=== PATIENT | female | born 1975 | race Caucasian/White ===

== ENCOUNTER → 2018-10-12 | Outpatient (REF) | payer BC ==
[2018-10-13 12:53] LABS: BASO # 0.1 10^3/uL (0.0-0.2); BASO % 1.1 % (0.0-1.0); EOS # 0.2 10^3/uL (0.0-0.50); EOS % 2.6 % (0.0-3.0); HEMATOCRIT 40.3 % (36.0-47.0); HEMOGLOBIN 12.6 g/dl (12.0-15.5); LYMPH # 2.4 10^3/uL (1.5-4.5); LYMPH % 33.2 % (24.0-44.0); MEAN CORPUSCULAR HEMOGLOBIN 27.6 pg (27.0-33.0); MEAN CORPUSCULAR HGB CONC 31.3 g/dl (32.0-36.5); MEAN CORPUSCULAR VOLUME 88.4 fl (80.0-96.0); MONO # 0.7 10^3/uL (0.0-0.8); MONO % 10.1 % (0.0-5.0); NEUTROPHILS # 3.8 10^3/uL (1.8-7.7); NEUTROPHILS % 52.9 % (36.0-66.0); PLATELET COUNT, AUTOMATED 236 10^3/uL (150-450); RED BLOOD COUNT 4.56 10^6/uL (4.00-5.40); WHITE BLOOD COUNT 7.3 10^3/uL (4.0-10.0)
[2018-10-13 13:09] LABS: ALBUMIN 3.8 GM/DL (3.2-5.2); ALT/SGPT 26 U/L (12-78); BILIRUBIN,TOTAL 0.2 MG/DL (0.2-1.0); BLOOD UREA NITROGEN 15 MG/DL (7-18); CALCIUM LEVEL 8.6 MG/DL (8.5-10.1); CARBON DIOXIDE LEVEL 28 MEQ/L (21-32); CHLORIDE LEVEL 104 MEQ/L (98-107); CHOLESTEROL LEVEL 224 MG/DL (<200); CHOLESTEROL RISK RATIO 3.154 (<5); CREATININE FOR GFR 0.74 MG/DL (0.55-1.30); GLOMERULAR FILTRATION RATE > 60.0 (>58); GLUCOSE, FASTING 86 MG/DL (70-100); HDL CHOLESTEROL 71 MG/DL (>40); IRON (FE) 26 UG/DL (50-170); LDL CHOLESTEROL 115 MG/DL (<100); NON-HDL-C 153 MG/DL; POTASSIUM SERUM 3.9 MEQ/L (3.5-5.1); RHEUMATOID FACTOR QUANT < 10.0 IU/ML (<15.0); SODIUM LEVEL 139 MEQ/L (136-145); THYROID STIMULATING HORMONE 0.752 uIU/ML (0.358-3.740); TOTAL PROTEIN 7.2 GM/DL (6.4-8.2); TRIGLYCERIDES LEVEL 190 MG/DL (<150)
[2018-10-13 13:12] LABS: VITAMIN B12 LEVEL 404 PG/ML (247-911)
[2018-10-13 13:26] LABS: ERYTHROCYTE SEDIMENTATION RATE 12 mm/hr (0-20)
[2018-10-16 14:43] LABS: ANA (HEP2) Negative (.); VITAMIN D 1,25 DIHYDROXY 47.4 pg/mL (19.9-79.3)
== END ==
LOC: M SFHCCLAY 15:43
PROVIDERS: ATTEND Nurse Practitioner Family
DX: Z00.00 Encounter for general adult medical examination without abnormal findings (principal); F41.9 Anxiety disorder, unspecified; K21.9 Gastro-esophageal reflux disease without esophagitis; Z98.84 Bariatric surgery status; K91.2 Postsurgical malabsorption, not elsewhere classified; Z13.220 Encounter for screening for lipoid disorders; M25.50 Pain in unspecified joint

== ENCOUNTER → 2020-01-08 | Outpatient (CLI) | payer BC ==
--- NOTE | 2020-01-08 14:11 | REPMRS ---
Patient History The patient states she had a clinical breast exam in 01/2020. No known family history of cancer. No Hormone Replacement Therapy 3D TOMOSYNTHESIS WAS PERFORMED. [facility] lifetime risk for breast cancer is 9.5%. Geri arriola Digital Woman Screen Mammo: January 08, 2020 - Exam #: [id number] Bilateral CC and MLO view(s) were taken. Technologist: Kassandra Rivero, Technologist Prior study comparison: 2018, bilateral digital mammo screening bilat, performed at [facility]. FINDINGS: The breast tissue is extremely dense which could obscure a lesion on mammography. There has been no change in the appearance of the mammogram from the prior studies. There is a moderate amount of residual fibroglandular tissue which is fairly symmetric. There is no interval development of dominant mass, areas of architectural distortion, or clustered microcalcification typical of malignancy. No significant changes when compared with prior studies. Assessment: BI-RADS/ACR category 1 mammogram. Negative Mammogram. Recommendation Routine screening mammogram in 1 year (for women over age 40). This mammogram was interpreted with the aid of an FDA-approved computer-aided dectection system. Electronically Signed By: Dheeraj Gomez MD 01/08/20 [id number]
== END ==
LOC: M WHC 13:02
PROVIDERS: ATTEND Nurse Practitioner Women's Health
DX: Z12.31 Encounter for screening mammogram for malignant neoplasm of breast (principal)

== ENCOUNTER → 2020-01-08 | Outpatient (REF) | payer BC | LOC: M SFHCWAGY 13:30 | PROVIDERS: ATTEND Nurse Practitioner Women's Health | DX: Z12.4 Encounter for screening for malignant neoplasm of cervix (principal) | CPT/HCPCS: 87624; G0123 ==

== ENCOUNTER 2020-05-15 14:08 | Inpatient (IN) | payer BC ==
[~2020-05-15] VITALS: Ht 167.6 cm; Wt 102.7 kg
--- OUTSIDE RECORDS SUMMARY | 2020-05-15 14:17 | CCD ---
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 ALLERGIES Allergen (clinical drug ingredient) Drug/Non Drug Allergy do cumented on EMR Reaction Allergy Type Onset Date Status IV Reglan SOB, Tachy Non Drug Allergy Active ENCOUNTERS from 1975 to 2020-04-23 Encounter Location Date Provider Diagnosis [facility] [address] [place] [id number] Apr Rose Baron IMMUNIZATIONS Vaccine Route Administration Date Status TDAP 0.5mL (Boostrix) IM Intramuscular Mar 15, 2017 Administe red Influenza (6mo & up) Fluzone Unknown Feb 07, 2017 Adm inistered Influenza (6mo & up) Fluzone Unknown Mar 01, 2016 Adm inistered SOCIAL HISTORY Tobacco Use: Social History Observation Description Date Details (start date - stop date) Never Smoker Sex Assigned At : Social History Observation Description Sex Assigned At Unknown Language: Question Answer Notes Languages spoken: Latvian Pentecostalism: Question Answer Notes Pentecostalism No uatsdin beliefs that would impact health care. Sexual Hx: Question Answer Notes Had sex in the last 12 months (vaginal, oral, or anal)? Yes Have you ever had an STD? No Alcohol Screening: Question Answer Notes Did you have a drink containing alcohol in the past year? Ye s Points 5 Interpretation Positive How often did you have six or more drinks on one occas ion in the past year? Monthly (2 points) How many drinks did you have on a typica l day when you were drinking in the past year? 5 or 6 (2 points) How often did you have a drink containing alcohol in t he past year? Monthly or less (1 point) BMI Care Goal Follow-Up Question Answer Notes Above Normal BMI Follow-Up Lifestyle education regarding t Tobacco Use: Question Answer Notes Are you a: never smoker REASON FOR REFERRAL No Information VITAL SIGNS No information MEDICATIONS Medication SIG (Take, Route, Frequency, Duration) Notes Start Da te End Date Status Flintstones Plus Iron 2 tabs Orally Once a day Not-Taking Clonazepam 0.5 MG 1 tablet as needed Orally bid for 5 day(s) Apr, Active Celexa 10 MG 1 tab Orally Once a day for 90 days Active Flonase Allergy Relief 50 MCG/ACT 1 spray in each nost ril Nasally Once a day as needed Not-Taking Metoprolol Tartrate 25 MG 1 tablet with food Orally Twice a day for 30 day(s) Active PROCEDURES No Information RESULTS No Results REASON FOR VISIT No Information MEDICAL (GENERAL) HISTORY Type Description Date Medical History Hypoglycemia Medical History Seizure related to hypoglycemia Medical History Obesity Medical History Nasal fracture /right orbital fracture a fter seizure Medical History Anxiety Medical History Lyme Disease- tx with Doxycycline x 2 we eks Surgical History Left hip pinning Slipped epi physis- pin removed 2 years later 1988 Surgical History D & C - non-viable fetus Surgical History gastric bypass 2009 Surgical History Hysteroscopy 09/2016 Hospitalization History after seizure/nasal fracture 2010 Hospitalization History childbirth Hospitalization History hip pinning Goals Section No Information Health Concerns No Information MEDICAL EQUIPMENT No Information MENTAL STATUS No Information FUNCTIONAL STATUS No Information ASSESSMENTS No Information PLAN OF TREATMENT Medication Medication Name Sig Start Date Stop Date Clonazepam 0.5 MG 1 tablet as needed Orally bid for 5 day(s) Apr, Next Appt Details Provider Name:Rose Baron, 05-13 03:30:00 PM, [address] [place], [address], Insurance Providers Payer Name Payer Address Payer Phone Insured Name Patient Relati onship to Insured Coverage Start Date Coverage End Date [facility] [place] [address] [address] [place] [address] SUSAN RENDON [id number]
--- OUTSIDE RECORDS SUMMARY | 2020-05-15 14:17 | CCD ---
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 ALLERGIES Allergen (clinical drug ingredient) Drug/Non Drug Allergy do cumented on EMR Reaction Allergy Type Onset Date Status IV Reglan SOB, Tachy Non Drug Allergy Active ENCOUNTERS from 1975 to 2020-04-28 Encounter Location Date Provider Diagnosis [facility] [address] [place] [id number] Apr Rose Baron Tachycardia R00.0 and HTN (hypertension) , benign I10 IMMUNIZATIONS Vaccine Route Administration Date Status TDAP [...] Unknown Language: Question Answer Notes Languages spoken: Kazakh Faith: Question Answer Notes Faith No mandaen beliefs that would impact health care. Sexual [...] REASON FOR REFERRAL No Information VITAL SIGNS Weight 231 lbs Apr, Height 65.5 in Apr, BMI 37.85 kg/m2 Apr, Heart Rate 66 /min Apr, Respiratory Rate 16 /min Apr, Temperature 98.2 degrees Fahrenheit Apr, Oximetry 99 Apr, Blood pressure systolic 129 mm Hg Apr, Blood pressure diastolic 83 mm Hg Apr, MEDICATIONS Medication SIG (Take, Route, Frequency, Duration) [...] 30 day(s) Active PROCEDURES No Information RESULTS Component Value Reference Range Carotid Ultrasound Reviewed date:04/24/2020 10:41:48 Interpretation: Performing Lab:[facility], [place] [address] REASON FOR VISIT rh obs f/u MEDICAL (GENERAL) HISTORY Type Description Date Medical [...] Hysteroscopy 09/2016 Hospitalization History after seizure/nasal fracture 2009 Hospitalization History childbirth Hospitalization History hip pinning Goals Section No Information Health Concerns No Information MEDICAL EQUIPMENT No Information MENTAL STATUS No Information FUNCTIONAL STATUS No Information ASSESSMENTS Encounter Date Diagnosis Assessment Notes Treatment Notes Treatm ent Clinical Notes Apr, Tachycardia (ICD-10 - R00.0) Reviewed limiting caffeine, salt, sugars in diet. Will eval holter monitor, carotid US. Apr, HTN (hypertension), benign (ICD-10 - I10) stable BP. Continue with Metoprolol 12.5 mg po bid. PLAN OF TREATMENT Medication Medication Name Sig Start Date Stop Date Clonazepam 0.5 MG 1 tablet as needed Orally bid for 5 day(s) Apr, Treatment Notes Assessment Notes Clinical Notes Tachycardia Reviewed limiting ca ffeine, salt, sugars in diet. Will eval holter monitor, carotid US. HTN (hypertension), benign stable BP. Co ntinue with Metoprolol 12.5 mg po bid. Treatment Notes Test Name Order Date holter monitor 2020-04-28 Next Appt Details 2-4 weeks Reason: Provider Name:Rose Baron, 05-13 03:30:00 PM, [address] [place], [phone], Insurance Providers Payer Name Payer Address Payer Phone Insured Name Patient Relati onship to Insured Coverage Start Date Coverage End Date [facility] [address] [facility] [id number] SUSAN RENDON [id number]
--- OUTSIDE RECORDS SUMMARY | 2020-05-15 14:17 | CCD | Continuity of Care Document ---
Author Author [facility] Address [address] [place] [address] Phone Care Team Providers Care Spectroscopist Name Role Phone SOUMYA ACOSTA PCP Allergies, Adverse Reactions, Alerts No allergy information available. Medications No medication information available. Problems No problem information available. Procedures Procedure Date Performed Status CHEST 1 VIEW April 19, 2020 completed CAROTID DOPPLER BILATERAL April 24, 2020 completed ABD/PEL WITH ORAL AND IV May 08, 2020 completed Relevant Diagnostic Tests and/or Laboratory Data Laboratory Results Test Date/Time Result Interpretation Reference Range Result Co mment Performing Site White Blood Count May 08, 2020 11:50am 11.7 4.0-10 .0 [facility] Main Lab, [address] [place] [address] Red Blood Count May 08, 2020 11:50am 4.08 4.00-5.5 0 [facility] Main Lab, 4 [facility] [address] Hemoglobin May 08, 2020 11:50am 11.8 12.0-16.0 [facility] Main Lab, 4 [facility] [address] Hematocrit May 08, 2020 11:50am 35.7 36.0-48.8 [facility], [address] [place] [address] Mean Corpuscular Volume May 08, 2020 11:50am 87.5 80-96 [facility] Main Lab, 4 [facility] [address] Mean Corpuscular Hemoglobin May 08, 2020 11:50am 28.9 27.0-31.0 [facility] Main Lab, 4 [facility] [address] Mean Corpuscular Hgb Concent Diff May 08, 2020 11:50am 33.1 32.0-36.0 [facility] Main Lab, 4 [facility] [address] Red Cell Distribution Width May 08, 2020 11:50am 11.6 10.0-14.5 [facility] Main Lab, [address] [place] [address] Platelet Count May 08, 2020 11:50am 276 172-450 [facility] Main Lab, 4 [facility] [address] Mean Platelet Volume May 08, 2020 11:50am 9.7 9.0 -13.0 [facility] Main Lab, 4 [facility] [address] Granulocytes % (Auto) May 08, 2020 11:50am 79.6 50 -80.0 [facility] Main Lab, [address] [place] [address] Immature Granulocytes % May 08, 2020 11:50am 0.5 0.0-0.2 [facility] Main Lab, 4 [facility] [address] Lymphocytes % May 08, 2020 11:50am 12.4 25.0-50.0 [facility] Main Lab, 4 [facility] [address] Monocytes % May 08, 2020 11:50am 6.9 2.0-10.0 [facility] Main Lab, 4 [facility] [address] Eosinophils % May 08, 2020 11:50am 0.4 0-5.0 [facility] Main Lab, 4 [facility] [address] Basophils % May 08, 2020 11:50am 0.2 0.0-2.0 [facility] Main Lab, 4 [facility] [address] Granulocytes # May 08, 2020 11:50am 9.3 2.0-8.00 [facility] Main Lab, 4 [facility] [address] Immature Granulocytes # May 08, 2020 11:50am 0.1 0.0-0.2 [facility] Main Lab, 4 [facility] [address] Lymphocytes # May 08, 2020 11:50am 1.5 1.0-5.0 [facility] Main Lab, 4 [facility] [address] Monocytes # May 08, 2020 11:50am 0.8 0.10-1.20 [facility] Main [facility], 4 [facility] [address] Eosinophils # May 08, 2020 11:50am 0.1 0.0-0.5 [facility] Main Lab, 4 [facility] [address] Basophils # May 08, 2020 11:50am 0.0 0.0-0.2 [facility] Main [facility], 4 [facility] [address] D-Dimer April 19, 2020 4:26pm < 0.19 0.19-0.60 [facility] Main Lab, 4 [facility] [address] Urine Color May 08, 2020 12:48pm [facility] Main Lab, 4 [facility] [address] Urine Appearance May 08, 2020 12:48pm CLEAR [facility] Main Lab, 4 [facility] [address] Urine Glucose May 08, 2020 12:48pm NEGATIVE NEGATIVE [facility] Main Lab, 4 [facility] [address] Urine Bilirubin May 08, 2020 12:48pm NEGATIVE NEGATIVE [facility] Main Lab, 4 [facility] [address] Urine Ketones May 08, 2020 12:48pm NEGATIVE NEGATIVE [facility] Main Lab, 4 [facility] [address] Specific [place] May 08, 2020 12:48pm 1.015 1.001-1 .035 [facility] Main Lab, 4 [facility] [address] Urine Blood May 08, 2020 12:48pm NEGATIVE NEGATIVE [facility] Main Lab, 4 [facility] [address] Urine pH May 08, 2020 12:48pm 7.0 5.0-9.0 [facility] Main Lab, 4 [facility] [address] Urine Protein May 08, 2020 12:48pm NEGATIVE NEGATIVE [facility] Main Lab, 4 [facility] [address] Urine Urobilinogen May 08, 2020 12:48pm NORMAL(0.2-1) 0 -1 [facility] Main Lab, 4 [facility] [address] Urine Nitrite May 08, 2020 12:48pm NEGATIVE NEGATIVE [facility] Main Lab, 4 [facility] [address] Urine Leukocyte Esterase May 08, 2020 12:48pm NEGATIVE NEGATIVE [facility] Main Lab, 4 [facility] [address]132 Glucose Level May 08, 2020 11:50am 92 74-106 [facility] Main Lab, 4 [facility] [address]245 Lactic Acid Level May 08, 2020 11:50am 1.0 0.4-2. 0 [facility] Main Lab, 4 [facility] [address] Blood Urea Nitrogen May 08, 2020 11:50am 7 7-18 [facility] Main Lab, 4 [facility] [address] Creatinine May 08, 2020 11:50am 0.82 0.6-1.0 [facility] Main Lab, 4 [facility] [address] Sodium Level May 08, 2020 11:50am 138 136-145 [facility] Main Lab, 4 [facility] [address] Potassium Level May 08, 2020 11:50am 3.6 3.5-5.1 [facility] Main Lab, 4 [facility] [address] Chloride Level May 08, 2020 11:50am 98 98-107 [facility] Main Lab, 4 [facility] [address] Carbon Dioxide Level May 08, 2020 11:50am 30 21- 32 [facility] Main Lab, 4 [facility] [address] Calcium Level May 08, 2020 11:50am 9.0 8.5-10.1 [facility], [address] [place] [address] Anion Gap May 08, 2020 11:50am 10.0 5-12 [facility] Main Lab, 4 [facility] [address] Estimated GFR (MDRD) May 08, 2020 11:50am 75 GFR IS CALCULATED IN mL/min/1.73m2 NORMAL FUNCTION: >90MILDLY DECREASED: 60-89MILDY TO MODERATELY DECREASED: 45-59 MODERATELY TO SEVERELY DECREASED: 30-44SEVERELY DECREASED: 15-29RENAL FAILURE: <15 [facility] Main Lab, 4 [facility] [address] Aspartate Amino Transf (AST/SGOT) May 08, 2020 11:50am 17 15-37 [facility] Main Lab, 4 [facility] [address] Alanine Aminotransferase (ALT/SGPT) May 08, 2020 11:50am 24 12-78 [facility] Lab, 4 [facility] [address] Alkaline Phosphatase May 08, 2020 11:50am 67 46- 116 [facility] Main Lab, 4 [facility] [address]187 Total Bilirubin May 08, 2020 11:50am 0.4 0.2-1.0 [facility] Main Lab, 4 [facility] [address] Total Protein May 08, 2020 11:50am 7.4 6.4-8.2 [facility] Main Lab, 4 [facility] 62786 Albumin May 08, 2020 11:50am 2.8 3.4-5.0 [facility] Main Lab, 4 [facility] 68388 Lipase May 08, 2020 11:50am 78 73-393 [facility] Main Lab, 4 [facility] [address]171 Troponin I April 20, 2020 6:45am < 0.017 0.0-0.056 [facility] Main Lab, 4 [facility] [address] Thyroid Stimulating Hormone (TSH) April 19, 2020 4:26pm 2.236 0.36-3.74 [facility] Main Lab, 4 [facility] [address] Magnesium Level April 19, 2020 4:26pm 1.9 1.8-2.4 [facility] Main Lab, 4 [facility] [address] Coronavirus (COVID-19)(PCR) April 19, 2020 4:40pm NEGATIVE NEGATIVE Negative results should be treated as presumptive and, ifinconsistent with clinical signs and symptoms or necessaryfor patient management, should be tested with differentauthorized or cleared molecular tests.Negative results do not preclude SARS-CoV-2 infection andshould not be used as the sole basis for patient managementdecisions.This is a rapid molecular in vitro diagnostic test utilizingan isothermal nucleic acid amplification technology intendedfor the qualitative detection of nucleic acid from the SARS-CoV-2 viral RNA in direct nasal, nasopharyngeal orthroat swabs from individuals who are suspected of COVID-19.Results are for the indentification of SARS-CoV-2 RNA. [id number] RNA is generally detectable in respiratorysamples during the actue phase of infection. [facility], [address] [facility] [address] Urine HCG, Qualitative May 08, 2020 12:48pm NEGATIVE N EGATIVE [facility] Main [facility], [address] [facility] [address]874 Stool Campylobacter PCR March 03, 2020 6:11am Not Detected Not [facility] Lab, [address] [place] [address] Clostridium difficile (PCR)(LAB) March 03, 2020 6:11am Not Detect ed Not Due to the high asymptomatic carriage rates, especiallyin young children, the clinical relevance of the detectionof toxigenic C. difficile from stool should be consideredin the context of other clinical findings, patient age, andrisk factores which include hospitalization and antibioticexposure. [facility], [address] [facility] [address] Stool Plesiomonas shigelloides PCR March 03, 2020 6:11am DETECTED Not [facility], [address] [place] [address] Salmonella (PCR) March 03, 2020 6:11am Not Detected Not [facility], 4 [facility] [address] Stool Vibrio (PCR) March 03, 2020 6:11am Not Detected No t [facility], 4 [facility] [address] Stool Vibrio cholera (PCR) March 03, 2020 6:11am Not Detected Not [facility], [address] [address] Stool Yersinia enterocolitica (PCR) March 03, 2020 6:11am Not D etected Not [facility] Lab, [address] [place] [address] Stool Enteroaggregative E coli PCR March 03, 2020 6:11am Not Dete cted Not [facility], 4 [facility] [address] Stool Enteropathogenic E. coli (PCR March 03, 2020 6:11am Not D etected Not [facility] Lab, [address] [place] [address] Stool Enterotoxigenic Ecoli PCR March 03, 2020 6:11am Not Detected Not [facility] Lab, [address] [facility] [address] Stool Shiga-like Toxin 1 (PCR) March 03, 2020 6:11am Not Detected Not [facility] Lab, [address] [place] [address] Stool E coli O157 PCR March 03, 2020 6:11am Not Detected Not [facility] Lab, [address] [place] [address] Stool Shigella/EIEC (PCR) March 03, 2020 6:11am Not Detected Not [facility], [address] [place] [address] Stool Cryptosporidium PCR March 03, 2020 6:11am Not Detected Not [facility] Lab, [address] [place] [address] Stool Cyclospora cayetanensis (PCR) March 03, 2020 6:11am Not D etected Not [facility] Main Lab, 4 [facility] [address] Stool Entamoeba histolytica (PCR) March 03, 2020 6:11am Not Detec perla Not [facility] Main Lab, [address] [place] [address] Stool Giardia Lamblia PCR March 03, 2020 6:11am Not Detected Not [facility] Lab, [address] [place] [address] Stool Adenovirus F 40/41 (PCR) March 03, 2020 6:11am Not Detected Not [facility] Lab, [address] [place] [address] Stool Astrovirus (PCR) March 03, 2020 6:11am Not Detected Not [facility] Lab, [address] [place] [address] Stool Norovirus GI/GII PCR March 03, 2020 6:11am Not Detected Not [facility] Lab, [address] [place] [address] Stool Rotavirus A PCR March 03, 2020 6:11am Not Detected Not [facility] Lab, [address] [place] [address] Staphylococcus saprophyticus (PCR) March 03, 2020 6:11am Not Dete cted Not The Above results have been determined by using the [employer] system.FilmArray is an automated in vitro diagnostic system thatutilizes nested multiplex Polymerase Chain Reaction (PCR)and high-resolution melting analysis to detect and identifymultiple nucleic acid targets from clinical specimens. [facility] Lab, [address] [place] [address] Adenovirus (PCR) May 08, 2020 1:37pm Not Detected Not [facility], [address] [place] [address] Coronavirus Type 229E (PCR) May 08, 2020 1:37pm Not Detected Not [facility] Main Lab, 4 [facility] [address] Coronavirus Type HKU1 (PCR) May 08, 2020 1:37pm Not Detected Not [facility] Main Lab, [address] [facility] [address] Coronavirus Type NL63 (PCR) May 08, 2020 1:37pm Not Detected Not [facility] Main Lab, 4 [facility] [address] Coronavirus Type OC43 (PCR) May 08, 2020 1:37pm Not Detected Not [facility] Lab, [address] [facility] [address] Coronavirus (COVID-19)(PCR) May 08, 2020 1:37pm Not Detected Not [facility] Main Lab, [address] [facility] [address] Human Metapneumovirus (PCR) May 08, 2020 1:37pm Not Detected Not [facility] Main Lab, 4 [facility] [address] Rhinovirus (PCR) May 08, 2020 1:37pm Not Detected Not [facility] Lab, 4 [facility] [address] Influenza Type A (RT-PCR) May 08, 2020 1:37pm Not Detected Not [facility] Lab, 4 [facility] [address] Influenza Type B (RT-PCR) May 08, 2020 1:37pm Not Detected Not [facility] Lab, [address] [facility] [address] Parainfluenza Type 1 (PCR) May 08, 2020 1:37pm Not Detected Not [facility] Lab, 4 [facility] [address] Parainfluenza Type 2 (PCR) May 08, 2020 1:37pm Not Detected Not [facility] Lab, 4 [facility] [address] Parainfluenza Type 3 (PCR) May 08, 2020 1:37pm Not Detected Not [facility] Lab, 4 [facility] [address] Parainfluenza Type 4 (PCR) May 08, 2020 1:37pm Not Detected Not [facility] Main Lab, 4 [facility] [address] Respiratory Syncytial Virus (PCR) May 08, 2020 1:37pm Not Detecte d Not [facility] Lab, [address] [facility] [address] Bordetella parapertussis DNA (PCR) May 08, 2020 1:37pm Not Detec perla Not [facility], [address] [place] [address] Bordetella pertussis DNA (PCR) May 08, 2020 1:37pm Not Detected Not [facility], [address] [place] [address] Chlamydia pneumoniae May 08, 2020 1:37pm Not Detected N ot [facility], [address] [place] [address] Mycoplasma pneumoniae May 08, 2020 1:37pm Not Detected Not The Above results have been determined by using the [employer] FilmArray system.FilmArray is an automated in vitro diagnostic system thatutilizes nested multiplex Polymerase Chain Reaction (PCR)and high-resolution melting analysis to detect and identifymultiple nucleic acid targets from clinical specimens. [facility], [address] [place] [address] Blood Culture (LAB) May 08, 2020 12:03pm SENT TO [facility], [address] [place] [address] Diagnostic Imaging Reports Report Dictated Date/Time Dictated By Status PS360 TEMPLATE April 19, 2020 5:36pm CORTEZ MCCULLOUGH eted Patient Name: SUSAN RENDON Unit#: [id number] Rad#: [id number] : 75 Status: PRE ER Ordering MD: PRO ROMERO Room/Bed Sex: F Sinter Machine Operator: César Mtz Date: 04/19/20 Report #: [id number] Signed - CHEST 1 VIEW ORIGINAL REPORT DATE OF EXAMINATION: 04/19/2020 21:44 EST CHEST 1 VIEW HISTORY: Chest pain and tachycardia TECHNIQUE: Single frontal radiograph of chest COMPARISON: None. FINDINGS: No evidence of focal consolidation, pneumothorax or large pleural effusion. Lungs are clear. Mediastinal structures are unremarkable. No aggressive osseous lesions. IMPRESSION: No focal consolidation. Electronically signed in PS360 by: Cortez Mccullough M.D. 04/19/2020 22:36 EST PS360 TEMPLATE April 24, 2020 4:20am ALDAIR NELSON Patient Name: SUSAN RENDON Unit#: [id number] Rad#: [id number] : 75 Status: NIKIA Soto MD: SOUMYA ACOSTA Room/Bed Sex: Everett MonteroSinter Machine Operator: Alvin Atwood Date: 04/24/20 Report #: [id number] Signed - CAROTID DOPPLER BILATERAL ORIGINAL REPORT DATE OF EXAMINATION: 04/24/2020 8:03 EST CAROTID DOPPLER BILATERAL HISTORY: Hypertension. Carotid stenosis. Duplex scan was performed using B-mode/ferrara scale imaging and Doppler spectral analysis and color flow. There is no significant plaque formation involving either carotid system. The vertebral arteries reveal normal flow. There is no stenosis or occlusion. IMPRESSION: Normal It should be emphasized that calcified plaque reduces the diagnostic accuracy of this study. Electronically signed in PS360 by: Aldair Nelson M.D. 04/24/2020 9:21 EST Health Concerns No known health concerns documented Chief Complaint and Reason for Visit Reason for Visit ABDOMINAL PAIN Encounters Encounter Location(s) Arrival/Admit Date Discharge/Depart Date Provider(s) Departed Emergency [facility] May 08, 2020 11:28am May 08, 2020 4:57pm SHERRELL DENSON Registered [facility] April 24, 2020 3:19am SOUMYA ACOSTA Discharged Inpatient [facility] April 19, 2020 4:1 5pm April 20, 2020 9:50am PRO ROMERO Registered Clinical [facility] March 03, 2020 6:28am KELLY COLORADO Registered Physician/Provider Office Visit [facility] March 03, 2020 5:30am KELLY ORNELAS Assessments No Assessments Information Available Functional Status No Functional Status information available Goals No Goals Information Available Immunizations No Immunization Information Available Mental Status No Mental Status Information Available Medical Equipment No Medical Equipment Information available Insurance Providers Guarantor SUSAN RENDON Address [address] [address] Contact Info. Home Phone: Payer Policy Id Coverage Id Subscriber's Name Subscriber Id Effect laurie Date Expiration Date BC[facility] OF [facility] [id number] GEORGE RENDON [facility] 2009 Social History Assigned Sex Female Vital Signs No vital signs result information available.
--- OUTSIDE RECORDS SUMMARY | 2020-05-15 14:17 | CCD | Continuity of Care Document ---
Author Author [facility] Address [address] [place] [address] Phone Care Team Providers Care Activity Therapy Teacher Name Role Phone SOUMYA ACOSTA PCP Allergies, Adverse Reactions, Alerts No allergy information available. Medications No medication information available. Problems No problem information available. Procedures Procedure Date Performed Status CHEST 1 VIEW April 19, 2020 completed Relevant Diagnostic Tests and/or Laboratory Data Laboratory Results Test Date/Time Result Interpretation Reference Range Result Co mment Performing Site White Blood Count April 20, 2020 12:30am 6.1 4.0- 10.0 [facility], [address] [place] [address] Red Blood Count April 20, 2020 12:30am 4.35 4.00-[address] [facility], [facility] [address] Hemoglobin April 20, 2020 12:30am 12.8 12.0-16.0 [facility], [facility] [address] Hematocrit April 20, 2020 12:30am 38.2 36.0-48.8 [facility], [facility] [address] Mean Corpuscular Volume April 20, 2020 12:30am 87.8 80-96 [facility], [facility] [address]367 Mean Corpuscular Hemoglobin April 20, 2020 12:30am 29.4 27.0-31.0 [facility], [facility] [address] Mean Corpuscular Hgb Concent Diff April 20, 2020 12:30am 33.5 32.0-36.0 [facility], [facility] [address]353 Red Cell Distribution Width April 20, 2020 12:30am 11.7 10.0-14.5 [facility], [facility] [address]26 Platelet Count April 20, 2020 12:30am 215 172-450 [facility], [facility] [address]94[address] Mean Platelet Volume April 20, 2020 12:30am 10.5 9 .0-13.0 [facility], [facility] [address] Granulocytes % (Auto) April 20, 2020 12:30am 57.6 50-80.0 [facility], [facility] [address]83 Immature Granulocytes % April 20, 2020 12:30am 0.2 0.0-0.2 [facility], [facility] 65015 Lymphocytes % April 20, 2020 12:30am 30.1 25.0-50. 0 [facility], [facility] [address]98 Monocytes % April 20, 2020 12:30am 10.7 2.0-10.0 [facility], [facility] [address] Eosinophils % April 20, 2020 12:30am 1.1 0-5.0 [facility], [facility] 26488 Basophils % April 20, 2020 12:30am 0.3 0.0-2.0 [facility], 4 [facility] [address]387 Granulocytes # April 20, 2020 12:30am 3.5 2.0-8.[address] [facility], [facility] [address] Immature Granulocytes # April 20, 2020 12:30am 0.0 0.0-0.2 [facility], 4 [facility] [address] Lymphocytes # April 20, 2020 12:30am 1.9 1.0-5.0 [facility], [facility] [address] Monocytes # April 20, 2020 12:30am 0.7 0.10-1.20 [facility], [facility] [address]196 Eosinophils # April 20, 2020 12:30am 0.1 0.0-0.5 [facility], [facility] [address]108 Basophils # April 20, 2020 12:30am 0.0 0.0-0.2 [facility], [facility] [address] D-Dimer April 19, 2020 4:26pm < 0.19 0.19-0.60 [facility], [facility] [address]403 Urine Color April 19, 2020 4:40pm YELLOW [facility], [facility] 34163 Urine Appearance April 19, 2020 4:40pm CLEAR [facility], [facility] [address] Urine Glucose April 19, 2020 4:40pm NEGATIVE NEGATIVE [facility], [facility] [address]1973 Urine Bilirubin April 19, 2020 4:40pm NEGATIVE NEGATIV E [facility], [facility] 98602 Urine Ketones April 19, 2020 4:40pm NEGATIVE NEGATIVE [facility], [facility] [address]100 Specific [place] April 19, 2020 4:40pm 1.015 1.001- 1.035 [facility], [facility] [address]23[address] Urine Blood April 19, 2020 4:40pm NEGATIVE NEGATIVE [facility], [facility] 47352 Urine pH April 19, 2020 4:40pm 7.0 5.0-9.0 [facility], [facility] [address]12[address] Urine Protein April 19, 2020 4:40pm NEGATIVE NEGATIVE [facility], [facility] [address]40 Urine Urobilinogen April 19, 2020 4:40pm 0.2 0-1 [facility], [facility] 58797 Urine Nitrite April 19, 2020 4:40pm NEGATIVE NEGATIVE [facility], [facility] 28442 Urine Leukocyte Esterase April 19, 2020 4:40pm NEGATIVE NEGATIVE [facility], [facility] [address]7588 Glucose Level April 20, 2020 12:30am 105 74-106 [facility], [facility] [address]379 Blood Urea Nitrogen April 20, 2020 12:30am 10 7- 18 [facility], [facility] [address] Creatinine April 20, 2020 12:30am 0.64 0.6-1.0 [facility], [facility] [address] Sodium Level April 20, 2020 12:30am 143 136-145 [facility], [facility] [address] Potassium Level April 20, 2020 12:30am 4.1 3.5-5. 1 [facility], [facility] [address] Chloride Level April 20, 2020 12:30am 105 98-107 [facility], [facility] [address]12 Carbon Dioxide Level April 20, 2020 12:30am 28 2 1-32 [facility], [facility] 86787 Calcium Level April 20, 2020 12:30am 9.0 8.5-10.1 [facility], [facility] 15648 Anion Gap April 20, 2020 12:30am 10.0 5-12 [facility], [facility] [address] Estimated GFR (MDRD) April 20, 2020 12:30am >90 GFR IS CALCULATED IN mL/min/1.73m2 NORMAL FUNCTION: >90MILDLY DECREASED: 60-89MILDY TO MODERATELY DECREASED: 45-59 MODERATELY TO SEVERELY DECREASED: 30-44SEVERELY DECREASED: 15-29RENAL FAILURE: <15 [facility], [facility] [address] Aspartate Amino Transf (AST/SGOT) April 19, 2020 4:26pm 24 15-37 [facility], [facility] [address]05 Alanine Aminotransferase (ALT/SGPT) April 19, 2020 4:26pm 27 12-78 [facility], [facility] [address] Alkaline Phosphatase April 19, 2020 4:26pm 79 46 -116 [facility], [facility] 631[address] Total Bilirubin April 19, 2020 4:26pm 0.2 0.2-1.0 [facility], [facility] [address]45[address] Total Protein April 19, 2020 4:26pm 7.5 6.4-8.2 [facility], [facility] [address] Albumin April 19, 2020 4:26pm 4.0 3.4-5.0 [facility], [facility] [address]64 Troponin I April 20, 2020 6:45am < 0.017 0.0-0.056 [facility], [facility] [address]018 Thyroid Stimulating Hormone (TSH) April 19, 2020 4:26pm 2.236 0.36-3.74 [facility], [facility] [address] Magnesium Level April 19, 2020 4:26pm 1.9 1.8-2.4 [facility], [facility] [address] Coronavirus (COVID-19)(PCR) April 19, 2020 4:40pm NEGATIVE [...] are for the indentification of SARS-CoV-2 RNA. NrvSXJL-CbP-4 RNA is generally detectable in respiratorysamples during the actue phase of infection. [facility], [facility] [address] Stool Campylobacter PCR March 03, 2020 6:11am Not Detected Not [facility], [facility] [address] Clostridium difficile (PCR)(LAB) March 03, 2020 6:11am Not Detect ed Not Due to the high asymptomatic carriage rates, especiallyin young children, the clinical relevance of the detectionof toxigenic C. difficile from stool should be consideredin the context of other clinical findings, patient age, andrisk factores which include hospitalization and antibioticexposure. [facility], [facility] [address] Stool Plesiomonas shigelloides PCR March 03, 2020 6:11am DETECTED Not [facility], [address] [place] [address] Salmonella (PCR) March 03, 2020 6:11am Not Detected Not [facility], [address] [place] [address] Stool Vibrio (PCR) March 03, 2020 6:11am Not Detected No t [facility], [address] [place] [address] Stool Vibrio cholera (PCR) March 03, 2020 6:11am Not Detected Not [facility], [address] [place] [address] Stool Yersinia enterocolitica (PCR) March 03, 2020 6:11am Not D etected Not [facility], [address] [place] [address] Stool Enteroaggregative E coli PCR March 03, 2020 6:11am Not Dete cted Not [facility], [facility] [address] Stool Enteropathogenic E. coli (PCR March 03, 2020 6:11am Not D etected Not [facility], [address] [place] [address] Stool Enterotoxigenic Ecoli PCR March 03, 2020 6:11am Not Detected Not [facility], [address] [place] [address] Stool Shiga-like Toxin 1 (PCR) March 03, 2020 6:11am Not Detected Not [facility], [address] [place] [address] Stool E coli O157 PCR March 03, 2020 6:11am Not Detected Not [facility], [address] [place] [address] Stool Shigella/EIEC (PCR) March 03, 2020 6:11am Not Detected Not [facility], [address] [place] [address] Stool Cryptosporidium PCR March 03, 2020 6:11am Not Detected Not [facility], [facility] [address] Stool Cyclospora cayetanensis (PCR) March 03, 2020 6:11am Not D etected Not [facility], [address] [place] [address] Stool Entamoeba histolytica (PCR) March 03, 2020 6:11am Not Detec perla Not [facility], [address] [place] [address] Stool Giardia Lamblia PCR March 03, 2020 6:11am Not Detected Not [facility], [address] [place] [address] Stool Adenovirus F 40/41 (PCR) March 03, 2020 6:11am Not Detected Not [facility], [address] [place] [address] Stool Astrovirus (PCR) March 03, 2020 6:11am Not Detected Not [facility], [address] [place] [address] Stool Norovirus GI/GII PCR March 03, 2020 6:11am Not Detected Not [facility], [address] [place] [address] Stool Rotavirus A PCR March 03, 2020 6:11am Not Detected Not [facility], [address] [place] [address] Staphylococcus saprophyticus (PCR) March 03, 2020 6:11am Not Dete cted Not The Above results have been determined by using the [employer] system.[employer] is an automated in vitro diagnostic system thatutilizes nested multiplex Polymerase Chain Reaction (PCR)and high-resolution melting analysis to detect and identifymultiple nucleic acid targets from clinical specimens. [facility], [address] [place] [address] Health Concerns No known health concerns documented Chief Complaint and Reason for Visit Reason for Visit PALPITATIONS,HTN,SINUS TACH, HYPOKALEMIA,EKG CHANGE Encounters Encounter Location(s) Arrival/Admit Date Discharge/Depart Date Provider(s) Discharged Inpatient [facility] April 19, 2020 4:1 5pm April 20, 2020 9:50am PRO ROMERO Registered Referral [facility] March 03, 2020 6:39am KELLY COLORADO Registered Clinical [facility] March 03, 2020 6:28am KELLY [place]ORADO Registered Physician/Provider Office Visit [facility] March 03, 2020 5:30am KELLY ORNELAS Assessments No Assessments Information Available Functional Status No Functional Status information available Goals No Goals Information Available Immunizations No Immunization Information Available Mental Status No Mental Status Information Available Medical Equipment No Medical Equipment Information available Insurance Providers Guarantor SUSAN RENDON Address [address] [place] [address] Contact Info. Home Phone: Payer Policy Id Coverage Id Subscriber's Name Subscriber Id Effect laurie Date Expiration Date [employer] [place] [id number] GEORGE RENDON [facility] 2009 Social History Assigned Sex Female Vital Signs No vital signs result information available.
--- OUTSIDE RECORDS SUMMARY | 2020-05-15 14:17 | CCD ---
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 [address] [place] [id number] May Rose Baron IMMUNIZATIONS Vaccine Route Administration Date [...] Unknown Language: Question Answer Notes Languages spoken: Slovenian Sabianism: Question Answer Notes Sabianism No yarsanism beliefs that would impact health care. Sexual [...] Baron, 05-13 03:30:00 PM, [address] [place], [address], Insurance Providers Payer Name Payer Address Payer Phone Insured Name Patient Relati onship to Insured Coverage Start Date Coverage End Date NORBERT [place]ART[place] [address] [address] [place] [address] SUSAN RENDON [id number]
--- OUTSIDE RECORDS SUMMARY | 2020-05-15 14:18 | CCD ---
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 Problem Encounter for administrative examinations Z02.9 Active 208685720 Problem GERD (gastroesophageal reflux disease) K21.9 A ctive 547826052 Problem Anxiety F41.9 Active 60459683 ALLERGIES Allergen (clinical drug ingredient) Drug/Non Drug Allergy do cumented on EMR Reaction Allergy Type Onset Date Status IV RegJose Paz Non Drug Allergy Active ENCOUNTERS from 1975 to 2020-04-09 Encounter Location Date Provider Diagnosis [address] [address] Apr Juan Kizzy Anxiety F41.9 IMMUNIZATIONS Vaccine Route Administration Date Status TDAP [...] Unknown Language: Question Answer Notes Languages spoken: Azeri Mu-Ism: Question Answer Notes Mu-Ism No taoist beliefs that would impact health care. Sexual [...] Notes Start Da te End Date Status Flonase Allergy Relief 50 MCG/ACT 1 spray in each nost ril Nasally Once a day as needed Active Celexa 10 MG 1 tab Orally Once a day for 90 days Active Flintstones Plus Iron 2 tabs Orally Once a day Active PROCEDURES No Information RESULTS No Results REASON FOR VISIT renewal MEDICAL (GENERAL) HISTORY Type Description Date Medical [...] Treatment Notes Treatm ent Clinical Notes Apr, Anxiety (ICD-10 - F41.9) PLAN OF TREATMENT Medication Medication Name Sig Start Date Stop Date Celexa 10 MG 1 tab Orally Once a day for 90 days Insurance Providers Payer Name Payer Address Payer Phone Insured Name Patient Relati onship to Insured Coverage Start Date Coverage End Date BS [place] [employer] [address] [place] [address] SUSAN RENDON [id number]
--- OUTSIDE RECORDS SUMMARY | 2020-05-15 14:19 | CCD ---
Author Author [facility] Organization [facility] Address Unknown Phone Unavailable Care Team Providers Care Sales Office Assistant Name Role Phone Darren CHEUNG MD Unavailable Unavailable Darren CHEUNG MD Unavailable Unavailable Darren CHEUNG MD Unavailable Unavailable Darren CHEUNG MD Unavailable Unavailable Darren CHEUNG MD Unavailable Unavailable Darren CHEUNG MD Unavailable Unavailable Darren CHEUNG MD Unavailable Unavailable Darren CHEUNG MD Unavailable Unavailable Darren CHEUNG MD Unavailable Unavailable Darren CHEUNG MD Unavailable Unavailable Darren CHEUNG MD Unavailable Unavailable Darren CHEUNG MD Unavailable Unavailable Darren CHEUNG MD Unavailable Unavailable Darren CHEUNG MD Unavailable Unavailable Darren CHEUNG MD Unavailable Unavailable Darren CHEUNG MD Unavailable Unavailable Darren CHEUNG MD Unavailable Unavailable Darren CHEUNG MD Unavailable Unavailable Darren CHEUNG MD Unavailable Unavailable HUIZENGA, Gold WYNNE DO Unavailable Unavailable HUIZENGA, Gold WYNNE DO Unavailable Unavailable HUIZENGA, Gold WYNNE DO Unavailable Unavailable HUIZENGA, Gold WYNNE DO Unavailable Unavailable HUIZENGA, Gold WYNNE DO Unavailable Unavailable HUIZENGA, Gold WYNNE DO Unavailable Unavailable HUIZENGA, Gold WYNNE DO Unavailable Unavailable HUIZENGA, Gold WYNNE DO Unavailable Unavailable HUIZENGA, Gold WYNEN DO Unavailable Unavailable HUIZENGA, Gold WYNNE DO Unavailable Unavailable HUIZENGA, Gold WYNNE DO Unavailable Unavailable HUIZENGA, Gold WYNNE DO Unavailable Unavailable HUIZENGA, Gold WYNNE DO Unavailable Unavailable HUIZENGA, Gold WYNNE DO Unavailable Unavailable HUIZENGA, Gold WYNNE DO Unavailable Unavailable HUIZENGA, Gold WYNNE DO Unavailable Unavailable HUIZENGA, Gold WYNNE DO Unavailable Unavailable HUIZENGA, Gold WYNNE DO Unavailable Unavailable HUIZENGA, Gold WYNNE DO Unavailable Unavailable HUIZENGA, Gold WYNNE DO Unavailable Unavailable HUIZENGA, Gold WYNNE DO Unavailable Unavailable HUIZENGA, Gold WYNNE DO Unavailable Unavailable HUIZENGA, Gold WYNNE DO Unavailable Unavailable HUIZENGA, Gold WYNNE DO Unavailable Unavailable HUIZENGA, Gold WYNNE DO Unavailable Unavailable HUIZENGA, Gold WYNNE DO Unavailable Unavailable HUIZENGA, Gold WYNNE DO Unavailable Unavailable HUIZENGA, Gold WYNNE DO Unavailable Unavailable HUIZENGA, Gold WYNNE DO Unavailable Unavailable HUIZENGA, Gold WYNNE DO Unavailable Unavailable HUIZENGA, Gold WYNNE DO Unavailable Unavailable HUIZENGA, Gold WYNNE DO Unavailable Unavailable HUIZENGA, Gold WYNNE DO Unavailable Unavailable HUIZENGA, Gold WYNNE DO Unavailable Unavailable HUIZENGA, Gold WYNNE DO Unavailable Unavailable HUIZENGA, Gold WYNNE DO Unavailable Unavailable HUIZENGA, Gold WYNNE DO Unavailable Unavailable HUIZENGA, Gold WYNNE DO Unavailable Unavailable HUIZENGA, Gold WYNNE DO Unavailable Unavailable HUIZENGA, Gold WYNNE DO Unavailable Unavailable HUIZENGA, Gold WYNNE DO Unavailable Unavailable HUIZENGA, Gold WYNNE DO Unavailable Unavailable HUIZENGA, Gold WYNNE DO Unavailable Unavailable HUIZENGA, Gold WYNNE DO Unavailable Unavailable HUIZENGA, Gold WYNNE DO Unavailable Unavailable HUIZENGA, Gold WYNNE DO Unavailable Unavailable HUIZENGA, Gold WYNNE DO Unavailable Unavailable HUIZENGA, Gold WYNNE DO Unavailable Unavailable HUIZENGA, Gold WYNNE DO Unavailable Unavailable HUIZENGA, Gold WYNNE DO Unavailable Unavailable HUIZENGA, Gold WYNNE DO Unavailable Unavailable HUIZENGA, Gold WYNNE DO Unavailable Unavailable HUIZENGA, Gold WYNNE DO Unavailable Unavailable HUIZENGA, Gold WYNNE DO Unavailable Unavailable HUIZENGA, oGld WYNNE DO Unavailable Unavailable HUIZENGA, Gold WYNNE DO Unavailable Unavailable HUIZENGA, Gold WYNNE DO Unavailable Unavailable HUIZENGA, Gold WYNNE DO Unavailable Unavailable HUIZENGA, Gold WYNNE DO Unavailable Unavailable HUIZENGA, Gold WYNNE DO Unavailable Unavailable HUIZENGA, Gold WYNNE DO Unavailable Unavailable HUIZENGA, Gold WYNNE DO Unavailable Unavailable HUIZENGA, Gold WYNNE DO Unavailable Unavailable HUIZENGA, Godl WYNNE DO Unavailable Unavailable HUIZENGA, Gold WYNNE DO Unavailable Unavailable HUIZENGA, Gold WYNNE DO Unavailable Unavailable HUIZENGA, Gold WYNNE DO Unavailable Unavailable HUIZENGA, Gold WYNNE DO Unavailable Unavailable HUIZENGA, Glod WYNNE DO Unavailable Unavailable HUIZENGA, Gold WYNNE DO Unavailable Unavailable HUIZENGA, Gold WYNNE DO Unavailable Unavailable HUIZENGA, Gold WYNNE DO Unavailable Unavailable Amanda, [phone] L Mary Ellen DOMINGUEZ Unavailable [phone] Amanda, [phone] L Mary Ellen MD Unavailable [phone] Amanda, [phone] L Mary Ellen MD Unavailable [phone] Amanda, [phone] L Mary Ellen MD Unavailable [phone] Amanda, [phone] L Mary Ellen MD Unavailable [phone] Amanda, [phone] L Mary Ellen MD Unavailable [phone] Amanda, [phone] L Mary Ellen MD Unavailable [phone] Amanda, [phone] L Mary Ellen MD Unavailable [phone] Amanda, [phone] L Mary Ellen MD Unavailable [phone] Amanda, [phone] L Mary Ellen MD Unavailable [phone] Amanda, [phone] Norma Hyed MD Unavailable [phone] Amanda, [phone] Norma Hyde MD Unavailable [phone] Amanda, [phone] Norma Hyde MD Unavailable [phone] Alberry, D Rose FISHERIES SPECIALIST Unavailable Unavailable Alberry, D Rose FISHERIES SPECIALIST Unavailable Unavailable Alberry, D Rose FISHERIES SPECIALIST Unavailable Unavailable Alberry, D Rose FISHERIES SPECIALIST Unavailable Unavailable Alberry, D Rose FISHERIES SPECIALIST Unavailable Unavailable Alberry, D Rose FISHERIES SPECIALIST Unavailable Unavailable Alberry, D Rose FISHERIES SPECIALIST Unavailable Unavailable Alberry, D Rose FISHERIES SPECIALIST Unavailable Unavailable Alberry, D Rose FISHERIES SPECIALIST Unavailable Unavailable Alberry, D Rose FISHERIES SPECIALIST Unavailable Unavailable Alberry, D Rose FISHERIES SPECIALIST Unavailable Unavailable Alberry, D Rose FISHERIES SPECIALIST Unavailable Unavailable Alberry, D Rose FISHERIES SPECIALIST Unavailable Unavailable Alberry, D Rose FISHERIES SPECIALIST Unavailable Unavailable Alberry, D Rose FISHERIES SPECIALIST Unavailable Unavailable Alberry, D Rose FISHERIES SPECIALIST Unavailable Unavailable Alberry, D Rose FISHERIES SPECIALIST Unavailable Unavailable Alberry, D Rose FISHERIES SPECIALIST Unavailable Unavailable Alberry, D Rose FISHERIES SPECIALIST Unavailable Unavailable Alberry, D Rose FISHERIES SPECIALIST Unavailable Unavailable Alberry, D Rose FISHERIES SPECIALIST Unavailable Unavailable Alberry, D Rose FISHERIES SPECIALIST Unavailable Unavailable Alberry, D Rose FISHERIES SPECIALIST Unavailable Unavailable Alberry, D Rose FISHERIES SPECIALIST Unavailable Unavailable Alberry, D Rose FISHERIES SPECIALIST Unavailable Unavailable Alberry, D Rose FISHERIES SPECIALIST Unavailable Unavailable Alberry, D Rose FISHERIES SPECIALIST Unavailable Unavailable Alberry, D Rose FISHERIES SPECIALIST Unavailable Unavailable Alberry, D Rose FISHERIES SPECIALIST Unavailable Unavailable Alberry, D Rose FISHERIES SPECIALIST Unavailable Unavailable Alberry, D Rose FISHERIES SPECIALIST Unavailable Unavailable Alberry, D Rose FISHERIES SPECIALIST Unavailable Unavailable Alberry, D Rose FISHERIES SPECIALIST Unavailable Unavailable Alberry, D Rose FISHERIES SPECIALIST Unavailable Unavailable Alberry, D Roes FISHERIES SPECIALIST Unavailable Unavailable Alberry, D Rose FISHERIES SPECIALIST Unavailable Unavailable Alberry, D Rose FISHERIES SPECIALIST Unavailable Unavailable Alberry, D Rose FISHERIES SPECIALIST Unavailable Unavailable Alberry, D Rose FISHERIES SPECIALIST Unavailable Unavailable Alberry, D Rose FISHERIES SPECIALIST Unavailable Unavailable Alberry, D Rose FISHERIES SPECIALIST Unavailable Unavailable Alberry, D Rose FISHERIES SPECIALIST Unavailable Unavailable Alberry, D Rose FISHERIES SPECIALIST Unavailable Unavailable Alberry, D Rose FISHERIES SPECIALIST Unavailable Unavailable Alberry, D Rose FISHERIES SPECIALIST Unavailable Unavailable Alberry, D Rose FISHERIES SPECIALIST Unavailable Unavailable Alberry, D Rose FISHERIES SPECIALIST Unavailable Unavailable MARLIN FLORES DO Unavailable Unavailable Gerardo, Neha Longe FISHERIES SPECIALIST-C Unavailable Unavailabl e Gerardo, Neha W Marianne FISHERIES SPECIALIST-C Unavailable Unavailabl e Gerardo, Neha W Marianne FISHERIES SPECIALIST-C Unavailable Unavailabl e Gerardo, Neha W Marianne FISHERIES SPECIALIST-C Unavailable Unavailabl e Gerardo, Neha W Marianne FISHERIES SPECIALIST-C Unavailable Unavailabl e Gerardo, Neha W Marianne FISHERIES SPECIALIST-C Unavailable Unavailabl e Gerardo, Neha W Marianne FISHERIES SPECIALIST-C Unavailable Unavailabl e Gerardo, Neha W Marianne FISHERIES SPECIALIST-C Unavailable Unavailabl e Gerardo, Neha W Marianne FISHERIES SPECIALIST-C Unavailable Unavailabl e Gerardo, Neha W Marianne FISHERIES SPECIALIST-C Unavailable Unavailabl e Gerardo, Neha W Marianne FISHERIES SPECIALIST-C Unavailable Unavailabl e Gerardo, Neha W Marianne FISHERIES SPECIALIST-C Unavailable Unavailabl e Gerardo, Clara W Marianne FISHERIES SPECIALIST-C Unavailable Unavailabl e Gerardo, Clara W Marianne FISHERIES SPECIALIST-C Unavailable Unavailabl e Gerardo, Neha W Marianne FISHERIES SPECIALIST-C Unavailable Unavailabl e Gerardo, Neha W Marianne FISHERIES SPECIALIST-C Unavailable Unavailabl e Gerardo, Clara W Marianne FISHERIES SPECIALIST-C Unavailable Unavailabl e Gerardo, Neha W Marianne FISHERIES SPECIALIST-C Unavailable Unavailabl e Gerardo, Clara W Marianne FISHERIES SPECIALIST-C Unavailable Unavailabl e Gerardo, Regnesha W Marianne FISHERIES SPECIALIST-C Unavailable Unavailabl e Gerardo, Regnesha W Marianne FISHERIES SPECIALIST-C Unavailable Unavailabl e Gerardo, Regzohra W Marianne FISHERIES SPECIALIST-C Unavailable Unavailabl e Gerardo, Regnesha W Marianne FISHERIES SPECIALIST-C Unavailable Unavailabl e Gerardo, Reginah W Marianne FISHERIES SPECIALIST-C Unavailable Unavailabl e Gerardo, Reginah W Marianne FISHERIES SPECIALIST-C Unavailable Unavailabl e Gerardo, Reginah W Marianne FISHERIES SPECIALIST-C Unavailable Unavailabl e Gerardo, Reginah W Marianne FISHERIES SPECIALIST-C Unavailable Unavailabl e Gerardo, Reginah W Marianne FISHERIES SPECIALIST-C Unavailable Unavailabl e Gerardo, Reginah W Marianne FISHERIES SPECIALIST-C Unavailable Unavailabl e Gerardo, Reginah W Marianne FISHERIES SPECIALIST-C Unavailable Unavailabl e Gerardo, Reginah W Marianne FISHERIES SPECIALIST-C Unavailable Unavailabl e Gerardo, Reginah W Marianne FISHERIES SPECIALIST-C Unavailable Unavailabl e ZALLEN, B JEAN DOMINGUEZ Unavailable Unavailable ZUKER, B JEAN DOMINGUEZ Unavailable Unavailable ZUKER, B JEAN DOMINGUEZ Unavailable Unavailable ZUKER, B JEAN DOMINGUEZ Unavailable Unavailable ZUKER, B JEAN DOMINGUEZ Unavailable Unavailable ZUKER, B JEAN DOMINGUEZ Unavailable Unavailable ZUKER, B JEAN DOMINGUEZ Unavailable Unavailable ZUKER, B JEAN DOMINGUEZ Unavailable Unavailable ZUKER, B JEAN DOMINGUEZ Unavailable Unavailable ZUKER, B JEAN DOMINGUEZ Unavailable Unavailable ZUKER, B JEAN MD Unavailable Unavailable ZUKER, B JEAN MD Unavailable Unavailable ZUKER, B JEAN DOMINGUEZ Unavailable Unavailable ZUKER, B JEAN MD Unavailable Unavailable ZUKER, B JEAN MD Unavailable Unavailable [place], Betsy RPA-C Unavailable Unavailable [place], Betsy RPA-C Unavailable Unavailable [place], Betsy RPA-C Unavailable Unavailable [place], Betsy RPA-C Unavailable Unavailable [place], Betsy RPA-C Unavailable Unavailable [place], Betsy RPA-C Unavailable Unavailable [place], Betsy RPA-C Unavailable Unavailable [place], Betsy RPA-C Unavailable Unavailable [place], Betsy RPA-C Unavailable Unavailable [place], Betsy RPA-C Unavailable Unavailable [place], Betsy RPA-C Unavailable Unavailable [place], Betsy RPA-C Unavailable Unavailable [place], Betsy RPA-C Unavailable Unavailable [place], Betsy RPA-C Unavailable Unavailable [place], Betsy RPA-C Unavailable Unavailable Rakan RIOS MD Unavailable Unavailable Rakan RIOS MD Unavailable Unavailable Rakan RIOS MD Unavailable Unavailable Rakan RIOS MD Unavailable Unavailable Rakan RIOS MD Unavailable Unavailable Rakan RIOS MD Unavailable Unavailable Rakan RIOS MD Unavailable Unavailable MIKE MORENO Unavailable Unavailable SUNG, ISAAC DO Unavailable [phone] SUNG, ISAAC DO Unavailable [phone] SUNG, ISAAC DO Unavailable +[phone] SUNG, ISAAC DO Unavailable +[phone] SUNG, ISAAC DO Unavailable +[phone] SUNG, ISAAC DO Unavailable +[phone] SUNG, ISAAC DO Unavailable +[phone] SUNG, ISAAC DO Unavailable +[phone] SUNG, ISAAC DO Unavailable +[phone] SUNG, ISAAC DO Unavailable +[phone] SUNG, ISAAC DO Unavailable +[phone] SUNG, ISAAC DO Unavailable +011 SUNG, ISAAC DO Unavailable [phone] MIKE RIOS Unavailable Unavailable Nicolas MORENO Unavailable Unavailable KB, GEETA MD Unavailable Unavailable KB, GEETA MD Unavailable Unavailable KB, GEETA MD Unavailable Unavailable KB, GEETA MD Unavailable Unavailable KB, GEETA MD Unavailable Unavailable KB, GEETA MD Unavailable Unavailable KB, GEETA MD Unavailable Unavailable KB, GEETA MD Unavailable Unavailable KB, GEETA MD Unavailable Unavailable KB, GEETA MD Unavailable Unavailable KB, GEETA MD Unavailable Unavailable KB, GEETA MD Unavailable Unavailable KB, GEETA MD Unavailable Unavailable KB, GEETA MD Unavailable Unavailable KB, GEETA MD Unavailable Unavailable KB, GEETA MD Unavailable Unavailable KB, GEETA MD Unavailable Unavailable KB, GEETA MD Unavailable Unavailable KB, GEETA MD Unavailable Unavailable KB, GEETA MD Unavailable Unavailable KB, GEETA MD Unavailable Unavailable KB, GEETA MD Unavailable Unavailable KB, GEETA MD Unavailable Unavailable KB, GEETA MD Unavailable Unavailable ADRIANE LEVY MD Unavailable Unavailable ADRIANE LEVY MD Unavailable [facility] Unavailable Unavailable DiVencenzo, Audie DO Unavailable Unavailable DiVencenzo, Audie DO Unavailable Unavailable DiVencenzo, Audie DO Unavailable Unavailable DiVencenzo, Audie DO Unavailable Unavailable DiVencenzo, Audie DO Unavailable Unavailable Moreno, B Juan DO Unavailable Unavailable Moreno, B Juan DO Unavailable Unavailable Moreno, Harman Juan DO Unavailable Unavailable Moreno, B Juan DO Unavailable Unavailable Moreno, B Juan DO Unavailable Unavailable Josh B Juan DO Unavailable Unavailable Harman Moreno Juan DO Unavailable Unavailable Harman Moreno Juan DO Unavailable Unavailable Josh B Juan DO Unavailable Unavailable Josh B Juan DO Unavailable Unavailable Harman Moreno Juan DO Unavailable Unavailable Harman Moreno Juan DO Unavailable Unavailable Josh, Harman Juan DO Unavailable Unavailable Harman Moreno Juan DO Unavailable Unavailable MorenoHarman Juan DO Unavailable Unavailable Rydberg, Radha PA Unavailable Unavailable Rydberg, Radha PA Unavailable Unavailable Rydberg, Radha PA Unavailable Unavailable Rydberg, Radha PA Unavailable Unavailable Rydberg, Radha PA Unavailable Unavailable Rydberg, Radha PA Unavailable Unavailable Rydberg, Radha PA Unavailable Unavailable Rydberg, Radha PA Unavailable Unavailable Rydberg, Radha PA Unavailable Unavailable Rydberg, Radha PA Unavailable Unavailable Rydberg, Radha PA Unavailable Unavailable Rydberg, Radha PA Unavailable Unavailable Rydberg, Radha PA Unavailable Unavailable Rydberg, Radha PA Unavailable Unavailable Rydberg, Radha PA Unavailable Unavailable Rydberg, Radha PA Unavailable Unavailable Rydberg, Radha PA Unavailable Unavailable Rydberg, Radha PA Unavailable Unavailable Rydberg, Radha PA Unavailable Unavailable Rydberg, Radha PA Unavailable Unavailable Rydberg, Radha PA Unavailable Unavailable Rydberg, Radha PA Unavailable Unavailable Leon Kemp MD Unavailable Unavailable Leon Kemp MD Unavailable Unavailable Leon Kemp MD Unavailable Unavailable Leon Kemp MD Unavailable Unavailable Leon Kemp MD Unavailable Unavailable Leon Kemp MD Unavailable Unavailable Leon Kemp MD Unavailable Unavailable Leon Kemp MD Unavailable Unavailable Leon Kemp MD Unavailable Unavailable Re-disclosure Warning The records that you are about to access may contain information from federally-assisted alcohol or drug abuse programs. If such information is present, then the following federally mandated warning applies: This information has been disclosed to you from records protected by federal confidentiality rules (42 CFR part 2). The federal rules prohibit you from making any further disclosure of this information unless further disclosure is expressly permitted by the written consent of the person to whom it pertains or as otherwise permitted by 42 CFR part 2. A general authorization for the release of medical or other information is NOT sufficient for this purpose. The Federal rules restrict any use of the information to criminally investigate or prosecute any alcohol or drug abuse patient.The records that you are about to access may contain highly sensitive health information, the redisclosure of which is protected by Article 27-F of the [facility] Public Health law. If you continue you may have access to information: Regarding HIV / AIDS; Provided by facilities licensed or operated by the [facility] Office of Mental Health; or Provided by the [facility] Office for People With Developmental Disabilities. If such information is present, then the following [facility] mandated warning applies: This information has been disclosed to you from confidential records which are protected by state law. State law prohibits you from making any further disclosure of this information without the specific written consent of the person to whom it pertains, or as otherwise permitted by law. Any unauthorized further disclosure in violation of state law may result in a fine or intermediate sentence or both. A general authorization for the release of medical or other information is NOT sufficient authorization for further disc losure. Allergies and Adverse Reactions Type Description Substance Reaction Status Data Source(s ) Drug allergy No Known Drug Allergies No Known Drug Allergies [facility] Drug allergy metoclopramide metoclopramide [facility] Encounters Encounter Providers Location Date Indications Data Source(s ) Outpatient Attender: Marianne SALTER-CReferrer: Miguel Angel SALTER EMERGENCY ROOM-LAB REF 05/12/2020 02:21:00 PM EST - 05/12/2020 02:21:00 PM [facility] Inpatient Attender: JEAN Mcneil marisela: SACHIN CHEUNG MDAdmitter: SACHIN CHEUNG MD ER-2EAST 05/08/2020 10:07:00 PM EST - 05/11/2020 01:55:00 PM [facility] Patient discharged. Outpatient Attender: Juan FRAIRE ttender: JUAN MORENOConsultant: [facility] [id number] 05/08/2020 06:26:[address] [facility] Emergency Attender: JUAN MORENOReferrer: David SALTER EMERGENCY ROOM-ER 05/08/2020 04:58:00 PM EST - 05/08/2020 09:57:00 PM [facility] Patient discharged. [place] [address] [facility] [address] 05/08/2020 12:00:00 AM EST eCW1 ([facility]) Inpatient Attender: JEAN COLLIER MDAtten marisela: MARLIN FLORES DOAttender: MARLIN FLORES DOAttender: ADRIANE LEVY MDAdmitter: MARLIN FLORES DO ER-2WEST 06/2020 01:04:00 PM EST - 05/06/2020 12:11:00 PM [facility] Patient discharged. Outpatient Attender: JEAN COLLIER MDAttender: Leon Reza in [place] ER-ASUR 04/28/2020 05:52:00 AM EST - 04/28/2020 05:52:00 AM [facility] Outpatient Attender: Rose WILEYPReferrer: Rose SALTER 04/24/2020 08:19:00 AM EST - 04/24/2020 08:19:00 AM [facility] [place] [address] [facility] [address] 04/23/2020 12:00:00 AM EST eCW1 ([facility]) Outpatient [address] [facility] [address] 04/22/2020 12:00:00 AM EST eCW1 ([facility]) Inpatient Attender: JYOTHI RIOS MDAt tender: JYOTHI RIOSAdmitter: Audie LOZOYAeferrer: Rose SALTER EMERGENCY ROOM-2N 04/19/2020 11:10:00 PM EST - 04/20/2020 02:50:00 PM EST [facility] pital Patient discharged. [place] [address] [facility] [address] 04/08/2020 12:00:00 AM EST eCW1 ([facility]) Preadmit Attender: Betsy BEDOLLA 03/03/2020 11:39: 00 AM [facility] Admission cancelled. Disregard status an d admitted date. Outpatient Attender: Betsy MICHELLECReferrer: Rakan SALTER EMERGENCY ROOM-LAB 03/03/2020 11:28:00 AM EST - 03/03/2020 11:28:00 AM [facility] Outpatient Attender: Betsy MICHELLEC 03/03/2020 10:30: 00 AM [facility] Outpatient Attender: Rose WILEYPReferrer: Rose SALTER EMERGENCY ROOM-LABOTHPROV 01/08/2020 07:36:00 AM EDT - 01/08/2020 07:36:00 AM [facility] [address] [facility] [address] 11/21/2019 12:00:00 AM EDT eCW1 ([facility]) [facility] [address] [place] [address], [place] [address] 10/18/2019 12:00:00 AM EDT eCW1 ([facility]) Outpatient Attender: Rose SALTER 1 05/16/2017 07:30:00 AM [facility] - 03/16/2018 07:30:00 AM [facility] Outpatient Attender: [id number] Mary Ellen Patel MD EMERGENCY R OOM-MAMMO 08/12/2016 10:21:00 AM EDT - 08/12/2016 10:21:00 AM [facility] Outpatient Attender: Radha ROGERSeferrer: JUAN BARRAZA DO 05/19/2016 06:58:00 AM [facility] Outpatient Attender: Radha ROGERSeferrer: JUAN BARRAZA DO 12/29/2015 08:58:00 AM [facility] Outpatient Attender: GEETA BUENOeferrer: JUAN STERLING DO 06/23/2015 10:35:00 AM [facility] Outpatient Attender: Radha ROGERSeferrer: JUAN BARRAZA DO 08/30/2014 02:51:00 PM [facility] Outpatient Attender: Radha SULLIVAN 02/07/2013 09:33:00 AM [facility] Medications Medication Brand Name Start Date Product Form Dose Route Admi nistrative Instructions Pharmacy Instructions Status Indications Reaction Description Data Source(s) Metronidazole 500 MG Oral Tablet METRONIDAZOLE 05/13/2020 12:0 0:00 AM EST tablet 30 TAKE ONE TABLET BY MOUTH THREE T IMES A DAY TAKE ONE TABLET BY MOUTH THREE TIMES A DAY SOLD: 05/13/2020 [facility] 750 mg 05/13/2020 12:00:00 AM EST tablet 10 TAKE ONE TABLET BY MOUTH EVERY DAY TAKE ONE TABLET BY MOUTH EVERY DAY SOLD: 05/13/2020 [facility] 1,000-62.5 mg 05/06/2020 12:00:00 AM EST tablet extended rel ease 12 hr 20 TAKE ONE TABLET BY MOUTH TWICE A DAY FOR ANTIBIOTIC TAKE ONE TABLET BY MOUTH TWICE A DAY FOR ANTIBIOTIC SOLD: 05/06/2020 [facility] Clonazepam 0.5 MG Oral Tablet Clonazepam 0.5 MG 04/23/2020 12:00:00 AM EST 1.0 {tablet_as_needed} active Clonazepam 0. 5 MG eCW1 ([facility]) Clonazepam 0.5 MG Oral Tablet Clonazepam 0.5 MG 04/23/2020 12:00:00 AM EST 1.0 {tablet_as_needed} active Clonazepam 0. 5 MG eCW1 ([facility]) Clonazepam 0.5 MG Oral Tablet Clonazepam 0.5 MG 04/23/2020 12:00:00 AM EST 1.0 {tablet_as_needed} active Clonazepam 0. 5 MG eCW1 ([facility]) 0.5 mg 04/23/2020 12:00:00 AM EST tablet 10 TAKE ONE TABLET BY MOUTH TWICE A DAY NEEDED MAXIMUM DAILY DOSE = 2 TAKE ONE TABLET BY MOUTH TWICE A DAY NEEDED MAXIMUM DAILY DOSE = 2 SOLD: 04/23/2020 [facility] 25 mg 04/20/2020 12:00:00 AM EST tablet 60 TAKE 1 TABLET BY MOUTH 2 TIMES A DAY TAKE 1 TABLET BY MOUTH 2 TIMES A DAY SOLD: 04/20/2020 [facility] 500 mg 03/03/2020 12:00:00 AM EST tablet 6 TAKE ONE TABLET BY MOUTH EVERY 12 HOURS TAKE ONE TABLET BY MOUTH EVERY 12 HOURS SOLD: 03/03/2020 [facility] Insurance Providers Payer name Policy type / Coverage type Policy ID Covered alliance party ID Covered alliance party's relationship to tavares Policy [place] Plan Information [employer] [id number] HUS [id number] [employer] [place] [id number] [place] [id number] [employer] [place] [id number] SPO [id number] [employer] [place] [id number] SPO [id number] [employer] [place] [id number] [place] [id number] [employer] [place] [id number] [id number] [place] [id number] P [id number] [employer] [id number] [id number] [employer] [place] P[place] 302/[id number] SP [id number] ANSI-Commercial [id number] ANSI-Commercial [id number] ANSI-Commercial [id number] ANSI-Commercial [id number] [facility] [id number] S [id number] [employer] [id number] S [id number] 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 HEALTH OT [id number] S [id number] Problems, Conditions, and Diagnoses Code Display Name Description Problem Type Effective Dates Data Source(s) I10 [id number] HTN (hypertension), benign Problem 0 12:00:00 AM EST eCW1 ([facility], [facility]) Z20.828 Contact with and (suspected) exposure to other viral communicable diseases CONTACT W AND EXPOSURE TO OTH VIRAL COMMUNICABLE DISEASES Di agnosis 05/12/2020 02:21:00 PM [facility] Z98.84 Bariatric surgery status BARIATRIC SURGERY STATUS Diag nosis 05/08/2020 10:07:00 PM [facility] F41.9 Anxiety disorder, unspecified ANXIETY DISORDER, UNSPEC IFIED Diagnosis 05/08/2020 10:07:00 PM [facility] I10 Essential (primary) hypertension ESSENTIAL (PRIMARY) H YPERTENSION Diagnosis 05/08/2020 10:07:00 PM [facility] Y92.[address] or not applicable UNSPECIFIED PLACE OR NOT APPLICABLE Diagnosis 05/08/2020 10:07:00 PM [facility] Y83.6 Removal of other organ (part ial) (total) as the cause of abnormal reaction of the patient, or of later complication, without mention of misadventure at the time of the procedure REMOV ORG (TOTAL) CAUSE ABN REACT/COMPL, W/O MISAD Diagnosis 05/08/2020 10:07:00 PM [facility] K65.1 Peritoneal abscess PERITONEAL ABSCESS Diagnosis 10/2020 10:07:00 PM [facility] T81.43XA INFCT FOL A PROCEDURE, ORGAN AND SPACE S URGICAL SITE, INIT INFCT FOL A PROCEDURE, ORGAN AND SPACE SURGICAL SITE, INIT Diagnosis 021 10:07:00 PM [facility] Z79.899 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 (current) drug therapy O THER FDC (CURRENT) DRUG THERAPY Diagnosis 05/08/2020 04:58:00 PM [facility] Z79.2 snf (current) use of antibiotics L PATI TERM (CURRENT) USE OF ANTIBIOTICS Diagnosis 05/08/2020 04:58:00 PM [facility] l Z98.84 Bariatric surgery status BARIATRIC SURGERY STATUS Diag nosis 05/08/2020 04:58:00 PM [facility] I10 Essential (primary) hypertension ESSENTIAL (PRIMARY) H YPERTENSION Diagnosis 05/08/2020 04:58:00 PM [facility] R10.31 Right lower quadrant pain RIGHT LOWER QUADRANT PAIN Di agnosis 05/08/2020 04:58:00 PM [facility] T81.40XA INFECTION FOLLOWING A PROCEDURE, UNSPECI FIED, INIT INFECTION FOLLOWING A PROCEDURE, UNSPECIFIED, INIT Diagnosis 05/04/2020 01:04:00 PM [facility] Z20.828 Contact with and (suspected) exposure to other viral communicable diseases CONTACT W AND EXPOSURE TO OTH VIRAL COMMUNICABLE D Diagnosis 04/28/2020 05:52:00 AM [facility] K35.80 Unspecified acute appendicitis UNSPECIFIED ACUTE APPEN DICITIS Diagnosis 04/28/2020 05:52:00 AM [facility] R00.0 Tachycardia, unspecified TACHYCARDIA, UNSPECIFIED Diag nosis 04/24/2020 08:19:00 AM [facility] Z68.37 Body mass index (BMI) 37.0-37.9, adult B [place] INDEX [BMI] 37.0-37.9, ADULT Diagnosis 04/19/2020 11:10:00 PM [facility] N95.9 Unspecified menopausal and perimenopausa l disorder UNSPECIFIED MENOPAUSAL AND PERIMENOPAUSAL DISORDER Diagnosis 04/19/2020 11:10:00 PM [facility] R73.9 Hyperglycemia, unspecified HYPERGLYCEMIA, UNSPECIFIED Diagnosis 04/19/2020 11:10:00 PM [facility] N18.9 Chronic kidney disease, unspecified CHRONIC KIDN EY DISEASE, UNSPECIFIED Diagnosis 04/19/2020 11:10:00 PM [facility] E87.6 Hypokalemia HYPOKALEMIA Diagnosis 04/19/2020 11:10:00 PM [facility] G47.00 Insomnia, unspecified INSOMNIA, UNSPECIFIED Diagnosis 04/19/2020 11:10:00 PM [facility] R94.31 Abnormal electrocardiogram [ECG] [EKG] A BNORMAL ELECTROCARDIOGRAM [ECG] [EKG] Diagnosis 04/19/2020 11:10:00 PM [facility] l E66.9 Obesity, unspecified OBESITY, UNSPECIFIED Diagnosis 04/19/2020 11:10:00 PM [facility] I12.9 Hypertensive chronic kidney disease with stage 1 through stage 4 chronic kidney disease, or unspecified chronic kidney disease HYPERTENSIVE CHRONIC KIDNEY DISEASE W STG 1-4/UNSP Diagnosis 04/19/2020 11:10:00 PM EST [facility] R00.2 Palpitations PALPITATIONS Diagnosis 04/19/2020 11:10:00 P M [facility] A08.8 Other specified intestinal infections OT HER SPECIFIED INTESTINAL INFECTIONS Diagnosis 03/03/2020 10:30:00 AM [facility] l 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 Diagnosis 03/03/2020 10:30:00 AM [facility] R19.7 Diarrhea, unspecified DIARRHEA, UNSPECIFIED Diagnosis 03/03/2020 10:30:00 AM [facility] F41.9 Anxiety disorder, unspecified ANXIETY DISORDER, UNSPEC IFIED Diagnosis 01/08/2020 07:36:00 AM [facility] K21.9 Gastro-esophageal reflux disease without esophagitis GASTRO-ESOPHAGEAL REFLUX DISEASE WITHOUT Diagnosis 01/08/2020 07:36:00 AM [facility] Surgeries/Procedures Procedure Description Date Indications Data Source(s) Drainage of Peritoneal Cavity with Drain age Device, Percutaneous Endoscopic Approach 05/09/2020 12:00:00 AM [facility] Drainage of Peritoneal Cavity, Percutaneous Approach 05/05/2020 12:00:00 AM [facility] Results ID Date Data Source [id number] 05/12/2020 05:14:00 PM [facility] Patient: SUSAN RENDON Eugenio Banks eport - [facility].VisitID: [id number] [place] [address] [phone], FRegistration Date/Time: 05/08/2020 16:28 Weight:102.9 kg (S). Height/Length:66 inches (S). BMI:36.6 PAST HISTORYMedications:clonazePAM Oral (Tablet 0.5 mg) 1/2 tablet, as needed, last dose few days ago.CeleXA Oral (Tablet 20 mg) 1 tablet, daily.Augmentin XR, 2x a day, last dose 0630 this am. Allergies:Reglan.(hives). FAMILY HISTORYNegative - denies family medical history. (Electronically signed by Juan Moreno MD 05/12/2020 17:12) Weight:102.9 kg (S). Height/Length:66 inches (S). BMI:36.6 (Electronically signed by Kevin Rodriguez PA-C 05/08/2020 20:52) Name Value Range Interpretation Code Description Data Mahi rce(s) Supporting Document(s) ID Date Data Source [id number] 05/13/2020 02:09:00 PM EST [facility] Name Value Range Interpretation Code Description Data Mahi rce(s) Supporting Document(s) SARS COV2 [facility] Not Detected Not Detected [facility] This nucleic acid amplification test was developed and itsperformance characteristics determined by [facility]. Nucleic acid amplification tests include PCRand TMA. This test has not been FDA cleared or approved.This test has been authorized by FDA under an Emergency UseAuthorization (EUA). This test is only authorized forthe duration of time the declaration that circumstancesexist justifying the authorization of the emergency use ofin vitro diagnostic tests for detection of SARS-CoV-2 virusand/or diagnosis of COVID-19 infection under zesetnr390(b)(1) of the Act, 21 U.S.C. 360bbb-3(b) (1), unless theauthorization is terminated or revoked sooner.When diagnostic testing is negative, the possibility of afalse negative result should be considered in the contextof a patient's recent exposures and the presence ofclinical signs and symptoms consistent with COVID-19. Anindividual without symptoms of COVID-19 and who is notshedding SARS-CoV-2 virus would expect to have a negative(not detected) result in this assay.Performed at: [id number] [employer] [facility], [place], [place] [id number] Director: Yaa Richter PhD, Phone: [phone] ID Date Data Source [id number] 05/13/2020 02:05:00 PM EST [facility] Name Value Range Interpretation Code Description Data Mahi rce(s) Supporting Document(s) SARS-CoV-2, JULIANNA Not Detected Not Detected [facility] This nucleic acid amplification test was developed and its performancecharacteristics determined by [employer]. Nucleic acidamplification tests include PCR and TMA. This test has not been FDAcleared or approved. This test has been authorized by FDA under anEmergency Use Authorization (EUA). This test is only authorized forthe duration of time the declaration that circumstances existjustifying the authorization of the emergency use of in vitrodiagnostic tests for detection of SARS-CoV-2 virus and/or diagnosisof COVID-19 infection under section 564(b)(1) of the Act, 21 U.S.C.360bbb-3(b) (1), unless the authorization is terminated or revokedsooner.When diagnostic testing is negative, the possibility of a falsenegative result should be considered in the context of a patient'srecent exposures and the presence of clinical signs and symptomsconsistent with COVID- 19. An individual without symptoms of COVID-19and who is not shedding SARS-CoV-2 virus would expect to have anegative (not detected) result in this assay. ID Date Data Source [id number] 05/11/2020 12:52:[address] [id number] DISCHARGE SUMMARYPATIENT NAME: SUSAN RENDON MR#: [id number] PHYSICIAN: SACHIN CHEUNG MDAUTHOR: Jean Collier MD DATE: 05/08/20 #: 2EASTDISCHARGE DATE: PATIENT : 75Summary of HospitalizationReason for AdmissionRecurrent intraperitoneal abscessHospital Rgzwqs80-xddt-dpz female readmitted after abscess aspiration in IR and antibiotics.For details of admission please see the history. IR was consulted and and wasunable to place a drainage catheter. The patient was offered laparoscopicdrainage of intraperitoneal abscess with drain placement which was subsequentlyaccomplished. For details of the operative report please refer to thatdictation. The patient was transferred to the floor and maintained on IVantibiotics. She continued to have fevers that night and was subsequently ableto tolerate a diet the following day. She experienced defervescence. The JPdrain continued to put out seropurulent material. White blood cell countnormalized and she continued to have normal bowel function with diet tolerance.She was able to be discharged subsequently on postoperative day 2 with follow-up in the office.Procedures & Relevant StudiesSurgeriesSurgery Date and Time: 05/09/2020 1615Primary Procedure: INCISION AND DRAINAGEDiagnoses (Current Visit)Problem List1. Intra-abdominal abscessDiagnoses (Other)Past Pertinent History1. Intra-abdominal abscess2. Acute appendicitis3. HISTORY OF LAPAROSCOPIC LUIS FELIPE EN Y GASTRIC BYPASS4. Morbid obesity5. HTN (hypertension)6. AnxietyPatient's Discharge ConditionVital SignsVital Signs-LastResult Date TimePulse Ox 95 05/11 0525B/P 114/79 05/11 0525Temp 98.5 05/11 05Pulse 63 05/11 0525Resp 16 05/11 0525Patient's Discharge ConditionDischarge Date 05/11/20Discharge Conditon stableDischarge DispositionHomePhysical ExaminationGeneral Appearance no acute distress, afebrileHead atraumatic, normocephalicEye AssessementAssessment: PERRLA, EOMINeck no JVD, no lymphadenopathyCardiovascular normal caillary refillRespiratory no distress, aerating wellAbdomen soft, mildly tender (aT INCISIONS), MERYL seropurulent 15 cc outputovernightExtremities no clubbing, no cyanosis, no edemaMuscoskeletal normal inspectionNeurological alert, oriented x 3Skin AssessmentSkin dry, intactPatient/Family InstructionsPrescriptionsContinue taking these medications:CITALOPRAM HYDROBROMIDE* (Celexa*) 20 MG [id number] MILLIGRAM Orally DAILYAmoxicillin/Potassium Clav (Augmentin XR 1,000-62.5 Tab) 1 EACH TAB.ER.12H1 TABLET Orally TWICE DAILYQty = 20Discharge Activity: As toleratedDischarge diet: RegularFollow-upFollow up with Dr. Collier on Tuesday.DATE SIGNED: 05/11/20 Electronically SignedTIME SIGNED: 1256 JEAN COLLIER MD Name Value Range Interpretation Code Description Data Mahi rce(s) Supporting Document(s) ID Date Data Source [id number] 05/11/2020 12:50:00 PM [place], [place] [address]PATIENT NAME: SUSAN RENDON#: [id number] PHYSICIAN: DOTTY LOPEZOUNT #: [id number] ADM. DATE: 05/08/20PATIENT : 75 DISCH. DATE: [50}DISCHARGE SUMMARYSurgical/Ortho discharge planNicotine Replacement TherapyPrescribed at discharge Rx not offered at DCReason not offered N/APersonal Care InstructionsDischarge Activity: As toleratedDischarge diet: RegularWound care: Change dressing as neededProblem ListMedical ProblemsAcute appendicitisAnxietyAppendiceal abscessHISTORY OF LAPAROSCOPIC LUIS FELIPE EN Y GASTRIC BYPASSHTN (hypertension)Intra-abdominal abscessMorbid obesityFollow Up CareFollow Up:Follow up with Dr. Collier on Tuesday.Priority ItemsUrgent/Important items that need to be addressed at primary care follow- upappointmentEND ENDDICT: 05/11/20 1250 Electronically SignedTRANS:05/11/20 1250 JEAN COLLIER MDTRANS BY:DATE SIGNED:05/11/20TIME SIGNED: 1251REPORT COPY TO: Name Value Range Interpretation Code Description Data Mahi rce(s) Supporting Document(s) ID Date Data Source [id number] 05/11/2020 12:07:00 PM EST [facility] Name Value Range Interpretation Code Description Data Mahi rce(s) Supporting Document(s) FGLU 123 mg/dL 70-110 H [facility] ID Date Data Source [id number] 05/11/2020 08:51:00 AM EST [facility] [address] [id number] PROGRESS NOTEPATIENT NAME: SUSAN RENDON PHYSICIAN: SACHIN CHEUNG MDAUTHOR: Nando DOMINGUEZ,JeanADM. DATE: 05/08/20 MR#: [id number] NOTE DATE: 05/11/20 RM#: [id number] TIME: 0856 : 75SubjectiveCC/Hx Present Vbbeomr01-eecz-vaw female POD #2 status post laparoscopic drainage of intraperitonealabscessObjectiveVital SignsVital Signs- LastResult Date TimePulse Ox 95 05/11 524B/P 114/79 05/11 052 5Temp 98.5 05/11 524Pulse 63 05/11 0525Resp 16 05/11 0525Intake/OutputIntake/Output Summary 24 hours05/10 1900 05/11 0700Intake Total 1800 2550Output Total 2115 2100Balance -315 450Intake, IV 1000 950Intake, Oral 800 1600Output, Blood 15LossOutput, Urine 2100 2100Current MedicationsCitalopram Hydrobromide (Celexa) 20 MG DAILY PODextrose/Sodium Chloride/Electrolyt (D5% NSS 0.45% 20KCL 1000ML) 1,000 ML.V68N51S IVSodium Chloride (Saline Flush Syr(5ML)) 5 ML Q12H IVPiperacillin Sod/Tazobactam Sod (Zosyn) 3.375 GM Q6H IVFentanyl (Sublimaze) 25 MCG Q2HPRN PRN IVIbuprofen (Motrin) 800 MG Q8HPRN PRN POOndansetron HCl (Zofran) 4 MG Q6HPRN PRN IVOxycodone HCl (Oxyir) 5 MG Q4HPRN PRN POProchlorperazine (Compazine) 10 MG Q6HPRN PRN IVSodium Chloride (Saline Flush Syr(5ML)) 5 ML QIDPRN PRN IVFamotidine (Pepcid) 2 0 MG BID PRN POAcetaminophen (Tylenol) 975 MG Q6HPRN PRN POResultsLaboratory DataRecent Labs-24 [id number] (136 - 147 mmol/L) 144Potassium (3.5 - 5.1 mmol/L) 4.1Chloride (99 - 110 mmol/L) 105Serum Bicarbonate (20 - 33 mmol/L) 30Anion Gap (10.0 - 20.0) 13.1BUN (7 - 23 mg/dL) 5 LCreatinine (0.500 - 1.300 mg/dL) 0.526Estimated GFR/1.73 m2 (mL/min) > 60Glucose (70 - 110 mg/dL) 80Calcium (8.3 - 10.7 mg/dL) 8.1 LPhosphorus (2.5 - 4.5 mg/dL) 3.6Magnesium (1.6 - 2.6 mg/dL) 2.3HematologyWBC (4.0 - 10.5 x10E3/uL) 5.12RBC (4.20 - 5.40 x10E6/uL) 3.39 LHgb (12.0 - 16.0 g/dL) 9.9 LHct (37.0 - 47.0 %) 30.4 LMCV (81.0 - 99.0 fL) 89.7MCH (27.0 - 31.0 pg) 29.2MCHC (32.7 - 35.6 g/dL) 32.6 LRDW (11.5 - 14.0 %) 11.9Plt Count (150 - 450 x10E3/uL) 279MPV (6.9 - 9.5 fl) 10.2 HImmature Gran % (Auto) (0.1 - 2.0 %) 1.2Neut % (Auto) (34 - 64 %) 42.6Lymph % (Auto) (25 - 45 %) 41.2Mono % (Auto) (1.7 - 10.6 %) 11.1 HEos % (Auto) (0.4 - 7.0 %) 3.5Baso % (Auto) (0.1 - 2.0 %) 0.4Abs Immat Gran (auto) (0.0 - 0.1 x10E3/uL) 0.06Absolute Neuts (auto) (1.2 - 7.6 x10E3/uL) 2.18Absolute Lymphs (auto) (1.0 - 3.5 x10E3/uL) 2.11Absolute Monos (auto) (0.1 - 1.0 x10E3/uL) 0.57Absolute Eos (auto) (0.1 - 0.7 x10E3/uL) 0.18Absolute Basos (auto) (0.0 - 0.1 x10E3/uL) 0.02Nucleated RBC % (auto) (0 %) 0Assessment/PlanProblem List1. Intra-abdominal abscessA&Pswitch to oral antibiotics. OOB amb. oral diet. d/c planning. drain care.office f/uDATE SIGNED: 05/11/20 Electronically SignedTIME SIGNED: 1248 JEAN COLLIER MD Name Value Range Interpretation Code Description Data Mahi rce(s) Supporting Document(s) ID Date Data Source [id number] 05/11/2020 07:11:00 AM EST [facility] Name Value Range Interpretation Code Description Data Mahi rce(s) Supporting Document(s) MAGNESIUM 2.3 mg/dL 1.6-2.6 [facility] ID Date Data Source [id number] 05/11/2020 07:11:00 AM EST [facility] Name Value Range Interpretation Code Description Data Mahi rce(s) Supporting Document(s) DEQUAN 3.6 mg/dL 2.5-4.5 [facility] ID Date Data Source [id number] 05/11/2020 07:11:00 AM EST [facility] Name Value Range Interpretation Code Description Data Mahi rce(s) Supporting Document(s) GLU 80 mg/dL 70-110 [facility] Patients taking Sulfasalazine may have f alsely depressedGlucose levels. Patients taking Sulfapyridine may havefalsely elevated Glucose levels. Patients should be drawnfor Glucose before the initial administration of eitherdrug. BUN 5 mg/dL 7-23 [facility] CRE 0.526 mg/dL 0.500-1.300 [facility] GFR > 60 mL/min [facility] CHLORIDE 105 mmol/L 99-110 [facility] NA 144 mmol/L 136-147 [facility] POTASSIUM 4.1 mmol/L 3.5-5.1 [facility] TCO2 30 mmol/L 20-33 [facility] ANION GAP 13.1 10.0-20.0 [facility] CA 8.1 mg/dL 8.3-10.7 [facility] ID Date Data Source [id number] 05/11/2020 06:24:00 AM EST [facility] Name Value Range Interpretation Code Description Data Mahi rce(s) Supporting Document(s) WBC 5.12 x10E3/uL 4.0-10.5 N [facility] RBC 3.39 x10E6/uL 4.20-5.40 L [facility] Hemoglobin 9.9 g/dL 12.0-16.0 L [facility] Hematocrit 30.4 % 37.0-47.0 L [facility] MCV 89.7 fL 81.0-99.0 N [facility] MCH 29.2 pg 27.0-31.0 N [facility] MCHC 32.6 g/dL 32.7-35.6 L [facility] RDW 11.9 % 11.5-14.0 [facility] Platelet count 279 x10E3/uL 150-450 N [facility] MPV 10.2 fl 6.9-9.5 H [facility] Neutrophils 42.6 % 34-64 [facility] Lymphocytes 41.2 % 25-45 N [facility] Monocytes 11.1 % 1.7-10.6 [facility] Eosinophils 3.5 % 0.4-7.0 [facility] Basophils 0.4 % 0.1-2.0 N [facility] Imm. Gran. 1.2 % 0.1-2.0 N [facility] Abs. Neutro. 2.18 x10E3/uL 1.2-7.6 [facility] Abs. Lymph. 2.11 x10E3/uL 1.0-3.5 [facility] Abs. [place]. 0.57 x10E3/uL 0.1-1.0 [facility] Abs. Eosin. 0.18 x10E3/uL 0.1-0.7 [facility] Abs. Baso. 0.02 x10E3/uL 0.0-0.1 [facility] Abs. Imm. Gran. 0.06 x10E3/uL 0.0-0.1 [facility] ANRBC% 0 % 0 [facility] ID Date Data Source [id number] 05/10/2020 10:47:00 AM EST [facility] [address] [id number] PROGRESS NOTEPATIENT NAME: SUSAN RENDON PHYSICIAN: SACHIN CHEUNG, MDAUTHOR: Nando DOMINGUEZ,NoADM. DATE: 05/08/20 MR#: [id number] NOTE DATE: 05/10/20 RM#: [id number] TIME: 1050 : 75SubjectiveCC/Hx Present Sayeeku83-etcr-otn female POD #1 status post laparoscopic drainage of intraperitonealabscessEvents Since Last EntryFebrile 202 last night. Still feels very tired and sick. She tolerated somesolid food with no nausea.ObjectiveVital SignsVital Signs-LastResult Date TimePulse Ox 97 05/10 0536B/P 105/70 05/10 0536Temp 97.9 05/10 0536Pulse 71 05/10 0536Resp 16 05/10 0536Intake/OutputIntake/Output Summary 24 hours01/08 1900 05/10 0700Intake Total 1200 2250Output Total 2175Balance 1200 75Intake, IV 1200 1450Intake, Oral 800Number 3UnmeasuredVoidsOutput, Blood 75LossOutput, Urine 2100Current MedicationsCitalopram Hydrobromide (Celexa) 20 MG DAILY PODextrose/Sodium Chloride/Electrolyt (D5% NSS 0.45% 20KCL 1000ML) 1,000 ML.T51E48X IVSodium Chloride (Saline Flush Syr(5ML)) 5 ML Q12H IVPiperacillin Sod/Tazobactam Sod (Zosyn) 3.375 GM Q6H IVFentanyl (Sublimaze) 25 MCG Q2HPRN PRN IVIbuprofen (Motrin) 800 MG Q8HPRN PRN POOndansetron HCl (Zofran) 4 MG Q6HPRN PRN IVOxycodone HCl (Oxyir) 5 MG Q4HPRN PRN POProchlorperazine (Compazine) 10 MG Q6HPRN PRN IVSodium Chloride (Saline Flush Syr(5ML)) 5 ML QIDPRN PRN IVFamotidine (Pepcid) 20 MG BID PRN POAcetaminophen (Tylenol) 975 MG Q6HPRN PRN POExamGeneral Appearance no acute distress, afebrile, awake, conversantNeck no bruit, no JVDCardiovascular regular rateRespiratory no distress, aerating wellAbdomen softly distended, mildly tender, Incisions CDI. MERYL drain cloudy andserosanguineous 75 cc output.Neurological alert, oriented x 3Assessment/PlanProblem List1. Intra-abdominal abscessA&PShe is experiencing slow recovery. Continue IV fluids and decrease rate.Continue IV antibiotics and observation. Continue MERYL drain. DVT GIprophylaxis. Resume normal medications. Labs in a.m.DATE SIGNED: 05/10/20 Electronically SignedTIME SIGNED: 1050 JEAN COLLIER MD Name Value Range Interpretation Code Description Data Mahi rce(s) Supporting Document(s) ID Date Data Source [id number] 05/09/2020 06:01:[address] [id number] REPORTPATIENT NAME: SUSAN RENDON NAYLA#: [id number]: JEAN COLLIER MDADM. DATE: 05/08/20PATIENT : 75LOCATION: 2EASTACCOUNT #: [id number] ReportOperative ReportDATE OF PROCEDURE: 1PROCEDURE PERFORMED: Laparoscopic drainage of intraperitoneal abscessPREOPERATIVE DIAGNOSIS: Intraperitoneal abscess after appendectomyPOSTOPERATIVE DIAGNOSIS: SameATTENDING SURGEON: Dr. Jean Collier.ANESTHESIA: General.SPECIMENS: NoneDrain: #10 MERYL drain to the right lower quadrant abscess cavityCOMPLICATIONS: None evidentDISP OSITION: Tolerated wellINDICATION FOR THE PROCEDURE: 45-year-old female status post laparoscopicabdomen appendectomy for acute suppurative appendicitis who presented 1 weekpostoperatively with a right lower quadrant abscess. This was aspirated ininterventional radiology and she was subsequently discharged home. Sheexperienced recurrence of fevers and abdominal pain with nausea type symptomsand presented to the ER at [facility]. A repeat CT demonstrated recurrenceof a 4 cm abscess of the right lower quadrant. She was admitted for IVhydration and antibiotics. IR was unable to drain the abscess in place acatheter thus the patient was offered laparoscopic abscess drainage with drainplacement for definitive management.DESCRIPTION OF THE PROCEDURE: The patient was counseled preoperatively, signedinformed consent and desired to proceed. The patient was brought to theoperating suite, placed supine and correctly identified. The patientparticipated in a timeout procedure and was anesthetized and intubated. A WHOtimeout procedure was performed and the abdomen was prepped and draped in astandard sterile surgical fashion with ChloraPrep. SCDs were in place.Preoperative antibiotics were administered. A periumbilical site was selectedat the previous incision site. The subcutaneous tissues were infiltrated with0.25% Marcaine with 1% lidocaine with epinephrine. Skin incision was made and a5 mm trocar was placed under direct vision using a Visiport technique into theperitoneal cavity. The abdomen was insufflated with 15 mmHg pneumoperironeumand surveyed. No evidence of injury during trocar placement was noted. Two 5 mmtrocars were then placed under direct vision in the suprapubic region and theleft lateral aspect of the abdomen at the prior incision sites. The locationof the abscess was identified with inflammation. Careful dissection bluntlywas employed in order to access the abscess cavity which was identified by arush of foul-smelling pus. The abscess cavity was irrigated out with copio usamounts of saline until clear. The right lower quadrant was irrigated outuntil clear and the fluid was suctioned out as well as any fluid in the pelvis.A #10 MERYL drain was manipulated into the abscess cavity and brought out throughthe suprapubic port. The ports were removed under direct vision. The abdomenwas exsufflated of gas. The drain was sutured in place to the skin with a 3-0Prolene suture. Skin incisions were closed with 4-0 Monocryl. Dry steriledressings were applied. The patient was awakened, extubated and transferred tothe recovery room in fair condition.Copies to Family Provider: ROSE BALBUENA FNP-JHONATHAN SIGNED: 05/09/20 Electronically SignedTIME SIGNED: 9140 JEAN COLLIER MD Name Value Range Interpretation Code Description Data Mahi rce(s) Supporting Document(s) ID Date Data Source [id number] 05/09/2020 08:04:00 AM EST [facility] [id number] [place], [place] [id number] HISTORY AND PHYSICALPATIENT NAME: SUSAN RENDON MR#: [id number] PHYSICIAN: SACHIN CHEUNG MDAUTHOR: Sachin Cheung MD DATE: 05/08/20 RM#: [id number] & PHYSICAL DATE: 05/09/20 PATIENT : 75EVALUATION TIME: 0816HistoryHistory of Presenting Bpqnsfi66 yo female who underwent lap appendectomy with Dr. Collier on April 28, 2020for acute suppurative appendicitis. She did well initially but was readmittedwith a right lower quadrant abscess. After IV fluids and antibiotics were inplace she was sent to interventional radiology. During that procedure sheunderwent an IR aspiration of pus without drain placement. She did well postprocedure and was discharged home on oral antibiotic therapy on May 06.Over the last 3 days she has developed recurrent fevers greater than 102 athome. Recurrent abdominal pain as well. No upper respiratory symptoms. Shepresented last night back to [place] [facility] department where she was found tohave fever, abdominal pain. CT scan confirmed a large recurrent abscess in theright lower quadrant in the same location. She was given IV Zosyn per priorculture sensitivities [facility] she has been stable. Mild to moderate abdominal pain of recurrentnature. Ongoing fevers here. IV Zosyn therapy in place.Discharged on May 06.Past Medical/Surgical HistoryPast Medical/Surgical HistoryMedical ProblemsAcute appendicitisAnxietyAppendiceal abscessHISTORY OF LAPAROSCOPIC LUIS FELIPE EN Y GASTRIC BYPASSHTN (hypertension)Intra-abdominal abscessMorbid obesityAllergiesCoded Allergies:metoclopramide (From REGLAN) (Intermediate, 05/04/20)Social History no tobacco use, no recreational drug use, employedReview of SystemsConstitutionalReports: Pain, Fever. Denies: Generalized weakness.RespiratoryDenies: dyspnea, non-productive cough, shortness of breath.CardiovascularDenies: chest pain, dyspnea on exertion.GastrointestinalReports: nausea, abdominal pain. Denies: vomiting, diarrhea, constipation.GenitorurinaryDenies: dysuria.NeurologicalDenies: bladder dysfunction, bowel dysfunction.ExamVital SignsVital Signs-24 HRS05/0854 0038 0217 0607Temp 102.0 102.3 99.2 97.8Pulse 107 71 70Resp 18 16 16B/P 132/95 109/62 102/58B/P MeanPulse Ox 97 97 95O2 DeliveryO2 Flow YqirJhK3Yhajfbxm ExaminationGeneral Appearance no acute distress, alert, awakeNeck suppleRespiratory no distress, aerating wellAbdomen mildly tenderExtremities no clubbing, no cyanosis, no edemaNeurological alert, oriented x 3Data ReviewLaboratory DataRecent Labs-48 hours370216BskwvsnrsHnjpbx (136 - 147 mmol/L) 143Potassium (3.5 - 5.1 mmol/L) 3.5Chloride (99 - 110 mmol/L) 107Serum Bicarbonate (20 - 33 mmol/L) 26Anion Gap (10.0 - 20.0) 13.5BUN (7 - 23 mg/dL) 3 LCreatinine (0.500 - 1.300 mg/dL) 0.564Estimated GFR/1.73 m2 (mL/min) > 60Glucose (70 - 110 mg/dL) 96Calcium (8.3 - 10.7 mg/dL) 8.0 LHematologyWBC (4.0 - 10.5 x10E3/uL) 9.79RBC (4.20 - 5.40 x10E6/uL) 3.73 LHgb (12.0 - 16.0 g/dL) 10.8 LHct (37.0 - 47.0 %) 32.8 LMCV (81.0 - 99.0 fL) 87.9MCH (27.0 - 31.0 pg) 29.0MCHC (32.7 - 35.6 g/dL) 32.9RDW (11.5 - 14.0 %) 11.9Plt Count (150 - 450 x10E3/uL) 261MPV (6.9 - 9.5 fl) 9.7 HImmature Gran % (Auto) (0.1 - 2.0 %) 0.7Neut % (Auto) (34 - 64 %) 76.4 HLymph % (Auto) (25 - 45 %) 14.3 LMono % (Auto) (1.7 - 10.6 %) 8.3Eos % (Auto) (0.4 - 7.0 %) 0.2 LBaso % (Auto) (0.1 - 2.0 %) 0.1Abs Immat Gran (auto) (0.0 - 0.1 x10E3/uL) 0.07Absolute Neuts (auto) (1.2 - 7.6 x10E3/uL) 7.48Absolute Lymphs (auto) (1.0 - 3.5 x10E3/uL) 1.40Absolute Monos (auto) (0.1 - 1.0 x10E3/uL) 0.81Absolute Eos (auto) (0.1 - 0.7 x10E3/uL) 0.02 LAbsolute Basos (auto) (0.0 - 0.1 x10E3/uL) 0.01Nucleated RBC % (auto) (0 %) 0ImagingImaging from [place] ED overnight c/w recurrent appendiceal abscess.Assessment/PlanDiagnosis/Problem1. HISTORY OF LAPAROSCOPIC LUIS FELIPE EN Y GASTRIC BYPASS2. HTN (hypertension)3. Anxiety4. Appendiceal abscessA&PVery pleasant 45-year-old female now about 10 days postop laparoscopicappendectomy with right lower quadrant abscess. IR aspiration a few days agoresulted in clinical improvement but now back with recurrent abscess. She isin need of a drain placement. Hopefully this will be amenable by any IRintervention as there was a window for aspiration a few days ago.With a drain in place and antibiotic therapy this should improve.Fever control, pain control, n.p.o. past midnight. IV Zosyn and MIVF.IR drain today was requested.She has negative Covid testing from this facility on May 04 which is withinthe 5-day window needed for surgical intervention. [place] ED repeated this lastnight which was also negative.DATE SIGNED: 05/09/20 Electronically SignedTIME SIGNED: 815 SACHIN CHEUNG MD Name Value Range Interpretation Code Description Data Mahi rce(s) Supporting Document(s) ID Date Data Source [id number] 05/09/2020 06:18:00 AM EST [facility] Name Value Range Interpretation Code Description Data Mahi rce(s) Supporting Document(s) GLU 96 mg/dL 70-110 [facility] Patients taking Sulfasalazine may have f alsely depressedGlucose levels. Patients taking Sulfapyridine may havefalsely elevated Glucose levels. Patients should be drawnfor Glucose before the initial administration of eitherdrug. BUN 3 mg/dL 7-23 [facility] CRE 0.564 mg/dL 0.500-1.300 [facility] GFR > 60 mL/min [facility] CHLORIDE 107 mmol/L 99-110 [facility] NA 143 mmol/L 136-147 [facility] POTASSIUM 3.5 mmol/L 3.5-5.1 [facility] TCO2 26 mmol/L 20-33 [facility] ANION GAP 13.5 10.0-20.0 [facility] CA 8.0 mg/dL 8.3-10.7 [facility] ID Date Data Source [id number] 05/09/2020 05:40:00 AM EST [facility] Name Value Range Interpretation Code Description Data Mahi rce(s) Supporting Document(s) WBC 9.79 x10E3/uL 4.0-10.5 [facility] RBC 3.73 x10E6/uL 4.20-5.40 [facility] Hemoglobin 10.8 g/dL 12.0-16.0 [facility] Hematocrit 32.8 % 37.0-47.0 [facility] MCV 87.9 fL 81.0-99.0 [facility] MCH 29.0 pg 27.0-31.0 [facility] MCHC 32.9 g/dL 32.7-35.6 [facility] RDW 11.9 % 11.5-14.0 [facility] Platelet count 261 x10E3/uL 150-450 [facility] ital MPV 9.7 fl 6.9-9.5 [facility] Neutrophils 76.4 % 34-64 H [facility] Lymphocytes 14.3 % 25-45 [facility] Monocytes 8.3 % 1.7-10.6 [facility] Eosinophils 0.2 % 0.4-7.0 L [facility] Basophils 0.1 % 0.1-2.0 N [facility] Imm. Gran. 0.7 % 0.1-2.0 N [facility] Abs. Neutro. 7.48 x10E3/uL 1.2-7.6 N [facility] Abs. Lymph. 1.40 x10E3/uL 1.0-3.5 [facility] Abs. [place]. 0.81 x10E3/uL 0.1-1.0 N [facility] l Abs. Eosin. 0.02 x10E3/uL 0.1-0.7 L [facility] Abs. Baso. 0.01 x10E3/uL 0.0-0.1 N [facility] l Abs. Imm. Gran. 0.07 x10E3/uL 0.0-0.1 [facility] ANRBC% 0 % 0 [facility] ID Date Data Source [id number] 05/08/2020 08:11:00 PM EST [facility] SCAN OF THE ABDOMEN AND PELVIS WITH C ONTRAST DATE OF EXAMINATION: 05/08/2020 16:39 EST ABD/PEL WITH ORAL AND IV INDICATION: Post appendectomy with subsequent abscess formation. COMPARISON: CT scan 05/05/2019 CONTRAST: 75 cc Omnipaque 3 TECHNIQUE: The patient received oral contrast. Axial images were obtainedthrough the abdomen and pelvis from the lung bases through the rectum followingthe intravenous injection of contrast. One or more of the following dose reduction techniques were utilized ineffectively lowering the radiation dose for this examination: Automated ExposureControl, Adjustment of the mA and/or kV according to patient size, or Iterativereconstruction. ABDOMEN FINDINGS: The lung bases appear unremarkable. Liver, spleen, pancreas,adrenal glands, and kidneys appear normal. Abdominal aorta is unremarkable.No adenopathy, ascites, or abnormal intra-abdominal masses are identified.Visualized stomach, small bowel, and colon are unremarkable. PELVIC FINDINGS: Again noted is a collection in the right lower quadrant withfluid and air measuring approximately 4.9 x 4.1 cm. There is surroundinginflammation with soft tissue stranding. Bladder is unremarkable. Uterus isunremarkable. IMPRESSION: Pericecal collection with surrounding stranding and inflammation. Electronically signed in PS360 by: Ivan Arriaga M.D. 05/08/2020 20:05 EST Name Value Range Interpretation Code Description Data Mahi rce(s) Supporting Document(s) ID Date Data Source [id number] 05/08/2020 06:37:00 PM EST [facility] Name Value Range Interpretation Code Description Data Mahi rce(s) Supporting Document(s) SARS COV2 TRP Not Detected [facility] This lab was ordered by [facility] and reported by [facility]. ID Date Data Source [id number] 05/08/2020 07:28:00 PM EST [facility] [id number] Name Value Range Interpretation Code Description Data Mahi rce(s) Supporting Document(s) Adenovirus Not Detected Detected Not [facility] ospital Coronavirus 229E Not Detected Detected Not [facility] Coronavirus HKU1 Not Detected Detected Not [facility] Coronavirus NL63 Not Detected Detected Not [facility] Coronavirus OC43 Not Detected Detected Not [facility] Sars Cov 2 Not Detected Detected Not [facility] Metapneumovirus Not Detected Detected Not [facility] Human Rhinovirus Not Detected Detected Not [facility] Influenza A Not Detected Detected Not [facility] Influenza B Not Detected Detected Not [facility] Parainfluenza Virus 1 Not Detected Detected Not [facility] Parainfluenza Virus 2 Not Detected Detected Not [facility] Parainfluenza Virus 3 Not Detected Detected Not [facility] Parainfluenza Virus 4 Not Detected Detected Not [facility] Respiratory Syncytial Virus Not Detected Detected Not [facility] Bordetella parapertus (UP0334) Not Detected Detected Not [facility] Bordetella pertussis (ptxP) Not Detected Detected Not [facility] Chlamydia pneumoniae Not Detected Detected Not [facility] Mycoplasma pneumoniae Not Detected Detected Not [facility] The Above results have been determined b y using the [employer] system.FilmArray is an automated in vitro diagnostic system thatutilizes nested multiplex Polymerase Chain Reaction (PCR)and high-resolution melting analysis to detect and identifymultiple nucleic acid targets from clinical specimens. ID Date Data Source [id number] 05/08/2020 05:48:00 PM EST [facility] [id number] Name Value Range Interpretation Code Description Data Mahi rce(s) Supporting Document(s) HCG URINE NEGATIVE NEGATIVE [facility] ID Date Data Source [id number] 05/08/2020 05:55:00 PM EST [facility] TSYSORDER [id number] Name Value Range Interpretation Code Description Data Mahi rce(s) Supporting Document(s) URINE COLOR. [facility] URINE APPEARANCE CLEAR [facility] URINE GLUCOSE (UA) NEGATIVE mg/dL NEGATIVE [facility] URINE BILIRUBIN NEGATIVE NEGATIVE [facility] URINE KETONE NEGATIVE mg/dL [facility],URINE 1.015 1.001-1.035 [facility] URINE BLOOD NEGATIVE NEGATIVE [facility] PH,URINE 7.0 5.0-9.0 [facility] URINE PROTEIN NEGATIVE mg/dL NEGATIVE [facility] UR[facility] UROBILINOGEN NORMAL(0.2-1) mg/dL 0-1 [facility] URINE NITRATE NEGATIVE NEGATIVE [facility] URINE LEUKOCYTE ESTERASE NEGATIVE NEGATIVE [facility] ID Date Data Source [id number] 05/15/2020 09:13:00 AM EST [facility] Name Value Range Interpretation Code Description Data Mahi rce(s) Supporting Document(s) [facility] ID Date Data Source [id number] 05/15/2020 09:12:00 AM EST [facility] Name Value Range Interpretation Code Description Data Mahi rce(s) Supporting Document(s) [facility] ID Date Data Source [id number] 05/08/2020 05:31:00 PM EST [facility] TSYS[facility] [id number] Name Value Range Interpretation Code Description Data Mahi rce(s) Supporting Document(s) GLUCOSE 92 mg/dL 74-106 [facility] BLOOD UREA NITROGEN 7 mg/dL 7-18 [facility] ital CREATININE 0.82 mg/dL 0.6-1.0 [facility] SODIUM 138 mmol/L 136-145 [facility] POTASSIUM 3.6 mmol/L 3.5-5.1 [facility] CHLORIDE 98 mmol/L 98-107 [facility] CO2 30 mmol/L 21-32 [facility] CALCIUM 9.0 mg/dL 8.5-10.1 [facility] ANION GAP 10.0 mmol/L 5-12 [facility] GLOMERULAR FILTRATION RATE 75 mL/min [facility] GFR IS CALCULATED IN mL/min/1.73m2 KULWANT L FUNCTION: >90MILDLY DECREASED: 60-89MILDY TO MODERATELY DECREASED: 45-59 MODERATELY TO SEVERELY DECREASED: 30-44SEVERELY DECREASED: 15-29RENAL FAILURE: <15 AST 17 U/L 15-37 [facility] ALT 24 U/L 12-78 [facility] ALKALINE PHOSPHATASE 67 U/L 46-116 [facility] TOTAL BILIRUBIN 0.4 mg/dL 0.2-1.0 [facility] TOTAL PROTEIN 7.4 g/dl 6.4-8.2 [facility] ALBUMIN 2.8 gm/dL 3.4-5.0 L [facility] ID Date Data Source [id number] 05/08/2020 05:31:00 PM [facility] l TSYSORDER [id number] Name Value Range Interpretation Code Description Data Mahi rce(s) Supporting Document(s) LIPASE 78 U/L 73-393 [facility] ID Date Data Source [id number] 05/08/2020 05:42:00 PM [facility] l TSYSORDER [id number] Name Value Range Interpretation Code Description Data Mahi rce(s) Supporting Document(s) LACTIC ACID 1.0 mmol/L 0.4-2.0 [facility] ID Date Data Source [id number] 05/08/2020 05:19:00 PM [facility] l TSYSORDER [id number] Name Value Range Interpretation Code Description Data Mahi rce(s) Supporting Document(s) WHITE BLOOD COUNT 11.7 K/mm3 4.0-10.0 [facility] RED BLOOD COUNT 4.08 M/mm3 4.00-5.50 [facility] HEMOGLOBIN 11.8 gm/dL 12.0-16.0 L [facility] HEMATOCRIT 35.7 % 36.0-48.8 [facility] MEAN CELL VOLUME 87.5 fl 80-96 [facility] MEAN CORPUSCULAR HEMOGLOBIN 28.9 pg 27.0-31.0 [facility] MEAN CORPUSCULAR HGB CONC 33.1 g/dl 32.0-36.0 [facility] RED CELL DISTRIBUTION WIDTH 11.6 % 10.0-14.5 [facility] PLATELET COUNT 276 K/mm3 172-450 [facility] MEAN PLATELET VOLUME 9.7 fl 9.0-13.0 [facility] pital GRAN % 79.6 % 50-80.0 [facility] IG% 0.5 % 0.0-0.2 H [facility] LYMPH % 12.4 % 25.0-50.0 L [facility] MONO % 6.9 % 2.0-10.0 [facility] EOS % 0.4 % 0-5.0 [facility] BASO % 0.2 % 0.0-2.0 [facility] GRAN # 9.3 K/mm3 2.0-8.00 H [facility] IG# 0.1 K/mm3 0.0-0.2 [facility] LYMPH # 1.5 K/mm3 1.0-5.0 [facility] MONO # 0.8 K/mm3 0.10-1.20 [facility] EOS # 0.1 K/mm3 0.0-0.5 [facility] BASO # 0.0 K/mm3 0.0-0.2 [facility] ID Date Data Source [id number] 05/06/2020 04:33:00 PM EST [facility] Exam Number: [id number] Reporte d By: - LISA KNOTT MD Signed By: LISA KNOTT MD Name Value Range Interpretation Code Description Data Mahi rce(s) Supporting Document(s) ID Date Data Source [id number] 05/06/2020 11:45:00 AM EST [facility] [address] [id number] DISCHARGE SUMMARYPATIENT NAME: SUSAN RENDON MR#: [id number] PHYSICIAN: MARLIN FLORES DOAUTHOR: Nando DOMINGUEZ,[facility] HospitalT#: [id number] DATE: 05/04/20 #: 2WESTDISCHARGE DATE: 05/06/20 PATIENT : 75Summary of HospitalizationReason for AdmissionPostop appendiceal abscessHospital [id number]-vaaf-hyj female admitted a week postop after laparoscopic appendectomy forsuppurative appendicitis. She was admitted by medicine and treated with IVantibiotics. CT scan demonstrated a small intra- abdominal abscess. She wasgiven oral contrast and interventional radiographic guidance was used forabscess aspiration. Her white blood cell count normalized and feversdissipated. She was able to tolerate a diet and had normal GI function. Shewas discharged home with oral antibiotics and follow-up in 2 weeks time.Diagnoses (Current Visit)Problem List1. Intra-abdominal abscessDiagnoses (Other)Past Pertinent History1. HISTORY OF LAPAROSCOPIC LUIS FELIPE EN Y GASTRIC BYPASS2. Morbid obesity3. HTN (hypertension)4. Anxiety5. Acute appendicitisPa tient's Discharge ConditionVital SignsVital Signs-LastResult Date TimeTemp 98.0 05/06 0608B/P 110/67 05/06 0551Pulse 79 05/06 0551Pulse Ox 97 05/05 2000Resp 18 05/05 1999Patient's Discharge ConditionDischarge Date 05/06/20Discharge Conditon stableDischarge DispositionHomePhysical ExaminationGeneral Appearance no acute distress, afebrile, alertNeck no masses, no swellingCardiovascular regular rateRespiratory no distressAbdomen soft, non-tender, Incisions CDI with bruisingExtremities no clubbing, no cyanosis, no edemaMuscoskeletal normal inspectionPatient/Family InstructionsPrescriptionsContinue taking these medications:CITALOPRAM HYDROBROMIDE* (Celexa*) 20 MG [id number] MILLIGRAM Orally DAILYCLONAZEPAM (KLONOPIN) 0.5 MG TABLET0.5 MILLIGRAM Orally TWICE DAILY NEEDED as needed for ANXIETYInstructions:Max daily dose= 2 TABSMETOPROLOL* (Lopressor*) 25 MG UYYLVH18.5 MILLIGRAM Orally TWICE DAILYInstructions:CURRENTLY BEING HELD DUE TO LOW HEART RATEStart taking the following new medications:Amoxicillin/Potassium Clav (Augmentin XR 1,000-62.5 Tab) 1 EACH TAB.ER.12H1 TABLET Orally TWICE DAILYQty = 20No RefillsDischarge Activity: Resume normal activity, As toleratedDischarge diet: RegularFollow-upFollow up with Dr. Collier in 2 weeks.Take Tylenol and/or Motrin for pain.DATE SIGNED: 05/06/20 Electronically SignedTIME SIGNED: 1537 JEAN COLLIER MD Name Value Range Interpretation Code Description Data Mahi rce(s) Supporting Document(s) ID Date Data Source [id number] 05/06/2020 11:40:00 AM [address], [place] [address]FUYRZID NAME: SUSAN RENDON Cyril Ferguson#: [id number] PHYSICIAN: MARLIN FLORES DOACCOUNT #: [id number] ADM. DATE: 05/04/20PATIENT : 75 DISCH. DATE: [50}DISCHARGE SUMMARYSurgical/Ortho discharge planNicotine Replacement TherapyPrescribed at discharge Rx not offered at DCReason not offered n/aPersonal Care InstructionsDischarge Activity: Resume normal activity, As toleratedDischarge diet: RegularWound care: Change dressing as neededProblem ListMedical Proble msAcute appendicitisAnxietyAppendiceal abscessHISTORY OF LAPAROSCOPIC LUIS FELIPE EN Y GASTRIC BYPASSHTN (hypertension)Intra-abdominal abscessMorbid obesityFollow Up CareFollow Up:Follow up with Dr. Collier in 2 weeks.Take Tylenol and/or Motrin for pain.END ENDDICT: 05/06/20 1140 Electronically SignedTRANS:05/06/20 1140 JEAN COLLIER MDTRANS BY:DATE SIGNED:05/06/20TIME SIGNED: 1144REPORT COPY TO: Name Value Range Interpretation Code Description Data Mahi rce(s) Supporting Document(s) ID Date Data Source [id number] 05/06/2020 10:32:00 AM EST [facility] Exam Number: [id number] OF EXAMINATIO N: 05/05/2020 14:54 ESTCT PELVIS W/ NO IV OR ORALHISTORY: Pelvic abscessThis CT exam was performed using the following dose reductiontechniques: automated exposure control, adjustment of mA and/or kVaccording to the patient's size, and use of iterative reconstructiontechnique.Standard contiguous axial spiral imaging was obtained without contrastadministration and with coronal reformatting.Findings:Previous noted right lower quadrant abscess is once again identified.We therefore proceeded with the procedure.IMPRESSION:Right lower quadrant abscessElectronically signed in PS360 by: Aldair Bautista M.D. 110:20 EST Reported By: Jo BAUTISTA M.D. Signed By: Shavon BAUTISTA M.D. Name Value Range Interpretation Code Description Data Mahi rce(s) Supporting Document(s) ID Date Data Source [id number] 05/06/2020 10:00:00 AM EST [facility] Exam Number: [id number] OF EXAMINATIO N: 05/05/2020 7:00 ESTCT GUIDANCE FOR PERC DRAINAGEHISTORY: Status post abscess drainageThis CT exam was performed using the following dose reductiontechniques: automated exposure control, adjustment of mA and/or kVaccording to the patient's size, and use of iterative reconstructiontechnique.Under local anesthesia a septic technique and CT guidance right lowerquadrant abscess was drained. Approximately 50 cc of purulent materialand 20 cc of gas was drained and sent for Gram stain culture andsensitivity. Patient tolerated procedure well and no complicationsdevelo ped.IMPRESSION:Successful pelvic abscess drainageElectronically signed in PS360 by: Aldair Bautista M.D. 05/06/2020 8:58EST Reported By: Jo BAUTISTA M.D. Signed By: Shavon BAUTISTA M.D. Name Value Range Interpretation Code Description Data Mahi rce(s) Supporting Document(s) ID Date Data Source [id number] 05/06/2020 09:25:00 AM EST [facility] [address] [id number] PROGRESS NOTEPATIENT NAME: SUSAN RENDON PHYSICIAN: MARLIN FLORES DOAUTHOR: Nando DOMINGUEZ,NoahADM. DATE: 05/04/20 MR#: [id number] NOTE DATE: 05/06/20 RM#: [id number] TIME: 926 : 75SubjectiveCC/Hx Present [id number] with postop abscess status post laparoscopic appendectomyEvents Since Last EntryAbscess aspirated yesterday in IR. No fevers. adolph diet +BM +FObjectiveVital SignsVital Signs-LastResult Date TimeTemp 98.0 01/05 0608B/P 110/67 05/06 0451Pulse 79 05/06 0551Pulse Ox 97 05/05 2000Resp 18 05/05 2000Current MedicationsCitalopram Hydrobromide (Celexa) 20 MG DAILY POPiperacillin Sod/Tazobactam Sod (Zosyn) 3.375 GM Q6H IVIbuprofen (Motrin) 600 MG Q6HPRN PRN POAcetaminophen (Tylenol) 650 MG Q4HPRN PRN POAcetaminophen (Tylenol) 650 MG Q6HPRN PRN POOndansetron HCl (Zofran) 4 MG Q6HPRN PRN IMSodium Chloride (SODIUM CHLORIDE 0.9%) 1,000 ML .G78A46P IVSodium Chloride (Saline Flush Syr(5ML)) 5 ML QIDPRN PRN IVSodium Chloride (Saline Flush Syr(5ML)) 5 ML Q12H IVExamGeneral Appearance no acute distress, afebrileCardiovascular normal caillary refillRespiratory no distressAbdomen soft, non-tender, incis C/D/I with some bruising. IR drain site clean.ResultsLaboratory DataRecent Labs-24 hours01/328372WsqjcvwszKkrtiq (136 - 147 mmol/L) 141Potassium (3.5 - 5.1 mmol/L) 3.8Chloride (99 - 110 mmol/L) 104Serum Bicarbonate (20 - 33 mmol/L) 29Anion Gap (10.0 - 20.0) 11.8BUN (7 - 23 mg/dL) 5 LCreatinine (0.500 - 1.300 mg/dL) 0.526Estimated GFR/1.73 m2 (mL/min) > 60Glucose (70 - 110 mg/dL) 101Calcium (8.3 - 10.7 mg/dL) 8.0 LHematologyWBC (4.0 - 10.5 x10E3/uL) 6.34RBC (4.20 - 5.40 x10E6/uL) 3.64 LHgb (12.0 - 16.0 g/dL) 10.7 LHct (37.0 - 47.0 %) 32.6 LMCV (81.0 - 99.0 fL) 89.6MCH (27.0 - 31.0 pg) 29.4MCHC (32.7 - 35.6 g/dL) 32.8RDW (11.5 - 14.0 %) 11.9Plt Count (150 - 450 x10E3/uL) 211MPV (6.9 - 9.5 fl) 10.1 HImmature Gran % (Auto) (0.1 - 2.0 %) 0.8Neut % (Auto) (34 - 64 %) 61.7Lymph % (Auto) (25 - 45 %) 20.2 LMono % (Auto) (1.7 - 10.6 %) 14.4 HEos % (Auto) (0.4 - 7.0 %) 2.4Baso % (Auto) (0.1 - 2.0 %) 0.5Abs Immat Gran (auto) (0.0 - 0.1 x10E3/uL) 0.05Absolute Neuts (auto) (1.2 - 7.6 x10E3/uL) 3.92Absolute Lymphs (auto) (1.0 - 3.5 x10E3/uL) 1.28Abso lute Monos (auto) (0.1 - 1.0 x10E3/uL) 0.91Absolute Eos (auto) (0.1 - 0.7 x10E3/uL) 0.15Absolute Basos (auto) (0.0 - 0.1 x10E3/uL) 0.03Nucleated RBC % (auto) (0 %) 0Assessment/PlanProblem List1. Intra-abdominal abscessA&PSwitch to oral antibiotics x10-14 days. Regular diet. Discharge today withfollow-up in my office in 2 weeks. OK to shower. Off work note on the chart forher.2. HISTORY OF LAPAROSCOPIC LUIS FELIPE EN Y GASTRIC BYPASS3. Morbid obesity4. HTN (hypertension)5. AnxietyDATE SIGNED: 05/06/20 Electronically SignedTIME SIGNED: 0943 JEAN COLLIER MD Name Value Range Interpretation Code Description Data Mahi rce(s) Supporting Document(s) ID Date Data Source [id number] 05/06/2020 06:05:00 AM EST [facility] Name Value Range Interpretation Code Description Data Mahi rce(s) Supporting Document(s) GLU 101 mg/dL 70-110 [facility] Patients taking Sulfasalazine may have f alsely depressedGlucose levels. Patients taking Sulfapyridine may havefalsely elevated Glucose levels. Patients should be drawnfor Glucose before the initial administration of eitherdrug. BUN 5 mg/dL 7-23 [facility] CRE 0.526 mg/dL 0.500-1.300 [facility] GFR > 60 mL/min [facility] CHLORIDE 104 mmol/L 99-110 [facility] NA 141 mmol/L 136-147 [facility] POTASSIUM 3.8 mmol/L 3.5-5.1 [facility] TCO2 29 mmol/L 20-33 [facility] ANION GAP 11.8 10.0-20.0 [facility] CA 8.0 mg/dL 8.3-10.7 [facility] ID Date Data Source [id number] 05/06/2020 05:42:00 AM EST [facility] Name Value Range Interpretation Code Description Data Mahi rce(s) Supporting Document(s) WBC 6.34 x10E3/uL 4.0-10.5 [facility] RBC 3.64 x10E6/uL 4.20-5.40 [facility] Hemoglobin 10.7 g/dL 12.0-16.0 [facility] Hematocrit 32.6 % 37.0-47.0 [facility] MCV 89.6 fL 81.0-99.0 [facility] MCH 29.4 pg 27.0-31.0 [facility] MCHC 32.8 g/dL 32.7-35.6 [facility] RDW 11.9 % 11.5-14.0 [facility] Platelet count 211 x10E3/uL 150-450 [facility] ital MPV 10.1 fl 6.9-9.5 [facility] Neutrophils 61.7 % 34-64 [facility] Lymphocytes 20.2 % 25-45 [facility] Monocytes 14.4 % 1.7-10.6 [facility] Eosinophils 2.4 % 0.4-7.0 N [facility] Basophils 0.5 % 0.1-2.0 [facility] Imm. Gran. 0.8 % 0.1-2.0 N [facility] Abs. Neutro. 3.92 x10E3/uL 1.2-7.6 [facility] Lymph. 1.28 x10E3/uL 1.0-3.5 [facility] Abs. [place]. 0.91 x10E3/uL 0.1-1.0 [facility] Abs. Eosin. 0.15 x10E3/uL 0.1-0.7 [facility] Abs. Baso. 0.03 x10E3/uL 0.0-0.1 N [facility] l Abs. Imm. Gran. 0.05 x10E3/uL 0.0-0.1 [facility] ANRBC% 0 % 0 [facility] ID Date Data Source [id number] 05/09/2020 06:57:00 PM EST [facility] Cc:Zac (AB) ABDOMIN AL ABSCESS DRAINAGE: - NEGATIVE FOR MALIGNANT CELLS COMMENT: Sure[employer] preps and a cell block contain innumerable PMNs and mesothelial cells. CODE/S:[id number] . Abdominal abcess drainage. URINE CATHERIZED URINE VOIDED SPUTUM 2 syringes- 15ml from each added to Cytor[employer] RedBRONCHIAL BRUSH BRONCHIAL WASH GASTRIC PLEURAL FLUID PERITONEAL FLUID PERICARDIAL FLUID CSF CELL BLOCK OTHER (SPECIFY) SEMEN ANALYSIS FINE NEEDLE ASPIRATION Abdominal abcess drainage/ PREP/CB/SW/05/06/20CERVICAL Selective cellular enrichment preps and cell block reviewed.Diagnosis supported by microscopic examination. REPORT SIGNED: Carolyne Montero DO 05/09/20 Name Value Range Interpretation Code Description Data Mahi rce(s) Supporting Document(s) ID Date Data Source [id number] 05/08/2020 01:03:00 PM EST [facility] COMMENTS TO LAB: ABCESS DRAINAGE ABDOMEN POST APPENDECTOMYSTREPTOCOCCUS BOVISCLOSTRIDIUM PERFRINGENS Name Value Range Interpretation Code Description Data Mahi rce(s) Supporting Document(s) ID Date Data Source [id number] 05/08/2020 01:02:00 PM EST [facility] COMMENTS TO LAB: ABCESS DRAINAGE ABDOMEN POST APPENDECTOMYWBCS IN LARGE NUMBERSMODERATE NUMBERS GRAM POS COCCISMALL NUMBERS GRAM POS BACILLISMALL NUMBERS GRAM NEGATIVE BACILLI Name Value Range Interpretation Code Description Data Mahi rce(s) Supporting Document(s) ID Date Data Source [id number] 05/05/2020 02:20:00 PM EST [facility] Exam Number: [id number] OF EXAMINATIO N: 05/05/2020 14:01 ESTCT ABD&PEL WITH ORAL CONT ONLYHISTORY: AbscessTECHNIQUE:This CT exam was performed using the following dose reductiontechniques: automated exposure control, adjustment of mA and/or kVaccording to the patient's size, and use of iterative reconstructiontechnique.Standard contiguous axial spiral imaging was obtained from the dome ofthe diaphragms through the symphysis pubis with oral contrast andwithout intravenous contrast administration and with coronalreformatting.FINDINGS:ABDOMEN:Previously noted abscess is once again identified. We will thereforeproceeded with percutaneous drainage. Given that there are multiplesmall bowel loops surrounding this collection the catheter will not beplaced.Pelvis:Bladder: Unopacified and nondistendedReproductive: UnremarkableNo free fluidIMPRESSION:There is a 4 cm right lower quadrant abscess. This is unchanged sincestudy of one day earlierElectronically signed in PS360 by: Aldair Bautista M.D. 114:08 EST Reported By: Jo BAUTISTA M.D. Signed By: Shavon BAUTISTA M.D. ADDENDUM: [id number] CT/[id number] cc of yellowish pus and 20 cc of gas was drained from the abscesspocketElectronically signed in PS360 by: Aldair Bautista M.D. 116:21 EST Reported By: - Shavon BAUTISTA M.D. Signed By: Shavon BAUTISTA M.D. Name Value Range Interpretation Code Description Data Mahi rce(s) Supporting Document(s) ID Date Data Source [id number] 05/05/2020 12:14:00 PM EST [address] [id number] PROGRESS NOTEPATIENT NAME: SUSAN RENDON PHYSICIAN: MARLIN FLORES, DOAUTHOR: Jonatan DOMINGUEZ,[facility]. DATE: 05/04/20 MR#: [id number] NOTE DATE: 05/05/20 RM#: [id number] TIME: 1216 : 75SubjectiveEvents Since Last EntryStable but with ongoing fevers.HD stable.Awaits IR drainge attempt today. Radiology requested po contrast first.IV abx ongoing pending drainage of abscess.ObjectiveVital SignsVital Signs-LastR esult Date TimeTemp 99.0 05/05 0614Pulse Ox 99 05/04 2147B/P 138/88 05/04 2147Pulse 80 05/04 2147Resp 17 05/04 2147Intake/OutputIntake/Output Summary 24 hours05/04 1900 05/05 0700Intake Total 1435 900Output Total 800 0Balance 635 900Intake, IV 475 900Intake, Oral 960Number 0BowelMovementsNumber 4UnmeasuredVoidsOutput, Stool 0Output, Urine 800Patient 227 lb 231 lbWeightResultsLaboratory DataTest Result Date TimeBlood GasMixed VBG O2 Saturation (%) 96.7 05/04 1003Capillary pH (7.310 - 7.410) 7.429 H 05/04 1003Capillary pCO2 (mm/Hg) 37.2 05/04 1003Capillary pO2 (mm/Hg) 93.2 05/04 1003Capillary HCO3 (mmoL/L) 24.1 05/04 1003ChemistrySodium (136 - 147 mmol/L) 138 05/05 0544Potassium (3.5 - 5.1 mmol/L) 3.8 05/05 0544Chloride (99 - 110 mmol/L) 104 05/05 0544Serum Bicarbonate (20 - 33 mmol/L) 26 05/05 0544Anion Gap (10.0 - 20.0) 11.8 05/05 0544BUN (7 - 23 mg/dL) 4 L 05/05 0544Creatinine (0.500 - 1.300 mg/dL) 0.449 L 05/05 0544Estimated GFR/1.73 m2 (mL/min) > 60 05/05 0544Glucose (70 - 110 mg/dL) 84 05/05 0544Plasma Lactic Acid Claudio (0.4 - 2.0 mmol/L) 0.7 05/04 0935Calcium (8.3 - 10.7 mg/dL) 8.2 L 05/05 0544Magnesium (1.6 - 2.6 mg/dL) 2.1 05/04 0935Total Bilirubin (0.1 - 1.1 mg/dL) 0.6 05/04 0935AST (6 - 38 U/L) 18 05/04 0935ALT (6 - 54 U/L) 20 05/04 0935Alkaline Phosphatase (45 - 117 U/L) 70 05/04 0935Total Protein (6.0 - 7.8 g/dL) 6.8 05/04 0935Albumin (3.5 - 5.0 g/dL) 3.1 L 05/04 0935Globulin (2.3 - 3.5 g/dL) 3.7 H 05/04 0935Albumin/Globulin Ratio (1.0 - 2.5) 0.8 L 05/04 0935CoagulationAPTT (21.2 - 31.2 SECONDS) 27.3 05/04 0935HematologyWBC (4.0 - 10.5 x10E3/uL) 6.81 05/05 0544RBC (4.20 - 5.40 x10E6/uL) 3.63 L / 0544Hgb (12.0 - 16.0 g/dL) 10.6 L / 0544Hct (37.0 - 47.0 %) 32.4 L 05/05 0544MCV (81.0 - 99.0 fL) 89.3 05/05 0544MCH (27.0 - 31.0 pg) 29.2 / 0544MCHC (32.7 - 35.6 g/dL) 32.7 / 0544RDW (11.5 - 14.0 %) 11.8 / 0544Plt Count (150 - 450 x10E3/uL) 206 05/05 0544MPV (6.9 - 9.5 fl) 10.4 H 05/05 0544Immature Gran % (Auto) (0.1 - 2.0 %) 0.4 05/05 0544Neut % (Auto) (34 - 64 %) 71.6 H 05/05 0544Lymph % (Auto) (25 - 45 %) 13.8 L 05/05 0544Mono % (Auto) (1.7 - 10.6 %) 12.3 H 05/05 0544Eos % (Auto) (0.4 - 7.0 %) 1.6 / 0544Baso % (Auto) (0.1 - 2.0 %) 0.3 05/05 0544Abs Immat Gran (auto) (0.0 - 0.1 x10E3/uL) 0.03 05/05 0544Absolute Neuts (auto) (1.2 - 7.6 x10E3/uL) 4.87 / 0544Absolute Lymphs (auto) (1.0 - 3.5 x10E3/uL) 0.94 L 05/05 0544Absolute Monos (auto) (0.1 - 1.0 x10E3/uL) 0.84 / 0544Absolute Eos (auto) (0.1 - 0.7 x10E3/uL) 0.11 05/05 0544Absolute Basos (auto) (0.0 - 0.1 x10E3/uL) 0.02 05/05 0544Nucleated RBC % (auto) (0 %) 0 05/05 0544SerologyCOVID-19 (JULIANNA) (NEGATIVE) NEGATIVE 05/04 0935UrinesUrine Color Yellow 05/04 1017Urine Appearance Clear 05/04 1017Urine pH (5.0 - 8.0) 6.5 05/04 1017Ur Specific [place] (1.010 - 1.025) 1.010 05/04 1017Urine Protein (Negative) Negative 05/04 1017Urine Ketones (NEGATIVE) Negative 05/04 1017Urine Blood (NEGATIVE) Negative 05/04 1017Urine Nitrite (Negative) Negative 05/04 1017Ur Bilirubin Confirm (NEGATIVE) Negative 05/04 1017Urine Urobilinogen (0.2 - 1.0 mg/dL) 1.0 05/04 1017Urine Leukocytes (Negative) Trace 05/04 1017Urine RBC (NONE SEEN) None Seen 05/04 1017Urine WBC (NONE SEEN) 0-2 WBCs/HPF 05/04 1017Urine Bacteria (NONE SEEN) Rare 05/04 1017Urine Glucose (NEGATIVE) Negative 05/04 1017Assessment/PlanProblem List1. Appendiceal abscess2. Anxiety3. HTN (hypertension)4. Morbid obesity5. HISTORY OF LAPAROSCOPIC LUIS FELIPE EN Y GASTRIC BYPASSDATE SIGNED: 05/05/20 E lectronically SignedTIME SIGNED: 1216 SACHIN CHEUNG MD Name Value Range Interpretation Code Description Data Mahi rce(s) Supporting Document(s) ID Date Data Source [id number] 05/05/2020 11:18:00 AM EST [address] [id number] NOTEPATIENT NAME: SUSAN RENDON PHYSICIAN: JEAN COLLIER MDAUTHOR: Young Flores DO. DATE: 05/04/20 MR#: [id number] NOTE DATE: 05/05/20 RM#: [id number] TIME: 1123 : 75SubjectiveEvents Since Last EntryPatient seen and examined in the room today. Patient still has intermittentfever up to admission. Patient still experiences discomfort at the right lowerabdomen. Patient has been n.p.o. after midnight. Denies acute change.ObjectiveVital SignsVital Signs-24 HRS05/04 1433 1604 1611 1830Temp 98.9 98.4 98.4 98.4 99.8Pulse 85 74Resp 16 16B/P 146/95 103/91B/P MeanPulse Ox 100 94O2 DeliveryO2 Flow FjjjHrY23805/04 2057 2147 2326 0110Temp 100.7 99.5 99.0 100.4Pulse 82 80Resp 20 17B/P 125/89 138/88B/P MeanPulse Ox 98 99O2 DeliveryO2 Flow RwvtQzR02105/05440 0602 0614Temp 99.5 99.0 99.0PulseRespB/PB/P MeanPulse OxO2 DeliveryO2 Flow ZknkCwN2Gnlxqi/OutputIntake/Output Summary 24 hours05/04 1900 05/05 0700Intake Total 1435 900Output Total 800 0Balance 635 900Intake, IV 475 900Intake, Oral 960Number 0BowelMovementsNumber 4UnmeasuredVoidsOutput, Stool 0Output, Urine 800Patient 102.9 kg 105 kgWeightCurrent MedicationsCitalopram Hydrobromide (Celexa) 20 MG DAILY POPiperacillin Sod/Tazobactam Sod (Zosyn) 3.375 GM Q6H IVIbuprofen (Motrin) 600 MG Q6HPRN PRN POAcetaminophen (Tylenol) 650 MG Q4HPRN PRN POAcetaminophen (Tylenol) 650 MG Q6HPRN PRN POOndansetron HCl (Zofran) 4 MG Q6HPRN PRN IMSodium Chloride (SODIUM CHLORIDE 0.9%) 1,000 ML .[id number] IVSodium Chloride (Saline Flush Syr(5ML)) 5 ML QIDPRN PRN IVSodium Chloride (Saline Flush Syr(5ML)) 5 ML Q12H IVExamGeneral Appearance no acute distress, alert, awake, conversantHead atraumatic, normocephalicNeck suppleCardiovascular regular rateRespiratory no distress, aerating well, symmetric expansionAbdomen mildly tender (RLQ), Decreased bowel soundsUrinary no bladder distention, no flank painExtremities no clubbing, no cyanosis, no edemaMuscoskeletal normal inspection, no leonor arthritis, no joint erythemaNeurological alert, oriented x 3Psych/Mental Status mood neutral, normal affect, normal judgem entResultsLaboratory DataRecent Labs-24 hours01/778370HdbuumrqdUduwsy (136 - 147 mmol/L) 138Potassium (3.5 - 5.1 mmol/L) 3.8Chloride (99 - 110 mmol/L) 104Serum Bicarbonate (20 - 33 mmol/L) 26Anion Gap (10.0 - 20.0) 11.8BUN (7 - 23 mg/dL) 4 LCreatinine (0.500 - 1.300 mg/dL) 0.449 LEstimated GFR/1.73 m2 (mL/min) > 60Glucose (70 - 110 mg/dL) 84Calcium (8.3 - 10.7 mg/dL) 8.2 LHematologyWBC (4.0 - 10.5 x10E3/uL) 6.81RBC (4.20 - 5.40 x10E6/uL) 3.63 LHgb (12.0 - 16.0 g/dL) 10.6 LHct (37.0 - 47.0 %) 32.4 LMCV (81.0 - 99.0 fL) 89.3MCH (27.0 - 31.0 pg) 29.2MCHC (32.7 - 35.6 g/dL) 32.7RDW (11.5 - 14.0 %) 11.8Plt Count (150 - 450 x10E3/uL) 206MPV (6.9 - 9.5 fl) 10.4 HImmature Gran % (Auto) (0.1 - 2.0 %) 0.4Neut % (Auto) (34 - 64 %) 71.6 HLymph % (Auto) (25 - 45 %) 13.8 LMono % (Auto) (1.7 - 10.6 %) 12.3 HEos % (Auto) (0.4 - 7.0 %) 1.6Baso % (Auto) (0.1 - 2.0 %) 0.3Abs Immat Gran (auto) (0.0 - 0.1 x10E3/uL) 0.03Absolute Neuts (auto) (1.2 - 7.6 x10E3/uL) 4.87Absolute Lymphs (auto) (1.0 - 3.5 x10E3/uL) 0.94 LAbsolute Monos (auto) (0.1 - 1.0 x10E3/uL) 0.84Absolute Eos (auto) (0.1 - 0.7 x10E3/uL) 0.11Absolute Basos (auto) (0.0 - 0.1 x10E3/uL) 0.02Nucleated RBC % (auto) (0 %) 3UqmnfksgcycnMgpwxsqnhogn62/03 1003 BLOOD: Blood Culture - RECD05/04 0935 BLOOD: Blood Culture - RECDAssessment/PlanProblem List1. Intra-abdominal abscessA&P-Patient had had a laparoscopic appendectomy on 04/28/2020.-CT abdomen pelvis with IV contrast demonstrated finding of small focalcollection including air-fluid level raising the possibility of postsurgicalabscess.-Continue with IV fluid support. Continue with IV Zosyn.- Continue p.o. Tylenol for fever and pain.-Patient has been n.p.o. since midnight. DVT prophylaxis (heparin) has been onhold since this morning. Anticipate patient getting imaging guided abscessdrainage in the radiology today.-Discussed with surgery. Patient's care was transferred to surgical team.2. AnxietyA&P-Continue Celexa3. HTN (hypert ension)A&P-Patient was recently diagnosed with hypertension. Due to bradycardia patientmetoprolol was on hold.-Currently blood pressure remains in the satisfactory range. Continue holdingmetoprolol at this moment.VTE ProphylaxisVTE Prophylaxis: Sequential compression device ordered.DATE SIGNED: 05/11/20 Electronically SignedTIME SIGNED: 2012 MARLIN FLORES DO Name Value Range Interpretation Code Description Data Mahi rce(s) Supporting Document(s) ID Date Data Source [id number] 05/05/2020 08:10:00 AM EST [facility] Exam Number: [id number] OF EXAMINATIO N: 05/04/2020 9:22 ESTCHEST SINGLE VIEWHISTORY: FeverTECHNIQUE: Single frontal radiograph of chestCOMPARISON: None.FINDINGS:No evidence of focal consolidation, pneumothorax or large pleuraleffusion. Lungs are clear. Mediastinal structures are unremarkable. Noaggressive osseous lesions.IMPRESSION:No focal consolidation.Electronically signed in PS360 by: Cortez Bear M.D. 05/04/2020 10:37EST Reported By: - Cortez Tejeda M.D. Signed By: Cortez Tejeda M.D. Name Value Range Interpretation Code Description Data Mahi rce(s) Supporting Document(s) ID Date Data Source [id number] 05/05/2020 06:54:00 AM [facility] Name Value Range Interpretation Code Description Data Mahi rce(s) Supporting Document(s) GLU 84 mg/dL 70-110 [facility] Patients taking Sulfasalazine may have f alsely depressedGlucose levels. Patients taking Sulfapyridine may havefalsely elevated Glucose levels. Patients should be drawnfor Glucose before the initial administration of eitherdrug. BUN 4 mg/dL 7-23 [facility] CRE 0.449 mg/dL 0.500-1.300 [facility] GFR > 60 mL/min [facility] CHLORIDE 104 mmol/L 99-110 [facility] NA 138 mmol/L 136-147 [facility] POTASSIUM 3.8 mmol/L 3.5-5.1 [facility] TCO2 26 mmol/L 20-33 [facility] ANION GAP 11.8 10.0-20.0 [facility] CA 8.2 mg/dL 8.3-10.7 [facility] ID Date Data Source [id number] 05/05/2020 06:38:00 AM KYLER Reyesxtfariba benedict Name Value Range Interpretation Code Description Data Mahi rce(s) Supporting Document(s) WBC 6.81 x10E3/uL 4.0-10.5 [facility] RBC 3.63 x10E6/uL 4.20-5.40 [facility] Hemoglobin 10.6 g/dL 12.0-16.0 L [facility] Hematocrit 32.4 % 37.0-47.0 L [facility] MCV 89.3 fL 81.0-99.0 N [facility] MCH 29.2 pg 27.0-31.0 N [facility] MCHC 32.7 g/dL 32.7-35.6 N [facility] RDW 11.8 % 11.5-14.0 N [facility] Platelet count 206 x10E3/uL 150-450 [facility] MPV 10.4 fl 6.9-9.5 H [facility] Neutrophils 71.6 % 34-64 [facility] Lymphocytes 13.8 % 25-45 L [facility] Monocytes 12.3 % 1.7-10.6 [facility] Eosinophils 1.6 % 0.4-7.0 N [facility] Basophils 0.3 % 0.1-2.0 [facility] Imm. Gran. 0.4 % 0.1-2.0 [facility] Abs. Neutro. 4.87 x10E3/uL 1.2-7.6 [facility] Abs. Lymph. 0.94 x10E3/uL 1.0-3.5 [facility] Abs. [place]. 0.84 x10E3/uL 0.1-1.0 [facility] Abs. Eosin. 0.11 x10E3/uL 0.1-0.7 [facility] Abs. Baso. 0.02 x10E3/uL 0.0-0.1 [facility] Abs. Imm. Gran. 0.03 x10E3/uL 0.0-0.1 [facility] ANRBC% 0 % 0 [facility] ID Date Data Source [id number] 05/04/2020 03:27:00 PM EST [facility] [address] [id number] CONSULT REPORTPATIENT NAME: SUSAN RENDON MR#: [id number] PHYSICIAN: MARLIN FLORES, DOCONSULTING PHYSICIAN: Sachin Cheung MD DATE: 05/04/20 #: ICUCONSULTING DATE: 05/04/20 PATIENT : 75EVALUATION TIME: 1531HistoryHistory of Presenting [id number] female status post laparoscopic appendectomy with Dr. Collier on 04/28/20, 6 days ago who returns with right lower quadrant abscess on CT.She had initially presen perla on April 28 with acute onset of lower abdominalpain for 1 day.She had some nausea and chills at that time. CT scan on initial presentationconfirmed acute appendicitis with leukocytosis. She was taken to the operatingroom for an uneventful appendectomy. She was discharged home postoperativelyafter routine postop IV antibiotic dosing.She presented back to the ER today with recurrent symptoms similar to herinitial presentation.CT scan was performed that revealed a 3.8 cm right lower quadrant abscess. +fevers at home. Denies CP, cough, SOB, dysuria.Covid negative today.Past Medical/Surgical HistoryPast Medical/Surgical HistoryMedical ProblemsAcute appendicitisAnxietyAppendiceal abscessHISTORY OF LAPAROSCOPIC LUIS FELIPE EN Y GASTRIC BYPASSHTN (hypertension)Intra-abdominal abscessMorbid obesityAllergiesCoded Allergies:No Known Drug Allergies (04/28/20)metoclopramide (From REGLAN) (Intermediate, 05/04/20)Social History no tobacco use, no alcohol use, employedReview of SystemsConstitutionalReports: Pain, Fever, Chills. Denies: Generalized weakness.RespiratoryDenies: dyspnea, non-productive cough.CardiovascularDenies: chest pain, dyspnea on exertion.GenitorurinaryDenies: dysuria.NeurologicalDenies: focal weakness.ExamVital SignsTest Result Date TimeBlood GasMixed VBG O2 Saturation (%) 96.7 05/04 1003Capillary pH (7.310 - 7.410) 7.429 H 05/04 1003Capillary pCO2 (mm/Hg) 37.2 05/04 1003Capillary pO2 (mm/Hg) 93.2 05/04 1003Capillary HCO3 (mmoL/L) 24.1 05/04 1003ChemistrySodium (136 - 147 mmol/L) 139 05/04 0935Potassium (3.5 - 5.1 mmol/L) 4.5 05/04 0935Chl oride (99 - 110 mmol/L) 104 05/04 0935Serum Bicarbonate (20 - 33 mmol/L) 26 05/04 0935Anion Gap (10.0 - 20.0) 13.5 05/04 0935BUN (7 - 23 mg/dL) 6 L 05/04 0935Creatinine (0.500 - 1.300 mg/dL) 0.515 05/04 0935Estimated GFR/1.73 m2 (mL/min) > 60 05/04 0935Glucose (70 - 110 mg/dL) 84 05/04 0935Plasma Lactic Acid Claudio (0.4 - 2.0 mmol/L) 0.7 05/04 0935Calcium (8.3 - 10.7 mg/dL) 8.7 05/04 0935Magnesium (1.6 - 2.6 mg/dL) 2.1 05/04 0935Total Bilirubin (0.1 - 1.1 mg/dL) 0.6 05/04 0935AST (6 - 38 U/L) 18 05/04 0935ALT (6 - 54 U/L) 20 05/04 0935Alkaline Phosphatase (45 - 117 U/L) 70 05/04 0935Total Protein (6.0 - 7.8 g/dL) 6.8 05/04 0935Albumin (3.5 - 5.0 g/dL) 3.1 L 05/04 0935Globulin (2.3 - 3.5 g/dL) 3.7 H 05/04 0935Albumin/Globulin Ratio (1.0 - 2.5) 0.8 L 05/04 0935CoagulationAPTT (21.2 - 31.2 SECONDS) 27.3 05/04 0935HematologyWBC (4.0 - 10.5 x10E3/uL) 11.89 H 05/04 0935RBC (4.20 - 5.40 x10E6/uL) 4.40 05/04 0935Hgb (12.0 - 16.0 g/dL) 12.9 05/04 0935Hct (37.0 - 47.0 %) 38.7 05/04 0935MCV (81.0 - 99.0 fL) 88.0 05/04 0935MCH (27.0 - 31.0 pg) 29.3 05/04 0935MCHC (32.7 - 35.6 g/dL) 33.3 05/04 0935RDW (11.5 - 14.0 %) 11.9 05/04 0935Plt Count (150 - 450 x10E3/uL) 238 05/04 0935MPV (6.9 - 9.5 fl) 10.4 H 05/04 0935Immature Gran % (Auto) (0.1 - 2.0 %) 0.6 05/04 0935Neut % (Auto) (34 - 64 %) 74.9 H 05/04 0935Lymph % (Auto) (25 - 45 %) 14.0 L 05/04 0935Mono % (Auto) (1.7 - 10.6 %) 9.4 05/04 0935Eos % (Auto) (0.4 - 7.0 %) 0.8 05/04 0935Baso % (Auto) (0.1 - 2.0 %) 0.3 05/04 0935Abs Immat Gran (auto) (0.0 - 0.1 x10E3/uL) 0.07 05/04 0935Absolute Neuts (auto) (1.2 - 7.6 x10E3/uL) 8.92 H 05/04 0935Absolute Lymphs (auto) (1.0 - 3.5 x10E3/uL) 1.66 05/04 0935Absolute Monos (auto) (0.1 - 1.0 x10E3/uL) 1.12 H 05/04 0935Absolute Eos (auto) (0.1 - 0.7 x10E3/uL) 0.09 L 05/04 0935Absolute Basos (auto) (0.0 - 0.1 x10E3/uL) 0.03 05/04 0935Nucleated RBC % (auto) (0 %) 0 05/04 0935SerologyCOVID-19 (JULIANNA) (NEGATIVE) NEGATIVE 05/04 0935UrinesUrine Color Yellow 05/04 1017Urine Appearance Clear 05/04 1017Urine pH (5.0 - 8.0) 6.5 05/04 1017Ur Specific [place] (1.010 - 1.025) 1.010 05/04 1017Urine Protein (Negative) Negative 05/047Urine Ketones (NEGATIVE) Negative 05/04 1017Urine Blood (NEGATIVE) Negative 05/04 1017Urine Nitrite (Negative) Negative 05/04 1017Ur Bilirubin Confirm (NEGATIVE) Negative 05/047Urine Urobilinogen (0.2 - 1.0 mg/dL) 1.0 05/04 1017Urine Leukocytes (Negative) Trace 05/04 1017Urine RBC (NONE SEEN) None Seen 05/04 1017Urine WBC (NONE SEEN) 0-2 WBCs/HPF 05/047Urine Bacteria (NONE SEEN) Rare 05/047Urine Glucose (NEGATIVE) Negative 05/04 1017Physical ExaminationGeneral Appearance no acute distress, alert, awake, conversantHead atraumatic, normocephalicNeck suppleCardiovascular regular rateRespiratory no distress, aerating well, sy mmetric expansionAbdomen mildly tenderExtremities no clubbing, no cyanosis, no edemaNeurological alert, oriented x 3Data ReviewLaboratory DataRecent Labs-48 hours05/[id number] GasMixed VBG O2 Saturation (%) 96.7Capillary pH (7.310 - 7.410) 7.429 HCapillary pCO2 (mm/Hg) 37.2Capillary pO2 (mm/Hg) 93.2Capillary HCO3 (mmoL/L) 24.1ChemistrySodium (136 - 147 mmol/L) 139Potassium (3.5 - 5.1 mmol/L) 4.5Chloride (99 - 110 mmol/L) 104Serum Bicarbonate (20 - 33 mmol/L) 26Anion Gap (10.0 - 20.0) 13.5BUN (7 - 23 mg/dL) 6 LCreatinine (0.500 - 1.300 mg/dL) 0.515Estimated GFR/1.73 m2 (mL/min) > 60Glucose (70 - 110 mg/dL) 84Plasma Lactic Acid Claudio (0.4 - 2.0 mmol/L) 0.7Calcium (8.3 - 10.7 mg/dL) 8.7Magnesium (1.6 - 2.6 mg/dL) 2.1Total Bilirubin (0.1 - 1.1 mg/dL) 0.6AST (6 - 38 U/L) 18ALT (6 - 54 U/L) 20Alkaline Phosphatase (45 - 117 U/L) 70Total Protein (6.0 - 7.8 g/dL) 6.8Albumin (3.5 - 5.0 g/dL) 3.1 LGlobulin (2.3 - 3.5 g/dL) 3.7 HAlbumin/Globulin Ratio (1.0 - 2.5) 0.8 LCoagulationAPTT (21.2 - 31.2 SECONDS) 27.3HematologyWBC (4.0 - 10.5 x10E3/uL) 11.89 HRBC (4.20 - 5.40 x10E6/uL) 4.40Hgb (12.0 - 16.0 g/dL) 12.9Hct (37.0 - 47.0 %) 38.7MCV (81.0 - 99.0 fL) 88.0MCH (27.0 - 31.0 pg) 29.3MCHC (32.7 - 35.6 g/dL) 33.3RDW (11.5 - 14.0 %) 11.9Plt Count (150 - 450 x10E3/uL) 238MPV (6.9 - 9.5 fl) 10.4 HImmature Gran % (Auto) (0.1 - 2.0 %) 0.6Neut % (Auto) (34 - 64 %) 74.9 HLymph % (Auto) (25 - 45 %) 14.0 LMono % (Auto) (1.7 - 10.6 %) 9.4Eos % (Auto) (0.4 - 7.0 %) 0.8Baso % (Auto) (0.1 - 2.0 %) 0.3Abs Immat Gran (auto) (0.0 - 0.1 x10E3/uL) 0.07Absolute Neuts (auto) (1.2 - 7.6 x10E3/uL) 8.92 HAbsolute Lymphs (auto) (1.0 - 3.5 x10E3/uL) 1.66Absolute Monos (auto) (0.1 - 1.0 x10E3/uL) 1.12 HAbsolute Eos (auto) (0.1 - 0.7 x10E3/uL) 0.09 LAbsolute Basos (auto) (0.0 - 0.1 x10E3/uL) 0.03Nucleated RBC % (auto) (0 %) 0SerologyCOVID-19 (JULIANNA) (NEGATIVE) [id number] Color YellowUrine Appearance ClearUrine pH (5.0 - 8.0) 6.5Ur Specific [place] (1.010 - 1.025) 1.010Urine Protein (Negat laurie) NegativeUrine Ketones (NEGATIVE) NegativeUrine Blood (NEGATIVE) NegativeUrine Nitrite (Negative) NegativeUr Bilirubin Confirm (NEGATIVE) NegativeUrine Urobilinogen (0.2 - 1.0 mg/dL) 1.0Urine Leukocytes (Negative) TraceUrine RBC (NONE SEEN) None SeenUrine WBC (NONE SEEN) 0-2 WBCs/HPFUrine Bacteria (NONE SEEN) RareUrine Glucose (NEGATIVE) VsswvpgxDajsrcttbyuc11/03 1003 BLOOD: Blood Culture - RECD05/04 0935 BLOOD: Blood Culture - RECDImagingDATE OF EXAMINATION: 05/04/2020 9:46 ESTCT ABD&PEL WITH IV CONT ONLYHISTORY: Fever with recent appendectomy.COMPARISON: 04/28/2020TECHNIQUE:This CT exam was performed using the following dose reductiontechniques: automated exposure control, adjustment of mA and/or kVaccording to the patient's size, and use of iterative reconstructiontechnique.Standard contiguous axial spiral imaging was obtained from the dome ofthe diaphragms through the symphysis pubis without oral contrast andwith intravenous contrast administration and with coronalreformatting.FINDINGS:Patient is noted to be status post appendectomy and inflammatorystranding in the right lower quadrant/pericecal region is appreciatedalong with a 3.8 cm collection with air-fluid level raising thepossibility of postsurgical abscess. No free air. No significantascites. Remainder of the small and large bowel is grosslyunremarkable. Evidence for prior gastric bypass surgery noted.Liver, spleen, pancreas, gallbladder, bilateral adrenal glands andkidneys are normal. Further evaluation of the pelvis and straightnormal bladder and age-appropriate uterus/adnexa. Musculoskeletalstructures and straight degenerative changes without acute osseousabnormality. Lung bases are clear.IMPRESSION:1. Inflammatory changes in the right lower quadrant with suggestionsfor small focal collection including air-fluid level raising thepossibility of postsurgical abscess. Close clinical observation isrecommended. No bowel obstruction or free air to suggest perforation.2. Remainder of the examination is relatively normal.PAGE 1 Signed Report Printed From [facility] ([facility])[place], [place] [address]ATEMUJOEFG CONSULTATIONDate of : 1975 Name: SUSAN RENDON AMedrec Number: [id number] Phys: ADRIANE LEVY MDExam Date: 05/04/2020 Location: ERProcedure: [id number], CT ABD&PEL WITH IV CONT Rad Numb: [id number] \\EXAM# TYPE/EXAM [id number] CT/CT ABD&PEL WITH IV CONT ONLYElectronically signed in PS360 by: Cortez Bear M.D. 05/04/2020 10:44EST Reported By: Cortez Tejeda M.D.Assessment/PlanDiagnosis/Problem1. Appendiceal abscessA&PPOD #6 s/p lap appendectomy for appendicitis.Returns with fevers, leukocytosis and CT evidence of 3.5 cm RLQ abscess.IV abx in place. Clear. NPO p MN for planned IR drainage of abscess tomorrow.Covid negative today.2. Anxiety3. HTN (hypertension)4. Morbid obesity5. HISTORY OF LAPAROSCOPIC LUIS FELIPE EN Y GASTRIC BYPASSDATE SIGNED: 05/04/20 Electronically SignedTIME SIGNED: [id number] SACHIN CHEUNG MD Name Value Range Interpretation Code Description Data Mahi rce(s) Supporting Document(s) ID Date Data Source [id number] 05/04/2020 12:43:00 PM EST [address] [address]EOQDRIT AND PHYSICALPATIENT NAME: SUSAN RENDON MR#: [id number] PHYSICIAN: JEAN COLLIER MDAUTHOR: Marlin Flores DO DATE: 05/04/20 #: 2WESTHISTORY & PHYSICAL DATE: 05/04/20 : 75EVALUATION TIME: 1258HistoryChief Complaint/Admit ReasonRight abdominal pain with feverHistory of Presenting IllnessPatient is a 45 years old female with a past medical history significant foranxiety, hypertension, history of gastric bypass [facility] 05[facility] with complaints of fever and acute onset of rightlower abdominal pain. [facility] and patient had a appendectomy on 04/28/2020. Patient wasfeeling fine after discharge initially. However patient then started havinglow-grade temperature. Since yesterday patient has persist ent fever with acuteonset of right lower abdominal pain. Pain is localized in the right lowerquadrant. In the emergency room, CT image demonstrated small focal collectionraising the possibility of postsurgical abscess.Past Medical/Surgical HistoryPast Medical/Surgical HistoryMedical ProblemsAcute appendicitisAnxietyAppendiceal abscessHISTORY OF LAPAROSCOPIC LUIS FELIPE EN Y GASTRIC BYPASSHTN (hypertension)Intra-abdominal abscessMorbid obesityReconciled Home Med ListSee Reconciled Home Medication ListAllergiesCoded Allergies:No Known Drug Allergies (05/09/20)metoclopramide (From REGLAN) (Intermediate, 05/04/20)Family history Father: at age of 69 from Glioblastoma Mother: Alive.HTN.Social History no tobacco use, no recreational drug use, alcohol use (1xmonthly)Review of SystemsConstitutionalReports: Pain, Fever. Denies: Generalized weakness.SkinDenies: bruising, itching, laceration, rash.RespiratoryDenies: dyspnea, non-productive cough, wheezing.CardiovascularDenies: chest pain, edema, palpitations.GastrointestinalReports: abdominal pain. Denies: nausea, vomiting, diarrhea.GenitorurinaryDenies: dysuria, flank pain, frequency, urgency.MusculoskeletalDenies: extremity pain, extremity swelling, joint pain, joint swelling.HematologyDenies: bleeding, bruising.EndocrineDenies: diabetic.NeurologicalDenies: confusion, focal weakness, headache, numbness.PsychReports: anxiety.ExamVital SignsBP 111/88, HR 95, RR 17, Temp 101.9, Pulse Ox: 97% in RA, Weight: 102.8kgPhysical ExaminationGeneral Appearance no acute distress, alert, awake, conversantHead atraumatic, normocephalicNeck no masses, no swellingCardiovascular regular rate, no murmur, Positive S1 and I3Qkdtfduikhc clear to auscultation, no distress, aerating well, symmetricexpansionAbdomen soft, no distention, normal bowel sounds, Tenderness at right lowerquadrant. bruises noted in the abdomen from previous laparoscopic surgeryUrinary no bladder distention, no flank painExtremities no cyanosis, no edemaMuscoskeletal normal inspection, no leonor arthritis, no joint erythemaNeurological oriented x 3, normal speech, no motor deficits, no sensorydeficits, CNII-XXII grossly intactSkin AssessmentSkin dry, intact, no rashPsych/Mental Status mood neutral, normal affect, normal judgementData ReviewLaboratory DataRecent Labs-48 hours/05/04935 0935 1003Blood GasMixed VBG O2 Saturation (%) 96.7Capillary pH (7.310 - 7.410) 7.429 HCapillary pCO2 (mm/Hg) 37.2Capillary pO2 (mm/Hg) 93.2Capillary HCO3 (mmoL/L) 24.1ChemistrySodium (136 - 147 mmol/L) 139Potassium (3.5 - 5.1 mmol/L) 4.5Chloride (99 - 110 mmol/L) 104Serum Bicarbonate (20 - 33 mmol/L) 26Anion Gap (10.0 - 20.0) 13.5BUN (7 - 23 mg/dL) 6 LCreatinine (0.500 - 1.300 mg/dL) 0.515Estimated GFR/1.73 m2 (mL/min) > 60Glucose (70 - 110 mg/dL) 84Plasma Lactic Acid Claudio (0.4 - 2.0 mmol/L) 0.7Calcium (8.3 - 10.7 mg/dL) 8.7Magnesium (1.6 - 2.6 mg/dL) 2.1Total Bilirubin (0.1 - 1.1 mg/dL) 0.6AST (6 - 38 U/L) 18ALT (6 - 54 U/L) 20Alkaline Phosphatase (45 - 117 U/L) 70Total Protein (6.0 - 7.8 g/dL) 6.8Albumin (3.5 - 5.0 g/dL) 3.1 LGlobulin (2.3 - 3.5 g/dL) 3.7 HAlbumin/Globulin Ratio (1.0 - 2.5) 0.8 LCoagulationAPTT (21.2 - 31.2 SECONDS) 27.3HematologyWBC (4.0 - 10.5 x10E3/uL) 11.89 HRBC (4.20 - 5.40 x10E6/uL) 4.40Hgb (12.0 - 16.0 g/dL) 12.9Hct (37.0 - 47.0 %) 38.7MCV (81.0 - 99.0 fL) 88.0MCH (27.0 - 31.0 pg) 29.3MCHC (32.7 - 35.6 g/dL) 33.3RDW (11.5 - 14.0 %) 11.9Plt Count (150 - 450 x10E3/uL) 238MPV (6.9 - 9.5 fl) 10.4 HImmature Gran % (Auto) (0.1 - 2.0 %) 0.6Neut % (Auto) (34 - 64 %) 74.9 HLymph % (Auto) (25 - 45 %) 14.0 LMono % (Auto) (1.7 - 10.6 %) 9.4Eos % (Auto) (0.4 - 7.0 %) 0.8Baso % (Auto) (0.1 - 2.0 %) 0.3Abs Immat Gran (auto) (0.0 - 0.1 x10E3/uL) 0.07Absolute Neuts (auto) (1.2 - 7.6 x10E3/uL) 8.92 HAbsolute Lymphs (auto) (1.0 - 3.5 x10E3/uL) 1.66Absolute Monos (auto) (0.1 - 1.0 x10E3/uL) 1.12 HAbsolute Eos (auto) (0.1 - 0.7 x10E3/uL) 0.09 LAbsolute Basos (auto) (0.0 - 0.1 x10E3/uL) 0.03Nucleated RBC % (auto) (0 %) 0SerologyCOVID-19 (JULIANNA) (NEGATIVE) [id number] Color YellowUrine Appearance ClearUrine pH (5.0 - 8.0) 6.5Ur Specific [place] (1.010 - 1.025) 1.010Urine Protein (Negative) NegativeUrine Ketones (NEGATIVE) NegativeUrine Blood (NEGATIVE) NegativeUrine Nitrite (Negative) NegativeUr Bilirubin Confirm (NEGATIVE) NegativeUrine Urobilinogen (0.2 - 1.0 mg/dL) 1.0Urine Leukocytes (Negative) TraceUrine RBC (NONE SEEN) None SeenUrine WBC (NONE SEEN) 0-2 WBCs/HPFUrine Bacteria (NONE SEEN) RareUrine Glucose (NEGATIVE) OekfhnapKkgetetisvzg65/03 1003 BLOOD: Blood Culture - RECD05/04 0935 BLOOD: Blood Culture - RECDImagingCT ABD&PEL WITH IV CONT ONLYDATE OF EXAMINATION: 05/04/2020 9:46 ESTCT ABD&PEL WITH IV CONT ONLYHISTORY: Fever with recent appendectomy.COMPARISON: 04/28/2020TECHNIQUE:This CT exam was performed using the following dose reductiontechniques: automated exposure control, adjustment of mA and/or kVaccording to the patient's size, and use of iterative reconstructiontechnique.Standard contiguous axial spiral imaging was obtained from the dome ofthe diaphragms through the symphysis pubis without oral contrast andwith intravenous contrast administration and with coronalreformatting.FINDINGS:Patient is noted to be status post appendectomy and inflammatorystranding in the right lower quadrant/pericecal region is apprecia tedalong with a 3.8 cm collection with air-fluid level raising thepossibility of postsurgical abscess. No free air. No significantascites. Remainder of the small and large bowel is grosslyunremarkable. Evidence for prior gastric bypass surgery noted.Liver, spleen, pancreas, gallbladder, bilateral adrenal glands andkidneys are normal. Further evaluation of the pelvis and straightnormal bladder and age-appropriate uterus/adnexa. Musculoskeletalstructures and straight degenerative changes without acute osseousabnormality. Lung bases are clear.IMPRESSION:1. Inflammatory changes in the right lower quadrant with suggestionsfor small focal collection including air-fluid level raising thepossibility of postsurgical abscess. Close clinical observation isrecommended. No bowel obstruction or free air to suggest perforation.2. Remainder of the examination is relatively normal.CHEST SINGLE VIEWDATE OF EXAMINATION: 05/04/2020 9:22 ESTCHEST SINGLE VIEWHISTORY: FeverTECHNIQUE: Single frontal radiograph of chestCOMPARISON: None.FINDINGS:No evidence of focal consolidation, pneumothorax or large pleuraleffusion. Lungs are clear. Mediastinal structures are unremarkable. Noaggressive osseous lesions.IMPRESSION:No focal consolidation.Assessment/PlanDiagnosis/Problem1. Intra-abdominal abscessA&P-Patient had had a laparoscopic appendectomy on 04/28/2020.-CT abdomen pelvis with IV contrast demonstrated finding of small focalcollection including air-fluid level raising the possibility of postsurgicalabscess.-Continue with IV fluid support. Continue with IV Zosyn. On clear liquiddiet. Continue p.o. Tylenol for fever and pain. Continue adjust painmedication if needed.-General surgery consulted2. AnxietyA&P-Continue Celexa3. HTN (hypertension)A&P-Patient was recently diagnosed with hypertension. Due to bradycardia patientmetoprolol was on hold.-Currently blood pressure is in the satisfactory range. Continue holdingmetoprolol at this moment.VTE ProphylaxisVTE Prophylaxis: Continue heparin.CQM VTE HISTORYVTE HISTORYPrior VTE? NoDATE SIGNED: 05/11/20 Electronically SignedTIME SIGNED: 2012 MARLIN FLORES DO Name Value Range Interpretation Code Description Data Mahi rce(s) Supporting Document(s) ID Date Data Source [id number] 05/04/2020 10:57:00 AM EST [facility] Exam Number: [id number] OF EXAMINATIO N: 05/04/2020 9:46 ESTCT ABD&PEL WITH IV CONT ONLYHISTORY: Fever with recent appendectomy.COMPARISON: 04/28/2020TECHNIQUE:This CT exam was performed using the following dose reductiontechniques: automated exposure control, adjustment of mA and/or kVaccording to the patient's size, and use of iterative reconstructiontechnique.Standard contiguous axial spiral imaging was obtained from the dome ofthe diaphragms through the symphysis pubis without oral contrast andwith intravenous contrast administration and with coronalreformatting.FINDINGS:Patient is noted to be status post appendectomy and inflammatorystranding in the right lower quadrant/pericecal region is appreciatedalong with a 3.8 cm collection with air-fluid level raising thepossibility of postsurgical abscess. No free air. No significantascites. Remainder of the small and large bowel is grosslyunremarkable. Evidence for prior gastric bypass surgery noted.Liver, spleen, pancreas, gallbladder, bilate ral adrenal glands andkidneys are normal. Further evaluation of the pelvis and straightnormal bladder and age-appropriate uterus/adnexa. Musculoskeletalstructures and straight degenerative changes without acute osseousabnormality. Lung bases are clear.IMPRESSION:1. Inflammatory changes in the right lower quadrant with suggestionsfor small focal collection including air-fluid level raising thepossibility of postsurgical abscess. Close clinical observation isrecommended. No bowel obstruction or free air to suggest perforation.2. Remainder of the examination is relatively normal.Electronically signed in PS360 by: Cortez Bear M.D. 05/04/2020 10:44EST Reported By: - Cortez Tejeda M.D. Signed By: Cortez Tejeda M.D. Name Value Range Interpretation Code Description Data Mahi rce(s) Supporting Document(s) ID Date Data Source [id number] 05/04/2020 10:31:00 AM EST [facility] Name Value Range Interpretation Code Description Data Mahi rce(s) Supporting Document(s) URINE COLOR Yellow [facility] UAPR Clear [facility] UGLU Negative NEGATIVE [facility] URINE BILIRUBIN [facility] NEGATIVE [facility] UK[facility] Negative NEGATIVE [facility] USG 1.010 1.010-1.025 [facility] UBLO Negative NEGATIVE [facility] UpH 6.5 5.0-8.0 [facility] UPRO Negative Negative [facility] UUB 1.0 mg/dL 0.2-1.0 N [facility] UNIT Negative Negative [facility] ULEU Trace Negative [facility] ID Date Data Source [id number] 05/04/2020 10:31:00 AM EST [facility] Name Value Range Interpretation Code Description Data Mahi rce(s) Supporting Document(s) URINE RBC None Seen NONE SEEN [facility] URINE WBC 0-2 WBCs/HPF NONE SEEN [facility] URINE BACTERIA Rare NONE SEEN [facility] URINE EPI. Few NONE SEEN [facility] ID Date Data Source [id number] 05/10/2020 06:53:00 AM EST [facility] Name Value Range Interpretation Code Description Data Mahi rce(s) Supporting Document(s) [facility] ID Date Data Source [id number] 05/04/2020 10:33:00 AM EST [facility] Name Value Range Interpretation Code Description Data Mahi rce(s) Supporting Document(s) PO2 CLAUDIO/CAP 93.2 mm/Hg [facility] PH CLAUDIO/CAP 7.429 7.310-7.410 [facility] PCO2 CLAUDIO/CAP 37.2 mm/Hg [facility] HCO3 CLAUDIO/CAP 24.1 mmoL/L [facility] O2 SAT CLAUDIO/CAP 96.7 [facility] ID Date Data Source [id number] 05/10/2020 06:53:00 AM EST [facility] Name Value Range Interpretation Code Description Data Mahi rce(s) Supporting Document(s) [facility] ID Date Data Source [id number] 05/04/2020 10:24:00 AM EST [facility] Name Value Range Interpretation Code Description Data Mahi rce(s) Supporting Document(s) MAGNESIUM 2.1 mg/dL 1.6-2.6 [facility] ID Date Data Source [id number] 05/04/2020 10:24:00 AM EST [facility] Name Value Range Interpretation Code Description Data Mahi rce(s) Supporting Document(s) GLU 84 mg/dL 70-110 [facility] Patients taking Sulfasalazine may have f alsely depressedGlucose levels. Patients taking Sulfapyridine may havefalsely elevated Glucose levels. Patients should be drawnfor Glucose before the initial administration of eitherdrug. BUN 6 mg/dL 7-23 [facility] CRE 0.515 mg/dL 0.500-1.300 [facility] GFR > 60 mL/min [facility] CHLORIDE 104 mmol/L 99-110 [facility] NA 139 mmol/L 136-147 [facility] POTASSIUM 4.5 mmol/L 3.5-5.1 [facility] TCO2 26 mmol/L 20-33 [facility] ANION GAP 13.5 10.0-20.0 [facility] CA 8.7 mg/dL 8.3-10.7 [facility] ALKALINE PHOS 70 U/L 45-117 [facility] TP 6.8 g/dL 6.0-7.8 [facility] ALB 3.1 g/dL 3.5-5.0 [facility] ESRD Dialysis patient Albumin reference range: 2.9-4.4 g/dL GL 3.7 g/dL 2.3-3.5 [facility] A/G 0.8 1.0-2.5 [facility] T. BILIRUBIN 0.6 mg/dL 0.1-1.1 [facility] [place] Total Bilirubin is n ot recommended forpatients undergoing treatment with eltrombopag (Promacta)due to the potential for falsely elevated results. ALTI 20 U/L 6-54 [facility] Patients taking Sulfasalazine and/or Sul fapyridine may havefalsely depressed ALT levels. Patients should be drawn forALT before the initial administration of either drug. AST 18 U/L 6-38 [facility] Patients taking Sulfasalazine and/or Sul fapyridine may havefalsely depressed AST levels. Patients should be drawn forAST before the initial administration of either drug. ID Date Data Source [id number] 05/04/2020 10:13:00 AM EST [facility] ANTI-COAGUL[facility] PT.IS TAKING: None Name Value Range Interpretation Code Description Data Mahi rce(s) Supporting Document(s) APTT 27.3 SECONDS 21.2-31.2 [facility] NOTE NEW REFERENCE RANGE EFFECTIVE ID Date Data Source [id number] 05/04/2020 10:12:00 AM EST [facility] Name Value Range Interpretation Code Description Data Mahi rce(s) Supporting Document(s) LACTIC ACID MIKO 0.7 mmol/L 0.4-2.0 [facility] ID Date Data Source [id number] 05/04/2020 10:09:00 AM EST [facility] Name Value Range Interpretation Code Description Data [facility] rce(s) Supporting Document(s) COVID-19, JULIANNA NEGATIVE NEGATIVE [facility] Methodology: Nucleic Acid AmplificationN egative results should be treated as presumptive and, ifinconsistent with clinical signs and symptoms or necessaryfor patient management, should be tested with differentauthorized or cleared molecular tests. Negative results donot preclude SARS-CoV-2 infection and should not be used asthe sole basis for patient management decisions. Negativeresults should be considered in the context of a patient'srecent exposures history and the presence of clinical signsand symptoms consistent with COVID-19.The ID NOW COVID-19 test is only for use under the Food andDrug Administration's Emergency Use Authorization. ID Date Data Source [id number] 05/04/2020 09:50:00 AM EST [facility] Name Value Range Interpretation Code Description Data [facility] rce(s) Supporting Document(s) WBC 11.89 x10E3/uL 4.0-10.5 [facility] RBC 4.40 x10E6/uL 4.20-5.40 [facility] Hemoglobin 12.9 g/dL 12.0-16.0 [facility] Hematocrit 38.7 % 37.0-47.0 [facility] MCV 88.0 fL 81.0-99.0 [facility] MCH 29.3 pg 27.0-31.0 [facility] MCHC 33.3 g/dL 32.7-35.6 [facility] RDW 11.9 % 11.5-14.0 [facility] Platelet count 238 x10E3/uL 150-450 [facility] ital MPV 10.4 fl 6.9-9.5 [facility] Neutrophils 74.9 % 34-64 [facility] Lymphocytes 14.0 % 25-45 [facility] Monocytes 9.4 % 1.7-10.6 [facility] Eosinophils 0.8 % 0.4-7.0 [facility] Basophils 0.3 % 0.1-2.0 [facility] Imm. Gran. 0.6 % 0.1-2.0 [facility] Abs. Neutro. 8.92 x10E3/uL 1.2-7.6 [facility] Abs. Lymph. 1.66 x10E3/uL 1.0-3.5 [facility] Abs. [place]. 1.12 x10E3/uL 0.1-1.0 [facility] Abs. Eosin. 0.09 x10E3/uL 0.1-0.7 [facility] Abs. Baso. 0.03 x10E3/uL 0.0-0.1 [facility] Abs. Imm. Gran. 0.07 x10E3/uL 0.0-0.1 [facility] ANRBC% 0 % 0 [facility] ID Date Data Source [id number] 05/04/2020 01:21:00 PM EST [facility] terName: Susan Bautistage: 45 yrsSex: FemaleDOB: 1975MRN: [id number] Date: 05/04/2020Time: 09:06Account#: [id number] DOMINGUEZ: Out of town provider, -Diagnosis: Free text-Post appendectomy abdominal abscessPresentation:05/308:07 Presenting complaint: Patient states: had appendix done on Tuesday. klpfever last night with increased pain. Coronavirus Screening: Have youtraveled internationally or had contact with someone that hastraveled and has been ill in the past 3 weeks? no Have you traveledto a location with widespread or ongoing COVID-19 community spread [facility]? no Flu-like symptoms reported in the last 14days: fever or chills (including if you have treated with Tylenol orother medications), nausea, Have you had close contact with confirmedor suspected COVID-19 case? no Have you been diagnosed with COVID-19in the past 30 days? no Are you currently on quarantine by [facility]? no. Communicable Disease Screen: Positive for fever >/= 100degrees Fahrenheit. Negative for rash or unusual skin lesion in thepast 21 days. Communicable disease screen is negative. Negative fortravel within the past 21 days to area currently at risk for p ublichealth concern, or close contact with someone who has. Communicabledisease screen is negative. Negative for cough, shortness of breath,or trouble breathing in the past 21 days. Communicable disease screenis negative.09:07 Acuity: Triage 3 klp09:07 Acuity Assignment: Triage 3 klp09:07 Method Of Arrival: Private Vehicle klpTriage Assessment::19 General: Appears uncomfortable, Behavior is cooperative. Sepsis tlmScreening: (1)Signs/symptoms infection No. Pain: Complains of pain inright lower quadrant. PSS-3 Now I'm going to ask you some questionsthat we ask everyone treated here, no matter what problem they arehere for. It is part of the hospital's policy and it helps us to makesure we are not missing anything important. Over the past 2 weeks,have you felt down, depressed, or hopeless? No. Over the past 2weeks, have had thoughts of killing yourself? No. In your lifetime,have you ever attempted to kill yourself? No.Historical:- Allergies: Reglan;- Home Meds:1. Celexa 20 mg Oral tab once daily2. Klonopin 0.25 mg Oral TbDi as needed3. metoprolol tartrate 12.5BID (held due to low heart rate, new med)Oral- PMHx: ANXIETY; Hypertensive disorder; hypoglycemia;- PSHx: gastric bypass; Appendectomy;- Immunization history: Flu vaccine is up to date.- Social history: Smoking status: Patient states was never smoker oftobacco. ETOH status Uses ETOH Occasionally.- Advance Directives:: None.Screenin:37 Abuse screen: Denies threats or abuse. Denies injuries from another. tlmNutritional screening: No deficits noted. Offer of HIV testing:patient was previously offered screening. Fall Risk No fall in past12 months (0 pts).Assessment:09:18 General: had appendectomy Tuesday, started with low grade fever tlmWees night then felt ok but last night felt whipped out and wokeup this morning just shivering, .09:37 Pain: Complains of pain in right lower quadrant P ain began one weeka tlmgo. Sepsis Screening: Sepsis is suspected. Provider notified offindings. Derm: Skin is normal. General: Appears in no apparentdistress, uncomfortable, well nourished, well groomed, Behavior iscooperative. Neuro: Level of Consciousness is awake, alert, Orientedto person, place, time, Gait is steady, Speech is normal.Respiratory: Airway is patent Respiratory effort is even, Respiratorypattern is regular, symmetrical. GI: Reports nausea, Denies vomiting,reports had taken miralax on had not a bowel movement.Musculoskeletal: Range of motion intact in all extremities.09:58 GI: Abd is soft Abd is tender to palpation in right lower quadrant tlmsurgical incision intact clean dry and normal color with bruisingthat is yellow/green.10:31 Reassessment: No changes from previously documented assessment. tlm10:42 Reassessment: Patient appears in no apparent distress at this time. tlm11:49 Reassessment: Patient appears in no apparent distress at this time. qm6Lcjxbmg resting in bed. .13:02 Reassessment: Patient appears in no apparent distress at this time. uw4Pnagvar resting in bed.Vital Signs:09:16 BP 111 / 88 (auto/); Pulse 95 MON; Pulse Ox 97% ; tlm09:20 BP 111 / 88; Pulse 109; Resp 17; Temp 101.9(O); Pulse Ox 97% on R/A; tlmWeight 102.8 kg (M); Pain 4/10;10:19 BP 122 / 97 (auto/); Pulse 94 MON; Pulse Ox 97% ; tlm10:39 BP 119 / 66 (auto/); Pulse 92 MON; Resp 16; Temp 100.2(O); Pulse Ox tlm97% on R/A; Pain 4/10;11:01 BP 115 / 76 (auto/); Pulse 84 MON; Pulse Ox 94% ; sw211:31 BP 109 / 78 (auto/); Pulse 72 MON; Pulse Ox 95% ; sw211:39 BP 122 / 86; Pulse 88 MON; Pulse Ox 96% ; sw211:40 Pulse 89 MON; Pulse Ox 96% ; sw212:01 BP 122 / 86 (auto/); sw209:20 pt has been offered pain medication and has declined at this time tlmED Course:09:06 Patient arrived in ED. klp09:06 Out of town provider, - is Private Physician. klp09:07 Triage completed. klp09:15 Adriane Levy MD is Attending Physician. se09:36 Kathleen Sandra RN is Primary Nurse. tlm09:36 Labs drawn. (by ED staff). First set of blood cultures drawn by tlmwriter. Inserted peripheral IV: 20 gauge in right hand and bloodcollected.09:37 Patient has correct armband on for positive identification. Placed in tlmgown. Bed in low position. Call light in reach.10:05 Second set of blood cultures drawn by Lab staff. tlm10:20 Urine collected. Clean catch specimen. tlm10:[address] tlm11:09 Report given to radha raza rn. tlm11:49 Marlin Flores DO is Hospitalizing Provider. se13:20 No Physician assisted procedures completed. [id number] Medications:09:40 Drug: NS 0.9% 3084 ml [sodium chloride 0.9 % intravenous solution] tlmRoute: IV; Rate: bolus; Site: right hand;09:41 Drug: Acetaminophen 975 mg [acetaminophen 325 mg tablet (3 tabs)] tlmRoute: PO;10:42 Follow up: Response: No adverse reaction; Temperature is decreased tlm11:49 Drug: metroNIDAZOLE 500 mg [metronidazole 500 mg/100 mL-sodium jj2gxnmgonh(iso) intravenous piggyback] Route: IVPB; Site: right hand;12:49 Follow up: Response: No adverse reaction sw213:00 Follow up: IV Intake: 100ml sw213:00 Drug: Ciprofloxacin 400 mg [ciprofloxacin 400 mg/200 mL in 5 % nj6jjausqsd intravenous piggyback] Route: IVPB; Site: right hand;Intake:13:00 IV: 100ml; Total: 100ml. wz2Ivrdbho:11:39 Disposition: Admitted to ICU accompanied by nurse, via wheelchair, yg9gxcx chart.11:39 Condition: stable.11:39 Instructed on need for admit.11:39 Discharge Assessment: Patient verbalized understanding of dispositioninstructions. Patient has no functional deficits.11:50 Decision to Hospitalize by Provider. se13:21 Patient left the ED. oi8Xdaxjzzhim:Kristen Ch RN RN klpMartin, Tisa, RN RN tlmElliott, Suzanne, MD MD seWeir, Sarah, RN RN wn6Uocadmjohif: (The following items were deleted from the chart)10:31 09:20 BP 111 / 88; Pulse 109bpm; Resp 17bpm; Pulse Ox 97% RA; Temp gim026.9F Oral; 102.8 kg Measured; Pain 4/10; tlm Name Value Range Interpretation Code Description Data Mahi rce(s) Supporting Document(s) ID Date Data Source [id number] 05/04/2020 01:21:00 PM EST [facility] Physician DocumentationClaxdamian-Duran Howell edical CenterName: Susan Bautistage: 45 yrsSex: FemaleDOB: 1975MRN: [id number] Date: 05/04/2020Time: 09:06Account#: [id number] MD: Out of town provider, -ED Physician Marjorie Levyisposition Summary:05/04/20 11:50Hospitalization OrderedHospitalization Status: Inpatient Admission seProvider: Marlin Flores seCondition: Stable seProblem: new seSymptoms: are unchanged seLocation: Critical Care Unit(05/04/20 13:04) ax8Xleq Assignment: 1-(05/04/20 13:04) [id number]- Free text - Post appendectomy abdominal abscess seAdditional Information- Admission Type: Inpatient Status. seDischarge Instructions:- Discharge Summary Sheet re2Achxm:- Medication Reconciliation se- SBAR se- Medication Reconciliation Form - 2nd Copy seHPI:05/308:46 This 45 yrs old White Female presents to ER via Private Vehicle with secomplaints of Post Surgical Pain.09:46 This 45-year-old female patient presents with a chief complaint of sefever. Patient reports that 6 days ago she had a laparoscopicappendectomy with Dr. Wang. She states that she felt pretty wellafterwards until yesterday evening. Since she did not have much of anappetite and began getting some right lower quadrant pain. Overnightshe woke with fever to 102.5 and rigors. She took some Tylenol whichhelps. This morning she called the office but she says there was noanswer and the answering service did not picker / packer. Patient has hadsome nausea but no vomiting and diarrhea. She has had no dysuria orhematuria. She does say the pain radiates around into her right flankarea. She has no URI symptoms, vomiting, or diarrhea. Patient reportsthat the pain is aching and then sharp at times. It is definitelyworse with movement..Historical:- Allergies: Reglan;- Home Meds:1. Celexa 20 mg Oral tab once daily2. Klonopin 0.25 mg Oral TbDi as needed3. metoprolol tartrate 12.5BID (held due to low heart rate, new med)Oral- PMHx: ANXIETY; Hypertensive disorder; hypoglycemia;- PSHx: gastric bypass; Appendectomy;- Immunization history: Flu vaccine is up to date.- Social history: Smoking status: Patient states was never smoker oftobaNozomi Photonicso. ETOH status Uses ETOH Occasionally.- Advance Directives:: None.ROS:09:49 Constitutional: Positive for chills, fever. Eyes: Negative for seredness. ENT: Negative for nasal discharge, sinus congestion, sorethroat. Neck: Negative for swollen nodes. Cardiovascular: Negativefor chest pain. Respiratory: Negative for cough, shortness of breath.Abdomen/GI: Positive for abdominal pain, nausea. Back: Positive forpain at rest. : Negative for urinary symptoms. MS/extremity:Negative for swelling, tenderness. Skin: Negative for rash. Neuro:Negative for dizziness, headache, weakness.Exam:09:51 Constitutional: The patient appears in no acute distress, alert, seawake, non-diaphoretic, non-toxic, well developed, well nourished.09:52 Head/face: NC AT. se09:52 Eyes: Conjunctiva: normal.09:52 ENT: Mouth: is normal, Posterior pharynx: is normal, no erythema, noexudate.09:52 Neck: supple.09:52 Cardiovascular: Rate: tachycardic, Rhythm:09:52 Respiratory: the patient does not display signs of respiratorydistress, Respirations: normal, Breath sounds: are normal, clearthroughout.09:52 Abdomen/GI: Inspection: abdomen appears normal, Bowel sounds: normal,Palpation: soft, severe abdominal tenderness, RLQ, voluntaryguarding, RLQ.09:52 Back: AT.09:52 Musculoskeletal/extremity: AT, GARCIA, no edema or calf TTP.09:52 Skin: PWD, no rash.09:52 Neuro: Orientation: appropriate for stated age, Motor: moves allfours, Sensation: no obvious gross deficits.Vital Signs:09:16 BP 111 / 88 (auto/); Pulse 95 MON; Pulse Ox 97% ; tlm09:20 BP 111 / 88; Pulse 109; Resp 17; Temp 101.9(O); Pulse Ox 97% on R/A; tlmWeight 102.8 kg (M); Pain 4/10;10:19 BP 122 / 97 (auto/); Pulse 94 MON; Pulse Ox 97% ; tlm10:39 BP 119 / 66 (auto/); Pulse 92 MON; Resp 16; Temp 100.2(O); Pulse Ox tlm97% on R/A; Pain 4/10;11:01 BP 115 / 76 (auto/); Pulse 84 MON; Pulse Ox 94% ; sw211:31 BP 109 / 78 (auto/); Pulse 72 MON; Pulse Ox 95% ; sw211:39 BP 122 / 86; Pulse 88 MON; Pulse Ox 96% ; sw211:40 Pulse 89 MON; Pulse Ox 96% ; sw212:01 BP 122 / 86 (auto/); sw209:20 pt has been offered pain medication and has declined at this time tlmMDM:09:15 Patient medically screened. se09:52 Data reviewed: vital signs, nurses notes, lab test result(s), EKG, seradiologic studies.09:58 ED course: Patient declines pain medication in the ED. 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 se11:30 Physician consultation: Sachin Cheung MD was called at 11:20, seConcurs with Cipmeggan and Mary Lou for treatment of a likely 3.[address] Cheung will be in to see the patient this afternoon andwill consult Dr. Alfred tomorrow regarding possible drainage. He asks thatI admit the patient to the hospitalist service. The patient wasupdated on the plan. She continues to look nontoxic and declines painmeds..11:50 ED course: Dr. Flores to admit the patient.. Order name: Blood Culture. (2 sets) tl Order name: CBC with diff; Complete Time: 10:40 tlm01/0310:40 Interpretation: Normal except: WBC 11.89; Neutrophils 74.9; seLymphocytes 14.0.05/308: Order name: CMP; Complete Time: 10:40 tlm01/0310:40 Interpretation: Normal except: ALB 3.1. Order name: Lactic Acid; Complete Time: 10:40 tlm01/0310:40 Interpretation: Within normal limits. Order name: Magnesium Level; Complete Time: 10:40 tlm01/0310:40 Interpretation: Within normal limits. Order name: PTT; Complete Time: 10:40 tlm01/0310:40 Interpretation: Within normal limits. Order name: UA; Complete Time: 10:41 tlm01/0310:41 Interpretation: Within normal limits. Order name: Venous Blood Gas; Complete Time: 10:40 tlm01/0310:40 Interpretation: Normal except: PH CLAUDIO/CAP 7.429. :22 Order name: Chest Single View; Complete Time: 11:27 tl1:27 Interpretation: No acute disease. : Order name: COVID-19 PROFILE+LAB; Complete Time: 10:41 tl0:41 Interpretation: Within normal limits. :46 Order name: CT Abdomen and Pelvis - with IV; Complete Time: 11:30 :22 Order name: Call Lab; Complete Time: 09:37 tl: Order name: EKG in Patient's Room; Complete Time: 09:37 tl: Order name: EKG.; Complete Time: 09:37 : Order name: Pulse Ox Continuous; Complete Time: 09:37 tl:22 Order name: Rectal Temp; Complete Time: 09:37 tl:22 Order name: Saline Lock; Complete Time: 09:37 tl:22 Order name: Vital Signs per policy; Complete Time: 09:37 tl2:39 Order name: Clear IspqnzQJJD28/0312:59 Order name: Consult PhysicianEDMSDispensed Medications:09:40 Drug: NS 0.9% 3084 ml [sodium chloride 0.9 % intravenous solution] tlmRoute: IV; Rate: bolus; Site: right hand;09:41 Drug: Acetaminophen 975 mg [acetaminophen 325 mg tablet (3 tabs)] tlmRoute: PO;10:42 Follow up: Response: No adverse reaction; Temperature is decreased tlm11:49 Drug: metroNIDAZOLE 500 mg [metronidazole 500 mg/100 mL-sodium vl6annjnbbo(iso) intravenous piggyback] Route: IVPB; Site: right hand;12:49 Follow up: Response: No adverse reaction sw213:00 Follow up: IV Intake: 100ml sw213:00 Drug: Ciprofloxacin 400 mg [ciprofloxacin 400 mg/200 mL in 5 % rv6mplriskn intravenous piggyback] Route: IVPB; Site: right hand;Signatures:Dispatcher MedSpanish [facility] Kathleen Don RN RN tlmElliott, Suzanne, MD MD seKingsley, Sherry ft4MrxpRadha lucia RN RN im9Mjtksygbkrm: (The following items were deleted from the chart)09:52 09:46 This 45-year-old female patient presents with a chief complaint seof fever. Patient reports that 6 days ago she had a laparoscopicappendectomy with Dr. Wang. She states that she felt pretty wellafterwards until yesterday evening. Since she did not have much of anappetite and began getting some right lower quadrant pain. Overnightshe woke with fever to 102.5 and rigors. She took some Tylenol whichhelps. This morning she called the office but she says there was noanswer and the answering service did not picker / packer. Patient has hadsome nausea but no vomiting and diarrhea. She mayorga s had no dysuria orhematuria. She does say the pain radiates around into her right flankarea. She has no URI symptoms, vomiting, or diarrhea.. se13:04 11:50 Med/Surg se sk413:04 11:50 se sk4 Name Value Range Interpretation Code Description Data Mahi rce(s) Supporting Document(s) ID Date Data Source [id number] 05/04/2020 12:00:00 AM EST [facility] Name Value Range Interpretation Code Description Data Mahi rce(s) Supporting Document(s) SARS-CoV2 Rapid PCR [facility] This lab was ordered by [facility] and reported by [facility]. ID Date Data Source [id number] 04/28/2020 02:59:00 PM EST [facility] [address] [id number] REPORTPATIENT NAME: SUSAN RENDON AM.R.#: [id number]: LUCY PRESSLEY. DATE: 04/28/20PATIENT : 75LOCATION: ASURACCOUNT #: [id number] ReportOperative ReportDATE OF PROCEDURE: 04/28/2020PROCEDURE PERFORMED: Laparoscopic appendectomy.PREOPERATIVE DIAGNOSIS: Acute appendicitisPOSTOPERATIVE DIAGNOSIS: Same, suppurativeATTENDING SURGEON: Dr. Jean Collier.ANESTHESIA: General.SPECIMENS: Appendix to pathologyCOMPLICATIONS: None evidentDISPOSITION: Tolerated wellINDICATION FOR THE PROCEDURE: 45-year-old female with acute onset ofperiumbilical pain which migrated to the right lower quadrant accompanied bynausea leukocytosis and CT diagnosis of appendicitis.DESCRIPTION OF THE PROCEDURE: The patient was counseled pre operatively, signedinformed consent and desired to proceed. The patient was brought to theoperating suite, placed supine and correctly identified. The patientparticipated in a timeout procedure and was anesthetized and intubated. A WHOtimeout procedure was performed and the abdomen was prepped and draped in astandard sterile surgical fashion with ChloraPrep. SCDs were in place.Preoperative antibiotics were administered. A supraumbilical site was selectedlateral to the umbilicus. The subcutaneous tissues were infiltrated with 0.25%Marcaine with 1% lidocaine with epinephrine. Skin incision was made and a 5 mmtrocar was placed under direct vision using a Visiport technique into theperitoneal cavity. The abdomen was insufflated with 15 mmHg pneumoperironeumand surveyed. No evidence of injury during trocar placement was noted. Two 5 mmtrocars were then placed under direct vision in the suprapubic region and theleft lateral aspect of the abdomen. The appendix was then identified and it'sadhesions were dissected. A window was made at the base of the appendix with[place] forceps. The mesoappendix was then taken down sequentially withbipolar and scissors. The appendiceal artery was controlled with bipolar. Theappendix was freed up completely from its lateral attachments. Endoloops werethen placed at the base of the appendix with two secured proximally and onedistally. The appendix was then divided with scissors between the Endoloops andthe mucosa was cauterized with bipolar. The appendix was placed in an EndoCatch bag and withdrawn through the lateral port. Hemostasis was againrechecked and noted to be excellent. The right lower quadrant was irrigated outuntil clear and the fluid was suctioned out as well as any fluid in the pelvis.The ports were removed under direct vision. The abdomen was exsufflated of gas.Skin was closed with 4-0 Monocryl. Dry sterile dressings were applied. Thepatient was awakened, extubated and transferred to the recovery room in [facility] [place].Copies to Family Provider: ROSE ACOSTA FNP-CDATE SIGNED: 04/28/20 Electronically SignedTIME SIGNED: 1500 JEAN COLLIER MD Name Value Range Interpretation Code Description Data Mahi rce(s) Supporting Document(s) ID Date Data Source [id number] 05/05/2020 01:17:00 PM EST [facility] Cc: Loraine (AB) VERMIFORM APPE NDIX, APPENDECTOMY: -ACUTE NECROTIZING APPENDICITIS AND PERIAPPENDICITIS CODE/S:03751 . The specimen is received in formalin with proper patient identification labeled "Appendix"and it consists of a vermiform appendix which measures 8.3 cm in length and 1 cm inaverage diameter centrally with attached mesoappendix measuring 1.8 cm. The surface ofthe appendix is covered with blood clot and adhesions. Serial sectioning revealshemorrhagic mucosa. A fecalith is not present within the lumen. Husker Operator sectionsare submitted in three cassettes. Acute appendicitis. Slides reviewed. Diagnosis supported by microscopic examination. REPORT SIGNED: Carolyne Montero DO 05/05/20 Name Value Range Interpretation Code Description Data Mahi rce(s) Supporting Document(s) ID Date Data Source [id number] 04/28/2020 08:41:00 AM EST [facility] [address] [address]SSEDXUKH HISTORY AND PHYSICALPATIENT NAME: SUSAN RENDON MR#: [id number] PHYSICIAN: JEAN COLLIER, MDAUTHOR: Nando DOMINGUEZ,Jean DATE: 04/28/20 #: ASURHISTORY & PHYSICAL DATE: 04/28/20 PATIENT : 75EVALUATION TIME: 0847HistoryChief Complaint/Admit ReasonAbdominal painHistory of Presenting IllnessThiarnie is a pleasant 45-year-old female who experienced acute onset of lowerabdominal pain last night at 7 PM. It remained poorly localized and she wentto sleep at 930 however she was awoken up from sleep later that evening withincreasingly worse periumbilical and right lower quadrant abdominal painaccompanied by retching nausea and chills. She took some Tylenol and the painlocalized to the right lower quadrant. She presented to the ER for furtherevaluation and was noted to have leukocytosis and CT scan demonstr atedconfirmation of acute appendicitis.Past Medical/Surgical HistoryPast Medical/Surgical HistoryMedical ProblemsAcute appendicitisAnxietyHISTORY OF LAPAROSCOPIC LUIS FELIPE EN Y GASTRIC BYPASSHTN (hypertension)Morbid obesityReconciled Home Med ListSee Reconciled Home Medication ListAdditional NotesCelexa, metoprolol, KlonopinAllergiesCoded Allergies:No Known Drug Allergies (04/28/20)Family history non-contribSocial History no tobacco use, lives with family, marriedReview of SystemsConstitutionalReports: Pain, Chills, Sweats. Denies: Fever.EyesDenies: other (jaundice).RespiratoryDenies: dyspnea, hemoptysi s.CardiovascularDenies: chest pain, edema.GastrointestinalReports: nausea, vomiting, abdominal pain. Denies: diarrhea, constipation,melena, hematochezia.GenitorurinaryDenies: dysuria, hematuria.MusculoskeletalDenies: arthritis, extremity pain.HematologyDenies: adenopathy, bleeding.EndocrineDenies: diabetic.NeurologicalDenies: seizure, syncope.ExamPhysical ExaminationGeneral Appearance no acute distress, afebrileHead atraumatic, normocephalicNeck no JVD, no lymphadenopathyCardiovascular regular rate, no murmurRespiratory no distress, aerating wellAbdomen soft, mildly tender, +ve Rovsing signExtremities no clubbing, no cyanosis, no edemaMuscoskeletal normal inspectionData ReviewLaboratory DataRecent Labs-48 hours04/[id number] 1578 0345ChemistrySodium (136 - 147 mmol/L) 140Potassium (3.5 - 5.1 mmol/L) 4.2Chloride (99 - 110 mmol/L) 105Serum Bicarbonate (20 - 33 mmol/L) 28Anion Gap (10.0 - 20.0) 11.2BUN (7 - 23 mg/dL) 13Creatinine (0.500 - 1.300 mg/dL) 0.667Estimated GFR/1.73 m2 (mL/min) > 60Glucose (70 - 110 mg/dL) 104Calcium (8.3 - 10.7 mg/dL) 8.5Total Bilirubin (0.1 - 1.1 mg/dL) 0.6AST (6 - 38 U/L) 19ALT (6 - 54 U/L) 18Alkaline Phosphatase (45 - 117 U/L) 67Total Protein (6.0 - 7.8 g/dL) 7.1Albumin (3.5 - 5.0 g/dL) 3.6Globulin (2.3 - 3.5 g/dL) 3.5Albumin/Globulin Ratio (1.0 - 2.5) 1.0Lipase (73 - 393 U/L) 50.0 LSerum HCG, Qual (Negative) NegativeHematologyWBC (4.0 - 10.5 x10E3/uL) 11.83 HRBC (4.20 - 5.40 x10E6/uL) 4.59Hgb (12.0 - 16.0 g/dL) 13.5Hct (37.0 - 47.0 %) 40.4MCV (81.0 - 99.0 fL) 88.0MCH (27.0 - 31.0 pg) 29.4MCHC (32.7 - 35.6 g/dL) 33.4RDW (11.5 - 14.0 %) 11.9Plt Count (150 - 450 x10E3/uL) 169MPV (6.9 - 9.5 fl) 11.1 HImmature Gran % (Auto) (0.1 - 2.0 %) 0.3Neut % (Auto) (34 - 64 %) 79.9 HLymph % (Auto) (25 - 45 %) 10.6 LMono % (Auto) (1.7 - 10.6 %) 8.6Eos % (Auto) (0.4 - 7.0 %) 0.3 LBaso % (Auto) (0.1 - 2.0 %) 0.3Abs Immat Gran (auto ) (0.0 - 0.1 x10E3/uL) 0.04Absolute Neuts (auto) (1.2 - 7.6 x10E3/uL) 9.45 HAbsolute Lymphs (auto) (1.0 - 3.5 x10E3/uL) 1.25Absolute Monos (auto) (0.1 - 1.0 x10E3/uL) 1.02 HAbsolute Eos (auto) (0.1 - 0.7 x10E3/uL) 0.03 LAbsolute Basos (auto) (0.0 - 0.1 x10E3/uL) 0.04Nucleated RBC % (auto) (0 %) 0UrinesUrine Color YellowUrine Appearance ClearUrine pH (5.0 - 8.0) 5.5Ur Specific [place] (1.010 - 1.025) 1.032 HUrine Protein (Negative) NegativeUrine Ketones (NEGATIVE) NegativeUrine Blood (NEGATIVE) NegativeUrine Nitrite (Negative) NegativeUr Bilirubin Confirm (NEGATIVE) NegativeUrine Urobilinogen (0.2 - 1.0 mg/dL) 0.2Urine Leukocytes (Negative) TraceUrine RBC (NONE SEEN) 0-2 RBCs/HPFUrine WBC (NONE SEEN) 3-5 WBCs/HPFUrine Bacteria (NONE SEEN) FewUrine Glucose (NEGATIVE) [id number]-92 (JULIANNA) (NEGATIVE) NEGATIVEImagingDATE OF EXAMINATION: 04/28/2020 4:01 ESTCT ABD&PEL WITH IV CONT ONLYHISTORY: Right lower quadrant painTECHNIQUE:This CT exam was performed using the following dose reductiontechniques: automated exposure control, adjustment of mA and/or kVaccording to the patient's size, and use of iterative rec onstructiontechnique.Standard contiguous axial spiral imaging was obtained from the dome ofthe diaphragms through the symphysis pubis with oral contrast and withintravenous contrast administration and with coronal reformatting.FINDINGS:A dilated fluid-filled appendix measures 11 mm diameter with mildperiappendiceal stranding consistent with early acute appendicitis. Noassociated bowel obstruction or perforation. No drainablecollection/abscess. Remainder of the small and large bowel is grosslyunremarkable. There is evidence for prior gastric bypass surgery.Liver, spleen, pancreas, gallbladder, bilateral adrenal glands andkidneys are normal. Pelvis demonstrates normal bladder andage- appropriate uterus/adnexa.Lung bases are clear. Visualized heart and pericardium normal.IMPRESSION:1. Evidence for early acute appendicitis with 11 mm fluid- filledappendix and periappendiceal stranding noted in the right lowerquadrant. No associated bowel obstruction or perforation.Assessment/PlanDiagnosis/Problem1. Acute appendicitisA&PPlan for laparoscopic appendectomy, outpatient in a bed. Risks and benefitswere described and the patient has signed informed consent. N.p.o. IVantibiotics and IV hydration. Covid negative.DATE SIGNED: 04/28/20 Electronically SignedTIME SIGNED: 849 JEAN COLLIER MD Name Value Range Interpretation Code Description Data Mahi rce(s) Supporting Document(s) ID Date Data Source [id number] 04/28/2020 07:09:00 AM EST [facility] Exam Number: [id number] OF EXAMINATIO N: 04/28/2020 4:01 ESTCT ABD&PEL WITH IV CONT ONLYHISTORY: Right lower quadrant painTECHNIQUE:This CT exam was performed using the following dose reductiontechniques: automated exposure control, adjustment of mA and/or kVaccording to the patient's size, and use of iterative reconstructiontechnique.Standard contiguous axial spiral imaging was obtained from the dome ofthe diaphragms through the symphysis pubis with oral contrast and withintravenous contrast administration and with coronal reformatting.FINDINGS:A dilated fluid-filled appendix measures 11 mm diameter with mildperiappendiceal stranding consistent with early acute appendicitis. Noassociated bowel obstruction or perforation. No drainablecollection/abscess. Remainder of the small and large bowel is grosslyunremarkable. There is evidence for prior gastric bypass surgery.Liver, spleen, pancreas, gallbladder, bilateral adrenal glands andkidneys are normal. Pelvis demonstrates normal bladder isaiah ge-appropriate uterus/adnexa.Lung bases are clear. Visualized heart and pericardium normal.IMPRESSION:1. Evidence for early acute appendicitis with 11 mm fluid-filledappendix and periappendiceal stranding noted in the right lowerquadrant. No associated bowel obstruction or perforation.Electronically signed in PS360 by: Cortez Bear M.D. 04/28/2020 6:56EST Reported By: - Cortez Tejeda M.D. Signed By: Cortez Tejeda M.D. Name Value Range Interpretation Code Description Data [facility] rce(s) Supporting Document(s) ID Date Data Source [id number] 04/28/2020 05:56:00 AM EST [facility] Name Value Range Interpretation Code Description [facility] Supporting Document(s) COVID-19, JULIANNA NEGATIVE NEGATIVE [facility] Methodology: Nucleic Acid AmplificationN egative results should be treated as presumptive and, ifinconsistent with clinical signs and symptoms or necessaryfor patient management, should be tested with differentauthorized or cleared molecular tests. Negative results donot preclude SARS-CoV-2 infection and should not be used asthe sole basis for patient management decisions. Negativeresults should be considered in the context of a patient'srecent exposures history and the presence of clinical signsand symptoms consistent with COVID-19.The ID NOW COVID-19 test is only for use under the Food andDrug Administration's Emergency Use Authorization. ID Date Data Source [id number] 04/28/2020 04:22:00 AM EST [facility] Name Value Range Interpretation Code Description Data [facility] Supporting Document(s) LIP 50.0 U/L 73-393 [facility] ID Date Data Source [id number] 04/28/2020 04:22:00 AM EST [facility] Name Value Range Interpretation Code Description Data [facility](s) Supporting Document(s) GLU 104 mg/dL 70-110 [facility] Patients taking Sulfasalazine may have f alsely depressedGlucose levels. Patients taking Sulfapyridine may havefalsely elevated Glucose levels. Patients should be drawnfor Glucose before the initial administration of eitherdrug. BUN 13 mg/dL 7-23 [facility] CRE 0.667 mg/dL 0.500-1.300 [facility] GFR > 60 mL/min [facility] CHLORIDE 105 mmol/L 99-110 [facility] NA 140 mmol/L 136-147 [facility] POTASSIUM 4.2 mmol/L 3.5-5.1 [facility] TCO2 28 mmol/L 20-33 [facility] ANION GAP 11.2 10.0-20.0 [facility] CA 8.5 mg/dL 8.3-10.7 [facility] ALKALINE PHOS 67 U/L 45-117 [facility] TP 7.1 g/dL 6.0-7.8 [facility] ALB 3.6 g/dL 3.5-5.0 [facility] ESRD Dialysis patient Albumin reference range: 2.9-4.4 g/dL GL 3.5 g/dL 2.3-3.5 [facility] A/G 1.0 1.0-2.5 [facility] T. BILIRUBIN 0.6 mg/dL 0.1-1.1 [facility] The [facility] [place] Total Bilirubin is n ot recommended forpatients undergoing treatment with eltrombopag (Promacta)due to the potential for falsely elevated results. ALTI 18 U/L 6-54 [facility] Patients taking Sulfasalazine and/or Sul fapyridine may havefalsely depressed ALT levels. Patients should be drawn forALT before the initial administration of either drug. AST 19 U/L 6-38 [facility] Patients taking Sulfasalazine and/or Sul fapyridine may havefalsely depressed AST levels. Patients should be drawn forAST before the initial administration of either drug. ID Date Data Source [id number] 04/28/2020 04:11:00 AM EST [facility] Name Value Range Interpretation Code Description Data [facility] rce(s) Supporting Document(s) HCG QUAL SERUM Negative Negative [facility] ID Date Data Source [id number] 04/28/2020 04:02:00 AM EST [facility] Name Value Range Interpretation Code Description Data [facility] rce(s) Supporting Document(s) WBC 11.83 x10E3/uL 4.0-10.5 [facility] RBC 4.59 x10E6/uL 4.20-5.40 [facility] Hemoglobin 13.5 g/dL 12.0-16.0 [facility] Hematocrit 40.4 % 37.0-47.0 [facility] MCV 88.0 fL 81.0-99.0 [facility] MCH 29.4 pg 27.0-31.0 [facility] MCHC 33.4 g/dL 32.7-35.6 [facility] RDW 11.9 % 11.5-14.0 [facility] Platelet count 169 x10E3/uL 150-450 [facility] ital MPV 11.1 fl 6.9-9.5 [facility] Neutrophils 79.9 % 34-64 [facility] Lymphocytes 10.6 % 25-45 [facility] Monocytes 8.6 % 1.7-10.6 [facility] Eosinophils 0.3 % 0.4-7.0 [facility] Basophils 0.3 % 0.1-2.0 [facility] Imm. Gran. 0.3 % 0.1-2.0 [facility] Abs. Neutro. 9.45 x10E3/uL 1.2-7.6 [facility] Abs. Lymph. 1.25 x10E3/uL 1.0-3.5 [facility] Abs. [place]. 1.02 x10E3/uL 0.1-1.0 [facility] Abs. Eosin. 0.03 x10E3/uL 0.1-0.7 [facility] Abs. Baso. 0.04 x10E3/uL 0.0-0.1 [facility] Abs. Imm. Gran. 0.04 x10E3/uL 0.0-0.1 [facility] spital ANRBC% 0 % 0 [facility] ID Date Data Source [id number] 04/28/2020 04:09:00 AM EST [facility] Name Value Range Interpretation Code Description Data [facility] rce(s) Supporting Document(s) URINE RBC 0-2 RBCs/HPF NONE SEEN [facility] URINE WBC 3-5 WBCs/HPF NONE SEEN [facility] URINE BACTERIA Few [facility] EPI. Few NONE SEEN [facility] ID Date Data Source [id number] 04/28/2020 04:09:00 AM EST [facility] Name Value Range Interpretation Code Description Data [facility] rce(s) Supporting Document(s) URINE COLOR Yellow [facility] UAPR Clear [facility] UGLU Negative NEGATIVE [facility] URINE BILIRUBIN [facility] UKET Negative NEGATIVE [facility] USG 1.032 1.010-1.025 [facility] UBLO Negative NEGATIVE [facility] UpH 5.5 5.0-8.0 [facility] UPRO Negative Negative [facility] UUB 0.2 mg/dL 0.2-1.0 [facility] UNIT Negative Negative [facility] ULEU Trace Negative [facility] ID Date Data Source [id number] 04/28/2020 12:46:00 PM EST [facility] Physician DocumentationClaxdamian-Duran Howell edical CenterName: Susan Bautistage: 45 yrsSex: FemaleDOB: 1975MRN: [id number] Date: 04/28/2020Time: 03:00Account#: [id number] 5BPrivate MD: Out of town provider, -ED Physician Tra Peterposition Summary:04/28/20 05:09Hospitalization OrderedHospitalization Status: Observation oy3Wzyjzmgq: Jean Collier mr6Necqmxmu: OR it4Iyhmxqeer: Stable gf4Kapwvyk: new nk1Eemjttqz: are unchanged kk9Mxho Assignment: cj5Njeeqbsiv- Unspecified acute appendicitis dz9Empzwuzmpz Information- Admission Type: Observation Status. ca6Oovkq:- Medication Reconciliation na1- SBAR na1- Medication Reconciliation Form - 2nd Copy na1HPI:04/02 803:27 This 45 yrs old White Female presents to ER via Private Vehicle with nt7dukccfbpga of Abdominal Pain.03:27 The patient presents with abdominal pain right lower quadrant. Onset: na1The symptoms/episode began/occurred last night, at 19:00.03:28 The symptoms radiate to the right flank. Associated signs and um9tainiyje: Pertinent positives: nausea. Modifying factors: Thesymptoms are alleviated by remaining still. Severity of pain: At itsworst the pain was moderate. 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 Celexa 20 mg Oral tab once daily2. metoprolol tartrate 12.5BID (held due to low heart rate, new med)Oral3. Klonopin 0.25 mg Oral TbDi as needed- PMHx: Hypertensive disorder; Anxiety; Hypoglycemia;- PSHx: None; gastric bypass;- Immunization history: Flu vaccine is up to date.- Social history: Smoking status: Patient states was never smoker [place]. ETOH status Denies use of ETOH.- Advance Directives:: None.ROS:03:29 Constitutional: Positive for chills, Negative for fever. Respiratory: my5Lwlfbtfq for cough, shortness of breath, wheezing. Abdomen/GI:Negative for vomiting, diarrhea, constipation, hematemesis,black/tarry stool, rectal bleeding. : Positive for flank pain,Negative for urinary frequency, hematuria, burning with urination.All other systems are negative.Exam:03:30 Head/Face: Normocephalic, atraumatic. Eyes: Pupils equal round and au2pezuyvqv to light, extra-ocular motions intact. Lids and lashesnormal. Conjunctiva and sclera are non-icteric and not injected.Cornea within normal limits. Periorbital areas with no swelling,redness, or edema. Neck: Trachea midline, no thyromegaly or massespalpated, and no cervical lymphadenopathy. Supple, full range ofmotion without nuchal rigidity, or vertebral point tenderness. NoMeningismus. Cardiovascular: Regular rate and rhythm with a normalS1 and S2. No gallops, murmurs, or rubs. Normal PMI, no JVD. Nopulse deficits. Respiratory: Lungs have equal breath soundsbilaterally, clear to auscultation and percussion. No rales, rhonchior wheezes noted. No increased work of breathing, no retractions ornasal flaring.03:30 Back: No spinal tenderness. No costovertebral tenderness. Fullrange of motion. Skin: Warm, dry with normal turgor. Normal colorwith no rashes, no lesions, and no evidence of cellulitis. MS/Extremity: Pulses equal, no cyanosis. Neurovascular intact. Full,normal range of motion. Neuro: Awake and alert, GCS 15, oriented toperson, place, time, and situation. Cranial nerves II-XII grosslyintact. Motor strength 5/5 in all extremities. Sensory grosslyintact. Cerebellar exam normal. Psych: Awake, alert, withorientation to person, place and time. Behavior, mood, and affectare within normal limits.03:30 Constitutional: The patient appears alert, awake, non-diaphoretic,non-toxic.03:30 Abdomen/GI: Inspection: distension, is not seen, Bowel sounds:active, all quadrants, Palpation: soft, moderate abdominaltenderness, in the right lower quadrant, mass, is not appreciated,rebound tenderness, is appreciated in the right lower quadrant ,voluntary guarding, is not appreciated, involuntary guarding, is notappreciated, no appreciated organomegaly.Vital Signs:03:05 BP 168 / 106; Pulse 98; Resp 16; Temp 97.3; Pulse Ox 98% ; Weight yq9430.8 kg; Height 5 ft. 6 in. (167.64 cm); Pain 5/10;04:52 BP 158 / 97 (auto/); Pulse 111 MON; Pulse Ox 97% ; cm405:02 BP 152 / 88 (auto/); Pulse 94 MON; Pulse Ox 95% ; cm405:17 BP 132 / 72 (auto/); Pulse 89 MON; Pulse Ox 92% ; cm405:30 Pain 6/10; cm405:36 BP 137 / 81 (auto/); Pulse 84 MON; Pulse Ox 96% ; cm405:47 BP 145 / 82 (auto/); Pulse 78 MON; Pulse Ox 96% ; cm406:02 BP 143 / 78 (auto/); Pulse 89 MON; Pulse Ox 96% ; cm406:17 BP 133 / 78 (auto/); Pulse 89 MON; Pulse Ox 95% ; cm407:02 BP 137 / 88 (auto/); Pulse 77 MON; Pulse Ox 95% ; ef107:17 BP 140 / 84 (auto/); Pulse 79 MON; Pulse Ox 95% ; ef107:32 BP 137 / 81 (auto/); Pulse 79 MON; Pulse Ox 95% ; ef107:47 BP 135 / 80 (auto/); Pulse 79 MON; Pulse Ox 96% ; ef108:02 BP 142 / 76 (auto/); Pulse 82 MON; Pulse Ox 96% ; ef108:06 Pulse 87 MON; Pulse Ox 95% ; ef112:10 Pulse 99 MON; Pulse Ox 97% ; ef112:11 BP 127 / 78 (auto/); ef112:14 Temp 100.3(O); ef112:41 BP 120 / 78; Pulse 98; Resp 14; Temp 100.1(O); Pulse Ox 97% ; Pain ef12/10;12:42 Temp 100.1(O); ef103:05 Body Mass Index 38.00 (106.80 kg, 167.64 cm) tp2MDM:03:12 Patient medically screened. na103:31 Data reviewed: vital signs, nurses notes. na105:10 Data reviewed: lab test result(s), radiologic studies, CT scan, ez7QOJQPFEHBXC REPORT ON CT. ABDOMEN & PELVIS: POSITIVE FOR ACUTEAPPENDICITIS. NO RUPTURE..04/2803: Order name: CBC with diff; Complete Time: 04:59 na2805:00 Interpretation: WBC 11.83; Hemoglobin 13.5; Hematocrit 40.4; Platelet jr9rcyie 169; Neutrophils 79.9.04/2803: Order name: CMP; Complete Time: 04:59 na5:00 Interpretation: Normal except. : Order name: Lipase; Complete Time: 04:59 na2805:00 Interpretation: LIP 50.0. : Order name: UA; Complete Time: 04:59 na2805:00 Interpretation: URINE RBC 0-2 RBCs/HPF; URINE WBC 3-5 WBCs/HPF. : Order name: HCG Qualitative - Serum; Complete Time: 04:59 na5:00 Interpretation: HCG QUAL SERUM Negative. na5:37 Order name: COVID-19 PROFILE+LAB; Complete Time: 08:08 tp4:01 Order name: CT Abdomen and Pelvis - with IV; Complete Time: 08:08 tp:26 Order name: NPO; Complete Time: 03: na3:26 Order name: Saline Lock; Complete Time: 03::26 Order name: Vital Signs per policy; Complete Time: 03: xf8Qiuklmmzj Medications:03:28 CANCELLED (MD): morphine 3 mg IVP once na103:47 Drug: NS 0.9% 1000 ml [sodium chloride 0.9 % intravenous solution] jq4Vrnri: IV; Rate: 250 mL/hr; Site: right antecubital;06:20 Follow up: Response: No adverse reaction; IV Status: Completed sr8ibqquypn; IV Intake: 4470qr05:47 Drug: Ondansetron 4 mg [ondansetron HCl 2 mg/mL intravenous solution cm4(2 mL)] Route: IVP; Site: right antecubital;04:00 Follow up: Response: No adverse reaction; Nausea is decreased cm404:55 Drug: morphine 2 mg [morphine 2 mg/mL injection syringe (1 mL)] cm4{Note: pt requested 2mg at this time.} Route: IVP; Site: rightantecubital;05:30 Follow up: Pain 6/10 Adult; Response: No adverse reaction cm405:02 Drug: Promethazine 12.5 mg [promethazine 25 mg/mL injection solution] my6Rxjjl: IVPB; Site: right antecubital;05:10 Follow up: Response: No adverse reaction; IV Status: Completed cm7rebqkmfe; IV Intake: 855wt44:18 Drug: Zosyn 3.375 grams [Zosyn 3.375 gram intravenous solution] nw6Xjodp: IVPB; Site: right antecubital;05:50 Follow up: Response: No adverse reaction; IV Status: Completed cp1rdxeeesp; IV Intake: 999bl90:06 Drug: Promethazine 12.5 mg [promethazine 25 mg/mL injection solution] pd7Fnefa: IVPB; Site: right antecubital;06:18 Follow up: Response: No adverse reaction; IV Status: Completed nk0tdaaaaqu; IV Intake: 50ml08:00 Drug: NS 0.9% 1000 ml [sodium chloride 0.9 % intravenous solution] ow1Npyan: IV; Rate: 100 mL/hr; Site: right antecubital;12:42 Follow up: IV Status: Completed infusion; IV Intake: 400ml ef112:15 Drug: Zosyn 3.375 grams [Zosyn 3.375 gram intravenous solution] tq0Trhaf: IVPB; Site: right antecubital;12:43 Follow up: IV Status: Compl eted infusion; IV Intake: 100ml ef112:15 Drug: Acetaminophen 975 mg [acetaminophen 325 mg tablet (3 tabs)] vw2Awmzt: PO;12:42 Follow up: Temp 100.1 Oral pc3Ledhfemwva:Dispatcher [employer] Leon Hidalgo MD MD na1Clover Lauren RN RN gi6LhonfeAmada diggs RN RN dd1CtejhwkqmKayla Miller RN RN ps6Guoqgpm, MD ABLERTO Gonzalez vkCorrections: (The following items were deleted from the chart)03:04 03:02 PMHx: Hyperthyroidism; tp2 tp203:28 03:27 morphine 3 mg IVP once ordered. na1 na104:02 03:27 CT ABD and PELV WITH IV/ORAL CONTR+CT ordered. EDMSEDMS Name Value Range Interpretation Code Description Data [facility] rce(s) Supporting Document(s) ID Date Data Source [id number] 04/28/2020 12:46:00 PM EST [facility] NotesCl[facility]White [facility] terName: Susan Bautistage: 45 yrsSex: FemaleDOB: 1975MRN: [id number] Date: 04/28/2020Time: 03:00Account#: [id number] 5BPradithya DOMINGUEZ: Out of town provider, -Diagnosis: Unspecified acute appendicitisPresentation:04/2803:01 Presenting complaint: Patient states: RLQ pain started at 7pm, uk1bkiweg, nausea. Coronavirus Screening: Have you traveledinternationally or had contact with someone that has traveled and hasbeen ill in the past 3 weeks? no Have you traveled to a location withwidespread or ongoing COVID-19 community spread or outside of [facility]? no Flu-like symptoms reported in the last 14 days: fever orchills (including if you have treated with Tylenol or othermedications), nausea, Have you had close contact with confirmed orsuspected COVID-19 case? no Have you been diagnosed with COVID-19 inthe past 30 days? no Are you currently on quarantine by [facility]? no. Communicable Disease Screen: Negative for fever>/= 100degrees Fahrenheit. Communicable disease screen is negative.03:01 Acuity: Triage 3 tp203:01 Method Of Arrival: Private Vehicle tp203:02 Acuity Assignment: Triage 3 fr1Ldvioy Assessment:03:04 General: Appears uncomfortable, unkempt, Behavior is anxious. Sepsis qm9Ynoq ening: (1)Signs/symptoms infection No. Pain: Complains of pain inright lower quadrant Pain radiates to umbilical area and suprapubicarea Pain currently is 5 out of 10 on a pain scale. Scaled used wasVerbal Quality of pain is described as dull, gnawing. PSS-3 Now I'mgoing to ask you some questions that we ask everyone treated here, nomatter what problem they are here for. It is part of the hospital'spolicy and it helps us to make sure we are not missing anythingimportant. Over the past 2 weeks, have you felt down, depressed, orhopeless? No. Over the past 2 weeks, have had thoughts of killingyourself? No. In your lifetime, have you ever attempted to killyourself? No. Neuro: Level of Consciousness is awake, alert, Orientedto person, place, time. Respiratory: Airway is patent Trachea midlineRespiratory effort is even, unlabored. 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 Celexa 20 mg Oral tab once daily2. metoprolol tartrate 12.5BID (held due to low heart rate, new med)Oral3. Klonopin 0.25 mg Oral TbDi as needed- PMHx: Hypertensive disorder; Anxiety; Hypoglycemia;- PSHx: None; gastric bypass;- Immunization history: Flu vaccine is up to date.- Social history: Smoking status: Patient states was never smoker oftobaNozomi Photonicso. ETOH status Denies use of ETOH.- Advance Directives:: None.Screenin:17 Abuse screen: Denies threats or abuse. Denies injuries from another. jv3Tekrgkigoxv screening: No deficits noted. Offer of HIV testing:patient was previously offered screening. Fall Risk None identified.Assessment:03:17 Reassessment: pt took 4mg zofran & 0200.tp204:12 Reassessment: Patient appears in no apparent distress at this time. cm405:20 Reassessment: Patient appears in no apparent distress at this time. cm406:19 Reassessment: Patient appears in no apparent distress at this time. cm408:03 Reassessment: Patient appears in no apparent distress at this time. fbgNo changes from previously documented assessment. Called to ACU forapprox time of SX.09:52 Reassessment: Patient appears in no apparent distress at this time. vq2kstxxn OR to see approx. time , will call back.....09:53 GI: Bowel sounds present X 4 quads. Abd is soft Abd is tender to du6vftegyybt in right lower quadrant.11:10 Reassessment: Patient appears in no apparent distress at this time. ef112:13 Reassessment: Patient appears in no apparent distress at this time. rw9Ifqwc Signs:03:05 BP 168 / 106; Pulse 98; Resp 16; Temp 97.3; Pulse Ox 98% ; Weight fh5536.8 kg; Height 5 ft. 6 in. (167.64 cm ); Pain 5/10;04:52 BP 158 / 97 (auto/); Pulse 111 MON; Pulse Ox 97% ; cm405:02 BP 152 / 88 (auto/); Pulse 94 MON; Pulse Ox 95% ; cm405:17 BP 132 / 72 (auto/); Pulse 89 MON; Pulse Ox 92% ; cm405:30 Pain 6/10; cm405:36 BP 137 / 81 (auto/); Pulse 84 MON; Pulse Ox 96% ; cm405:47 BP 145 / 82 (auto/); Pulse 78 MON; Pulse Ox 96% ; cm406:02 BP 143 / 78 (auto/); Pulse 89 MON; Pulse Ox 96% ; cm406:17 BP 133 / 78 (auto/); Pulse 89 MON; Pulse Ox 95% ; cm407:02 BP 137 / 88 (auto/); Pulse 77 MON; Pulse Ox 95% ; ef107:17 BP 140 / 84 (auto/); Pulse 79 MON; Pulse Ox 95% ; ef107:32 BP 137 / 81 (auto/); Pulse 79 MON; Pulse Ox 95% ; ef107:47 BP 135 / 80 (auto/); Pulse 79 MON; Pulse Ox 96% ; ef108:02 BP 142 / 76 (auto/); Pulse 82 MON; Pulse Ox 96% ; ef108:06 Pulse 87 MON; Pulse Ox 95% ; ef112:10 Pulse 99 MON; Pulse Ox 97% ; ef112:11 BP 127 / 78 (auto/); ef112:14 Temp 100.3(O); ef112:41 BP 120 / 78; Pulse 98; Resp 14; Temp 100.1(O); Pulse Ox 97% ; Pain ef12/10;12:42 Temp 100.1(O); ef103:05 Body Mass Index 38.00 (106.80 kg, 167.64 cm) tp2ED Course:03:00 Patient arrived in ED. tp203:01 Out of town provider, - is Private Physician. tp203:02 Triage completed. tp203:12 Leon Kemp MD is Attending Physician. na103:16 Missed attempts: 20 gauge X 1 in right antecubital area. tp203:16 Inserted saline lock: 20 gauge in right antecubital area. tp203:17 Patient has correct armband on for positive identification. Placed in ib2wcvi. Bed in low position. Call light in reach. Side rails up X2.Noise minimized. Visitors limited. Verbal reassurance given. Warmblanket given. Pillow given. Head of bed elevated.03:46 Labs drawn. (by ED staff). Urine collected. Clean catch specimen. gn1Vssacvmu saline lock: 20 gauge in right antecubital area and bloodcollected. Discontinued lock intact, bleeding controlled, pressuredressing applied, No redness/swelling at site.04:12 No apparent distress. Resting quietly. cm405:02 Kayla Miller RN is Primary Nurse. cm405:09 Jean Collier MD is Hospitalizing Provider. na106:20 No apparent distress. Resting quietly. cm408:10 No Physician assisted procedures completed. sr4Hnrmeewswlah Medications:03:28 CANCELLED (): morphine 3 mg IVP once na103:47 Drug: NS 0.9% 1000 ml [sodium chloride 0.9 % intravenous solution] wd0Efexr: IV; Rate: 250 mL/hr; Site: right antecubital;06:20 Follow up: Response: No adverse reaction; IV Status: Completed hb2ttgaidlx; IV Intake: 3657ia56:47 Drug: Ondansetron 4 mg [ondansetron HCl 2 mg/mL intravenous solution cm4(2 mL)] Route: IVP; Site: right antecubital;04:00 Follow up: Response: No adverse reaction; Nausea is decreased cm404:55 Drug: morphine 2 mg [morphine 2 mg/mL injection syringe (1 mL)] cm4{Note: pt requested 2mg at this time.} Route: IVP; Site: rightantecubital;05:30 Follow up: Pain 6/10 Adult; Response: No adverse reaction cm405:02 Drug: Promethazine 12.5 mg [promethazine 25 mg/mL injection solution] kc5Lnsvm: IVPB; Site: right antecubital;05:10 Follow up: Response: No adverse reaction; IV Status: Completed th2hjmbboix; IV Intake: 654ha21:18 Drug: Zosyn 3.375 grams [Zosyn 3.375 gram intravenous solution] lt4Iapve: IVPB; Site: right antecubital;05:50 Follow up: Response: No adverse reaction; IV Status: Completed gv5hnucgqzl; IV Intake: 967bj01:06 Drug: Promethazine 12.5 mg [ promethazine 25 mg/mL injection solution] ir4Aabjt: IVPB; Site: right antecubital;06:18 Follow up: Response: No adverse reaction; IV Status: Completed em0uiykzpwo; IV Intake: 50ml08:00 Drug: NS 0.9% 1000 ml [sodium chloride 0.9 % intravenous solution] ra0Fuamk: IV; Rate: 100 mL/hr; Site: right antecubital;12:42 Follow up: IV Status: Completed infusion; IV Intake: 400ml ef112:15 Drug: Zosyn 3.375 grams [Zosyn 3.375 gram intravenous solution] ie0Wrwqt: IVPB; Site: right antecubital;12:43 Follow up: IV Status: Completed infusion; IV Intake: 100ml ef112:15 Drug: Acetaminophen 975 mg [acetaminophen 325 mg tablet (3 tabs)] lk9Nlfow: PO;12:42 Follow up: Temp 100.1 Oral se8Dxclkd:05:10 IV: 100ml; Total: 100ml. cm405:50 IV: 100ml; Total: 200ml. cm406:18 IV: 50ml; Total: 250ml. cm406:20 IV: 1000ml; Total: 1250ml. cm412:42 IV: 400ml; Total: 1650ml. ef112:43 IV: 100ml; Total: 1750ml. xv0Fyomefs:05:09 Decision to Hospitalize by Provider. na108:11 Disposition: Admitted to OR accompanied by nurse, via stretcher. ef108:11 Condition: stable.08:11 Discharge instructions given to patient, Instructed on need foradmit, Demonstrated understanding of instructions.08:11 Discharge Assessment: Patient verbalized understanding of dispositioninstructions. Patient has no functional deficits.12:46 Patient left the ED. em4Hjimoxhikd:Juliann Love RN RN fbgAl-Hussein, Nabeel, MD MD na1Clover Lauren RN RN qu0PuuudgAmada manzano RN RN tp2Kayla Miller RN RN ov9Ehkesdkqeex: (The following items were deleted from the chart)03:04 03:02 PMHx: Hyperthyroidism; tp2 tp2 Name Value Range Interpretation Code Description Data Mahi rce(s) Supporting Document(s) ID Date Data Source [id number] 04/28/2020 12:00:00 AM EST [facility] Name Value Range Interpretation Code Description Data Mahi rce(s) Supporting Document(s) SARS-CoV2 Rapid PCR [facility] This lab was ordered by [facility] and reported by [facility]. ID Date Data Source [id number] 04/24/2020 09:27:00 AM EST [facility] DATE OF EXAMINATION: 04/24/2020 8:03 EST CAROTID DOPPLER BILATERAL HISTORY: Hypertension. Carotid stenosis. Duplex scan was performed using B-mode/ferrara scale imaging and Doppler spectralanalysis and color flow. There is no significant plaque formation involving either carotid system. Thevertebral arteries reveal normal flow. There is no stenosis or occlusion. IMPRESSION: Normal It should be emphasized that calcified plaque reduces the diagnostic accuracyof this study. Electronically signed in PS360 by: Aldair Bautista M.D. 04/24/2020 9:21 EST Name Value Range Interpretation Code Description Data Mahi rce(s) Supporting Document(s) ID Date Data Source Carotid Ultrasound 04/24/2020 12:00:00 AM EST eCW1 ([facility]) Name Value Range Interpretation Code Description Data Mahi rce(s) Supporting Document(s) Carotid Ultrasound eCW1 ([facility]) ID Date Data Source [id number] 04/20/2020 05:06:00 PM EST [facility] Patient: SUSAN RENDON Eugenio Banks [facility] - [facility].VisitID: [id number] [place] [address] [phone], FRegistration Date/Time: 04/19/2020 21:15 Weight:106.5 kg (S). Height/Length:66 inches (S). BMI:37.9 Obs Start: 04/19/2020 23:05 Obs Dispo: 04/20/2020 14:30 Obs Duration: 15 hr 25 min FAMILY HISTORYNo significant family medical history. (Electronically signed by Jyothi Rios M.D. 04/19/2020 23:18) Weight:106.5 kg (S). Height/Length:66 inches (S). BMI:37.9 Obs Start: 04/19/2020 23:05 Obs Dispo: 04/20/2020 14:30 Obs Duration: 15 hr 25 min Historian- patient. HISTORY OF PRESENT ILLNESS(Chief complaint: Heart racing/heart flutter HPI: The patient is a 45-year-old white female who has been in her usual state of health just prior to her symptoms beginning last evening. 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 She has not been sleeping well. In the past she was placed on Celexa 10 mg for this and it did help her symptoms. She went off about 8-10 months ago and just restarted the medication 1 week ago. Yesterday, she was having a relaxing day baking cookies and was sitting watching TV when she suddenly felt a flutter in her chest and h er heart to be racing. She checked her pulse and thought it was approximately 120. She did drink coffee yesterday afternoon and this is not normal for her. She has had no new foods or change in diet. She denies using drugs. She has not used any prescription or hhyh-xoh-bvteobr cold medications. The initial symptoms lasted for a few minutes but then recurred. Initially began around 7 PM. After they recurred the symptoms persisted and is a continued for over an hour she decided to come to the emergency room and arrived here about 9 PM, last night. At no point did she have any chest pain or pressure. She denies any shortness of breath. Her palms did feel sweaty but she did not have any significant diaphoresis approximately 5 years ago she did have an episode of palpitations. She had a workup including a Holter monitor and was noted to have a few episodes of SVT. The patient was asymptomatic during those events. She's had no symptoms since. In late March the patient developed an infection in her jaw and ended up having dental extraction and a bone graft on April 04. She did have to take antibiotics for a couple of weeks. She completed the antibiotics about a week ago. She did have some diarrhea while on the antibiotics, but that resolved. Her bowel movements have been normal since without melena or blood. At no point to the patient feeling lightheaded or dizzy. She denies fever or chills. She denies any nausea or vomiting. Appetite has been normal. She did have a headache related to her jaw pain, but that has resolved. She denies any change in vision, speech or swallowing. She denies any ENT complaints. She denies wheezing or cough. She denies abdominal pain and has not had heartburn, indigestion, or odynophagia. She is voiding without difficulty and denies any complaints. She denies any specific musculoskeletal park. She denies any weakness, numbness or tingling. She denies any skin issues. Nothing exacerbated or relieved her symptoms. The patient has no prior history of hypertension or significant tachycardia.The patient was evaluated in the emergency room and initially her blood pressure was 173/105 and then repeat 179/108. Her initial heart rate was 130. The patient had an EKG (sinus tachycardia with some nonspecific anterolateral ST changes and these are new compared to prior EKG from 08-31-16). Chest x-ray revealed no acute disease. She had lab work as well as urinalysis. Urinalysis was normal. Her d-dimer was normal. She had a normal TSH. Her initial troponin was less than 0.017. Her CBC revealed a slightly abnormal differential. Chemistries revealed slight hyperglycemia, chronic kidney disease stage II, slight hypokalemia. Her magnesium was normal. Her cope with 19 was negative. Patient was given IV fluid, 324 mg of aspirin at a dose of IV metoprolol. Shortly afterwards her symptoms improved. Her blood pressure as well as her tachycardia improved. Patient was given a dose of Xanax as well as she did feel a little anxious. With the patient's presenting symptoms, significantly abnormal vital signs, abnormal labs and EKG it was suggested the patient be transferred so she can be seen and evaluated by cardiology. The patient did not want to go to [place] due to the significant amounts of Covid 19 in the hospitals and she wanted to stay here to be ruled out for an acute cardiac event. The patient was admitted as an observation admission for further evaluation and treatment. The patient had an uneventful hospital course since admission late last night and is feeling well today. She's had no recurrence of her symptoms and her review of systems is as noted above. Her EKGs are documented and the follow-up EKG did show some improvement in the nonspecific ST changes. Her troponins were negative ???3. I discussed the patient with Dr. Patel and he agrees with sending the patient home and he will see patient in the office. He agrees with the treatment plan. The patient is being discharged home in improved and stable condition.). REVIEW OF [id number] point review systems is otherwise negative except for as noted above in HPI. PAST HISTORYPAST MEDICAL HISTORY: Morbid obesity, status post gastric bypass in 2008. She is now class II obesity with a BMI of 37.9InsomniaAnxietyPerimenopausalOne hypoglycemic seizure (related to her gastric bypass. Her blood sugar was 27)Iron deficiency anemia, resolved PAST SURGICAL HISTORY: Nasal surgery to repair and open nasal fractureGastric bypass in 2008Left hip pinning at age 15 and then removal at age 16D&C ???1 FAMILY HISTORY: Mother is 61 years old and has hypertensionFather at age 69 from a glioblastomaHer fraternal aunt also at age 71 from a glioblastomaOne brother at age 58 from complications of alcoholismShe has 3 living brothers ages 39, 42 and 52, and they are all alive and well. 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 ADDITIONAL NOTESThe nursing notes have been reviewed (Nurses notes were reviewed). PHYSICAL EXAMVital Signs: 04/20/2020 11:16 BP: lying 129/84. MAP: 99. HR: 79. RR: 18. O2 saturation: 97% on room air. Temp: 98.1 F. Pain level now: 004/20/2020 06:35 BP: lying 139/90. MAP: 106. HR: 89. RR: 18. O2 saturation: 96% on room air. Temp: 98.6 F. Pain level now: 004/20/2020 03:53 BP: 105/71. MAP: 82. HR: 85. RR: 17. O2 saturation: 97%. Temp: 99.1 F. Pain level now: 004/20/2020 00:03 BP: sitting 143/91. MAP: 108. HR: 96. RR: 19. O2 saturation: 96% on room air. Temp: 98.1 F.04/19/2020 23:32 BP: 132/78. MAP: 96. HR: 84. RR: 18. O2 saturation: 99% on room air. Temp: 98 F. Pain level now: 004/19/2020 23:00 BP: 139/96. MAP: 110. HR: 91. RR: 18. O2 saturation: 99% on room air. Pain level now: 004/19/2020 22:45 BP: 147/97. MAP: 113. HR: 104. RR: 24. O2 saturation: 98% on room air. Pain level now: 004/19/2020 22:30 BP: 150/105. MAP: 120. HR: 110. RR: 17. O2 saturation: 99% on room air. Pain level now: 004/19/2020 22:15 BP: 147/103. MAP: 117. HR: 93. RR: 16. O2 saturation: 98% on room air. Pain level now: 004/19/2020 22:09 BP: 151/100. MAP: 117. HR: 97. RR: 19. O2 saturation: 100% on room air. Pain level now: 004/19/2020 22:00 BP: 151/100. MAP: 117. HR: 95. RR: 22. O2 saturation: 98% on room air. Pain level now: 004/19/2020 21:58 BP: 146/96. MAP: 112. HR: 97. RR: 23. O2 saturation: 99% on room air. Pain level now: 0.04/19/2020 21:45 BP: 169/99. MAP: 122. HR: 130. RR: 21. O2 saturation: 99% on room air. Temp: 98.1 F. Pain level now: 0.04/19/2020 21:22 BP: 179/108. MAP: 131.04/19/2020 21:20 BP: 173/105. MAP: 127. Have been reviewed and appear to be correct. Appearance: (PHYSICAL EXAMINATION: General: Obese, well-developed white female who is alert, oriented, cooperative and in no apparent distress.HEENT: Normocephalic, atraumatic, pupils reactive, sclerae anicteric, EOMI, oral mucosa was pink and moist. She does have an absent tooth, lower left, from her recent dental extraction. It appears to be healing properly.Neck: Full range of motion, supple, nontender, no masses or lymphadenopathy, trachea midline, no thyromegaly, carotids 2+ without bruits, there was no JVD or HJR.Lungs: Clear to auscultation bilaterally. There was no accessory muscle movement or evidence of respiratory distress.Heart: Regular, rate and rhythm. Normal S1 and S2. No murmur was noted.Chest wall: Nontender and no crepitationAbdomen: Soft, nontender, no masses or organomegaly, bowel sounds are positive in all 4 quadrants.Extremities: The patient did move all 4 extremities without difficulty bedside. Peripheral pulses were palpable. There was no edema or calf tenderness.Neurologic: Cranial nerves grossly intact as marycruz perla. Normal speech. Motor and sensory are grossly intact. No focal deficits.Skin: Warm and dry, normal colorPsychiatric: Mood and affect were appropriateNeck: There was no vertebral or CVA tenderness. I did not note any paravertebral muscle spasm.Lymphatic: No palpable lymphadenopathy). LABS, X- RAYS, AND EKGLaboratory Tests: Troponin-I: (IVAN: 04/20/2020 11:45)( MsgRcvd 04/20/2020 12:20) New Order TSYSORDER [id number] Test Result Flag Units (Reference)TROPONIN I < 0.017 ng/mL (0.0-0.056) CBC w Diff: (IVAN: 04/20/2020 05:30)( [facility] 04/20/2020 05:48) New Order TSYSORDER [id number] Test Result Flag Units (Reference)WHITE BLOOD COUNT 6.1 K/mm3 (4.0-10.0) RED BLOOD COUNT 4.35 M/mm3 (4.00-5.50) HEMOGLOBIN 12.8 gm/dL (12.0-16.0) HEMATOCRIT 38.2 % (36.0-48.8) MEAN CELL VOLUME 87.8 fl (80-96) MEAN CORPUSCULAR HEMOGLOBIN 29.4 pg (27.0-31.0) MEAN CORPUSCULAR HGB CONC 33.5 g/dl (32.0-36.0) RED CELL DISTRIBUTION WIDTH 11.7 % (10.0-14.5) PLATELET COUNT 215 K/mm3 (172-450) MEAN PLATELET VOLUME 10.5 fl (9.0-13.0) GRAN % 57.6 % (50-80.0) IG% 0.2 % (0.0-0.2) LYMPH % 30.1 % (25.0- 50.0) MONO % 10.7 H % (2.0-10.0) EOS % 1.1 % (0-5.0) BASO % 0.3 % (0.0-2.0) GRAN # 3.5 K/mm3 (2.0-8.00) IG# 0.0 K/mm3 (0.0-0.2) LYMPH # 1.9 K/mm3 (1.0-5.0) MONO # 0.7 K/mm3 (0.10-1.20) EOS # 0.1 K/mm3 (0.0-0.5) BASO # 0.0 K/mm3 (0.0-0.2) BMP: (IVAN: 04/20/2020 05:30)( [facility] 04/20/2020 06:03) New Order FASTING? YESTSYSORDER [id number] Test Result Flag Units (Reference)GLUCOSE 105 mg/dL (74-106) BLOOD UREA NITROGEN 10 mg/dL (7-18) CREATININE 0.64 mg/dL (0.6-1.0) SODIUM 143 mmol/L (136-145) POTASSIUM 4.1 mmol/L (3.5-5.1) CHLORIDE 105 mmol/L (98-107) CO2 28 mmol/L (21-32) CALCIUM 9.0 mg/dL (8.5-10.1) ANION GAP 10.0 mmol/L (5-12) GLOMER ULAR FILTRATION RATE >90 mL/min GFR IS CALCULATED IN mL/min/1.60i9WZTUDE FUNCTION: >90MILDLY DECREASED: 60-89MILDY TO MODERATELY DECREASED: 45-59 MODERATELY TO SEVERELY DECREASED: 30-44SEVERELY DECREASED: 15-29RENAL FAILURE: <15 Troponin-I: (IVAN: 04/20/2020 05:30)( [facility] 04/20/2020 06:11) New Order TSYSORDER [id number] Test Result Flag Units (Reference)TROPONIN I < 0.017 ng/mL (0.0-0.056) Chest 1V: (IVAN: 04/19/2020 21:43)( NegRcvd 04/19/2020 22:42) F Test Result Flag Units (Reference)CHEST 1 VIEW DATE OF EXAMINATION: 04/19/2020 21:44 EST -- -- CHEST 1 VIEW -- HISTORY: Chest pain and tachycardia -- TECHNIQUE: Single frontal radiograph of chest -- COMPARISON: None. -- -- FINDINGS: -- No evidence of focal consolidation, pneumothorax or large pleural effusion. Lungs are clear. Mediastinal structures are unremarkable. No aggressive osseous -- lesions. -- -- IMPRESSION: -- No focal consolidation. -- Electronically signed in PS360 by: Cortez Bear M.D. 04/19/2020 22:36 EST -- -- Dictated by: CORTEZ BEAR IN-HOUSE: (IVAN: 04/19/2020 21:40)( [facility] 04/19/2020 22:00) New Order TSYSORDER [id number] Test Result Flag Units (Reference)COVID-19 NEGATIVE (NEGATIVE) Negative results should be treated as presumptive [...] are for the indentification of SARS-CoV-2 RNA. ZhfKIMR-XtT-1 RNA is generally detectable in respiratorysamples during the actue phase of infection. UA CULTURE IF INDICATED: (IVAN: 04/19/2020 21:40)( [facility] 04/19/2020 22:51) New Order URINE SOURCE? URINE, CLEAN CATCHTSYSORDER [id number] Test Result Flag Units (Reference)URINE COLOR. YELLOW URINE APPEARANCE CLEAR URINE GLUCOSE (UA) NEGATIVE mg/dL (NEGATIVE) URINE BILIRUBIN NEGATIVE (NEGATIVE) URINE KETONE NEGATIVE mg/dL (NEGATIVE) SPECIFIC GRAVITY,URINE 1.015 (1.001-1.035) URINE BLOOD NEGATIVE (NEGATIVE) PH,URINE 7.0 (5.0-9.0) URINE PROTEIN NEGATIVE mg/dL (NEGATIVE) URINE UROBILINOGEN 0.2 mg/dL (0-1) URINE NITRATE NEGATIVE (NEGATIVE) URINE LEUKOCYTE ESTERASE NEGATIVE (NEGATIVE) CBC w Diff: (IVAN: 04/19/2020 21:26)( [facility] 04/19/2020 21:35) New Order TSYSORDER [id number] Test Result Flag Units (Reference)WHITE BLOOD COUNT 9.2 K/mm3 (4.0-10.0) RED BLOOD COUNT 4.73 M/mm3 (4.00-5.50) HEMOGLOBIN 14.0 gm/dL (12.0-16.0) HEMATOCRIT 41.4 % (36.0-48.8) MEAN CELL VOLUME 87.5 fl (80-96) MEAN CORPUSCULAR HEMOGLOBIN 29.6 pg (27.0- 31.0) MEAN CORPUSCULAR HGB CONC 33.8 g/dl (32.0-36.0) RED CELL DISTRIBUTION WIDTH 11.7 % (10.0-14.5) PLATELET COUNT 221 K/mm3 (172-450) MEAN PLATELET VOLUME 10.3 fl (9.0-13.0) GRAN % 41.9 L % (50-80.0) IG% 0.2 % (0.0-0.2) LYMPH % 43.9 % (25.0-50.0) MONO % 10.1 H % (2.0-10.0) EOS % 3.6 % (0-5.0) BASO % 0.3 % (0.0-2.0) GRAN # 3.9 K/mm3 (2.0-8.00) IG# 0.0 K/mm3 (0.0-0.2) LYMPH # 4.1 K/mm3 (1.0-5.0) MONO # 0.9 K/mm3 (0.10-1.20) EOS # 0.3 K/mm3 (0.0-0.5) BASO # 0.0 K/mm3 (0.0-0.2) CMP: (IVAN: 04/19/2020 21:26)( MsgRcvd 04/19/2020 21:58) New Order TSYSORDER [id number] Test Result Flag Units (Reference)GLUCOSE 109 H mg/dL (74-106) BLOOD UREA NITROGEN 18 mg/dL (7-18) CREATININE 0.90 mg/dL (0.6-1.0) SODIUM 143 mmol/L (136-145) POTASSIUM 3.3 L mmol/L (3.5-5.1) CHLORIDE 101 mmol/L (98-107) CO2 30 mmol/L (21-32) CALCIUM 9.1 mg/dL (8.5-10.1) ANION GAP 12.0 mmol/L (5-12) GLOMERULAR FILTRATION RATE 68 mL/min GFR IS CALCULATED IN mL/min/1.44x4RUVKIR FUNCTION: > 90MILDLY DECREASED: 60-89MILDY TO MODERATELY DECREASED: 45-59 MODERATELY TO SEVERELY DECREASED: 30-44SEVERELY DECREASED: 15-29RENAL FAILURE: <15 AST 24 U/L (15-37) ALT 27 U/L (12-78) ALKALINE PHOSPHATASE 79 U/L (46-116) TOTAL BILIRUBIN 0.2 mg/dL (0.2-1.0) TOTAL PROTEIN 7.5 g/dl (6.4-8.2) ALBUMIN 4.0 gm/dL (3.4-5.0) TROPONIN I < 0.017 ng/mL (0.0-0.056) MAGNESIUM 1.9 mg/dL (1.8-2.4) D- Dimer: (IVAN: 04/19/2020 21:26)( [facility] 04/19/2020 22:01) New Order TSYSORDER [id number] Test Result Flag Units (Reference)DDIMER < 0.19 L mg/LFEU (0.19-0.60) TSH: (IVAN: 04/19/2020 21:26)( [facility] 04/19/2020 22:05) New Order TSYSORDER [id number] Test Result Flag Units (Reference)TSH 2.236 uIU/mL (0.36-3.74) . Note - Tests: (Rhythm strips: Normal sinus rhythm Initial EKG: Sinus tachycardia, nonspecific ST changes, anterolateral leads. This is new from her prior EKG from 08/31/16. Second EKG: Normal sinus rhythm, nonspecific anterolateral ST changes, slightly improved.). PROGRESS AND PROCEDURESCourse of Care: IMPRESSION: Palpitations, question etiology. ACS Has been ruled out. Symptoms have resolved. Patient's heart score is 4.Tachycardia, resolved with treatmentNew-onset hypertension, improved with treatmentAbnormal EKG with nonspecific ST changesAnxiety/stress, situationalInsomniaHypokalemia, correctedAbnormal CBC differential, resolvedChronic kidney disease improved and now GFR is greater than 90Slight hyperglycemia, resolvedPerimenopausalObesity class II with a BMI of 37.2. PLAN: The patient was admitted as an observation admission.Continuous telemetryCardiac dietShe was given IV fluids in the ER (1 L) and then provide her with another liter of fluid. This has since been discontinued.Serial EKG and troponins, as documented above.She initially was placed on bed rest, but will be allowed to be up ad igor.She has available nitroglycerin sublingual as needed.Tylenol is also available as needed.Her potassium was supplemented.The patient's troponins are negative, therefore the patient will be sent home. Again, I did discuss the patient with Dr. Patel and he is agreeable with the discharge plan and will see the patient in the office. He advised her to call the office tomorrow morning for an appointment. DISCHARGE INSTRUCTIONS: Diet: Heart healthyActivity level: Patient may resume her ADLs and may work, but she needs to avoid any strenuous activity until she is cleared by cardiology.She should follow-up with her primary provider in the next few weeks.More importantly she needs to call Dr. Patel's office tomorrow [phone]) for an appointment and further testing. Patient will continue her Celexa New medication is metoprolol tartrate 25 mg by mouth twice a day. The patient needs to hold for systolic blood pressure less than 100 and/or heart rate less than 60. She should check her blood pressure once or twice a day as well as pulse and record for cardiology. DANGER SIGNS/SYMPTOMS: Watch for recurrent palpitations watch for chest pain, shortness of breath, diaphoresis, lightheadedness/dizziness. Watch for near syncope or syncopal episodes. If occurs, notify PCP or return to the ER. Disposition: Condition: good and stable. Discharge decision based on the following: patient's condition is stable, patient's condition is improved, patient is ambulatory, patient is active, patient drinking fluids, patient eating, patient's exam is stable, no seriously abnormal test results, stable condition on multiple repeat evaluations, social support is excellent, transportation is available, follow-up is available. CLINICAL IMPRESSIONPalpitations (Acute palpitations, question etiology, resolved). Sinus tachycardia (sinus tachycardia, resolved with treatment). Abnormal EKG. (nonspecific ST changes (anterolateral)). Hypertension. (new onset hypertension). INSTRUCTIONS(DISCHARGE INSTRUCTIONS: Diet: Heart healthyActivity level: Patient may resume her ADLs and may work, but she needs to avoid any strenuous activity until she is cleared by cardiology.She should follow-up with her primary provider in the next few weeks.More importantly she needs to call Dr. Patel's office tomorrow [phone]) for an appointment and further testing. Patient will continue her Celexa New medication is metoprolol tartrate 25 mg by mouth twice a day. The patient needs to hold for systolic blood pressure less than 100 and/or heart rate less than 60. She should check her blood pressure once or twice a day as well as pulse and record for cardiology. DANGER SIGNS/SYMPTOMS: Watch for recurrent palpitations watch for chest pain, shortness of breath, diaphoresis, lightheadedness/dizziness. Watch for near syncope or syncopal episodes. If occurs, notify PCP or return to the ER.). Your Current Medications: Your current home medications have been reviewed. CONTINUE TAKING THE FOLLOWING MEDICATIONS:CeleXA Oral : Tablet 10 mg, 1 tablet daily, Last: today. Prescription Medications:metoprolol tartrate 25 mg tablet Take 1 tablet twice a day for 30 days -- Dispense 60 tablet. Refills: 0. Substitution permitted.Pharmacy - [id number] - [id number] [place] [address]. FaxNumber: . Understanding of the discharge instructions verbalized by patient. Follow-up with: Rose Rudd, Family Medicine, , [address] [place] [address], [id number] up even if well. Call for an a ppointment. call for follow-up appointment in the next few weeks. Follow-up with: Adam Patel M.D., Cardiology, , [address], [address], [place], [address] up. Call for an appointment. call tomorrow morning for appointment. (Electronically signed by Audie Longoria DO 04/20/2020 17:03) Name Value Range Interpretation Code Description Data Mahi rce(s) Supporting Document(s) ID Date Data Source [id number] 04/20/2020 12:18:00 PM EST [facility] TSYSORDER [id number] Name Value Range Interpretation Code Description Data Mahi rce(s) Supporting Document(s) TROPONIN I < 0.017 ng/mL 0.0-0.056 [facility] ID Date Data Source [id number] 04/20/2020 06:10:00 AM [facility] TSYSORDER [id number] Name Value Range Interpretation Code Description Data Mahi rce(s) Supporting Document(s) TROPONIN I < 0.017 ng/mL 0.0-0.056 [facility] ID Date Data Source [id number] 04/20/2020 06:02:00 AM [facility] TSYSORDER [id number] Name Value Range Interpretation Code Description Data Mahi rce(s) Supporting Document(s) GLUCOSE 105 mg/dL 74-106 [facility] BLOOD UREA NITROGEN 10 mg/dL 7-18 [facility] ital CREATININE 0.64 mg/dL 0.6-1.0 [facility] SODIUM 143 mmol/L 136-145 [facility] POTASSIUM 4.1 mmol/L 3.5-5.1 [facility] CHLORIDE 105 mmol/L 98-107 [facility] CO2 28 mmol/L 21-32 [facility] CALCIUM 9.0 mg/dL 8.5-10.1 [facility] ANION GAP 10.0 mmol/L 5-12 [facility] GLOMERULAR FILTRATION RATE >90 mL/min [facility] GFR IS CALCULATED IN mL/min/1.73m2 KULWANT L FUNCTION: >90MILDLY DECREASED: 60-89MILDY TO MODERATELY DECREASED: 45-59 MODERATELY TO SEVERELY DECREASED: 30-44SEVERELY DECREASED: 15-29RENAL FAILURE: <15 ID Date Data Source [id number] 04/20/2020 05:47:00 AM [facility] TSYSORDER [id number] Name Value Range Interpretation Code Description Data Mahi rce(s) Supporting Document(s) WHITE BLOOD COUNT 6.1 K[facility]mm3 4.0[facility]10.0 [facility] 4.35 M/mm3 4.00-5.50 [facility] l HEMOGLOBIN 12.8 gm/dL 12.0-16.0 [facility] HEMATOCRIT 38.2 % 36.0-48.8 [facility] MEAN CELL VOLUME 87.8 fl 80-96 [facility] MEAN CORPUSCULAR HEMOGLOBIN 29.4 pg 27.0-31.0 [facility] MEAN CORPUSCULAR HGB CONC 33.5 g/dl 32.0-36.0 [facility] RED CELL DISTRIBUTION WIDTH 11.7 % 10.0-14.5 [facility] PLATELET COUNT 215 K/mm3 172-450 [facility] MEAN PLATELET VOLUME 10.5 fl 9.0-13.0 [facility] pital GRAN % 57.6 % 50-80.0 [facility] IG% 0.2 % 0.0-0.2 [facility] LYMPH % 30.1 % 25.0-50.0 [facility] MONO % 10.7 % 2.0-10.0 H [facility] EOS % 1.1 % 0-5.0 [facility] BASO % 0.3 % 0.0-2.0 [facility] GRAN # 3.5 K/mm3 2.0-8.00 [facility] IG# 0.0 K/mm3 0.0-0.2 [facility] LYMPH # 1.9 K/mm3 1.0-5.0 [facility] MONO # 0.7 K/mm3 0.10-1.20 [facility] EOS # 0.1 K/mm3 0.0-0.5 [facility] BASO # 0.0 K/mm3 0.0-0.2 [facility] ID Date Data Source [id number] 04/19/2020 10:42:00 PM EST [facility] DATE OF EXAMINATION: 04/19/2020 21:44 ES T CHEST 1 VIEW HISTORY: Chest pain and tachycardia TECHNIQUE: Single frontal radiograph of chest COMPARISON: None. FINDINGS: No evidence of focal consolidation, pneumothorax or large pleural effusion.Lungs are clear. Mediastinal structures are unremarkable. No aggressive osseouslesions. IMPRESSION: No focal consolidation. Electronically signed in PS360 by: Cortez Bear M.D. 04/19/2020 22:36 EST Name Value Range Interpretation Code Description Data Mahi rce(s) Supporting Document(s) ID Date Data Source [id number] 04/19/2020 09:40:00 PM EST [facility] Name Value Range Interpretation Code Description Data Mahi rce(s) Supporting Document(s) COVID-19 [facility] This lab was ordered by [facility] thien Lab and reported by [facility]. ID Date Data Source [id number] 04/19/2020 10:50:00 PM EST [facility] TSYSORDER [id number] Name Value Range Interpretation Code Description Data Mahi rce(s) Supporting Document(s) URINE COLOR. [facility] URINE APPEARANCE CLEAR [facility] URINE GLUCOSE (UA) NEGATIVE mg/dL NEGATIVE [facility] URINE BILIRUBIN NEGATIVE NEGATIVE [facility] URINE KETONE NEGATIVE mg/dL [facility]IVE [facility]CIFIC [facility]RAV[facility],URINE 1.015 1.001-1.035 [facility] URINE BLOOD NEGATIVE NEGATIVE [facility] PH,URINE 7.0 5.0-9.0 [facility] URINE PROTEIN NEGATIVE mg/dL NEGATIVE [facility] URINE UROBILINOGEN 0.2 mg/dL 0-1 [facility] URINE NITRATE NEGATIVE NEGATIVE [facility] URINE LEUKOCYTE ESTERASE NEGATIVE NEGATIVE [facility] ID Date Data Source [id number] 04/19/2020 10:00:00 PM EST [facility] T[facility] [id number] Name Value Range Interpretation Code Description Data Mahi rce(s) Supporting Document(s) COVID-19 NEGATIVE NEGATIVE [facility] Negative results should be treated as pr esumptive and, ifinconsistent with clinical signs and symptoms [...] are for the indentification of SARS-CoV-2 RNA. DrySSWX-PyA-5 RNA is generally detectable in respiratorysamples during the actue phase of infection. ID Date Data Source [id number] 04/19/2020 10:04:00 PM EST [facility] TSYSORDER [id number] Name Value Range Interpretation Code Description Data Mahi rce(s) Supporting Document(s) TSH 2.236 uIU/mL 0.36-3.74 [facility] ID Date Data Source [id number] 04/19/2020 10:01:00 PM EST [facility] TSYSORDER [id number] Name Value Range Interpretation Code Description Data Mahi rce(s) Supporting Document(s) DDIMER < 0.19 mg/LFEU 0.19-0.60 [facility] ID Date Data Source [id number] 04/19/2020 09:57:00 PM EST [facility] TSYSORDER [id number] R [id number] Name Value Range Interpretation Code Description Data Mahi rce(s) Supporting Document(s) GLUCOSE 109 mg/dL 74-106 H [facility] BLOOD UREA NITROGEN 18 mg/dL 7-18 [facility] CREATININE 0.90 mg/dL 0.6-1.0 [facility] SODIUM 143 mmol/L 136-145 [facility] POTASSIUM 3.3 mmol/L 3.5-5.1 L [facility] CHLORIDE 101 mmol/L 98-107 [facility] CO2 30 mmol/L 21-32 [facility] CALCIUM 9.1 mg/dL 8.5-10.1 [facility] ANION GAP 12.0 mmol/L 5-12 [facility] GLOMERULAR FILTRATION RATE 68 mL/min [facility] GFR IS CALCULATED IN mL/min/1.73m2 KULWANT L FUNCTION: >90MILDLY DECREASED: 60-89MILDY TO MODERATELY DECREASED: 45-59 MODERATELY TO SEVERELY DECREASED: 30-44SEVERELY DECREASED: 15-29RENAL FAILURE: <15 AST 24 U/L 15-37 [facility] ALT 27 U/L 12-78 [facility] ALKALINE PHOSPHATASE 79 U/L 46-116 [facility] pital TOTAL BILIRUBIN 0.2 mg/dL 0.2-1.0 [facility] TOTAL PROTEIN 7.5 g/dl 6.4-8.2 [facility] ALBUMIN 4.0 gm/dL 3.4-5.0 [facility] ID Date Data Source [id number] 04/19/2020 09:57:00 PM EST [facility] TSYSORDER [id number] Name Value Range Interpretation Code Description Data Mahi rce(s) Supporting Document(s) MAGNESIUM 1.9 mg/dL 1.8-2.4 [facility] ID Date Data Source [id number] 04/19/2020 09:57:00 PM EST [facility] TSYSORDER [id number] R [id number] Name Value Range Interpretation Code Description Data [facility] Document(s) TROPONIN I < 0.017 ng/mL 0.0-0.056 [facility] ID Date Data Source [id number] 04/19/2020 09:34:00 PM [facility] TSYSORDER [id number] Name Value Range Interpretation Code Description Data Mahi rce(s) Supporting Document(s) WHITE BLOOD COUNT 9.2 K/mm3 4.0-10.0 [facility] RED BLOOD COUNT 4.73 M/mm3 4.00-5.50 [facility] HEMOGLOBIN 14.0 gm/dL 12.0-16.0 [facility] HEMATOCRIT 41.4 % 36.0-48.8 [facility] MEAN CELL VOLUME 87.5 fl 80-96 [facility] MEAN CORPUSCULAR HEMOGLOBIN 29.6 pg 27.0-31.0 [facility] MEAN CORPUSCULAR HGB CONC 33.8 g/dl 32.0-36.0 [facility] RED CELL DISTRIBUTION WIDTH 11.7 % 10.0-14.5 [facility] PLATELET COUNT 221 K/mm3 172-450 [facility] MEAN PLATELET VOLUME 10.3 fl 9.0-13.0 [facility] pital GRAN % 41.9 % 50-80.0 L [facility] IG% 0.2 % 0.0-0.2 [facility] LYMPH % 43.9 % 25.0-50.0 [facility] MONO % 10.1 % 2.0-10.0 H [facility] EOS % 3.6 % 0-5.0 [facility] BASO % 0.3 % 0.0-2.0 [facility] GRAN # 3.9 K/mm3 2.0-8.00 [facility] IG# 0.0 K/mm3 0.0-0.2 [facility] LYMPH # 4.1 K/mm3 1.0-5.0 [facility] MONO # 0.9 K/mm3 0.10-1.20 [facility] EOS # 0.3 K/mm3 0.0-0.5 [facility] BASO # 0.0 K/mm3 0.0-0.2 [facility] ID Date Data Source [id number] 03/03/2020 12:16:00 PM [facility] Name Value Range Interpretation Code Description Data Mahi rce(s) Supporting Document(s) WHITE BLOOD COUNT 9.1 K/mm3 4.0-10.0 [facility] RED BLOOD COUNT 4.88 M/mm3 4.00-5.50 [facility] HEMOGLOBIN 14.5 gm/dL 12.0-16.0 [facility] HEMATOCRIT 43.8 % 36.0-48.8 [facility] MEAN CELL VOLUME 89.8 fl 80-96 [facility] MEAN CORPUSCULAR HEMOGLOBIN 29.7 pg 27.0-31.0 [facility] MEAN CORPUSCULAR HGB CONC 33.1 g/dl 32.0-36.0 [facility] RED CELL DISTRIBUTION WIDTH 11.9 % 10.0-14.5 [facility] PLATELET COUNT 237 K/mm3 172-450 [facility] MEAN PLATELET VOLUME 10.8 fl 9.0-13.0 [facility] pital GRAN % 64.6 % 50-80.0 [facility] IG% 0.1 % 0.0-0.2 [facility] LYMPH % 24.8 % 25.0-50.0 L [facility] MONO % 8.2 % 2.0-10.0 [facility] EOS % 2.0 % 0-5.0 [facility] BASO % 0.3 % 0.0-2.0 [facility] GRAN # 5.9 K/mm3 2.0-8.00 [facility] IG# 0.0 K/mm3 0.0-0.2 [facility] LYMPH # 2.2 K/mm3 1.0-5.0 [facility] MONO # 0.7 K/mm3 0.10-1.20 [facility] EOS # 0.2 K/mm3 0.0-0.5 [facility] BASO # 0.0 K/mm3 0.0-0.2 [facility] ID Date Data Source [id number] 03/03/2020 12:15:00 PM [facility] Name Value Range Interpretation Code Description Data Mahi rce(s) Supporting Document(s) GLUCOSE 88 mg/dL 74-106 [facility] BLOOD UREA NITROGEN 11 mg/dL 7-18 [facility] CREATININE 0.8 mg/dL 0.6-1.0 [facility] SODIUM 138 mmol/L 136-145 [facility] POTASSIUM 4.5 mmol/L 3.5-5.1 [facility] CHLORIDE 102 mmol/L 98-107 [facility] CO2 26 mmol/L 21-32 [facility] CALCIUM 9.1 mg/dL 8.5-10.1 [facility] ANION GAP 10.0 mmol/L 5-12 [facility] GLOMERULAR FILTRATION RATE 78 mL/min [facility] GFR IS CALCULATED IN mL/min/1.73m2 [facility] L FUNCTION: >90MILDLY DECREASED: 60-89MILDY TO MODERATELY DECREASED: 45-59 MODERATELY TO SEVERELY DECREASED: 30-44SEVERELY DECREASED: 15-29RENAL FAILURE: <15 AST 16 U/L 15-37 [facility] ALT 20 U/L 12-78 [facility] ALKALINE PHOSPHATASE 68 U/L 46-116 [facility] pital TOTAL BILIRUBIN 0.4 mg/dL 0.2-1.0 [facility] TOTAL PROTEIN 7.7 g/dl 6.4-8.2 [facility] ALBUMIN 4.1 gm/dL 3.4-5.0 [facility] ID Date Data Source [id number] 03/03/2020 01:31:00 PM EST [facility] Name Value Range Interpretation Code Description Data Mahi rce(s) Supporting Document(s) Campylobacter Not Detected Detected [facility] Clostridium difficile toxin AB Not Detected Detected [facility] Due to the high asymptomatic carriage ra marycruz, especiallyin young children, the clinical relevance of the detectionof toxigenic C. difficile from stool should be consideredin the context of other clinical findings, patient age, andrisk factores which include hospitalization and antibioticexposure. Plesiomonas shigelloides DETECTED Detected [facility] Salmonella Not Detected Detected [facility] ospital Vibrio Not Detected Detected [facility] spital Vibrio cholerae Not Detected Detected [facility] Yersinia enterocolitica Not Detected Detected [facility] Enteroaggregative E. coli Not Detected Detected [facility] Enteropathogenic E. coli Not Detected Detected [facility] Enterotoxigenic E. coli Not Detected Detected [facility] Shiga-like toxin-prod E. coli Not Detected Detected [facility] E. coli O157 Not Detected Detected [facility] Shigella/Enteroinvasive E coli Not Detected Detected [facility] Cryptosporidium Not Detected Detected [facility] Cyclospora cayetanensis Not Detected Detected [facility] Entamoeba histolytica Not Detected Detected [facility] Giardia Lamblia Not Detected Detected Not [facility] Adenovirus F 40/41 Not Detected Detected Not [facility] Astrovirus Not Detected Detected Not [facility] ospital Norovirus GI/GII Not Detected Detected Not [facility] Rotavirus A Not Detected Detected Not [facility] Sapovirus Not Detected Detected Not [facility] spital The Above results have been determined b y using the [employer] system.FilmArray is an automated in vitro diagnostic system thatutilizes nested multiplex Polymerase Chain Reaction (PCR)and high-resolution melting analysis to detect and identifymultiple nucleic acid targets from clinical specimens. ID Date Data Source [id number] 01/09/2020 08:07:00 AM EDT [facility] Name Value Range Interpretation Code Description Data Mahi rce(s) Supporting Document(s) VITAMIN D, 25-HYDROXY 31.4 ng/mL 30.0-100.0 [facility] Vitamin D deficiency has been defined by the [place] [employer] and an Endocrine Society practice guideline as alevel of serum 25-OH vitamin D less than 20 ng/mL (1,2).The Endocrine Society went on to further define vitamin Dinsufficiency as a level between 21 and 29 ng/mL (2).1. IOM ([place] [employer]). 2010. Dietary reference intakes for calcium and D. [place]: The National Academies Press.2. Bakari MF, Laila NC, Keysha MAYORGA, et al. Evaluation, treatment, and prevention of vitamin D deficiency: an Endocrine Society clinical practice guideline. JCEM. 2010; 96(7):1911- 30.Performed at: RN - [facility] [address] [id number] Director: Edie Guzmán MD, Phone: [phone] ID Date Data Source [id number] 01/09/2020 08:07:00 AM EDT [facility] Name Value Range Interpretation Code Description Data Mahi rce(s) Supporting Document(s) VITAMIN B12 291 pg/mL [id number] [facility] FOLATE (FOLIC ACID), SERUM 16.7 ng/mL >3.0 [facility] A serum folate concentration of less silvino n 3.1 ng/mL isconsidered to represent clinical deficiency. ID Date Data Source [id number] 01/09/2020 08:06:00 AM EDT [facility] Name Value Range Interpretation Code Description Data Mahi rce(s) Supporting Document(s) Vitamin B12 291 pg/mL [id number] [facility] Folate (Folic Acid), Serum 16.7 ng/mL >3.0 [facility] A serum folate concentration of less silvino n 3.1 ng/mL isconsidered to represent clinical deficiency. ID Date Data Source [id number] 01/09/2020 08:06:00 AM EDT [facility] Name Value Range Interpretation Code Description Data Mahi rce(s) Supporting Document(s) Vitamin D, 25-Hydroxy 31.4 ng/mL 30.0-100.0 [facility] Vitamin D deficiency has been defined by the [place] [employer] and an Endocrine Society practice guideline as alevel of serum 25-OH vitamin D less than 20 ng/mL (1,2).The Endocrine Society went on to further define vitamin Dinsufficiency as a level between 21 and 29 ng/mL (2).1. IOM ([place] [employer]). 2010. Dietary reference intakes for calcium and D. [place]: The National Academies Press.2. Bakari MF, Laila HINSON, Keysha MAYORGA, et al. Evaluation, treatment, and prevention of vitamin D deficiency: an Endocrine Society clinical practice guideline. JCEM. 2010; 96(7):1911-30. ID Date Data Source [id number] 01/08/2020 08:27:00 AM EDT [facility] Name Value Range Interpretation Code Description Data Mahi rce(s) Supporting Document(s) FREE T4 0.84 ng/dL 0.76-1.46 [facility] ID Date Data Source [id number] 01/08/2020 08:27:00 AM EDT [facility] Name Value Range Interpretation Code Description Data Mahi rce(s) Supporting Document(s) TSH 1.60 uIU/mL 0.36-3.74 [facility] ID Date Data Source [id number] 01/08/2020 08:27:00 AM EDT [facility] Name Value Range Interpretation Code Description Data Mahi rce(s) Supporting Document(s) IRON 219 ug/dL 50-170 H [facility] TIBC 345 ug/dL 250-450 [facility] % SATURATION 63 % 20-50 H [facility] ID Date Data Source [id number] 01/08/2020 08:27:00 AM EDT [facility] Name Value Range Interpretation Code Description Data Mahi rce(s) Supporting Document(s) CHOLESTEROL 192 mg/dL 0-200 [facility] TRIGLYCERIDES 87 mg/dL 0-150 [facility] LDL CHOLESTEROL 94 mg/dL 0-100 [facility] HDL CHOLESTEROL 81 mg/dL 40-60 H [facility] CHOL/HDL RATIO 2.4 0.0-5.0 [facility] ID Date Data Source [id number] 01/08/2020 08:17:00 AM EDT [facility] Name Value Range Interpretation Code Description Data Mahi rce(s) Supporting Document(s) HGBA1C 5.3 % 3.8-5.6 [facility] Diabetic > or = to 6.5%Prediabetes 5.7-6 .4%Normal <5.7 ID Date Data Source [id number] 01/08/2020 08:17:00 AM EDT [facility] Name Value Range Interpretation Code Description Data Mahi rce(s) Supporting Document(s) ESTIMATED AVERAGE GLUCOSE 105.4 mg/dL [facility] ID Date Data Source [id number] 01/08/2020 07:51:00 AM [facility] Name Value Range Interpretation Code Description Data Mahi rce(s) Supporting Document(s) WHITE BLOOD COUNT 5.3 K/mm3 4.0-10.0 [facility] RED BLOOD COUNT 4.35 M/mm3 4.00-5.50 [facility] HEMOGLOBIN 13.1 gm/dL 12.0-16.0 [facility] HEMATOCRIT 39.2 % 36.0-48.8 [facility] MEAN CELL VOLUME 90.1 fl 80-96 [facility] MEAN CORPUSCULAR HEMOGLOBIN 30.1 pg 27.0-31.0 [facility] MEAN CORPUSCULAR HGB CONC 33.4 g/dl 32.0-36.0 [facility] RED CELL DISTRIBUTION WIDTH 12.8 % 10.0-14.5 [facility] PLATELET COUNT 197 K/mm3 172-450 [facility] MEAN PLATELET VOLUME 10.4 fl 9.0-13.0 [facility] pital GRAN % 42.6 % 50-80.0 L [facility] IG% 0.2 % 0.0-0.2 [facility] LYMPH % 41.9 % 25.0-50.0 [facility] MONO % 10.2 % 2.0-10.0 H [facility] EOS % 4.5 % 0-5.0 [facility] BASO % 0.6 % 0.0-2.0 [facility] GRAN # 2.3 K/mm3 2.0-8.00 [facility] IG# 0.0 K/mm3 0.0-0.2 [facility] LYMPH # 2.2 K/mm3 1.0-5.0 [facility] MONO # 0.5 K/mm3 0.10-1.20 [facility] EOS # 0.2 K/mm3 0.0-0.5 [facility] BASO # 0.0 K/mm3 0.0-0.2 [facility] Procedure Social History Code Duration Value Status Description Data Source(s ) Smoking 04/22/2020 12:00:00 AM EST Never Smoker completed Never S moker eCW1 ([facility]) Smoking 04/22/2020 12:00:00 AM EST Never Smoker completed Never S moker eCW1 ([facility]) Smoking 04/22/2020 12:00:00 AM EST Never Smoker completed Never S moker eCW1 ([facility]) Vital Signs ID Date Data Source UNK Name Value Range Interpretation Code Description Data Source(s) Diastolic blood pressure 83 mm[Hg] 83 mm[Hg] eCW1 ([facility]) Systolic blood pressure 129 mm[Hg] 129 mm[Hg] e CW1 ([facility]) Body temperature 98.2 [degF] 98.2 [degF] eCW1 ( [facility]) Respiratory rate 16 /min 16 /min eCW1 ([facility]) Heart rate 66 /min 66 /min eCW1 ([facility]) Body mass index (BMI) [Ratio] 37.85 kg/m2 37.85 kg/m2 W1 ([facility]) Body height 65.5 [in_i] 65.5 [in_i] eCW1 ([facility]) Body weight 231 [lb_av] 231 [lb_av] eCW1 ([facility]) ID Date Data Source [id number] 05/15/2020 01:22:00 PM EST [facility] Name Value Range Interpretation Code Description Data Source(s) WEIGHT 106.9 kilos 106.9 kilos [facility] HEIGHT 167.64 centimeters 167.64 centimeter [facility] ID Date Data Source [id number] 05/11/2020 08:14:00 PM EST [facility] Name Value Range Interpretation Code Description Data Source(s) WEIGHT 105 kilos 105 kilos [facility] HEIGHT 167.64 centimeters 167.64 centimeter [facility] WEIGHT 102.9 kilos 102.9 kilos [facility] HEIGHT 167.64 centimeters 167.64 centimeter [facility] Patient Treatment Plan of Care Planned Activity Planned Date Details Description Data Source (s) Clonazepam 0.5 MG Oral Tablet 04/23/2020 12:00:00 AM EST eCW1 ([facility]) Clonazepam 0.5 MG Oral Tablet 04/23/2020 12:00:00 AM EST eCW1 ([facility]) Clonazepam 0.5 MG Oral Tablet 04/23/2020 12:00:00 AM EST eCW1 ([facility])
[2020-05-15] MEDS ORDERED: CELE20TA PO (14:47)
[2020-05-15] MEDS ORDERED: LEVO750T13 PO (14:47)
[2020-05-15] MEDS ORDERED: CLON0.5T2 (14:47)
[2020-05-15] MEDS ORDERED: METR-265 PO (14:47)
--- OUTSIDE RECORDS SUMMARY | 2020-05-15 15:13 | CCD ---
Author Author [facility] Organization [facility] Address Unknown Phone Unavailable Care Team Providers Care Rag Production Worker Name Role Phone Darren CHEUNG MD Unavailable [...] HUIZENGA, Gold WYNNE DO Unavailable Unavailable HUIZENGA, D JUAN DO Unavailable Unavailable HUIZENGA, Gold WYNNE DO [...] HUIZENGA, Gold WYNNE DO Unavailable Unavailable Amanda, [phone] L Mary Ellen MD Unavailable [phone] Amanda, [phone] L Mary Ellen MD Unavailable [phone] Amanda, [phone] L Mary Ellen MD Unavailable [phone] Amanda, [phone] L Mary Ellen MD Unavailable [phone] Amanda, [phone] L Mary Ellen MD Unavailable [phone] Amanda, [phone] L Mary Ellen MD Unavailable [phone] Amanda, [phone] L Mary Ellen MD Unavailable [phone] Amanda, [phone] L Mary Ellen MD Unavailable [phone] Amanda, [phone] L Mary Ellen MD Unavailable [phone] Amanda, [phone] L Mary Ellen MD Unavailable [phone] Amanda, [phone] Norma Hyde MD Unavailable [phone] Amanda, [phone] Norma Hyde MD Unavailable [phone] Amadna, [phone] Norma Hyde MD Unavailable [phone] Alberry, D Rose COMMUNICATIONS REPRESENTATIVE Unavailable Unavailable Alberry, D Rose COMMUNICATIONS REPRESENTATIVE Unavailable Unavailable Alberry, D Rose COMMUNICATIONS REPRESENTATIVE Unavailable Unavailable Alberry, D Rose COMMUNICATIONS REPRESENTATIVE Unavailable Unavailable Alberry, D Rose COMMUNICATIONS REPRESENTATIVE Unavailable Unavailable Alberry, D Rose COMMUNICATIONS REPRESENTATIVE Unavailable Unavailable Alberry, D Rose COMMUNICATIONS REPRESENTATIVE Unavailable Unavailable Alberry, D Rose COMMUNICATIONS REPRESENTATIVE Unavailable Unavailable Alberry, D Rose COMMUNICATIONS REPRESENTATIVE Unavailable Unavailable Alberry, D Rose COMMUNICATIONS REPRESENTATIVE Unavailable Unavailable Alberry, D Rose COMMUNICATIONS REPRESENTATIVE Unavailable Unavailable Alberry, D Rose COMMUNICATIONS REPRESENTATIVE Unavailable Unavailable Alberry, D Rose COMMUNICATIONS REPRESENTATIVE Unavailable Unavailable Alberry, D Rose COMMUNICATIONS REPRESENTATIVE Unavailable Unavailable Alberry, D Rose COMMUNICATIONS REPRESENTATIVE Unavailable Unavailable Alberry, D Rose COMMUNICATIONS REPRESENTATIVE Unavailable Unavailable Alberry, D Rose COMMUNICATIONS REPRESENTATIVE Unavailable Unavailable Alberry, D Rose COMMUNICATIONS REPRESENTATIVE Unavailable Unavailable Alberry, D Rose COMMUNICATIONS REPRESENTATIVE Unavailable Unavailable Alberry, D Rose COMMUNICATIONS REPRESENTATIVE Unavailable Unavailable Alberry, D Rose COMMUNICATIONS REPRESENTATIVE Unavailable Unavailable Alberry, D Rose COMMUNICATIONS REPRESENTATIVE Unavailable Unavailable Alberry, D Rose COMMUNICATIONS REPRESENTATIVE Unavailable Unavailable Alberry, D Rose COMMUNICATIONS REPRESENTATIVE Unavailable Unavailable Alberry, D Rose COMMUNICATIONS REPRESENTATIVE Unavailable Unavailable Alberry, D Rose COMMUNICATIONS REPRESENTATIVE Unavailable Unavailable Alberry, D Rose COMMUNICATIONS REPRESENTATIVE Unavailable Unavailable Alberry, D Rose COMMUNICATIONS REPRESENTATIVE Unavailable Unavailable Alberry, D Rose COMMUNICATIONS REPRESENTATIVE Unavailable Unavailable Alberry, D Rose COMMUNICATIONS REPRESENTATIVE Unavailable Unavailable Alberry, D Rose COMMUNICATIONS REPRESENTATIVE Unavailable Unavailable Alberry, D Rose COMMUNICATIONS REPRESENTATIVE Unavailable Unavailable Alberry, D Rose COMMUNICATIONS REPRESENTATIVE Unavailable Unavailable Alberry, D Rose COMMUNICATIONS REPRESENTATIVE Unavailable Unavailable Alberry, D Rose COMMUNICATIONS REPRESENTATIVE Unavailable Unavailable Alberry, D Orse COMMUNICATIONS REPRESENTATIVE Unavailable Unavailable Alberry, D Rose COMMUNICATIONS REPRESENTATIVE Unavailable Unavailable Alberry, D Rose COMMUNICATIONS REPRESENTATIVE Unavailable Unavailable Alberry, D Rose COMMUNICATIONS REPRESENTATIVE Unavailable Unavailable Alberry, D Rose COMMUNICATIONS REPRESENTATIVE Unavailable Unavailable Alberry, D Rose COMMUNICATIONS REPRESENTATIVE Unavailable Unavailable Alberry, D Rose COMMUNICATIONS REPRESENTATIVE Unavailable Unavailable Alberry, D Rose COMMUNICATIONS REPRESENTATIVE Unavailable Unavailable Alberry, D Rose COMMUNICATIONS REPRESENTATIVE Unavailable Unavailable Alberry, D Rose COMMUNICATIONS REPRESENTATIVE Unavailable Unavailable Alberry, D Rose COMMUNICATIONS REPRESENTATIVE Unavailable Unavailable Alberry, D Rose COMMUNICATIONS REPRESENTATIVE Unavailable Unavailable MARLIN FLORES DO Unavailable Unavailable Gerardo, Neha Hedrick Marianne COMMUNICATIONS REPRESENTATIVE-C Unavailable Unavailabl e Gerardo, Neha W Marianne COMMUNICATIONS REPRESENTATIVE-C Unavailable Unavailabl e Gerardo, Neha W Marianne COMMUNICATIONS REPRESENTATIVE-C Unavailable Unavailabl e Gerardo, Masoodinayanet W Marianne COMMUNICATIONS REPRESENTATIVE-C Unavailable Unavailabl e Gerardo, Neha W Marianne COMMUNICATIONS REPRESENTATIVE-C Unavailable Unavailabl e Gerardo, Neha W Marianne COMMUNICATIONS REPRESENTATIVE-C Unavailable Unavailabl e Gerardo, Neha W Marianne COMMUNICATIONS REPRESENTATIVE-C Unavailable Unavailabl e Gerardo, Neha W Marianne COMMUNICATIONS REPRESENTATIVE-C Unavailable Unavailabl e Gerardo, Neha W Marianne COMMUNICATIONS REPRESENTATIVE-C Unavailable Unavailabl e Gerardo, Neha W Marianne COMMUNICATIONS REPRESENTATIVE-C Unavailable Unavailabl e Gerardo, Neha W Marianne COMMUNICATIONS REPRESENTATIVE-C Unavailable Unavailabl e Gerardo, Clara W Marianne COMMUNICATIONS REPRESENTATIVE-C Unavailable Unavailabl e Gerardo, Clara W Marianne COMMUNICATIONS REPRESENTATIVE-C Unavailable Unavailabl e Gerardo, Clara W Marianne COMMUNICATIONS REPRESENTATIVE-C Unavailable Unavailabl e Gerardo, Neha W Marianne COMMUNICATIONS REPRESENTATIVE-C Unavailable Unavailabl e Gerardo, Neha W Marianne COMMUNICATIONS REPRESENTATIVE-C Unavailable Unavailabl e Gerardo, Masoodina W Marianne COMMUNICATIONS REPRESENTATIVE-C Unavailable Unavailabl e Gerardo, Neha W Marianne COMMUNICATIONS REPRESENTATIVE-C Unavailable Unavailabl e Gerardo, Clara W Marianne COMMUNICATIONS REPRESENTATIVE-C Unavailable Unavailabl e Gerardo, Regnesha W Marianne COMMUNICATIONS REPRESENTATIVE-C Unavailable Unavailabl e Gerardo, Regina W Marianne COMMUNICATIONS REPRESENTATIVE-C Unavailable Unavailabl e Gerardo, Regina W Marianne COMMUNICATIONS REPRESENTATIVE-C Unavailable Unavailabl e Gerardo, Regina W Marianne COMMUNICATIONS REPRESENTATIVE-C Unavailable Unavailabl e Gerardo, Reginah W Marianne COMMUNICATIONS REPRESENTATIVE-C Unavailable Unavailabl e Gerardo, Reginah W Marianne COMMUNICATIONS REPRESENTATIVE-C Unavailable Unavailabl e Gerardo, Reginah W Marianne COMMUNICATIONS REPRESENTATIVE-C Unavailable Unavailabl e Gerardo, Reginah W Marianne COMMUNICATIONS REPRESENTATIVE-C Unavailable Unavailabl e Gerardo, Reginah W Marianne COMMUNICATIONS REPRESENTATIVE-C Unavailable Unavailabl e Gerardo, Reginah W Marianne COMMUNICATIONS REPRESENTATIVE-C Unavailable Unavailabl e Gerardo, Reginah W Marianne COMMUNICATIONS REPRESENTATIVE-C Unavailable Unavailabl e Gerardo, Reginah W Marianne COMMUNICATIONS REPRESENTATIVE-C Unavailable Unavailabl e Gerardo, Reginah W Marianne COMMUNICATIONS REPRESENTATIVE-C Unavailable Unavailabl e ZALLEN, B JEAN DOMINGUEZ [...] Unavailable ZUKER, B JEAN MD Unavailable Unavailable Devol, Betsy RPA-C Unavailable Unavailable Devol, Betsy RPA-C Unavailable Unavailable Devol, Betsy RPA-C Unavailable Unavailable Devol, Betsy RPA-C Unavailable Unavailable Devol, Betsy RPA-C Unavailable Unavailable Devol, Betsy RPA-C Unavailable Unavailable Devol, Betsy RPA-C Unavailable Unavailable Devol, Betsy RPA-C Unavailable Unavailable Devol, Betsy RPA-C Unavailable Unavailable Devol, Betsy RPA-C Unavailable Unavailable Devol, Betsy RPA-C Unavailable Unavailable Devol, Betsy RPA-C Unavailable Unavailable Devol, Betsy RPA-C Unavailable Unavailable Devol, Betsy RPA-C Unavailable Unavailable Devol, Betsy RPA-C Unavailable Unavailable Rakan RIOS MD [...] Unavailable Moreno, B Juan DO Unavailable Unavailable MorenoHarman Juan DO Unavailable Unavailable Moreno, B Juan DO Unavailable Unavailable Moreno, B Juan DO Unavailable Unavailable Moreno B Juan DO Unavailable Unavailable Josh B Juan DO Unavailable Unavailable Harman Moreno Juan DO Unavailable Unavailable Moreno B Juan DO Unavailable Unavailable Josh B Juan DO Unavailable Unavailable Harman Moreno Juan DO Unavailable Unavailable Josh B Juan DO Unavailable Unavailable Moreno, Harman Juan DO Unavailable Unavailable Harman Moreno Juan DO Unavailable Unavailable MoernoHarman Juan DO Unavailable Unavailable Rydberg, Radha PA [...] is protected by Article 27-F of the [facility] Public Health law. If you continue you may have access to information: Regarding HIV / AIDS; Provided by facilities licensed or operated by the [facility] Office of Mental Health; or Provided by the [facility] Office for People With Developmental Disabilities. If such information is present, then the following [facility] mandated warning applies: This information has been [...] law may result in a fine or chcf sentence or both. A general authorization for the release of medical or other information is NOT sufficient authorization for further disc losure. Allergies and Adverse Reactions Type Description Substance Reaction Status Data Source(s ) Drug allergy No Known Drug Allergies No Known Drug Allergies [facility] Drug allergy metoclopramide metoclopramide [facility] Encounters Encounter Providers Location Date Indications Data Source(s ) Outpatient Attender: Marianne WILEYP-CReferrer: Miguel Angel SALTER EMERGENCY ROOM-LAB REF 05/12/2020 02:21:00 PM EST - 05/12/2020 02:21:00 PM [facility] Inpatient Attender: JEAN Mcneil marisela: SACHIN CHEUNG MDAdmitter: SACHIN CHEUNG MD ER-2EAST 05/08/2020 10:07:00 PM EST - 05/11/2020 01:55:00 PM [facility] Patient discharged. Outpatient Attender: Juan FRAIRE ttender: JUAN MORENOConsultant: [facility]-LNP-SBNKT 05/08/2020 06:26:00 PM EST [facility] Emergency Attender: JUAN MORENOReferrer: David SALTER EMERGENCY ROOM-ER 05/08/2020 04:58:00 PM EST - 05/08/2020 09:57:00 PM [facility] Patient discharged. Unknown [address] [facility] [address] 05/08/2020 12:00:00 AM EST eCW1 (Formerly [facility]) Inpatient Attender: JEAN COLLIER MDAtten marisela: MARLIN FLORES DOAttender: MARLIN FLORES DOAttender: ADRIANE LEVY MDAdmitter: MARLIN FLORES DO ER-2WEST 06/2020 01:04:00 PM EST - 05/06/2020 12:11:00 PM [facility] Patient discharged. Outpatient Attender: JEAN COLLIER MDAttender: Leon Reza in [place] ER-ASUR 04/28/2020 05:52:00 AM EST - 04/28/2020 05:52:00 AM [facility] Outpatient Attender: Rose WILEYPReferrer: Rose SALTER 04/24/2020 08:19:00 AM EST - 04/24/2020 08:19:00 AM [facility] Hospital [place] [address] [facility] [address] 04/23/2020 12:00:00 AM EST eCW1 (Formerly [facility]) Outpatient [address] [facility] [address] 04/22/2020 12:00:00 AM EST eCW1 (Formerly [facility]) Inpatient Attender: JYOTHI RIOS MDAt tender: JYOTHI RIOSAdmitter: Audie LOZOYAeferrer: Rose SALTER EMERGENCY ROOM-2N 04/19/2020 11:10:00 PM EST - 04/20/2020 02:50:00 PM [facility] Patient discharged. [place] [address] [facility] [address] 04/08/2020 12:00:00 AM EST eCW1 (Formerly [facility]) Preadmit Attender: Betsy BEDOLLA 03/03/2020 11:39: 00 AM [facility] Admission cancelled. Disregard status an d admitted date. Outpatient Attender: Betsy MICHELLECReferrer: Rakan SALTER EMERGENCY ROOM-LAB 03/03/2020 11:28:00 AM EST - 03/03/2020 11:28:00 AM [facility] Outpatient Attender: Betsy BEDOLLA 03/03/2020 10:30: 00 AM [facility] Outpatient Attender: Rose WILEYPReferrer: Rose SALTER EMERGENCY ROOM-LABOTHPROV 01/08/2020 07:36:00 AM EDT - 01/08/2020 07:36:00 AM [facility] [address] [facility] [address] 11/21/2019 12:00:00 AM EDT eCW1 (Formerly [facility]) [facility] [address] [place] [address], [place] [address] 10/18/2019 12:00:00 AM EDT eCW1 (Formerly [facility]) Outpatient Attender: Rose SALTER 1 05/16/2017 07:30:00 AM [facility] - 03/16/2018 07:30:00 AM [facility] Outpatient Attender: [phone] Mary Ellen Patel MD EMERGENCY R OOM-MAMMO 08/12/2016 10:21:00 AM EDT - 08/12/2016 10:21:00 AM [facility] Outpatient Attender: Radha ROGERSeferrer: JUAN BARRAZA DO 05/19/2016 06:58:00 AM [facility] Outpatient Attender: Radha ROGERSeferrer: JUAN BARRAZA DO 12/29/2015 08:58:00 AM [facility] Outpatient Attender: GEETA BUENOeferrer: JUAN STERLING DO 06/23/2015 10:35:00 AM [facility] Outpatient Attender: Radha ROGERSeferrer: JUAN BARRAZA DO 08/30/2014 02:51:00 PM [facility] Outpatient Attender: Radha SULLIVAN 02/07/2013 09:33:00 AM [facility] Medications Medication Brand Name Start Date Product [...] active Clonazepam 0. 5 MG eCW1 (Formerly [facility]) Clonazepam 0.5 MG Oral Tablet Clonazepam 0.5 MG 04/23/2020 12:00:00 AM EST 1.0 {tablet_as_needed} active Clonazepam 0. 5 MG eCW1 (Formerly [facility]) Clonazepam 0.5 MG Oral Tablet Clonazepam 0.5 MG 04/23/2020 12:00:00 AM EST 1.0 {tablet_as_needed} active Clonazepam 0. 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 [id number] 2 [id number] [place] [place]OSS [id number] HUS [id number] [employer] [place] [id number] SPO [id number] [employer] [place] [id number] SPO [id number] [employer] [place] [id number] SPO [id number] [employer] [place] [id number] SPO [id number] [employer] [place] [id number] SPO [id number] [place] B [id number] P [id number] [place] P[place] [id number] SP [id number] ANSI-Commercial [id number] ANSI-Commercial [id number] ANSI-Commercial [id number] ANSI-Commercial [id number] [facility] [id number] S [id number] [employer] [id number] S [id number] EMPLOYEE HEALTH OT [id number] S [id number] Problems, Conditions, and Diagnoses Code Display Name Description Problem Type Effective Dates Data Source(s) I10 [id number] HTN (hypertension), benign Problem 0 12:00:00 AM EST eCW1 (Formerly [facility]) Z20.828 Contact with and (suspected) exposure to other viral communicable diseases CONTACT W AND EXPOSURE TO OTH VIRAL COMMUNICABLE DISEASES Di agnosis 05/12/2020 02:21:00 PM [facility] Z98.84 Bariatric surgery status BARIATRIC SURGERY STATUS Diag nosis 05/08/2020 10:07:00 PM [facility] F41.9 Anxiety disorder, unspecified ANXIETY DISORDER, UNSPEC IFIED Diagnosis 05/08/2020 10:07:00 PM [facility] I10 Essential (primary) hypertension ESSENTIAL (PRIMARY) H YPERTENSION Diagnosis 05/08/2020 10:07:00 PM [facility] Y92.[address] or not applicable UNSPECIFIED PLACE OR NOT APPLICABLE Diagnosis 05/08/2020 10:07:00 PM [facility] Y83.6 Removal of other organ (part ial) (total) as the cause of abnormal reaction of the patient, or of later complication, without mention of misadventure at the time of the procedure REMOV ORG (TOTAL) CAUSE ABN REACT/COMPL, W/O MISAD Diagnosis 05/08/2020 10:07:00 PM [facility] K65.1 Peritoneal abscess PERITONEAL ABSCESS Diagnosis 10/2020 10:07:00 PM [facility] T81.43XA INFCT FOL A PROCEDURE, ORGAN AND SPACE S URGICAL SITE, INIT INFCT FOL A PROCEDURE, ORGAN AND SPACE SURGICAL SITE, INIT Diagnosis 021 10:07:00 PM [facility] Z79.899 Other intermediate teacher (current) drug therapy O THER SKILLED NURSING (CURRENT) DRUG THERAPY Diagnosis 05/08/2020 04:58:00 PM [facility] Z79.2 correction (current) use of antibiotics L PATI TERM (CURRENT) USE OF ANTIBIOTICS Diagnosis 05/08/2020 04:58:00 PM [facility] Z98.84 Bariatric surgery status BARIATRIC SURGERY STATUS Diag nosis 05/08/2020 04:58:00 PM [facility] I10 Essential (primary) hypertension ESSENTIAL (PRIMARY) H YPERTENSION Diagnosis 05/08/2020 04:58:00 PM [facility] R10.31 Right lower quadrant pain RIGHT LOWER QUADRANT PAIN Di agnosis 05/08/2020 04:58:00 PM [facility] T81.40XA INFECTION FOLLOWING A PROCEDURE, UNSPECI FIED, INIT INFECTION FOLLOWING A PROCEDURE, UNSPECIFIED, INIT Diagnosis 05/04/2020 01:04:00 PM [facility] Z20.828 Contact with and (suspected) exposure to other viral communicable diseases CONTACT W AND EXPOSURE TO OTH VIRAL COMMUNICABLE D Diagnosis 04/28/2020 05:52:00 AM [facility] K35.80 Unspecified acute appendicitis UNSPECIFIED ACUTE APPEN DICITIS Diagnosis 04/28/2020 05:52:00 AM [facility] R00.0 Tachycardia, unspecified TACHYCARDIA, UNSPECIFIED Diag nosis 04/24/2020 08:19:00 AM [facility] Z68.37 Body mass index (BMI) 37.0-37.9, adult B [place] INDEX [BMI] 37.0-37.9, ADULT Diagnosis 04/19/2020 11:10:00 PM [facility] N95.9 Unspecified menopausal and perimenopausa l disorder UNSPECIFIED MENOPAUSAL AND PERIMENOPAUSAL DISORDER Diagnosis 04/19/2020 11:10:00 PM [facility] R73.9 Hyperglycemia, unspecified HYPERGLYCEMIA, UNSPECIFIED Diagnosis 04/19/2020 11:10:00 PM [facility] N18.9 Chronic kidney disease, unspecified CHRONIC KIDN EY DISEASE, UNSPECIFIED Diagnosis 04/19/2020 11:10:00 PM [facility] E87.6 Hypokalemia HYPOKALEMIA Diagnosis 04/19/2020 11:10:00 PM [facility] G47.00 Insomnia, unspecified INSOMNIA, UNSPECIFIED Diagnosis 04/19/2020 11:10:00 PM [facility] R94.31 Abnormal electrocardiogram [ECG] [EKG] A BNORMAL ELECTROCARDIOGRAM [ECG] [EKG] Diagnosis 04/19/2020 11:10:00 PM [facility] E66.9 Obesity, unspecified OBESITY, UNSPECIFIED Diagnosis 04/19/2020 11:10:00 PM [facility] I12.9 Hypertensive chronic kidney disease with stage 1 through stage 4 chronic kidney disease, or unspecified chronic kidney disease HYPERTENSIVE CHRONIC KIDNEY DISEASE W STG 1-4/UNSP Diagnosis 04/19/2020 11:10:00 PM [facility] R00.2 Palpitations PALPITATIONS Diagnosis 04/19/2020 11:10:00 P M [facility] A08.8 Other specified intestinal infections OT HER SPECIFIED INTESTINAL INFECTIONS Diagnosis 03/03/2020 10:30:00 AM [facility] 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 Diagnosis 03/03/2020 10:30:00 AM [facility] R19.7 Diarrhea, unspecified DIARRHEA, UNSPECIFIED Diagnosis 03/03/2020 10:30:00 AM [facility] F41.9 Anxiety disorder, unspecified ANXIETY DISORDER, UNSPEC IFIED Diagnosis 01/08/2020 07:36:00 AM [facility] K21.9 Gastro-esophageal reflux disease without esophagitis GASTRO-ESOPHAGEAL REFLUX DISEASE WITHOUT Diagnosis 01/08/2020 07:36:00 AM [facility] Surgeries/Procedures Procedure Description Date Indications Data Source(s) Drainage of Peritoneal Cavity with Drain age Device, Percutaneous Endoscopic Approach 05/09/2020 12:00:00 AM [facility] Drainage of Peritoneal Cavity, Percutaneous Approach 05/05/2020 12:00:00 AM [facility] Results ID Date Data Source [id number] 05/12/2020 05:14:00 PM [facility] Patient: SUSAN RENDON Eugenio Darren [facility] - [facility].VisitID: [id number] [place] [address] [phone], FRegistration Date/Time: 05/08/2020 16:28 Weight:102.9 kg (S). [...] rce(s) Supporting Document(s) ID Date Data Source [id number] 05/13/2020 02:09:[address] [facility] al Name Value Range Interpretation Code Description Data Mahi rce(s) Supporting Document(s) SARS COV2 [facility] Not Detected Not Detected [facility] This nucleic acid amplification test was developed [...] SARS-CoV-2 virusand/or diagnosis of COVID-19 infection under ctomvjq891(b)(1) of the Act, 21 U.S.C. 360bbb-3(b) (1), [...] negative(not detected) result in this assay.Performed at: [employer] [facility] [facility], [place], [place] [id number] Director: Yaa Richter PhD, Phone: [phone] ID Date Data Source [id number] 05/13/2020 02:05:00 PM EST [facility] Name Value Range Interpretation Code Description Data Mahi rce(s) Supporting Document(s) SARS-CoV-2, JULIANNA Not Detected Not Detected [facility] This nucleic acid amplification test was developed and its performancecharacteristics determined by [employer]. Nucleic acidamplification tests include PCR and TMA. [...] in this assay. ID Date Data Source [id number] 05/11/2020 12:52:[address] [address]SWTROMPC DISCHARGE SUMMARYPATIENT NAME: SUSAN RENDON MR#: [id number] PHYSICIAN: SACHIN CHEUNG MDAUTHOR: Jean Collier MD DATE: 05/08/20 #: 2EASTDISCHARGE DATE: PATIENT : 75Summary of HospitalizationReason for AdmissionRecurrent intraperitoneal abscessHospital Sivbmk10-gvbg-ptp female readmitted after abscess aspiration in IR [...] TimePulse Ox 95 05/11 0525B/P 114/79 05/11 05Temp 98.5 05/11 05Pulse 63 05/11 0525Resp 16 05/11 05Patient's Discharge ConditionDischarge Date 05/11/20Discharge Conditon stableDischarge DispositionHomePhysical ExaminationGeneral Appearance no acute distress, afebrileHead atraumatic, normocephalicEye AssessementAssessment: PERRLA, EOMINeck no JVD, no lymphadenopathyCardiovascular normal caillary refillRespiratory no distress, aerating wellAbdomen soft, mildly tender (aT INCISIONS), MERYL seropurulent 15 cc outputovernightExtremities no clubbing, no cyanosis, no edemaMuscoskeletal normal inspectionNeurological alert, oriented x 3Skin AssessmentSkin dry, intactPatient/Family InstructionsPrescriptionsContinue taking these medications:CITALOPRAM HYDROBROMIDE* (Celexa*) 20 MG [id number] MILLIGRAM Orally DAILYAmoxicillin/Potassium Clav (Augmentin XR 1,000-62.5 Tab) 1 EACH TAB.ER.12H1 TABLET Orally TWICE DAILYQty = 20Discharge Activity: As toleratedDischarge diet: RegularFollow-upFollow up with Dr. Collier on Tuesday.DATE SIGNED: 05/11/20 Electronically SignedTIME SIGNED: 1256 JEAN COLLIER MD Name Value Range Interpretation Code Description Data Mahi rce(s) Supporting Document(s) ID Date Data Source [id number] 05/11/2020 12:50:00 PM [place], [place] [address]PATIENT NAME: SUSAN RENDON#: [id number] PHYSICIAN: DOTTY LOPEZOUNT #: [id number] ADM. DATE: 05/08/20PATIENT : 75 DISCH. DATE: [...] rce(s) Supporting Document(s) ID Date Data Source [id number] 05/11/2020 12:07:00 PM EST [facility] Name Value Range Interpretation Code Description Data Mahi rce(s) Supporting Document(s) FGLU 123 mg/dL 70-110 [facility] ID Date Data Source [id number] 05/11/2020 08:51:00 AM EST [facility] [address] [address]UCMOJGSF PROGRESS NOTEPATIENT NAME: SUSAN RENDON PHYSICIAN: SACHIN CHEUNG MDAUTHOR: Nando DOMINGUEZ,JeanADM. DATE: 05/08/20 MR#: [id number] NOTE DATE: 05/11/20 RM#: [id number] TIME: 0856 : 75SubjectiveCC/Hx Present Nrvatvp52-qjkx-twr female POD #2 status post laparoscopic drainage of intraperitonealabscessObjectiveVital SignsVital Signs- LastResult Date TimePulse Ox 95 05/11 524B/P 114/79 05/11 052 5Temp 98.5 05/11 524Pulse 63 05/11 0525Resp 16 05/11 05Intake/OutputIntake/Output Summary 24 hours05/10 1900 05/11 0700Intake Total 1800 2550Output Total 2115 2100Balance -315 450Intake, IV 1000 950Intake, Oral 800 1600Output, Blood 15LossOutput, Urine 2100 2100Current MedicationsCitalopram Hydrobromide (Celexa) 20 MG DAILY PODextrose/Sodium Chloride/Electrolyt (D5% NSS 0.45% 20KCL 1000ML) 1,000 ML.[id number] IVSodium Chloride (Saline Flush Syr(5ML)) 5 ML [...] 975 MG Q6HPRN PRN POResultsLaboratory DataRecent Labs-24 [id number] (136 - 147 mmol/L) 144Potassium (3.5 - [...] rce(s) Supporting Document(s) ID Date Data Source [id number] 05/11/2020 07:11:00 AM EST [facility] Name Value Range Interpretation Code Description Data Mahi rce(s) Supporting Document(s) MAGNESIUM 2.3 mg/dL 1.6-2.6 [facility] ID Date Data Source [id number] 05/11/2020 07:11:00 AM EST [facility] Name Value Range Interpretation Code Description Data Mahi rce(s) Supporting Document(s) DEQUAN 3.6 mg/dL 2.5-4.5 [facility] ID Date Data Source [id number] 05/11/2020 07:11:00 AM EST [facility] Name Value Range Interpretation Code Description Data Mahi rce(s) Supporting Document(s) GLU 80 mg/dL 70-110 [facility] Patients taking Sulfasalazine may have f alsely depressedGlucose levels. Patients taking Sulfapyridine may havefalsely elevated Glucose levels. Patients should be drawnfor Glucose before the initial administration of eitherdrug. BUN 5 mg/dL 7-23 [facility] CRE 0.526 mg/dL 0.500-1.300 [facility] GFR > 60 mL/min [facility] CHLORIDE 105 mmol/L 99-110 [facility] NA 144 mmol/L 136-147 [facility] POTASSIUM 4.1 mmol/L 3.5-5.1 [facility] TCO2 30 mmol/L 20-33 [facility] ANION GAP 13.1 10.0-20.0 [facility] CA 8.1 mg/dL 8.3-10.7 [facility] ID Date Data Source [id number] 05/11/2020 06:24:00 AM EST [facility] Name Value Range Interpretation Code Description Data Mahi rce(s) Supporting Document(s) WBC 5.12 x10E3/uL 4.0-10.5 [facility] RBC 3.39 x10E6/uL 4.20-5.40 [facility] Hemoglobin 9.9 g/dL 12.0-16.0 [facility] Hematocrit 30.4 % 37.0-47.0 [facility] MCV 89.7 fL 81.0-99.0 [facility] MCH 29.2 pg 27.0-31.0 [facility] MCHC 32.6 g/dL 32.7-35.6 [facility] RDW 11.9 % 11.5-14.0 [facility] Platelet count 279 x10E3/uL 150-450 [facility] MPV 10.2 fl 6.9-9.5 [facility] Neutrophils 42.6 % 34-64 [facility] Lymphocytes 41.2 % 25-45 [facility] Monocytes 11.1 % 1.7-10.6 [facility] Eosinophils 3.5 % 0.4-7.0 [facility] Basophils 0.4 % 0.1-2.0 [facility] Imm. Gran. 1.2 % 0.1-2.0 [facility] Abs. Neutro. 2.18 x10E3/uL 1.2-7.6 [facility] Abs. Lymph. 2.11 x10E3/uL 1.0-3.5 [facility] Abs. [place]. 0.57 x10E3/uL 0.1-1.0 [facility] Abs. Eosin. 0.18 x10E3/uL 0.1-0.7 [facility] Abs. Baso. 0.02 x10E3/uL 0.0-0.1 [facility] Abs. Imm. Gran. 0.06 x10E3/uL 0.0-0.1 [facility] ANRBC% 0 % 0 [facility] ID Date Data Source [id number] 05/10/2020 10:47:00 AM EST [facility] [place] [id number] PROGRESS NOTEPATIENT NAME: SUSAN RENDON PHYSICIAN: SACHIN CHEUNG MDAUTHOR: Nando DOMINGUEZ,NoADM. DATE: 05/08/20 MR#: [id number] NOTE DATE: 05/10/20 RM#: [id number] TIME: 1050 : 75SubjectiveCC/Hx Present Vorilwp28-ewsg-ckz female POD #1 status post laparoscopic drainage [...] Chloride/Electrolyt (D5% NSS 0.45% 20KCL 1000ML) 1,000 ML.[id number] IVSodium Chloride (Saline Flush Syr(5ML)) 5 ML [...] rce(s) Supporting Document(s) ID Date Data Source [id number] 05/09/2020 06:01:[address] [address]CWELSHAUU REPORTPATIENT NAME: SUSAN RENDON NAYLA#: [id number]: LUCY PRESSLEY. DATE: 05/08/20PATIENT : 75LOCATION: 2EASTACCOUNT #: [id number] ReportOperative ReportDATE OF PROCEDURE: 1PROCEDURE PERFORMED: Laparoscopic [...] type symptomsand presented to the ER at [facility]. A repeat CT demonstrated recurrenceof a 4 [...] BALBUENA FNP-JHONATHAN SIGNED: 05/09/20 Electronically SignedTIME SIGNED: 4730 JEAN COLLIER MD Name Value Range Interpretation Code Description Data Mahi rce(s) Supporting Document(s) ID Date Data Source [id number] 05/09/2020 08:04:00 AM EST [facility] [id number] [place], [place] [address]DDREWDIP HISTORY AND PHYSICALPATIENT NAME: SUSAN RENDON MR#: [id number] PHYSICIAN: SACHIN CHEUNG MDAUTHOR: Sachin Cheung MD DATE: 05/08/20 RM#: [id number] & PHYSICAL DATE: 05/09/20 PATIENT : 75EVALUATION TIME: 0816HistoryHistory of Presenting Vcfooey13 yo female who underwent lap appendectomy with [...] respiratory symptoms. [place] where she was found tohave fever, abdominal pain. CT scan confirmed a large recurrent abscess in theright lower quadrant in the same location. She was given IV Zosyn per priorculture sensitivities [facility] [...] MeanPulse Ox 97 97 95O2 DeliveryO2 Flow QvpdNaC0Ojmxfmoc ExaminationGeneral Appearance no acute distress, alert, awakeNeck suppleRespiratory no distress, aerating wellAbdomen mildly tenderExtremities no clubbing, no cyanosis, no edemaNeurological alert, oriented x 3Data ReviewLaboratory DataRecent Labs-48 hours851027SmseupvyqZxyesf (136 - 147 mmol/L) 143Potassium (3.5 - [...] RBC % (auto) (0 %) 0ImagingImaging from [place] ED overnight c/w recurrent appendiceal abscess.Assessment/PlanDiagnosis/Problem1. HISTORY [...] withinthe 5-day window needed for surgical intervention. [place] ED repeated this lastnight which was also negative.DATE SIGNED: 05/09/20 Electronically SignedTIME SIGNED: 815 SACHIN CHEUNG MD Name Value Range Interpretation Code Description Data [facility] rce(s) Supporting Document(s) ID Date Data Source [id number] 05/09/2020 06:18:00 AM EST [facility] Name Value Range Interpretation Code Description Data Mahi rce(s) Supporting Document(s) GLU 96 mg/dL 70-110 [facility] Patients taking Sulfasalazine may have f alsely depressedGlucose levels. Patients taking Sulfapyridine may havefalsely elevated Glucose levels. Patients should be drawnfor Glucose before the initial administration of eitherdrug. BUN 3 mg/dL 7-23 [facility] CRE 0.564 mg/dL 0.500-1.300 [facility] GFR > 60 mL/min [facility] CHLORIDE 107 mmol/L 99-110 [facility] NA 143 mmol/L 136-147 [facility] POTASSIUM 3.5 mmol/L 3.5-5.1 [facility] TCO2 26 mmol/L 20-33 [facility] ANION GAP 13.5 10.0-20.0 [facility] CA 8.0 mg/dL 8.3-10.7 [facility] ID Date Data Source [id number] 05/09/2020 05:40:00 AM EST [facility] Name Value Range Interpretation Code Description Data Mahi rce(s) Supporting Document(s) WBC 9.79 x10E3/uL 4.0-10.5 [facility] RBC 3.73 x10E6/uL 4.20-5.40 [facility] Hemoglobin 10.8 g/dL 12.0-16.0 [facility] Hematocrit 32.8 % 37.0-47.0 [facility] MCV 87.9 fL 81.0-99.0 [facility] MCH 29.0 pg 27.0-31.0 [facility] MCHC 32.9 g/dL 32.7-35.6 [facility] RDW 11.9 % 11.5-14.0 [facility] Platelet count 261 x10E3/uL 150-450 [facility] ital MPV 9.7 fl 6.9-9.5 [facility] Neutrophils 76.4 % 34-64 [facility] Lymphocytes 14.3 % 25-45 [facility] Monocytes 8.3 % 1.7-10.6 [facility] Eosinophils 0.2 % 0.4-7.0 [facility] Basophils 0.1 % 0.1-2.0 [facility] Imm. Gran. 0.7 % 0.1-2.0 [facility] Abs. Neutro. 7.48 x10E3/uL 1.2-7.6 [facility] Abs. Lymph. 1.40 x10E3/uL 1.0-3.5 [facility] Abs. [place]. 0.81 x10E3/uL 0.1-1.0 N [facility] l Abs. Eosin. 0.02 x10E3/uL 0.1-0.7 [facility] Abs. Baso. 0.01 x10E3/uL 0.0-0.1 N [facility] l Abs. Imm. Gran. 0.07 x10E3/uL 0.0-0.1 N [facility] spital ANRBC% 0 % 0 [facility] ID Date Data Source [id number] 05/08/2020 08:11:00 PM EST [facility] SCAN OF THE ABDOMEN AND [...] rce(s) Supporting Document(s) ID Date Data Source [id number] 05/08/2020 06:37:00 PM EST [facility] Name Value Range Interpretation Code Description Data Mahi rce(s) Supporting Document(s) SARS COV2 TRP Not Detected [facility] This lab was ordered by [facility] and reported by [facility]. ID Date Data Source [id number] 05/08/2020 07:28:00 PM EST [facility] TSYSORDER [id number] Name Value Range Interpretation Code Description Data Mahi rce(s) Supporting Document(s) Adenovirus Not Detected Detected Not [facility]spital Coronavirus 229E Not Detected Detected Not [facility] Coronavirus HKU1 Not Detected Detected Not [facility] Coronavirus NL63 Not Detected Detected Not [facility] Coronavirus OC43 Not Detected Detected Not [facility] Sars Cov 2 Not Detected Detected Not [facility] Metapneumovirus Not Detected Detected Not [facility] Human Rhinovirus Not Detected Detected Not [facility] Influenza A Not Detected Detected Not [facility] Influenza B Not Detected Detected Not [facility] Parainfluenza Virus 1 Not Detected Detected Not [facility] Parainfluenza Virus 2 Not Detected Detected Not [facility] Parainfluenza Virus 3 Not Detected Detected Not [facility] Parainfluenza Virus 4 Not Detected Detected Not [facility] Respiratory Syncytial Virus Not Detected Detected Not [facility] Bordetella parapertus ([id number]) Not Detected Detected Not [facility] Bordetella pertussis (ptxP) Not Detected Detected Not [facility] Chlamydia pneumoniae Not Detected Detected Not [facility] Mycoplasma pneumoniae Not Detected Detected Not [facility] The Above results have been determined b y using the [employer]otetherArray system.FilmArray is an automated in vitro diagnostic system thatutilizes nested multiplex Polymerase Chain Reaction (PCR)and high-resolution melting analysis to detect and identifymultiple nucleic acid targets from clinical specimens. ID Date Data Source [id number] 05/08/2020 05:48:00 PM EST [facility] TSYSORDER [id number] Name Value Range Interpretation Code Description Data Mahi rce(s) Supporting Document(s) HCG URINE NEGATIVE NEGATIVE [facility] ID Date Data Source [id number] 05/08/2020 05:55:00 PM EST [facility] TSYSORDER [id number] Name Value Range Interpretation Code Description Data Mahi rce(s) Supporting Document(s) URINE COLOR. [facility] URINE APPEARANCE CLEAR [facility] URINE GLUCOSE (UA) NEGATIVE mg/dL NEGATIVE [facility] URINE BILIRUBIN NEGATIVE NEGATIVE [facility] URINE KETONE NEGATIVE mg/dL [facility]GATIVE [facility] SPECIFIC GRAVITY,URINE 1.015 1.001-1.035 [facility] URINE BLOOD NEGATIVE NEGATIVE [facility] PH,URINE 7.0 5.0-9.0 [facility] URINE PROTEIN NEGATIVE mg/dL NEGATIVE [facility] UR[facility] UROBILINOGEN NORMAL(0.2-1) mg/dL 0-1 [facility] URINE NITRATE NEGATIVE NEGATIVE [facility] URINE LEUKOCYTE ESTERASE NEGATIVE NEGATIVE [facility] ID Date Data Source [id number] 05/15/2020 09:13:00 AM EST [facility] Name Value Range Interpretation Code Description Data Mahi rce(s) Supporting Document(s) [facility] ID Date Data Source [id number] 05/15/2020 09:12:00 AM EST [facility] Name Value Range Interpretation Code Description Data Mahi rce(s) Supporting Document(s) [facility] ID Date Data Source [id number] 05/08/2020 05:31:00 PM EST [facility] TSYSORDER [id number] Name Value Range Interpretation Code Description Data Mahi rce(s) Supporting Document(s) GLUCOSE 92 mg/dL 74-106 [facility] BLOOD UREA NITROGEN 7 mg/dL 7-18 [facility] CREATININE 0.82 mg/dL 0.6-1.0 [facility] SODIUM 138 mmol/L 136-145 [facility] POTASSIUM 3.6 mmol/L 3.5-5.1 [facility] CHLORIDE 98 mmol/L 98-107 [facility] CO2 30 mmol/L 21-32 [facility] CALCIUM 9.0 mg/dL 8.5-10.1 [facility] ANION GAP 10.0 mmol/L 5-12 [facility] GLOMERULAR FILTRATION RATE 75 mL/min [facility] GFR IS CALCULATED IN mL/min/1.73m2 KULWANT L FUNCTION: >90MILDLY DECREASED: 60-89MILDY TO MODERATELY DECREASED: 45-59 MODERATELY TO SEVERELY DECREASED: 30-44SEVERELY DECREASED: 15-29RENAL FAILURE: <15 AST 17 U/L 15-37 [facility] ALT 24 U/L 12-78 [facility] ALKALINE PHOSPHATASE 67 U/L 46-116 [facility] TOTAL BILIRUBIN 0.4 mg/dL 0.2-1.0 [facility] TOTAL PROTEIN 7.4 g/dl 6.4-8.2 [facility] ALBUMIN 2.8 gm/dL 3.4-5.0 L [facility] ID Date Data Source [id number] 05/08/2020 05:31:00 PM [facility] TSYSORDER [id number] Name Value Range Interpretation Code Description Data Mahi rce(s) Supporting Document(s) LIPASE 78 U/L 73-393 [facility] ID Date Data Source [id number] 05/08/2020 05:42:00 PM [facility] TSYSORDER [id number] Name Value Range Interpretation Code Description Data Mahi rce(s) Supporting Document(s) LACTIC ACID 1.0 mmol/L 0.4-2.0 [facility] ID Date Data Source [id number] 05/08/2020 05:19:00 PM [facility] TSYSORDER [id number] Name Value Range Interpretation Code Description Data Mahi rce(s) Supporting Document(s) WHITE BLOOD COUNT 11.7 K/mm3 4.0-10.0 H [facility] RED BLOOD COUNT 4.08 M/mm3 4.00-5.50 [facility] HEMOGLOBIN 11.8 gm/dL 12.0-16.0 L [facility] HEMATOCRIT 35.7 % 36.0-48.[address] [facility] MEAN CELL VOLUME 87.5 fl 80-96 [facility] MEAN CORPUSCULAR HEMOGLOBIN 28.9 pg 27.0-31.0 [facility] MEAN CORPUSCULAR HGB CONC 33.1 g/dl 32.0-36.0 [facility] RED CELL DISTRIBUTION WIDTH 11.6 % 10.0-14.5 [facility] PLATELET COUNT 276 K/mm3 172-450 [facility] MEAN PLATELET VOLUME 9.7 fl 9.0-13.0 [facility] pital GRAN % 79.6 % 50-80.0 [facility] IG% 0.5 % 0.0-0.2 H [facility] LYMPH % 12.4 % 25.0-50.0 L [facility] MONO % 6.9 % 2.0-10.0 [facility] EOS % 0.4 % 0-5.0 [facility] BASO % 0.2 % 0.0-2.0 [facility] GRAN # 9.3 K/mm3 2.0-8.00 H [facility] IG# 0.1 K/mm3 0.0-0.2 [facility] LYMPH # 1.5 K/mm3 1.0-5.0 [facility] MONO # 0.8 K/mm3 0.10-1.20 [facility] EOS # 0.1 K/mm3 0.0-0.5 [facility] BASO # 0.0 K/mm3 0.0-0.2 [facility] ID Date Data Source [id number] 05/06/2020 04:33:00 PM EST [facility] Exam Number: [id number] Reporte d By: - LISA KNOTT MD Signed By: LISA KNOTT MD Name Value Range Interpretation Code Description Data Mahi rce(s) Supporting Document(s) ID Date Data Source [id number] 05/06/2020 11:45:00 AM EST [facility] [address] [address]EPHDEEEX DISCHARGE SUMMARYPATIENT NAME: SUSAN RENDON MR#: [id number] PHYSICIAN: MARLIN FLORES DOAUTHOR: Nando DOMINGUEZ,[facility] HospitalT#: [id number] DATE: 05/04/20 RM#: [id number] DATE: 05/06/20 PATIENT : 75Summary of HospitalizationReason for AdmissionPostop appendiceal abscessHospital Mfanpo01-vmix-qxe female admitted a week postop after laparoscopic [...] taking these medications:CITALOPRAM HYDROBROMIDE* (Celexa*) 20 MG HFQAQI23 MILLIGRAM Orally DAILYCLONAZEPAM (KLONOPIN) 0.5 MG TABLET0.5 [facility] Orally TWICE DAILY NEEDED as needed for ANXIETYInstructions:Max daily dose= 2 TABSMETOPROLOL* (Lopressor*) 25 MG TYPTNE90.5 [facility] Orally TWICE DAILYInstructions:CURRENTLY BEING HELD DUE [...] rce(s) Supporting Document(s) ID Date Data Source [id number] 05/06/2020 11:40:00 AM [address], [place] [address]ER[place]AL NAME: SUSAN RENDON Cyril Ferguson#: [id number] PHYSICIAN: MARLIN FLORES DOACCOUNT #: [id number] ADM. DATE: 05/04/20PATIENT : 75 DISCH. DATE: [...] rce(s) Supporting Document(s) ID Date Data Source [id number] 05/06/2020 10:32:00 AM EST [facility] Exam Number: [id number] OF EXAMINATIO N: 05/05/2020 14:54 ESTCT PELVIS [...] Aldair Bautista M.D. 110:20 EST Reported By: - Cyril. GHARAGOZLOO, M.D. Signed By: Shavon BAUTISTA M.D. Name Value Range Interpretation Code Description Data Mahi rce(s) Supporting Document(s) ID Date Data Source [id number] 05/06/2020 10:00:00 AM EST [facility] Exam Number: [id number] OF EXAMINATIO N: 05/05/2020 7:00 ESTCT GUIDANCE [...] rce(s) Supporting Document(s) ID Date Data Source [id number] 05/06/2020 09:25:00 AM EST [facility] [address] [id number] PROGRESS NOTEPATIENT NAME: SUSAN RENDON PHYSICIAN: MARLIN FLORES DOAUTHOR: Nando DOMINGUEZ,NoahADM. DATE: 05/04/20 MR#: [id number] NOTE DATE: 05/06/20 RM#: [id number] TIME: 926 : 75SubjectiveCC/Hx Present Esjpzgr17S with postop abscess status post laparoscopic appendectomyEvents Since Last EntryAbscess aspirated yesterday in IR. No fevers. adolph diet +BM +FObjectiveVital SignsVital Signs-LastResult Date TimeTemp 98.0 05/06 0608B/P [...] IMSodium Chloride (SODIUM CHLORIDE 0.9%) 1,000 ML .F29I65S IVSodium Chloride (Saline Flush Syr(5ML)) 5 ML QIDPRN PRN IVSodium Chloride (Saline Flush Syr(5ML)) 5 ML Q12H IVExamGeneral Appearance no acute distress, afebrileCardiovascular normal caillary refillRespiratory no distressAbdomen soft, non-tender, incis C/D/I with some bruising. IR drain site clean.ResultsLaboratory DataRecent Labs-24 hours01/759942WwaapgncgUfsscv (136 - 147 mmol/L) 141Potassium (3.5 - [...] rce(s) Supporting Document(s) ID Date Data Source [id number] 05/06/2020 06:05:00 AM EST [facility] Name Value Range Interpretation Code Description Data Mahi rce(s) Supporting Document(s) GLU 101 mg/dL 70-110 [facility] Patients taking Sulfasalazine may have f alsely depressedGlucose levels. Patients taking Sulfapyridine may havefalsely elevated Glucose levels. Patients should be drawnfor Glucose before the initial administration of eitherdrug. BUN 5 mg/dL 7-23 [facility] CRE 0.526 mg/dL 0.500-1.300 [facility] GFR > 60 mL/min [facility] CHLORIDE 104 mmol/L 99-110 [facility] NA 141 mmol/L 136-147 [facility] POTASSIUM 3.8 mmol/L 3.5-5.1 [facility] TCO2 29 mmol/L 20-33 [facility] ANION GAP 11.8 10.0-20.0 [facility] CA 8.0 mg/dL 8.3-10.7 [facility] ID Date Data Source [id number] 05/06/2020 05:42:00 AM EST [facility] Name Value Range Interpretation Code Description Data Mahi rce(s) Supporting Document(s) WBC 6.34 x10E3/uL 4.0-10.5 [facility] RBC 3.64 x10E6/uL 4.20-5.40 [facility] Hemoglobin 10.7 g/dL 12.0-16.0 [facility] Hematocrit 32.6 % 37.0-47.0 [facility] MCV 89.6 fL 81.0-99.0 [facility] MCH 29.4 pg 27.0-31.0 [facility] MCHC 32.8 g/dL 32.7-35.6 [facility] RDW 11.9 % 11.5-14.0 [facility] Platelet count 211 x10E3/uL 150-450 [facility] ital MPV 10.1 fl 6.9-9.5 [facility] Neutrophils 61.7 % 34-64 [facility] Lymphocytes 20.2 % 25-45 [facility] Monocytes 14.4 % 1.7-10.6 [facility] Eosinophils 2.4 % 0.4-7.0 [facility] Basophils 0.5 % 0.1-2.0 N [facility] Imm. Gran. 0.8 % 0.1-2.0 [facility] Abs. Neutro. 3.92 x10E3/uL 1.2-7.[address] Lymph. 1.28 x10E3/uL 1.0-3.5 [facility] Abs. [place]. 0.91 x10E3/uL 0.1-1.0 [facility] Abs. Eosin. 0.15 x10E3/uL 0.1-0.7 [facility] Abs. Baso. 0.03 x10E3/uL 0.0-0.1 [facility] Abs. Imm. Gran. 0.05 x10E3/uL 0.0-0.1 N [facility] spital ANRBC% 0 % 0 [facility] ID Date Data Source [id number] 05/09/2020 06:57:00 PM EST [facility] Cc:Zac (AB) ABDOMIN AL ABSCESS DRAINAGE: - NEGATIVE FOR MALIGNANT CELLS COMMENT: [employer] preps and a cell block contain innumerable PMNs and mesothelial cells. CODE/S:[id number] . Abdominal abcess drainage. URINE CATHERIZED URINE [...] rce(s) Supporting Document(s) ID Date Data Source [id number] 05/08/2020 01:03:00 PM EST [facility] COMMENTS TO LAB: ABCESS DRAINAGE ABDOMEN POST APPENDECTOMYSTREPTOCOCCUS BOVISCLOSTRIDIUM PERFRINGENS Name Value Range Interpretation Code Description Data Mahi rce(s) Supporting Document(s) ID Date Data Source [id number] 05/08/2020 01:02:00 PM EST [facility] COMMENTS TO LAB: ABCESS DRAINAGE ABDOMEN POST APPENDECTOMYWBCS IN LARGE NUMBERSMODERATE NUMBERS GRAM POS COCCISMALL NUMBERS GRAM POS BACILLISMALL NUMBERS GRAM NEGATIVE [facility]I Name Value Range Interpretation Code Description Data Mahi rce(s) Supporting Document(s) ID Date Data Source [id number] 05/05/2020 02:20:00 PM EST [facility] Exam Number: [id number] OF EXAMINATIO N: 05/05/2020 14:01 ESTCT ABD&PEL [...] By: Jo BAUTISTA M.D. Signed By: Shavon BAUITSTA M.D. ADDENDUM: [id number] cc of yellowish pus and 20 cc of gas was drained from the abscesspocketElectronically signed in PS360 by: Aldair Bautista M.D. 116:21 EST Reported By: - Shavon BAUTISTA M.D. Signed By: Shavon BAUTISTA M.D. Name Value Range Interpretation Code Description Data Mahi rce(s) Supporting Document(s) ID Date Data Source [id number] 05/05/2020 12:14:00 PM EST [address] [address]PSRYLEBE PROGRESS NOTEPATIENT NAME: SUSAN RENDON PHYSICIAN: MARLIN FLORES, DOAUTHOR: Jonatan DOMINGUEZ,[facility]. DATE: 05/04/20 MR#: [id number] NOTE DATE: 05/05/20 RM#: [id number] TIME: 1216 : 75SubjectiveEvents Since Last EntryStable [...] 05/05 0544Chloride (99 - 110 mmol/L) 104 / 0544Serum Bicarbonate (20 - 33 mmol/L) 26 [...] / 0544RDW (11.5 - 14.0 %) 11.8 05/05 0544Plt Count (150 - 450 x10E3/uL) 206 [...] (5.0 - 8.0) 6.5 05/04 1017Ur Specific [place] (1.010 - 1.025) 1.010 05/04 1017Urine Protein [...] 05/05/20 E lectronically SignedTIME SIGNED: 1216 SACHIN CHENUG MD Name Value Range Interpretation Code Description Data Mahi rce(s) Supporting Document(s) ID Date Data Source [id number] 05/05/2020 11:18:[address] [id number] NOTEPATIENT NAME: SUSAN RENDON PHYSICIAN: JEAN COLLIER MDAUTHOR: Young Flores DO. DATE: 05/04/20 MR#: [id number] NOTE DATE: 05/05/20 RM#: [id number] TIME: 1123 [...] 103/91B/P MeanPulse Ox 100 94O2 DeliveryO2 Flow LgxkIoL63605/04 2057 2147 2326 0110Temp 100.7 99.5 99.0 100.4Pulse 82 80Resp 20 17B/P 125/89 138/88B/P MeanPulse Ox 98 99O2 DeliveryO2 Flow GpquKgA76905/05440 0602 0614Temp 99.5 99.0 99.0PulseRespB/PB/P MeanPulse OxO2 DeliveryO2 Flow HtacNgT0Doksmt/OutputIntake/Output Summary 24 hours05/04 1900 05/05 0700Intake Total [...] IMSodium Chloride (SODIUM CHLORIDE 0.9%) 1,000 ML .F52K87V IVSodium Chloride (Saline Flush Syr(5ML)) 5 ML [...] normal affect, normal judgem entResultsLaboratory DataRecent Labs-24 hours01/388090AdlohqpzmKmsies (136 - 147 mmol/L) 138Potassium (3.5 - [...] x10E3/uL) 0.02Nucleated RBC % (auto) (0 %) 5LcqvfofiqajlGpeedlqkbubr87/03 1003 BLOOD: Blood Culture - RECD05/04 0935 [...] rce(s) Supporting Document(s) ID Date Data Source [id number] 05/05/2020 08:10:00 AM KYLER benedict Exam Number: [id number] OF EXAMINATIO N: 05/04/2020 9:22 ESTCHEST SINGLE [...] rce(s) Supporting Document(s) ID Date Data Source [id number] 05/05/2020 06:54:00 AM KYLER [facility] Name Value Range Interpretation Code Description Data Mahi rce(s) Supporting Document(s) GLU 84 mg/dL 70-110 [facility] Patients taking Sulfasalazine may have f alsely depressedGlucose levels. Patients taking Sulfapyridine may havefalsely elevated Glucose levels. Patients should be drawnfor Glucose before the initial administration of eitherdrug. BUN 4 mg/dL 7-23 [facility] CRE 0.449 mg/dL 0.500-1.300 [facility] GFR > 60 mL/min [facility] CHLORIDE 104 mmol/L 99-110 [facility] NA 138 mmol/L 136-147 [facility] POTASSIUM 3.8 mmol/L 3.5-5.1 [facility] TCO2 26 mmol/L 20-33 [facility] ANION GAP 11.8 10.0-20.0 [facility] CA 8.2 mg/dL 8.3-10.7 [facility] ID Date Data Source [id number] 05/05/2020 06:38:00 AM KYLER [facility] jak Name Value Range Interpretation Code Description Data Mahi rce(s) Supporting Document(s) WBC 6.81 x10E3/uL 4.0-10.5 [facility] RBC 3.63 x10E6/uL 4.20-5.40 [facility] Hemoglobin 10.6 g/dL 12.0-16.0 [facility] Hematocrit 32.4 % 37.0-47.0 [facility] MCV 89.3 fL 81.0-99.0 [facility] MCH 29.2 pg 27.0-31.0 [facility] MCHC 32.7 g/dL 32.7-35.6 [facility] RDW 11.8 % 11.5-14.0 [facility] Platelet count 206 x10E3/uL 150-450 [facility] MPV 10.4 fl 6.9-9.5 [facility] Neutrophils 71.6 % 34-64 [facility] Lymphocytes 13.8 % 25-45 [facility] Monocytes 12.3 % 1.7-10.6 [facility] Eosinophils 1.6 % 0.4-7.0 [facility] Basophils 0.3 % 0.1-2.0 [facility] Imm. Gran. 0.4 % 0.1-2.0 [facility] Abs. Neutro. 4.87 x10E3/uL 1.2-7.6 [facility] Abs. Lymph. 0.94 x10E3/uL 1.0-3.5 [facility] Abs. [place]. 0.84 x10E3/uL 0.1-1.0 [facility] Abs. Eosin. 0.11 x10E3/uL 0.1-0.7 [facility] Abs. Baso. 0.02 x10E3/uL 0.0-0.1 [facility] Abs. Imm. Gran. 0.03 x10E3/uL 0.0-0.1 [facility] spital ANRBC% 0 % 0 [facility] ID Date Data Source [id number] 05/04/2020 03:27:00 PM EST [facility] [address] [id number] CONSULT REPORTPATIENT NAME: SUSAN RENDON MR#: [id number] PHYSICIAN: MARLIN FLORES, DOCONSULTING PHYSICIAN: Sachin Cheung MD DATE: 05/04/20 #: ICUCONSULTING DATE: 05/04/20 PATIENT : 75EVALUATION TIME: 1531HistoryHistory of Presenting Xcxxawv79-wdan-dyc female status post laparoscopic appendectomy with Dr. [...] (5.0 - 8.0) 6.5 05/04 1017Ur Specific [place] (1.010 - 1.025) 1.010 05/047Urine Protein (Negative) Negative 05/047Urine Ketones (NEGATIVE) Negative 05/04 1017Urine Blood (NEGATIVE) Negative 05/047Urine Nitrite (Negative) Negative 05/047Ur Bilirubin Confirm (NEGATIVE) Negative 05/047Urine Urobilinogen (0.2 - 1.0 mg/dL) 1.0 05/047Urine Leukocytes (Negative) Trace 05/047Urine RBC (NONE SEEN) None Seen 05/04 1017Urine WBC (NONE SEEN) 0-2 WBCs/HPF 05/04 1016Urine Bacteria (NONE SEEN) Rare 05/047Urine Glucose (NEGATIVE) Negative 05/04 101Physical ExaminationGeneral Appearance no acute distress, alert, awake, conversantHead atraumatic, normocephalicNeck suppleCardiovascular regular rateRespiratory no distress, aerating well, sy mmetric expansionAbdomen mildly tenderExtremities no clubbing, no cyanosis, no edemaNeurological alert, oriented x 3Data ReviewLaboratory DataRecent Labs-48 hours05/04672638 4171 1003Blood GasMixed VBG O2 Saturation (%) 96.7Capillary [...] % (auto) (0 %) 0SerologyCOVID-19 (JULIANNA) (NEGATIVE) IRLWQUDU01/555318WixbgiBnwvs Color YellowUrine Appearance ClearUrine pH (5.0 - 8.0) 6.5Ur Specific [place] (1.010 - 1.025) 1.010Urine Protein (Negat laurie) NegativeUrine Ketones (NEGATIVE) NegativeUrine Blood (NEGATIVE) NegativeUrine Nitrite (Negative) NegativeUr Bilirubin Confirm (NEGATIVE) NegativeUrine Urobilinogen (0.2 - 1.0 mg/dL) 1.0Urine Leukocytes (Negative) TraceUrine RBC (NONE SEEN) None SeenUrine WBC (NONE SEEN) 0-2 WBCs/HPFUrine Bacteria (NONE SEEN) RareUrine Glucose (NEGATIVE) MizigfdhMaufgkcetefg82/03 1003 BLOOD: Blood Culture - RECD05/04 0935 [...] relatively normal.PAGE 1 Signed Report Printed From [facility] [place] [id number] CONSULTATIONDate of : 1975 Name: SUSAN RENDON AMedrec Number: [id number] Phys: ADRIANE LEVY MDExam Date: 05/04/2020 Location: ERProcedure: [id number], CT ABD&PEL WITH IV CONT Rad Numb: [id number] \\EXAM# TYPE/EXAM [id number] CT/CT ABD&PEL WITH IV CONT ONLYElectronically signed [...] rce(s) Supporting Document(s) ID Date Data Source [id number] 05/04/2020 12:43:00 PM EST [address] [address]MZOGWVZ AND PHYSICALPATIENT NAME: SUSAN RENDON MR#: [id number] PHYSICIAN: JEAN COLLIER MDAUTHOR: Marlin Flores DO DATE: 05/04/20 #: 2WESTHISTORY & PHYSICAL DATE: 05/04/20 : 75EVALUATION TIME: 1258HistoryChief Complaint/Admit ReasonRight abdominal pain with feverHistory of Presenting IllnessPatient is a 45 years old female with a past medical history significant foranxiety, hypertension, history of gastric bypass presented [facility] on 05/04/2019 with complaints of fever and acute onset of rightlower abdominal pain. [facility] appendicit[facility] and patient had a [...] regular rate, no murmur, Positive S1 and I6Hmagaducvta clear to auscultation, no distress, aerating well, [...] normal affect, normal judgementData ReviewLaboratory DataRecent Labs-48 hours05/04 0935 1003Blood GasMixed VBG O2 Saturation (%) [...] % (auto) (0 %) 0SerologyCOVID-19 (JULIANNA) (NEGATIVE) MUYLJRLD22/758669JxjyogPgrvf Color YellowUrine Appearance ClearUrine pH (5.0 - 8.0) 6.5Ur Specific [place] (1.010 - 1.025) 1.010Urine Protein (Negative) NegativeUrine Ketones (NEGATIVE) NegativeUrine Blood (NEGATIVE) NegativeUrine Nitrite (Negative) NegativeUr Bilirubin Confirm (NEGATIVE) NegativeUrine Urobilinogen (0.2 - 1.0 mg/dL) 1.0Urine Leukocytes (Negative) TraceUrine RBC (NONE SEEN) None SeenUrine WBC (NONE SEEN) 0-2 WBCs/HPFUrine Bacteria (NONE SEEN) RareUrine Glucose (NEGATIVE) QeawofjvEvszjllszvcw09/03 1003 BLOOD: Blood Culture - RECD05/04 0935 [...] rce(s) Supporting Document(s) ID Date Data Source [id number] 05/04/2020 10:57:00 AM EST [facility] Exam Number: [id number] OF EXAMINATIO N: 05/04/2020 9:46 ESTCT ABD&PEL [...] rce(s) Supporting Document(s) ID Date Data Source [id number] 05/04/2020 10:31:00 AM EST [facility] Name Value Range Interpretation Code Description Data Mahi rce(s) Supporting Document(s) URINE COLOR Yellow [facility] UAPR Clear [facility] UGLU Negative NEGATIVE [facility] URINE BILIRUBIN Negative NEGATIVE [facility] UKET Negative NEGATIVE [facility] USG 1.010 1.010-1.025 [facility] UBLO Negative NEGATIVE [facility] UpH 6.5 5.0-8.0 [facility] UPRO Negative Negative [facility] UUB 1.0 mg/dL 0.2-1.0 [facility] UNIT Negative Negative [facility] ULEU Trace Negative [facility] ID Date Data Source [id number] 05/04/2020 10:31:00 AM EST [facility] Name Value Range Interpretation Code Description Data Mahi rce(s) Supporting Document(s) URINE RBC None Seen NONE SEEN [facility] URINE WBC 0-2 WBCs/HPF NONE SEEN [facility] URINE BACTERIA Rare NONE SEEN [facility] l URINE EPI. Few NONE SEEN [facility] ID Date Data Source [id number] 05/10/2020 06:53:00 AM EST [facility] Name Value Range Interpretation Code Description Data Mahi rce(s) Supporting Document(s) [facility] ID Date Data Source [id number] 05/04/2020 10:33:00 AM EST [facility] Name Value Range Interpretation Code Description Data Amhi rce(s) Supporting Document(s) PO2 CLAUDIO/CAP 93.2 mm/Hg [facility] PH CLAUDIO/CAP 7.429 7.310-7.410 [facility] PCO2 CLAUDIO/CAP 37.2 mm/Hg [facility] HCO3 CLAUDIO/CAP 24.1 mmoL/L [facility] O2 SAT CLAUDIO/CAP 96.7 % [facility] l ID Date Data Source [id number] 05/10/2020 06:53:00 AM EST [facility] Name Value Range Interpretation Code Description Data Mahi rce(s) Supporting Document(s) [facility] ID Date Data Source [id number] 05/04/2020 10:24:00 AM EST [facility] Name Value Range Interpretation Code Description Data Mahi rce(s) Supporting Document(s) MAGNESIUM 2.1 mg/dL 1.6-2.6 [facility] ID Date Data Source [id number] 05/04/2020 10:24:00 AM EST [facility] Name Value Range Interpretation Code Description Data Mahi rce(s) Supporting Document(s) GLU 84 mg/dL 70-110 [facility] Patients taking Sulfasalazine may have f alsely depressedGlucose levels. Patients taking Sulfapyridine may havefalsely elevated Glucose levels. Patients should be drawnfor Glucose before the initial administration of eitherdrug. BUN 6 mg/dL 7-23 [facility] CRE 0.515 mg/dL 0.500-1.300 [facility] GFR > 60 mL/min [facility] CHLORIDE 104 mmol/L 99-110 [facility] NA 139 mmol/L 136-147 [facility] POTASSIUM 4.5 mmol/L 3.5-5.1 [facility] TCO2 26 mmol/L 20-33 [facility] ANION GAP 13.5 10.0-20.0 [facility] CA 8.7 mg/dL 8.3-10.7 [facility] ALKALINE PHOS 70 U/L 45-117 [facility] TP 6.8 g/dL 6.0-7.8 [facility] ALB 3.1 g/dL 3.5-5.0 [facility] ESRD Dialysis patient Albumin reference range: 2.9-4.4 g/dL GL 3.7 g/dL 2.3-3.5 [facility] A/G 0.8 1.0-2.5 [facility] T. BILIRUBIN 0.6 mg/dL 0.1-1.1 [facility] [employer] [place] Total Bilirubin is n ot recommended forpatients undergoing treatment with eltrombopag (Promacta)due to the potential for falsely elevated results. ALTI 20 U/L 6-54 [facility] Patients taking Sulfasalazine and/or Sul fapyridine may havefalsely depressed ALT levels. Patients should be drawn forALT before the initial administration of either drug. AST 18 U/L 6-38 [facility] Patients taking Sulfasalazine and/or Sul fapyridine may havefalsely depressed AST levels. Patients should be drawn forAST before the initial administration of either drug. ID Date Data Source [id number] 05/04/2020 10:13:[address] [facility] ANTI-COAGULANTS PT.IS TAKING: None Name Value Range Interpretation Code Description Data Mahi rce(s) Supporting Document(s) APTT 27.3 SECONDS 21.2-31.2 [facility] NOTE NEW REFERENCE RANGE EFFECTIVE 20 ID Date Data Source [id number] 05/04/2020 10:12:00 AM KYLER [facility] Name Value Range Interpretation Code Description Data Mahi rce(s) Supporting Document(s) LACTIC ACID MIKO 0.7 mmol/L 0.4-2.0 [facility] ID Date Data Source [id number] 05/04/2020 10:09:00 AM EST [facility] jak Name Value Range Interpretation Code Description Data Mahi rce(s) Supporting Document(s) COVID-19, JULIANNA NEGATIVE NEGATIVE [facility] Methodology: Nucleic Acid AmplificationN egative results should [...] Emergency Use Authorization. ID Date Data Source [id number] 05/04/2020 09:50:00 AM KYLER [facility] jak Name Value Range Interpretation Code Description Data [facility] rce(s) Supporting Document(s) WBC 11.89 x10E3/uL 4.0-10.5 H [facility] l RBC 4.40 x10E6/uL 4.20-5.40 [facility] Hemoglobin 12.9 g/dL 12.0-16.0 [facility] Hematocrit 38.7 % 37.0-47.0 [facility] MCV 88.0 fL 81.0-99.0 [facility] MCH 29.3 pg 27.0-31.0 [facility] MCHC 33.3 g/dL 32.7-35.6 [facility] RDW 11.9 % 11.5-14.0 [facility] Platelet count 238 x10E3/uL 150-450 [facility] ital MPV 10.4 fl 6.9-9.5 H [facility] Neutrophils 74.9 % 34-64 [facility] Lymphocytes 14.0 % 25-45 [facility] Monocytes 9.4 % 1.7-10.6 [facility] Eosinophils 0.8 % 0.4-7.0 [facility] Basophils 0.3 % 0.1-2.0 [facility] Imm. Gran. 0.6 % 0.1-2.0 [facility] Abs. Neutro. 8.92 x10E3/uL 1.2-7.6 [facility] Abs. Lymph. 1.66 x10E3/uL 1.0-3.5 [facility] Abs. [place]. 1.12 x10E3/uL 0.1-1.0 [facility] Abs. Eosin. 0.09 x10E3/uL 0.1-0.7 [facility] Abs. Baso. 0.03 x10E3/uL 0.0-0.1 [facility] Abs. Imm. Gran. 0.07 x10E3/uL 0.0-0.1 N [facility] spital ANRBC% 0 % 0 [facility] ID Date Data Source [id number] 05/04/2020 01:21:00 PM EST [facility] terName: Susan Bautistage: 45 yrsSex: FemaleDOB: 1975MRN: [id number] Date: 05/04/2020Time: 09:06Account#: [id number] 7BPrivate DOMINGUEZ: Out of town provider, -Diagnosis: Free text-Post appendectomy abdominal abscessPresentation:05/308:07 Presenting complaint: Patient states: had appendix done on Tuesday. klpfever last night with increased pain. Coronavirus Screening: Have youtraveled internationally or had contact with someone that hastraveled and has been ill in the past 3 weeks? no Have you traveledto a location with widespread or ongoing COVID-19 community spread oroutsparkwest [facility]? no Flu-like symptoms reported in the last 14days: fever or chills (including if you have treated with Tylenol orother medications), nausea, Have you had close contact with confirmedor suspected COVID-19 case? no Have you been diagnosed with COVID-19in the past 30 days? no Are you currently [facility]? no. Communicable Disease Screen: Positive for fever [...] klp09:07 Method Of Arrival: Private Vehicle klpTriage Assessment:09:19 General: Appears uncomfortable, Behavior is cooperative. Sepsis [...] appendectomy Tuesday, started with low grade fever tlmWe night then felt ok but last night [...] in no apparent distress at this time. di8Qrnqpub resting in bed. .13:02 Reassessment: Patient appears in no apparent distress at this time. ok4Giziolx resting in bed.Vital Signs:09:16 BP 111 / [...] to CT. tlm11:09 Report given to radha palacios rn. tlm11:49 Marlin Flores DO is Hospitalizing Provider. se13:20 No Physician assisted procedures completed. zt0Mxjrylviuhwt Medications:09:40 Drug: NS 0.9% 3084 ml [sodium chloride 0.9 % intravenous solution] tlmRoute: IV; Rate: bolus; Site: right hand;09:41 Drug: Acetaminophen 975 mg [acetaminophen 325 mg tablet (3 tabs)] tlmRoute: PO;10:42 Follow up: Response: No adverse reaction; Temperature is decreased tlm11:49 Drug: metroNIDAZOLE 500 mg [metronidazole 500 mg/100 mL-sodium kz2sgcoxojx(iso) intravenous piggyback] Route: IVPB; Site: right hand;12:49 Follow up: Response: No adverse reaction sw213:00 Follow up: IV Intake: 100ml sw213:00 Drug: Ciprofloxacin 400 mg [ciprofloxacin 400 mg/200 mL in 5 % xv4acfyrmyx intravenous piggyback] Route: IVPB; Site: right hand;Intake:13:00 IV: 100ml; Total: 100ml. oy4Vfkepjj:11:39 Disposition: Admitted to ICU accompanied by nurse, via wheelchair, hb6kvum chart.11:39 Condition: stable.11:39 Instructed on need for admit.11:39 Discharge Assessment: Patient verbalized understanding of dispositioninstructions. Patient has no functional deficits.11:50 Decision to Hospitalize by Provider. se13:21 Patient left the ED. ef5Oofmcndkdk:Kristen Ch RN RN klpMartin, Tisa, RN RN tlmElliott, Suzanne, MD MD seWeir, Sarah RN SOFIA ma7Riharbwmczv: (The following items were deleted from the chart)10:31 09:20 BP 111 / 88; Pulse 109bpm; Resp 17bpm; Pulse Ox 97% RA; Temp hmx323.9F Oral; 102.8 kg Measured; Pain 4/10; tlm Name Value Range Interpretation Code Description Data Mahi rce(s) Supporting Document(s) ID Date Data Source [id number] 05/04/2020 01:21:00 PM EST [facility] Physician DocumentationClaxdamian-Duran Howell edical CenterName: Susan Bautistage: 45 yrsSex: FemaleDOB: 1975MRN: [id number] Date: 05/04/2020Time: 09:06Account#: [id number] 7BPradithya MD: Out of town provider, -ED Physician Marjorie Levyisposition Summary:05/04/20 11:50Hospitalization OrderedHospitalization Status: Inpatient Admission seProvider: Marlin Flores seCondition: Stable seProblem: new seSymptoms: are unchanged seLocation: Critical Care Unit(05/04/20 13:04) sz6Dpuh Assignment: 1-(05/04/20 13:04) xh6Keeiqixpj- Free text - Post appendectomy abdominal abscess seAdditional Information- Admission Type: Inpatient Status. seDischarge Instructions:- Discharge Summary Sheet tc3Tdcdj:- Medication Reconciliation se- SBAR se- Medication Reconciliation [...] noanswer and the answering service did not case picker. Patient has hadsome nausea but no vomiting [...] Smoking status: Patient states was never smoker oftobaPowerMetal Technologieso. 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 Order name: CMP; Complete Time: 10:40 tlm01/0310:40 [...] tlm01/0310:40 Interpretation: Normal except: PH CLAUDIO/CAP 7.429. : Order name: Chest Single View; Complete Time: 11:27 tl1:27 Interpretation: No acute disease. : Order name: COVID-19 PROFILE+LAB; Complete Time: 10:41 tl0:41 Interpretation: Within normal limits. :46 Order name: CT Abdomen and Pelvis - with IV; Complete Time: 11:30 : Order name: Call Lab; Complete Time: 09:37 tl: Order name: EKG in Patient's Room; Complete Time: 09:37 tl: Order name: EKG.; Complete Time: 09:37 : Order name: Pulse Ox Continuous; Complete Time: 09:37 tl:22 Order name: Rectal Temp; Complete Time: 09:37 tl:22 Order name: Saline Lock; Complete Time: 09:37 : Order name: Vital Signs per policy; Complete Time: 09:37 tl:39 Order name: Clear UhmswuNVJZ59/0312:59 Order name: Consult PhysicianEDMSDispensed Medications:09:40 Drug: NS 0.9% 3084 ml [sodium chloride 0.9 % intravenous solution] tlmRoute: IV; Rate: bolus; Site: right hand;09:41 Drug: Acetaminophen 975 mg [acetaminophen 325 mg tablet (3 tabs)] tlmRoute: PO;10:42 Follow up: Response: No adverse reaction; Temperature is decreased tlm11:49 Drug: metroNIDAZOLE 500 mg [metronidazole 500 mg/100 mL-sodium zj9tuhcqato(iso) intravenous piggyback] Route: IVPB; Site: right hand;12:49 Follow up: Response: No adverse reaction sw213:00 Follow up: IV Intake: 100ml sw213:00 Drug: Ciprofloxacin 400 mg [ciprofloxacin 400 mg/200 mL in 5 % rr7jwvamlwh intravenous piggyback] Route: IVPB; Site: right hand;Signatures:Dispatcher MedHo Kathleen Don RN RN tlmElliott, Suzanne, MD MD seKingsley, Sherry sk4Radha Palacios RN RN sc5Oprbowblzyv: (The following items were deleted from the [...] noanswer and the answering service did not case picker. Patient has hadsome nausea but no vomiting and diarrhea. She mayorga s had no dysuria orhematuria. She does say the pain radiates around into her right flankarea. She has no URI symptoms, vomiting, or diarrhea.. se13:04 11:50 Med/Surg se sk413:04 11:50 sk4 Name Value Range Interpretation Code Description Data Mahi rce(s) Supporting Document(s) ID Date Data Source [id number] 05/04/2020 12:00:00 AM EST [facility] Name Value Range Interpretation Code Description Data Mahi rce(s) Supporting Document(s) SARS-CoV2 Rapid PCR [facility] This lab was ordered by [facility] and reported by [facility]. ID Date Data Source [id number] 04/28/2020 02:59:00 PM EST [facility] [address] [address]PCXHADGBL REPORTPATIENT NAME: SUSAN RENDON AM.R.#: [id number]: LUCY PRESSLEY. DATE: 04/28/20PATIENT : 75LOCATION: ASURACCOUNT #: [id number] ReportOperative ReportDATE OF PROCEDURE: 04/28/2020PROCEDURE PERFORMED: Laparoscopic [...] rce(s) Supporting Document(s) ID Date Data Source [id number] 05/05/2020 01:17:00 PM EST [facility] Cc: Loraine (AB) VERMIFORM APPE NDIX, APPENDECTOMY: -ACUTE NECROTIZING APPENDICITIS AND PERIAPPENDICITIS CODE/S:25287 . The specimen is received in formalin with proper patient identification labeled "Appendix"and it consists of a vermiform appendix which measures 8.3 cm in length and 1 cm inaverage diameter centrally with attached mesoappendix measuring 1.8 cm. The surface ofthe appendix is covered with blood clot and adhesions. Serial sectioning revealshemorrhagic mucosa. A fecalith is not present within the lumen. Product Safety Associate sectionsare submitted in three cassettes. Acute appendicitis. Slides reviewed. Diagnosis supported by microscopic examination. REPORT SIGNED: Carolyne Montero DO 05/05/20 Name Value Range Interpretation Code Description Data Mahi rce(s) Supporting Document(s) ID Date Data Source [id number] 04/28/2020 08:41:00 AM EST [facility] [address] [address]KDBFPCEP HISTORY AND PHYSICALPATIENT NAME: SUSAN RENDON MR#: [id number] PHYSICIAN: JEAN COLLIER MDAUTHOR: Nando DOMINGUEZ,Jean DATE: 04/28/20 #: ASURHISTORY [...] no edemaMuscoskeletal normal inspectionData ReviewLaboratory DataRecent Labs-48 hours12/28 12/28 12/427744 9117 0345ChemistrySodium (136 - 147 mmol/L) 140Potassium (3.5 [...] ClearUrine pH (5.0 - 8.0) 5.5Ur Specific [place] (1.010 - 1.025) 1.032 HUrine Protein (Negative) NegativeUrine Ketones (NEGATIVE) NegativeUrine Blood (NEGATIVE) NegativeUrine Nitrite (Negative) NegativeUr Bilirubin Confirm (NEGATIVE) NegativeUrine Urobilinogen (0.2 - 1.0 mg/dL) 0.2Urine Leukocytes (Negative) TraceUrine RBC (NONE SEEN) 0-2 RBCs/HPFUrine WBC (NONE SEEN) 3-5 WBCs/HPFUrine Bacteria (NONE SEEN) FewUrine Glucose (NEGATIVE) Uvfdvopj70/078951JmutnlbqLZOQT-21 (JULIANNA) (NEGATIVE) NEGATIVEImagingDATE OF EXAMINATION: 04/28/2020 4:01 [...] Covid negative.DATE SIGNED: 04/28/20 Electronically SignedTIME SIGNED: 08 JEAN COLLIER MD Name Value Range Interpretation Code Description Data Mahi rce(s) Supporting Document(s) ID Date Data Source [id number] 04/28/2020 07:09:00 AM EST [facility] Exam Number: [id number] OF EXAMINATIO N: 04/28/2020 4:01 ESTCT ABD&PEL [...] Name Value Range Interpretation Code Description Data [facility] rce(s) Supporting Document(s) ID Date Data Source [id number] 04/28/2020 05:56:00 AM EST [facility] Name Value Range Interpretation Code Description Data [facility]) COVID-19, JULIANNA NEGATIVE NEGATIVE [facility] Methodology: Nucleic Acid AmplificationN egative results should [...] Emergency Use Authorization. ID Date Data Source [id number] 04/28/2020 04:22:00 AM EST [facility] Name Value Range Interpretation Code Description Data [facility] Supporting Document(s) LIP 50.0 U/L 73-393 L [facility] ID Date Data Source [id number] 04/28/2020 04:22:00 AM EST [facility] Name Value Range Interpretation Code Description Data [facility](s) Supporting Document(s) GLU 104 mg/dL 70-110 [facility] Patients taking Sulfasalazine may have f alsely depressedGlucose levels. Patients taking Sulfapyridine may havefalsely elevated Glucose levels. Patients should be drawnfor Glucose before the initial administration of eitherdrug. BUN 13 mg/dL 7-23 [facility] CRE 0.667 mg/dL 0.500-1.300 [facility] GFR > 60 mL/min [facility] CHLORIDE 105 mmol/L 99-110 [facility] NA 140 mmol/L 136-147 [facility] POTASSIUM 4.2 mmol/L 3.5-5.1 [facility] TCO2 28 mmol/L 20-33 [facility] ANION GAP 11.2 10.0-20.0 [facility] [facility] CA 8.5 mg/dL 8.3-10.7 [facility] ALKALINE PHOS 67 U/L 45-117 [facility] TP 7.1 g/dL 6.0-7.8 [facility] ALB 3.6 g/dL 3.5-5.0 [facility] ESRD Dialysis patient Albumin reference range: 2.9-4.4 g/dL GL 3.5 g/dL 2.3-3.5 [facility] A/G 1.0 1.0-2.5 [facility] T. BILIRUBIN 0.6 mg/dL 0.1-1.1 [facility] The [facility] [place] Total Bilirubin is n ot recommended forpatients undergoing treatment with eltrombopag (Promacta)due to the potential for falsely elevated results. ALTI 18 U/L 6-54 [facility] Patients taking Sulfasalazine and/or Sul fapyridine may havefalsely depressed ALT levels. Patients should be drawn forALT before the initial administration of either drug. AST 19 U/L 6-38 [facility] Patients taking Sulfasalazine and/or Sul fapyridine may havefalsely depressed AST levels. Patients should be drawn forAST before the initial administration of either drug. ID Date Data Source [id number] 04/28/2020 04:11:00 AM EST [facility] Name Value Range Interpretation Code Description Data Mahi rce(s) Supporting Document(s) HCG QUAL SERUM Negative Negative [facility] l ID Date Data Source [id number] 04/28/2020 04:02:00 AM EST [facility] Name Value Range Interpretation Code Description Data Mahi rce(s) Supporting Document(s) WBC 11.83 x10E3/uL 4.0-10.5 [facility] RBC 4.59 x10E6/uL 4.20-5.40 [facility] Hemoglobin 13.5 g/dL 12.0-16.0 [facility] Hematocrit 40.4 % 37.0-47.0 [facility] MCV 88.0 fL 81.0-99.0 [facility] MCH 29.4 pg 27.0-31.0 [facility] MCHC 33.4 g/dL 32.7-35.6 [facility] RDW 11.9 % 11.5-14.0 [facility] Platelet count 169 x10E3/uL 150-[address] [facility] ital MPV 11.1 fl 6.9-9.5 [facility] Neutrophils 79.9 % 34-64 [facility] Lymphocytes 10.6 % 25-45 [facility] Monocytes 8.6 % 1.7-10.6 [facility] Eosinophils 0.3 % 0.4-7.0 [facility] Basophils 0.3 % 0.1-2.0 [facility] Imm. Gran. 0.3 % 0.1-2.0 [facility] Abs. Neutro. 9.45 x10E3/uL 1.2-7.6 [facility] Abs. Lymph. 1.25 x10E3/uL 1.0-3.5 [facility] Abs. [place]. 1.02 x10E3/uL 0.1-1.0 [facility] Abs. Eosin. 0.03 x10E3/uL 0.1-0.7 [facility] Abs. Baso. 0.04 x10E3/uL 0.0-0.1 [facility] Abs. Imm. Gran. 0.04 x10E3/uL 0.0-0.1 [facility] spital ANRBC% 0 % 0 [facility] ID Date Data Source [id number] 04/28/2020 04:09:00 AM EST [facility] Name Value Range Interpretation Code Description Data Mahi rce(s) Supporting Document(s) URINE RBC 0-2 RBCs/HPF NONE SEEN [facility] URINE WBC 3-5 WBCs/HPF NONE SEEN [facility] URINE BACTERIA Few [facility] EPI. Few NONE SEEN [facility] ID Date Data Source [id number] 04/28/2020 04:09:00 AM EST [facility] Name Value Range Interpretation Code Description Data Mahi rce(s) Supporting Document(s) URINE COLOR Yellow [facility] UAPR Clear [facility] UGLU Negative NEGATIVE [facility] URINE BILIRUBIN Negative NEGATIVE [facility] UKET Negative NEGATIVE [facility] USG 1.032 1.010-1.025 [facility] UBLO Negative NEGATIVE [facility] UpH 5.5 5.0-8.0 [facility] UPRO Negative Negative [facility] UUB 0.2 mg/dL 0.2-1.0 [facility] UNIT Negative Negative [facility] ULEU Trace Negative [facility] ID Date Data Source [id number] 04/28/2020 12:46:[address] [facility] Phys[facility] DocumentationClaxdamian-Duran Howell edical CenterName: Susan Bautistage: 45 yrsSex: FemaleDOB: 1975MRN: [id number] Date: 04/28/2020Time: 03:00Account#: [id number] 5BPrivate MD: Out of town provider, -ED Physician Tra Peterposition Summary:04/28/20 05:09Hospitalization OrderedHospitalization Status: Observation ql4Mmubryll: Jean Collier cr7Hsoumram: OR hc4Dpbtclurf: Stable iw9Cnvksjg: new ea2Mtfqzbus: are unchanged dw0Yhby Assignment: ac2Ndhcpgbxg- Unspecified acute appendicitis ok1Xpoueufhqn Information- Admission Type: Observation Status. qe3Qjnpj:- Medication Reconciliation na1- SBAR na1- Medication Reconciliation Form - 2nd Copy na1HPI:04/02 803:27 This 45 yrs old White Female presents to ER via Private Vehicle with tn7qfcnhqmavn of Abdominal Pain.03:27 The patient presents with abdominal pain right lower quadrant. Onset: na1The symptoms/episode began/occurred last night, at 19:00.03:28 The symptoms radiate to the right flank. Associated signs and tb9nvdpnyjh: Pertinent positives: nausea. Modifying factors: Thesymptoms are alleviated by remaining still. Severity of pain: At itsworst the pain was moderate. 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 Celexa 20 mg Oral tab once daily2. metoprolol tartrate 12.5BID (held due to low heart rate, new med)Oral3. Klonopin 0.25 mg Oral TbDi as needed- PMHx: Hypertensive disorder; Anxiety; Hypoglycemia;- PSHx: None; gastric bypass;- Immunization history: Flu vaccine is up to date.- Social history: Smoking status: Patient states was never smoker ofMobiotics. ETOH status Denies use of ETOH.- Advance Directives:: None.ROS:03:29 Constitutional: Positive for chills, Negative for fever. Respiratory: do0Lbionwov for cough, shortness of breath, wheezing. Abdomen/GI:Negative for vomiting, diarrhea, constipation, hematemesis,black/tarry stool, rectal bleeding. : Positive for flank pain,Negative for urinary frequency, hematuria, burning with urination.All other systems are negative.Exam:03:30 Head/Face: Normocephalic, atraumatic. Eyes: Pupils equal round and jr7nfhvpcbo to light, extra-ocular motions intact. Lids and [...] Temp 97.3; Pulse Ox 98% ; Weight mn5876.8 kg; Height 5 ft. 6 in. (167.64 [...] lab test result(s), radiologic studies, CT scan, vt3GMQPCMRHNDQ REPORT ON CT. ABDOMEN & PELVIS: POSITIVE FOR ACUTEAPPENDICITIS. NO RUPTURE..04/2803: Order name: CBC with diff; Complete Time: 04:59 na1122805:00 Interpretation: WBC 11.83; Hemoglobin 13.5; Hematocrit 40.4; Platelet yx9zsaxl 169; Neutrophils 79.9.04/2803: Order name: CMP; Complete Time: 04:59 na5:00 Interpretation: Normal except. : Order name: Lipase; Complete Time: 04:59 na2805:00 Interpretation: LIP 50.0. : Order name: UA; Complete Time: 04:59 na2805:00 Interpretation: URINE RBC 0-2 RBCs/HPF; URINE WBC 3-5 WBCs/HPF. : Order name: HCG Qualitative - Serum; Complete Time: 04:59 na2805:00 Interpretation: HCG QUAL SERUM Negative. na5:37 Order name: COVID-19 PROFILE+LAB; Complete Time: 08:08 tp4:01 Order name: CT Abdomen and Pelvis - with IV; Complete Time: 08:08 tp:26 Order name: NPO; Complete Time: 03: na3:26 Order name: Saline Lock; Complete Time: 03::26 Order name: Vital Signs per policy; Complete Time: 03: ni2Jjcuelcdc Medications:03:28 CANCELLED (MD): morphine 3 mg IVP once na103:47 Drug: NS 0.9% 1000 ml [sodium chloride 0.9 % intravenous solution] sv8Hlrhy: IV; Rate: 250 mL/hr; Site: right antecubital;06:20 Follow up: Response: No adverse reaction; IV Status: Completed eo5tyonblvc; IV Intake: 6347uj17:47 Drug: Ondansetron 4 mg [ondansetron HCl 2 [...] 12.5 mg [promethazine 25 mg/mL injection solution] fd5Ulsob: IVPB; Site: right antecubital;05:10 Follow up: Response: No adverse reaction; IV Status: Completed uc5wquragsp; IV Intake: 516rf08:18 Drug: Zosyn 3.375 grams [Zosyn 3.375 gram intravenous solution] ht1Gmewz: IVPB; Site: right antecubital;05:50 Follow up: Response: No adverse reaction; IV Status: Completed fg0tciojzmb; IV Intake: 152qn47:06 Drug: Promethazine 12.5 mg [promethazine 25 mg/mL injection solution] xt5Oaotn: IVPB; Site: right antecubital;06:18 Follow up: Response: No adverse reaction; IV Status: Completed xa1yjoujadr; IV Intake: 50ml08:00 Drug: NS 0.9% 1000 ml [sodium chloride 0.9 % intravenous solution] gg6Kckko: IV; Rate: 100 mL/hr; Site: right antecubital;12:42 Follow up: IV Status: Completed infusion; IV Intake: 400ml ef112:15 Drug: Zosyn 3.375 grams [Zosyn 3.375 gram intravenous solution] gq9Smarg: IVPB; Site: right antecubital;12:43 Follow up: IV Status: Compl eted infusion; IV Intake: 100ml ef112:15 Drug: Acetaminophen 975 mg [acetaminophen 325 mg tablet (3 tabs)] sr4Jzlsv: PO;12:42 Follow up: Temp 100.1 Oral dj3Lseaschqpl:Dispatcher [employer] Leon Hidalgo MD MD na1Clover Lauren RN RN ap6FjqmkoAmada diggs RN RN ba0VexsqvtyvKayla Miller RN RN xq8Vcmmfno, MD ALBERTO Gonzalez vkCorrections: (The following items were deleted from the chart)03:04 03:02 PMHx: Hyperthyroidism; tp2 tp203:28 03:27 morphine 3 mg IVP once ordered. na1 na104:02 03:27 CT ABD and PELV WITH IV/ORAL CONTR+CT ordered. EDMSEDMS Name Value Range Interpretation Code Description Data Mahi rce(s) Supporting Document(s) ID Date Data Source [id number] 04/28/2020 12:46:00 PM EST [facility] Nurse's NotesClaxtonDannemora [facility] terName: Susan Bautistage: 45 yrsSex: FemaleDOB: 1975MRN: [id number] Date: 04/28/2020Time: 03:00Account#: [id number] 5BPrivate DOMINGUEZ: Out of town provider, -Diagnosis: Unspecified acute appendicitisPresentation:04/2803:01 Presenting complaint: Patient states: RLQ pain started at 7pm, tl0ohxmix, nausea. Coronavirus Screening: Have you traveledinternationally or had contact with someone that has traveled and hasbeen ill in the past 3 weeks? no Have you traveled to a location withwidespread or ongoing COVID-19 community spread or outside of [facility] [address]? no Flu-like symptoms reported in the last 14 days: fever orchills (including if you have treated with Tylenol or othermedications), nausea, Have you had close contact with confirmed orsuspected COVID-19 case? no Have you been diagnosed with COVID-19 inthe past 30 days? no Are you currently on quarantine [facility]? no. Communicable Disease Screen: Negative for fever>/= 100degrees Fahrenheit. Communicable disease screen is negative.03:01 Acuity: Triage 3 tp203:01 Method Of Arrival: Private Vehicle tp203:02 Acuity Assignment: Triage 3 qe1Dnqlzw Assessment:03:04 General: Appears uncomfortable, unkempt, Behavior is anxious. Sepsis tr1Hlxo ening: (1)Signs/symptoms infection No. Pain: Complains of [...] midlineRespiratory effort is even, unlabored. 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 Celexa 20 mg Oral tab once daily2. metoprolol tartrate 12.5BID (held due to low heart rate, new med)Oral3. Klonopin 0.25 mg Oral TbDi as needed- PMHx: Hypertensive disorder; Anxiety; Hypoglycemia;- PSHx: None; gastric bypass;- Immunization history: Flu vaccine is up to date.- Social history: Smoking status: Patient states was never smoker oftoSPI Laserso. ETOH status Denies use of ETOH.- Advance Directives:: None.Screenin:17 Abuse screen: Denies threats or abuse. Denies injuries from another. zn6Bwjvgjoaocv screening: No deficits noted. Offer of HIV [...] in no apparent distress at this time. uw7yzefdh OR to see approx. time , will call back.....09:53 GI: Bowel sounds present X 4 quads. Abd is soft Abd is tender to qx4nknspkudr in right lower quadrant.11:10 Reassessment: Patient appears in no apparent distress at this time. ef112:13 Reassessment: Patient appears in no apparent distress at this time. da9Iudwy Signs:03:05 BP 168 / 106; Pulse 98; Resp 16; Temp 97.3; Pulse Ox 98% ; Weight cm8273.8 kg; Height 5 ft. 6 in. (167.64 [...] armband on for positive identification. Placed in kr8tnne. Bed in low position. Call light in reach. Side rails up X2.Noise minimized. Visitors limited. Verbal reassurance given. Warmblanket given. Pillow given. Head of bed elevated.03:46 Labs drawn. (by ED staff). Urine collected. Clean catch specimen. jz7Lrefxdtx saline lock: 20 gauge in right antecubital area and bloodcollected. Discontinued lock intact, bleeding controlled, pressuredressing applied, No redness/swelling at site.04:12 No apparent distress. Resting quietly. cm405:02 Kayla Miller RN is Primary Nurse. cm405:09 Jean Collier MD is Hospitalizing Provider. na106:20 No apparent distress. Resting quietly. cm408:10 No Physician assisted procedures completed. uy7Mvopqyqodncg Medications:03:28 CANCELLED (): morphine 3 mg IVP once na103:47 Drug: NS 0.9% 1000 ml [sodium chloride 0.9 % intravenous solution] wk5Eyroi: IV; Rate: 250 mL/hr; Site: right antecubital;06:20 Follow up: Response: No adverse reaction; IV Status: Completed ax5pzjtqhlr; IV Intake: 1586nj12:47 Drug: Ondansetron 4 mg [ondansetron HCl 2 [...] 12.5 mg [promethazine 25 mg/mL injection solution] uk4Wpilb: IVPB; Site: right antecubital;05:10 Follow up: Response: No adverse reaction; IV Status: Completed lv5uakjgiug; IV Intake: 257lg31:18 Drug: Zosyn 3.375 grams [Zosyn 3.375 gram intravenous solution] yn6Maqfh: IVPB; Site: right antecubital;05:50 Follow up: Response: No adverse reaction; IV Status: Completed rk5suybnfze; IV Intake: 023hf22:06 Drug: Promethazine 12.5 mg [ promethazine 25 mg/mL injection solution] st5Cgfro: IVPB; Site: right antecubital;06:18 Follow up: Response: No adverse reaction; IV Status: Completed kw5mzxpnttd; IV Intake: 50ml08:00 Drug: NS 0.9% 1000 ml [sodium chloride 0.9 % intravenous solution] xx7Hhoio: IV; Rate: 100 mL/hr; Site: right antecubital;12:42 Follow up: IV Status: Completed infusion; IV Intake: 400ml ef112:15 Drug: Zosyn 3.375 grams [Zosyn 3.375 gram intravenous solution] lg8Cfikd: IVPB; Site: right antecubital;12:43 Follow up: IV Status: Completed infusion; IV Intake: 100ml ef112:15 Drug: Acetaminophen 975 mg [acetaminophen 325 mg tablet (3 tabs)] vi1Gdhli: PO;12:42 Follow up: Temp 100.1 Oral yx4Iwgoid:05:10 IV: 100ml; Total: 100ml. cm405:50 IV: 100ml; Total: 200ml. cm406:18 IV: 50ml; Total: 250ml. cm406:20 IV: 1000ml; Total: 1250ml. cm412:42 IV: 400ml; Total: 1650ml. ef112:43 IV: 100ml; Total: 1750ml. dk2Djvytou:05:09 Decision to Hospitalize by Provider. na108:11 Disposition: Admitted to OR accompanied by nurse, via stretcher. ef108:11 Condition: stable.08:11 Discharge instructions given to patient, Instructed on need foradmit, Demonstrated understanding of instructions.08:11 Discharge Assessment: Patient verbalized understanding of dispositioninstructions. Patient has no functional deficits.12:46 Patient left the ED. zm5Vhcmfgwpdc:Juliann Love RN RN fbgAl-Hussein, Nabeel, MD MD na1Clover Lauren RN RN ft9EgyjdfAmada manzano RN RN tp2Kayla Miller RN RN up6Uocyvsiebak: (The following items were deleted from the chart)03:04 03:02 PMHx: Hyperthyroidism; tp2 tp2 Name Value Range Interpretation Code Description Data Mahi rce(s) Supporting Document(s) ID Date Data Source [id number] 04/28/2020 12:00:00 AM EST [facility] Name Value Range Interpretation Code Description Data Mahi rce(s) Supporting Document(s) SARS-CoV2 Rapid PCR [facility] This lab was ordered by [facility] and reported by [facility]. ID Date Data Source [id number] 04/24/2020 09:27:00 AM EST [facility] [...] study. Electronically signed in PS360 by: Aldair Bautisat M.D. 04/24/2020 9:21 EST Name Value Range Interpretation Code Description Data Mahi rce(s) Supporting Document(s) ID Date Data Source Carotid Ultrasound 04/24/2020 12:00:00 AM EST eCW1 ([facility]) Name Value Range Interpretation Code Description Data Mahi rce(s) Supporting Document(s) Carotid Ultrasound eCW1 ([facility]) ID Date Data Source [id number] 04/20/2020 05:06:00 PM EST [facility] Patient: SUSAN RENDON Eugenio Banks eport - [facility].VisitID: [id number] [place] [address] [phone], FRegistration Date/Time: 04/19/2020 21:15 Weight:106.5 kg (S). 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 She has not been sleeping well. In [...] She has not used any prescription or ihrw-mxm-epyrxda cold medications. The initial symptoms lasted for [...] patient did not want to go to [place] due to the significant amounts of Covid [...] in improved and stable condition.). REVIEW OF IHEFMAP29 point review systems is otherwise negative except [...] is a nurse practitioner and works at [facility] Centerhe is a nonsmokerShe occasionally drinks alcoholShe does not use drugs ADVANCED DIRECTIVES: Patient's healthcare proxy is her husbandShe is a full code IMMUNIZATIONS: Flu vaccine is on-zs-kpzwYes has never received a pneumonia vaccine ALLERGIES: [...] 11:45)( MsgRcvd 04/20/2020 12:20) New Order TSYSORDER [id number] Test Result Flag Units (Reference)TROPONIN I < 0.017 ng/mL (0.0-0.056) CBC w Diff: (IVAN: 04/20/2020 05:30)( [facility] 05:48) New Order TSYSORDER [id number] Test Result Flag Units (Reference)WHITE BLOOD COUNT [...] 0.0 K/mm3 (0.0-0.2) BMP: (IVAN: 04/20/2020 05:30)( [facility] 04/20/2020 06:03) New Order FASTING? YESTSYSORDER [id number] Test Result Flag Units (Reference)GLUCOSE 105 mg/dL (74-106) BLOOD UREA NITROGEN 10 mg/dL (7-18) CREATININE 0.64 mg/dL (0.6-1.0) SODIUM 143 mmol/L (136-145) POTASSIUM 4.1 mmol/L (3.5-5.1) CHLORIDE 105 mmol/L (98-107) CO2 28 mmol/L (21-32) CALCIUM 9.0 mg/dL (8.5-10.1) ANION GAP 10.0 mmol/L (5-12) GLOMER ULAR FILTRATION RATE >90 mL/min GFR IS CALCULATED IN mL/min/1.30e4KIHBTC FUNCTION: >90MILDLY DECREASED: 60-89MILDY TO MODERATELY DECREASED: 45-59 MODERATELY TO SEVERELY DECREASED: 30-44SEVERELY DECREASED: 15-29RENAL FAILURE: <15 Troponin-I: (IVAN: 04/20/2020 05:30)( [facility] 04/20/2020 06:11) New Order TSYSORDER [id number] Test Result Flag Units (Reference)TROPONIN I < 0.017 ng/mL (0.0-0.056) Chest 1V: (IVAN: 04/19/2020 21:43)( NdgRcvd 04/19/2020 22:42) F Test Result Flag Units [...] by: CORTEZ BEAR IN-HOUSE: (IVAN: 04/19/2020 21:40)( [facility] 04/19/2020 22:00) New Order TSYSORDER [id number] Test Result Flag Units (Reference)COVID-19 NEGATIVE (NEGATIVE) [...] are for the indentification of SARS-CoV-2 RNA. GjvABUJ-PkQ-9 RNA is generally detectable in respiratorysamples during the actue phase of infection. UA CULTURE IF INDICATED: (IVAN: 04/19/2020 21:40)( [facility] 04/19/2020 22:51) New Order URINE SOURCE? URINE, CLEAN CATCHTSYSORDER [id number] Test Result Flag Units (Reference)URINE COLOR. YELLOW URINE APPEARANCE CLEAR URINE GLUCOSE (UA) NEGATIVE mg/dL (NEGATIVE) URINE BILIRUBIN NEGATIVE (NEGATIVE) URINE KETONE NEGATIVE mg/dL (NEGATIVE) SPECIFIC GRAVITY,URINE 1.015 (1.001-1.035) URINE BLOOD NEGATIVE (NEGATIVE) PH,URINE 7.0 (5.0-9.0) URINE PROTEIN NEGATIVE mg/dL (NEGATIVE) URINE UROBILINOGEN 0.2 mg/dL (0-1) URINE NITRATE NEGATIVE (NEGATIVE) URINE LEUKOCYTE ESTERASE NEGATIVE (NEGATIVE) CBC w Diff: (IVAN: 04/19/2020 21:26)( [facility] 04/19/2020 21:35) New Order TSYSORDER [id number] Test Result Flag Units (Reference)WHITE BLOOD COUNT [...] 21:26)( MsgRcvd 04/19/2020 21:58) New Order TSYSORDER [id number] Test Result Flag Units (Reference)GLUCOSE 109 H mg/dL (74-106) BLOOD UREA NITROGEN 18 mg/dL (7-18) CREATININE 0.90 mg/dL (0.6-1.0) SODIUM 143 mmol/L (136-145) POTASSIUM 3.3 L mmol/L (3.5-5.1) CHLORIDE 101 mmol/L (98-107) CO2 30 mmol/L (21-32) CALCIUM 9.1 mg/dL (8.5-10.1) ANION GAP 12.0 mmol/L (5-12) GLOMERULAR FILTRATION RATE 68 mL/min GFR IS CALCULATED IN mL/min/1.79w2TRAIBW FUNCTION: > 90MILDLY DECREASED: 60-89MILDY TO MODERATELY DECREASED: 45-59 MODERATELY TO SEVERELY DECREASED: 30-44SEVERELY DECREASED: 15-29RENAL FAILURE: <15 AST 24 U/L (15-37) ALT 27 U/L (12-78) ALKALINE PHOSPHATASE 79 U/L (46-116) TOTAL BILIRUBIN 0.2 mg/dL (0.2-1.0) TOTAL PROTEIN 7.5 g/dl (6.4-8.2) ALBUMIN 4.0 gm/dL (3.4-5.0) TROPONIN I < 0.017 ng/mL (0.0-0.056) MAGNESIUM 1.9 mg/dL (1.8-2.4) D- Dimer: (IVAN: 04/19/2020 21:26)( [facility] 22:01) New Order TSYSORDER [id number] Test Result Flag Units (Reference)DDIMER < 0.19 L mg/LFEU (0.19-0.60) TSH: (IVAN: 04/19/2020 21:26)( [facility] 04/19/2020 22:05) New Order TSYSORDER [id number] Test Result Flag Units (Reference)TSH 2.236 uIU/mL [...] needs to call Dr. Patel's office tomorrow [phone]) for an appointment and further testing. Patient [...] needs to call Dr. Patel's office tomorrow [phone]) for an appointment and further testing. Patient [...] 60 tablet. Refills: 0. Substitution permitted.Pharmacy - [facility] [id number] [place] [address]. FaxNumber: . Understanding of the discharge instructions verbalized by patient. Follow-up with: Rose Rudd, Family Medicine, , [address] [place] [address], [address]Pjxafs up even if well. Call for an a ppointment. call for follow-up appointment in the next few weeks. Follow-up with: Adam Patel M.D., Cardiology, , [address], [address], [place], [place], [address]Kimadb up. Call for an appointment. call tomorrow morning for appointment. (Electronically signed by Audie Longoria DO 04/20/2020 17:03) Name Value Range Interpretation Code Description Data Mahi rce(s) Supporting Document(s) ID Date Data Source [id number] 04/20/2020 12:18:00 PM EST [facility] TSYSORDER [id number] Name Value Range Interpretation Code Description Data Mahi rce(s) Supporting Document(s) TROPONIN I < 0.017 ng/mL 0.0-0.056 [facility] ID Date Data Source [id number] 04/20/2020 06:10:00 AM [facility] TSYSORDER [id number] Name Value Range Interpretation Code Description Data Mahi rce(s) Supporting Document(s) TROPONIN I < 0.017 ng/mL 0.0-0.056 [facility] ID Date Data Source [id number] 04/20/2020 06:02:00 AM [facility] TSYSORDER [id number] Name Value Range Interpretation Code Description Data Mahi rce(s) Supporting Document(s) GLUCOSE 105 mg/dL 74-106 [facility] BLOOD UREA NITROGEN 10 mg/dL 7-18 [facility] CREATININE 0.64 mg/dL 0.6-1.0 [facility] SODIUM 143 mmol/L 136-145 [facility] POTASSIUM 4.1 mmol/L 3.5-5.1 [facility] CHLORIDE 105 mmol/L 98-107 [facility] CO2 28 mmol/L 21-32 [facility] CALCIUM 9.0 mg/dL 8.5-10.1 [facility] ANION GAP 10.0 mmol/L 5-12 [facility] GLOMERULAR FILTRATION RATE >90 mL/min [facility] GFR IS CALCULATED IN mL/min/1.73m2 KULWANT L FUNCTION: >90MILDLY DECREASED: 60-89MILDY TO MODERATELY DECREASED: 45-59 MODERATELY TO SEVERELY DECREASED: 30-44SEVERELY DECREASED: 15-29RENAL FAILURE: <15 ID Date Data Source [id number] 04/20/2020 05:47:00 AM [facility] TSYSORDER [id number] Name Value Range Interpretation Code Description Data Mahi rce(s) Supporting Document(s) WHITE BLOOD COUNT 6.1 K/mm3 4.0-10.0 [facility]LOOD COUNT 4.35 M/mm3 4.00-5.50 [facility] HEMOGLOBIN 12.8 gm/dL 12.0-16.0 [facility] HEMATOCRIT 38.2 % 36.0-48.8 [facility] MEAN CELL VOLUME 87.8 fl 80-96 [facility] MEAN CORPUSCULAR HEMOGLOBIN 29.4 pg 27.0-31.0 [facility] MEAN CORPUSCULAR HGB CONC 33.5 g/dl 32.0-36.0 [facility] RED CELL DISTRIBUTION WIDTH 11.7 % 10.0-14.5 [facility] PLATELET COUNT 215 K/mm3 172-450 [facility] MEAN PLATELET VOLUME 10.5 fl 9.0-13.0 [facility] pital GRAN % 57.6 % 50-80.0 [facility] IG% 0.2 % 0.0-0.2 [facility] LYMPH % 30.1 % 25.0-50.0 [facility] MONO % 10.7 % 2.0-10.0 H [facility] EOS % 1.1 % 0-5.0 [facility] BASO % 0.3 % 0.0-2.0 [facility] GRAN # 3.5 K/mm3 2.0-8.00 [facility] IG# 0.0 K/mm3 0.0-0.2 [facility] LYMPH # 1.9 K/mm3 1.0-5.0 [facility] MONO # 0.7 K/mm3 0.10-1.20 [facility] EOS # 0.1 K/mm3 0.0-0.5 [facility] BASO # 0.0 K/mm3 0.0-0.2 [facility] ID Date Data Source [id number] 04/19/2020 10:42:00 PM EST [facility] DATE OF EXAMINATION: 04/19/2020 21:44 [...] rce(s) Supporting Document(s) ID Date Data Source [id number] 04/19/2020 09:40:00 PM EST [facility] Name Value Range Interpretation Code Description Data Mahi rce(s) Supporting Document(s) COVID-19 [facility] This lab was ordered by [facility] thien Lab and reported by [facility]. ID Date Data Source [id number] 04/19/2020 10:50:00 PM EST [facility] TSYSORDER [id number] Name Value Range Interpretation Code Description Data Mahi rce(s) Supporting Document(s) URINE COLOR. [facility] URINE APPEARANCE CLEAR [facility] URINE GLUCOSE (UA) NEGATIVE mg/dL NEGATIVE [facility] URINE BILIRUBIN NEGATIVE NEGATIVE [facility] URINE KETONE NEGATIVE mg/dL NEGATIVE [facility] SPECIFIC GRAVITY,URINE 1.015 1.001-1.035 [facility] URINE BLOOD NEGATIVE NEGATIVE [facility] PH,URINE 7.0 5.0-9.0 [facility] URINE PROTEIN NEGATIVE mg/dL NEGATIVE [facility] jak URINE UROBILINOGEN 0.2 mg/dL 0-1 [facility] URINE NITRATE NEGATIVE NEGATIVE [facility] URINE LEUKOCYTE ESTERASE NEGATIVE NEGATIVE [facility] ID Date Data Source [id number] 04/19/2020 10:00:00 PM EST [facility] TSYSORDER [id number] Name Value Range Interpretation Code Description Data Mahi rce(s) Supporting Document(s) COVID-19 NEGATIVE NEGATIVE [facility] Negative results should be treated as pr [...] are for the indentification of SARS-CoV-2 RNA. TbmGGIV-NtS-4 RNA is generally detectable in respiratorysamples during the actue phase of infection. ID Date Data Source [id number] 04/19/2020 10:04:00 PM EST [facility] TSYSORDER [id number] Name Value Range Interpretation Code Description Data Mahi rce(s) Supporting Document(s) TSH 2.236 uIU/mL 0.36-3.74 [facility] ID Date Data Source [id number] 04/19/2020 10:01:00 PM EST [facility] TSYSORDER [id number] Name Value Range Interpretation Code Description Data Mahi rce(s) Supporting Document(s) DDIMER < 0.19 mg/LFEU 0.19-[address] [facility] ID Date Data Source [id number] 04/19/2020 09:57:00 PM EST [facility] TSYSORDER [id number] R [id number] Name Value Range Interpretation Code Description Data Mahi rce(s) Supporting Document(s) GLUCOSE 109 mg/dL 74-106 H [facility] BLOOD UREA NITROGEN 18 mg/dL 7-18 [facility] CREATININE 0.90 mg/dL 0.6-1.0 [facility] SODIUM 143 mmol/L 136-145 [facility] POTASSIUM 3.3 mmol/L 3.5-5.1 L [facility] CHLORIDE 101 mmol/L 98-107 [facility] CO2 30 mmol/L 21-32 [facility] CALCIUM 9.1 mg/dL 8.5-10.1 [facility] ANION GAP 12.0 mmol/L 5-12 [facility] GLOMERULAR FILTRATION RATE 68 mL/min [facility] GFR IS CALCULATED IN mL/min/1.73m2 KULWANT L FUNCTION: >90MILDLY DECREASED: 60-89MILDY TO MODERATELY DECREASED: 45-59 MODERATELY TO SEVERELY DECREASED: 30-44SEVERELY DECREASED: 15-29RENAL FAILURE: <15 AST 24 U/L 15-37 [facility] ALT 27 U/L 12-78 [facility] ALKALINE PHOSPHATASE 79 U/L 46-116 [facility] pital TOTAL BILIRUBIN 0.2 mg/dL 0.2-1.0 [facility] TOTAL PROTEIN 7.5 g/dl 6.4-8.2 [facility] ALBUMIN 4.0 gm/dL 3.4-5.0 [facility] ID Date Data Source [id number] 04/19/2020 09:57:00 PM [facility] TSYSORDER [id number] R [id number] Name Value Range Interpretation Code Description Data Mahi rce(s) Supporting Document(s) MAGNESIUM 1.9 mg/dL 1.8-2.4 [facility] ID Date Data Source [id number] 04/19/2020 09:57:00 PM EST [facility] TSYSORDER [id number] R [id number] Name Value Range Interpretation Code Description [facility] TROPONIN I < 0.017 ng/mL 0.0-0.056 [facility] ID Date Data Source [id number] 04/19/2020 09:34:00 PM [facility] TSYSORDER [id number] Name Value Range Interpretation Code Description Data Mahi rce(s) Supporting Document(s) WHITE BLOOD COUNT 9.2 K/mm3 4.0-10.0 [facility] RED BLOOD COUNT 4.73 M/mm3 4.00-5.50 [facility] HEMOGLOBIN 14.0 gm/dL 12.0-16.0 [facility] HEMATOCRIT 41.4 % 36.0-48.8 [facility] MEAN CELL VOLUME 87.5 fl 80-96 [facility] MEAN CORPUSCULAR HEMOGLOBIN 29.6 pg 27.0-31.0 [facility] MEAN CORPUSCULAR HGB CONC 33.8 g/dl 32.0-36.0 [facility] RED CELL DISTRIBUTION WIDTH 11.7 % 10.0-14.5 [facility] PLATELET COUNT 221 K/mm3 172-450 [facility] MEAN PLATELET VOLUME 10.3 fl 9.0-13.0 [facility] pital GRAN % 41.9 % 50-80.0 L [facility] IG% 0.2 % 0.0-0.2 [facility] LYMPH % 43.9 % 25.0-50.0 [facility] MONO % 10.1 % 2.0-10.0 H [facility] EOS % 3.6 % 0-5.0 [facility] BASO % 0.3 % 0.0-2.0 [facility] GRAN # 3.9 K/mm3 2.0-8.00 [facility] IG# 0.0 K/mm3 0.0-0.2 [facility] LYMPH # 4.1 K/mm3 1.0-5.0 [facility] MONO # 0.9 K/mm3 0.10-1.20 [facility] EOS # 0.3 K/mm3 0.0-0.5 [facility] BASO # 0.0 K/mm3 0.0-0.2 [facility] ID Date Data Source [id number] 03/03/2020 12:16:00 PM EST [facility] Name Value Range Interpretation Code Description Data Mahi rce(s) Supporting Document(s) WHITE BLOOD COUNT 9.1 K/mm3 4.0-10.0 [facility] RED BLOOD COUNT 4.88 M/mm3 4.00-5.50 [facility] HEMOGLOBIN 14.5 gm/dL 12.0-16.0 [facility] HEMATOCRIT 43.8 % 36.0-48.8 [facility] MEAN CELL VOLUME 89.8 fl 80-96 [facility] MEAN CORPUSCULAR HEMOGLOBIN 29.7 pg 27.0-31.0 [facility] MEAN CORPUSCULAR HGB CONC 33.1 g/dl 32.0-36.0 [facility] RED CELL DISTRIBUTION WIDTH 11.9 % 10.0-14.5 [facility] PLATELET COUNT 237 K/mm3 172-450 [facility] MEAN PLATELET VOLUME 10.8 fl 9.0-13.0 [facility] pital GRAN % 64.6 % 50-80.0 [facility] IG% 0.1 % 0.0-0.2 [facility] LYMPH % 24.8 % 25.0-50.0 L [facility] MONO % 8.2 % 2.0-10.0 [facility] EOS % 2.0 % 0-5.0 [facility] BASO % 0.3 % 0.0-2.0 [facility] GRAN # 5.9 K/mm3 2.0-8.00 [facility] IG# 0.0 K/mm3 0.0-0.2 [facility] LYMPH # 2.2 K/mm3 1.0-5.0 [facility] MONO # 0.7 K/mm3 0.10-1.20 [facility] EOS # 0.2 K/mm3 0.0-0.5 [facility] BASO # 0.0 K/mm3 0.0-0.2 [facility] ID Date Data Source [id number] 03/03/2020 12:15:00 PM [facility] Name Value Range Interpretation Code Description Data Mahi rce(s) Supporting Document(s) GLUCOSE 88 mg/dL 74-106 [facility] BLOOD UREA NITROGEN 11 mg/dL 7-18 [facility] CREATININE 0.8 mg/dL 0.6-1.0 [facility] SODIUM 138 mmol/L 136-145 [facility] POTASSIUM 4.5 mmol/L 3.5-5.1 [facility] CHLORIDE 102 mmol/L 98-107 [facility] CO2 26 mmol/L 21-32 [facility] CALCIUM 9.1 mg/dL 8.5-10.1 [facility] ANION GAP 10.0 mmol/L 5-12 [facility] GLOMERULAR FILTRATION RATE 78 mL/min [facility] GFR IS CALCULATED IN mL/min/1.73m2 KULWANT L FUNCTION: >90MILDLY DECREASED: 60-89MILDY TO MODERATELY DECREASED: 45-59 MODERATELY TO SEVERELY DECREASED: 30-44SEVERELY DECREASED: 15-29RENAL FAILURE: <15 AST 16 U/L 15-37 [facility] ALT 20 U/L 12-78 [facility] ALKALINE PHOSPHATASE 68 U/L 46-116 [facility] pital TOTAL BILIRUBIN 0.4 mg/dL 0.2-1.0 [facility] TOTAL PROTEIN 7.7 g/dl 6.4-8.2 [facility] ALBUMIN 4.1 gm/dL 3.4-5.0 [facility] ID Date Data Source [id number] 03/03/2020 01:31:00 PM EST [facility] Name Value Range Interpretation Code Description Data Mahi rce(s) Supporting Document(s) Campylobacter Not Detected Detected Not [facility] Clostridium difficile toxin AB Not Detected Detected [facility] Due to the high asymptomatic carriage ra marycruz, especiallyin young children, the clinical relevance of the detectionof toxigenic C. difficile from stool should be consideredin the context of other clinical findings, patient age, andrisk factores which include hospitalization and antibioticexposure. Plesiomonas shigelloides DETECTED Detected [facility] Salmonella Not Detected Detected [facility] Vibrio Not Detected Detected [facility] spital Vibrio cholerae Not Detected Detected [facility] Yersinia enterocolitica Not Detected Detected [facility] Enteroaggregative E. coli Not Detected Detected [facility] Enteropathogenic E. coli Not Detected Detected [facility] Enterotoxigenic E. coli Not Detected Detected [facility] Shiga-like toxin-prod E. coli Not Detected Detected [facility] E. coli O157 Not Detected Detected [facility] Shigella/Enteroinvasive E coli Not Detected Detected [facility] Cryptosporidium Not Detected Detected [facility] Cyclospora cayetanensis Not Detected Detected [facility] Entamoeba histolytica Not Detected Detected [facility] Giardia Lamblia Not Detected Detected Not [facility] Adenovirus F 40/41 Not Detected Detected Not [facility] Astrovirus Not Detected Detected Not [facility] Norovirus GI/GII Not Detected Detected Not [facility] Rotavirus A Not Detected Detected Not [facility] Sapovirus Not Detected Detected Not [facility] spital The Above results have been determined b y using the [employer] system.FilmArray is an automated in vitro diagnostic system thatutilizes nested multiplex Polymerase Chain Reaction (PCR)and high-resolution melting analysis to detect and identifymultiple nucleic acid targets from clinical specimens. ID Date Data Source [id number] 01/09/2020 08:07:00 AM EDT [facility] Name Value Range Interpretation Code Description Data Mahi rce(s) Supporting Document(s) VITAMIN D, 25-HYDROXY 31.4 ng/mL 30.0-100.0 [facility] Vitamin D deficiency has been defined by the [employer] ofMed[employer] and an Endocrine Society practice guideline as alevel of serum 25-OH vitamin D less than 20 ng/mL (1,2).The Endocrine Society went on to further define vitamin Dinsufficiency as a level between 21 and 29 ng/mL (2).1. IOM ([employer]). 2010. Dietary reference intakes for calcium and D. [place]: The National Academies Press.2. Bakari MF, Laila NC, Keysha MAYORGA, et al. Evaluation, treatment, and prevention of vitamin D deficiency: an Endocrine Society clinical practice guideline. JCEM. 2010; 96(7):1911- 30.Performed at: RN - [facility] [id number] Director: Edie Guzmán MD, Phone: [phone] ID Date Data Source [id number] 01/09/2020 08:07:00 AM EDT [facility] Name Value Range Interpretation Code Description Data Mahi rce(s) Supporting Document(s) VITAMIN B12 291 pg/mL [id number] [facility] FOLATE (FOLIC ACID), SERUM 16.7 ng/mL >3.0 [facility] A serum folate concentration of less silvino n 3.1 ng/mL isconsidered to represent clinical deficiency. ID Date Data Source [id number] 01/09/2020 08:06:00 AM EDT [facility] Name Value Range Interpretation Code Description Data Mahi rce(s) Supporting Document(s) Vitamin B12 291 pg/mL [id number] [facility] Folate (Folic Acid), Serum 16.7 ng/mL >3.0 [facility] A serum folate concentration of less silvino n 3.1 ng/mL isconsidered to represent clinical deficiency. ID Date Data Source [id number] 01/09/2020 08:06:00 AM EDT [facility] Name Value Range Interpretation Code Description Data Mahi rce(s) Supporting Document(s) Vitamin D, 25-Hydroxy 31.4 ng/mL 30.0-100.0 [facility] Vitamin D deficiency has been defined by the [employer] ofMed[employer] and an Endocrine Society practice guideline as alevel of serum 25-OH vitamin D less than 20 ng/mL (1,2).The Endocrine Society went on to further define vitamin Dinsufficiency as a level between 21 and 29 ng/mL (2).1. IOM ([employer] of [employer]). 2010. Dietary reference intakes for calcium and D. [place]: The National Academies Press.2. Bakari MF, Laila HINSON, Keysha MAYORGA, et al. Evaluation, treatment, and prevention of vitamin D deficiency: an Endocrine Society clinical practice guideline. JCEM. 2010; 96(7):1911-30. ID Date Data Source [id number] 01/08/2020 08:27:00 AM EDT [facility] Name Value Range Interpretation Code Description Data [facility] rce(s) Supporting Document(s) FREE T4 0.84 ng/dL 0.76-1.46 [facility] ID Date Data Source [id number] 01/08/2020 08:27:00 AM EDT [facility] Name Value Range Interpretation Code Description Data [facility] rce(s) Supporting Document(s) TSH 1.60 uIU/mL 0.36-3.74 [facility] ID Date Data Source [id number] 01/08/2020 08:27:00 AM EDT [facility] Name Value Range Interpretation Code Description Data [facility] rce(s) Supporting Document(s) IRON 219 ug/dL 50-170 H [facility] TIBC 345 ug/dL 250-450 [facility] % SATURATION 63 % 20-50 H [facility] ID Date Data Source [id number] 01/08/2020 08:27:00 AM EDT [facility] Name Value Range Interpretation Code Description Data Mahi rce(s) Supporting Document(s) CHOLESTEROL 192 mg/dL 0-200 [facility] TRIGLYCERIDES 87 mg/dL 0-150 [facility] LDL CHOLESTEROL 94 mg/dL 0-100 [facility] HDL CHOLESTEROL 81 mg/dL 40-60 H [facility] CHOL/HDL RATIO 2.4 0.0-5.0 [facility] ID Date Data Source [id number] 01/08/2020 08:17:00 AM EDT [facility] Name Value Range Interpretation Code Description Data Mahi rce(s) Supporting Document(s) HGBA1C 5.3 % 3.8-5.6 [facility] Diabetic > or = to 6.5%Prediabetes 5.7-6 .4%Normal <5.7 ID Date Data Source [id number] 01/08/2020 08:17:00 AM EDT [facility] Name Value Range Interpretation Code Description Data Mahi rce(s) Supporting Document(s) ESTIMATED AVERAGE GLUCOSE 105.4 mg/dL [facility] ID Date Data Source [id number] 01/08/2020 07:51:00 AM [facility] Name Value Range Interpretation Code Description Data Mahi rce(s) Supporting Document(s) WHITE BLOOD COUNT 5.3 K/mm3 4.0-10.0 [facility] al RED BLOOD COUNT 4.35 M/mm3 4.00-5.50 [facility] HEMOGLOBIN 13.1 gm/dL 12.0-16.0 [facility] HEMATOCRIT 39.2 % 36.0-48.8 [facility] MEAN CELL VOLUME 90.1 fl 80-96 [facility] MEAN CORPUSCULAR HEMOGLOBIN 30.1 pg 27.0-31.0 [facility] MEAN CORPUSCULAR HGB CONC 33.4 g/dl 32.0-36.0 [facility] RED CELL DISTRIBUTION WIDTH 12.8 % 10.0-14.5 [facility] PLATELET COUNT 197 K/mm3 172-450 [facility] MEAN PLATELET VOLUME 10.4 fl 9.0-13.0 [facility] pital GRAN % 42.6 % 50-80.0 [...] [facility] BASO # 0.0 K/mm3 0.0-0.2 [facility] Procedure Social History Code Duration Value Status Description Data Source(s ) Smoking 04/22/2020 12:00:00 AM EST Never Smoker completed Never S moker eCW1 (Formerly [facility]) Smoking 04/22/2020 12:00:00 AM EST Never Smoker completed Never S moker eCW1 (Formerly [facility]) Smoking 04/22/2020 12:00:00 AM EST Never Smoker completed Never S moker eCW1 (Formerly [facility]) Vital Signs ID Date Data Source [id number] Name Value Range Interpretation Code Description Data Source(s) Diastolic blood pressure 83 mm[Hg] 83 mm[Hg] eCW1 ([facility]) Systolic blood pressure 129 mm[Hg] 129 mm[Hg] e CW1 ([facility]) Body temperature 98.2 [degF] 98.2 [degF] eCW1 ( [facility]) Respiratory rate 16 /min 16 /min eCW1 ([facility]) Heart rate 66 /min 66 /min eCW1 ([facility]) Body mass index (BMI) [Ratio] 37.85 kg/m2 37.85 kg/m2 W1 ([facility]) Body height 65.5 [in_i] 65.5 [in_i] eCW1 ([facility]) Body weight 231 [lb_av] 231 [lb_av] eCW1 ([facility]) ID Date Data Source [id number] 05/15/2020 01:22:00 PM EST [facility] Name Value Range Interpretation Code Description Data Source(s) WEIGHT 106.9 kilos 106.9 kilos [facility] HEIGHT 167.64 centimeters 167.64 [facility] ID Date Data Source [id number] 05/11/2020 08:14:00 PM EST [facility] Name Value Range Interpretation Code Description Data Source(s) WEIGHT 105 kilos 105 kilos [facility] HEIGHT 167.64 centimeters 167.64 [facility] WEIGHT 102.9 kilos 102.9 kilos [facility] HEIGHT 167.64 centimeters 167.64 [facility] Patient Treatment Plan of Care Planned Activity Planned Date Details Description Data Source (s) Clonazepam 0.5 MG Oral Tablet 04/23/2020 12:00:00 AM EST eCW1 ([facility]) Clonazepam 0.5 MG Oral Tablet 04/23/2020 12:00:00 AM EST eCW1 ([facility]) Clonazepam 0.5 MG Oral Tablet 04/23/2020 12:00:00 AM EST eCW1 ([facility])
[2020-05-15 16:16] LABS: BASO # 0.1 10^3/uL (0.0-0.2); BASO % 0.7 % (0.0-1.0); EOS # 0.1 10^3/uL (0.0-0.5); HEMATOCRIT 39.8 % (36.0-47.0); HEMOGLOBIN 12.6 g/dl (12.0-15.5); LYMPH # 2.1 10^3/uL (1.5-5.0); LYMPH % 19.5 % (24.0-44.0); MEAN CORPUSCULAR HEMOGLOBIN 29.1 pg (27.0-33.0); MEAN CORPUSCULAR HGB CONC 31.7 g/dl (32.0-36.5); MEAN CORPUSCULAR VOLUME 91.9 fl (80.0-96.0); MONO # 0.8 10^3/uL (0.0-0.8); MONO % 7.6 % (0.0-5.0); NEUTROPHILS # 7.3 10^3/uL (1.5-8.5); NEUTROPHILS % 69.7 % (36.0-66.0); PLATELET COUNT, AUTOMATED 401 10^3/uL (150-450); RED BLOOD COUNT 4.33 10^6/uL (4.00-5.40); WHITE BLOOD COUNT 10.5 10^3/uL (4.0-10.0)
[2020-05-15] MEDS ORDERED: NS 1,000 ML IV ONE (16:45)
[2020-05-15 16:50] LABS: ALBUMIN 3.1 GM/DL (3.2-5.2); ALT/SGPT 23 U/L (12-78); BILIRUBIN,TOTAL 0.4 MG/DL (0.2-1.0); BLOOD UREA NITROGEN 13 MG/DL (7-18); CALCIUM LEVEL 9.1 MG/DL (8.5-10.1); CARBON DIOXIDE LEVEL 29 MEQ/L (21-32); CHLORIDE LEVEL 103 MEQ/L (98-107); CREATININE FOR GFR 0.69 MG/DL (0.55-1.30); GLOMERULAR FILTRATION RATE > 60.0 (>58); GLUCOSE, FASTING 83 MG/DL (70-100); POTASSIUM SERUM 5.7 MEQ/L (3.5-5.1); SODIUM LEVEL 136 MEQ/L (136-145); TOTAL PROTEIN 7.5 GM/DL (6.4-8.2)
[2020-05-15] MEDS ORDERED: ISOVUE-370 76% 100ML VIAL As Ordered ONE (17:09)
--- NOTE | 2020-05-15 17:51 | REPVR ---
PROCEDURE INFORMATION: Exam: CT Abdomen And Pelvis With Contrast Exam date and time: 05/15/2020 5:16 PM Age: 45 years old Clinical indication: Condition or disease; Abscess; Abscess location: Appendix; Prior surgery; Surgery date: <1 month; Surgery type: Appendectomy; Additional info: Abdominal pain known abscess TECHNIQUE: Imaging protocol: Computed tomography of the abdomen and pelvis with intravenous contrast. Radiation optimization: All CT scans at this facility use at least one of these dose optimization techniques: automated exposure control; mA and/or kV adjustment per patient size (includes targeted exams where dose is matched to clinical indication); or iterative reconstruction. Contrast material: ISOVUE 370; Contrast volume: 100 ml; Contrast route: INTRAVENOUS (IV); COMPARISON: No relevant prior studies available. FINDINGS: Tubes, catheters and devices: Right anterior pelvic Afllvoq-Qtfyt-grxi drain extending into the right iliac fossa. Liver: Normal. No mass. Gallbladder and bile ducts: Normal. No calcified stones. No ductal dilation. Pancreas: Normal. No ductal dilation. Spleen: Normal. No splenomegaly. Adrenal glands: Normal. No mass. Kidneys and ureters: Normal. No hydronephrosis. Stomach and bowel: Moderate wall thickening and perienteric adipose edema of supravesical small bowel loops, likely secondary. The patient is status post a gastric bypass procedure with an antecolic Dexter-en-Y loop. Appendix: No evidence of appendicitis. Intraperitoneal space: Unremarkable. No free air. No significant fluid collection. Vasculature: Calcified phleboliths are present in the lower pelvis bilaterally. Lymph nodes: No enlarged lymph nodes. Urinary bladder: Unremarkable as visualized. Reproductive: Unremarkable as visualized. Bones/joints: Unremarkable. No acute fracture. Soft tissues: A tiny paraumbilical hernia containing only abdominal fat is noted. Other findings: Pericecal inflammation, with poorly delineated pericecal 2.6 x 3.2 x 3.1 cm fluid collection containing a small amount of gas. IMPRESSION: 1. Pericecal inflammation with probable pericecal abscess. Examination with bowel contrast might add useful information 2. Previous gastric bypass. Electronically signed by: Danny Yang On 05/15/2020 17:50:41 PM
[2020-05-15] MEDS ORDERED: metroNIDAZOLE 500 MG in IV 1 EA IV ONE (18:15)
[2020-05-15] MEDS ORDERED: PERCOCET 5MG/325MG TAB PO PRN (18:15)
[2020-05-15] MEDS ORDERED: ONDANSETRON 4MG/2ML VIAL IV PRN (18:15)
[2020-05-15] MEDS ORDERED: KETOROLAC 30 MG/ML 1ML VIAL IV PRN (18:15)
[2020-05-15] MEDS ORDERED: LevoFLOXacin IV 750 MG in IV 1 EA IV ONE (18:15)
--- OUTSIDE RECORDS SUMMARY | 2020-05-15 18:37 | CCD ---
Author Author [facility] Organization [facility] Address Unknown Phone Unavailable Care Team Providers Care Lace Tearing Supervisor Name Role Phone Darren CHEUNG MD Unavailable [...] Unavailable Unavailable Darren CHEUNG MD Unavailable Unavailable JONATAN, Darren STEPHENSON MD Unavailable Unavailable JONATAN, Darren STEPHENSON MD Unavailable Unavailable JONATAN, Darren STEPHENSON MD Unavailable Unavailable HUIZENGA, Gold WYNNE DO [...] Unavailable HUIZENGA, Gold WYNNE DO Unavailable Unavailable Patel, [phone] L Mary Ellen MD Unavailable Patel, [phone] L Mary Ellen MD Unavailable [phone] Patel, [phone] L Mary Ellen MD Unavailable [phone] Amanda, [phone] L Mary Ellen MD Unavailable [phone] Amanda, [phone] L Mary Ellen MD Unavailable [phone] Patel, [phone] L Mary Ellen MD Unavailable [phone] Patel, [phone] L Mary Ellen MD Unavailable [phone] Patel, [phone] L Mary Ellen MD Unavailable [phone] Amanda, [phone] L Mary Ellen MD Unavailable [phone] Amanda, [phone] Norma Hyde MD Unavailable [phone] Amanda, [phone] Norma Hyde MD Unavailable [phone] Amanda, [phone] Norma Hyde MD Unavailable [phone] Amanda, [phone] Norma Hyde MD Unavailable [phone] Alberry, D Rose ADJUNCT LECTURER Unavailable Unavailable Alberry, D Rose ADJUNCT LECTURER Unavailable Unavailable Alberry, D Rose ADJUNCT LECTURER Unavailable Unavailable Alberry, D Rose ADJUNCT LECTURER Unavailable Unavailable Alberry, D Rose ADJUNCT LECTURER Unavailable Unavailable Alberry, D Rose ADJUNCT LECTURER Unavailable Unavailable Alberry, D Rose ADJUNCT LECTURER Unavailable Unavailable Alberry, D Rose ADJUNCT LECTURER Unavailable Unavailable Alberry, D Rose ADJUNCT LECTURER Unavailable Unavailable Alberry, D Rose ADJUNCT LECTURER Unavailable Unavailable Alberry, D Rose ADJUNCT LECTURER Unavailable Unavailable Alberry, D Rose ADJUNCT LECTURER Unavailable Unavailable Alberry, D Rose ADJUNCT LECTURER Unavailable Unavailable Alberry, D Rose ADJUNCT LECTURER Unavailable Unavailable Alberry, D Rose ADJUNCT LECTURER Unavailable Unavailable Alberry, D Rose ADJUNCT LECTURER Unavailable Unavailable Alberry, D Rose ADJUNCT LECTURER Unavailable Unavailable Alberry, D Rose ADJUNCT LECTURER Unavailable Unavailable Alberry, D Rsoe ADJUNCT LECTURER Unavailable Unavailable Alberry, D Rose ADJUNCT LECTURER Unavailable Unavailable Alberry, D Rose ADJUNCT LECTURER Unavailable Unavailable Alberry, D Rose ADJUNCT LECTURER Unavailable Unavailable Alberry, D Rose ADJUNCT LECTURER Unavailable Unavailable Alberry, D Rose ADJUNCT LECTURER Unavailable Unavailable Alberry, D Rose ADJUNCT LECTURER Unavailable Unavailable Alberry, D Rose ADJUNCT LECTURER Unavailable Unavailable Alberry, D Rose ADJUNCT LECTURER Unavailable Unavailable Alberry, D Rose ADJUNCT LECTURER Unavailable Unavailable Alberry, D Rose ADJUNCT LECTURER Unavailable Unavailable Alberry, D Rose ADJUNCT LECTURER Unavailable Unavailable Alberry, D Rose ADJUNCT LECTURER Unavailable Unavailable Alberry, D Rose ADJUNCT LECTURER Unavailable Unavailable Alberry, D Rose ADJUNCT LECTURER Unavailable Unavailable Alberry, D Rose ADJUNCT LECTURER Unavailable Unavailable Alberry, D Rose ADJUNCT LECTURER Unavailable Unavailable Alberry, D Rose ADJUNCT LECTURER Unavailable Unavailable Alberry, D Rose ADJUNCT LECTURER Unavailable Unavailable Alberry, D Rose ADJUNCT LECTURER Unavailable Unavailable Alberry, D Rose ADJUNCT LECTURER Unavailable Unavailable Alberry, D Rose ADJUNCT LECTURER Unavailable Unavailable Alberry, D Rose ADJUNCT LECTURER Unavailable Unavailable Alberry, D Rose ADJUNCT LECTURER Unavailable Unavailable Alberry, D Rose ADJUNCT LECTURER Unavailable Unavailable Alberry, D Rose ADJUNCT LECTURER Unavailable Unavailable Alberry, D Rose ADJUNCT LECTURER Unavailable Unavailable Alberry, D Rose ADJUNCT LECTURER Unavailable Unavailable Alberry, D Rose ADJUNCT LECTURER Unavailable Unavailable MARLIN FLORES DO Unavailable Unavailable Gerardo, Neha W Marianne ADJUNCT LECTURER-C Unavailable Unavailabl e Gerardo, Reginayanet W Marianne ADJUNCT LECTURER-C Unavailable Unavailabl e Gerardo, Reginayanet W Marianne ADJUNCT LECTURER-C Unavailable Unavailabl e Gerardo, Reginayanet W Marianne ADJUNCT LECTURER-C Unavailable Unavailabl e Gerardo, Masoodinayanet W Marianne ADJUNCT LECTURER-C Unavailable Unavailabl e Gerardo, Masoodinayanet W Marianne ADJUNCT LECTURER-C Unavailable Unavailabl e Gerardo, Neha W Marianne ADJUNCT LECTURER-C Unavailable Unavailabl e Gerardo, Masoodinayanet W Marianne ADJUNCT LECTURER-C Unavailable Unavailabl e Gerardo, Regina W Marianne ADJUNCT LECTURER-C Unavailable Unavailabl e Gerardo, Reginayanet W Marianne ADJUNCT LECTURER-C Unavailable Unavailabl e Gerardo, Masoodinayanet W Marianne ADJUNCT LECTURER-C Unavailable Unavailabl e Gerardo, Masoodinayanet W Marianne ADJUNCT LECTURER-C Unavailable Unavailabl e Gerardo, Reginayanet W Marianne ADJUNCT LECTURER-C Unavailable Unavailabl e Gerardo, Reginayanet W Marianne ADJUNCT LECTURER-C Unavailable Unavailabl e Gerardo, Reginayanet W Marianne ADJUNCT LECTURER-C Unavailable Unavailabl e Gerardo, Reginayanet W Marianne ADJUNCT LECTURER-C Unavailable Unavailabl e Gerardo, Reginayanet W Marianne ADJUNCT LECTURER-C Unavailable Unavailabl e Gerardo, Regina W Marianne ADJUNCT LECTURER-C Unavailable Unavailabl e Gerardo, Regina W Marianne ADJUNCT LECTURER-C Unavailable Unavailabl e Gerardo, Regina W Marianne ADJUNCT LECTURER-C Unavailable Unavailabl e Gerardo, Regina W Marianne ADJUNCT LECTURER-C Unavailable Unavailabl e Gerardo, Regina W Marianne ADJUNCT LECTURER-C Unavailable Unavailabl e Gerardo, Reginah W Marianne ADJUNCT LECTURER-C Unavailable Unavailabl e Gerardo, Reginah W Marianne ADJUNCT LECTURER-C Unavailable Unavailabl e Gerardo, Reginah W Marianne ADJUNCT LECTURER-C Unavailable Unavailabl e Gerardo, Reginah W Marianne ADJUNCT LECTURER-C Unavailable Unavailabl e Gerardo, Reginah W Marianne ADJUNCT LECTURER-C Unavailable Unavailabl e Gerardo, Reginah W Marianne ADJUNCT LECTURER-C Unavailable Unavailabl e Gerardo, Reginah W Marianne ADJUNCT LECTURER-C Unavailable Unavailabl e Gerardo, Reginah W Marianne ADJUNCT LECTURER-C Unavailable Unavailabl e Gerardo, Reginah W Marianne ADJUNCT LECTURER-C Unavailable Unavailabl e Gerardo, Reginah W Marianne ADJUNCT LECTURER-C Unavailable Unavailabl e ZUKER, B JEAN DOMINGUEZ Unavailable Unavailable ZUKER, [...] Unavailable ZUKER, B JEAN MD Unavailable Unavailable Harlem, Betsy RPA-C Unavailable Unavailable Harlem, Betsy RPA-C Unavailable Unavailable Harlem, Betsy RPA-C Unavailable Unavailable Harlem, Betsy RPA-C Unavailable Unavailable Harlem, Betsy RPA-C Unavailable Unavailable Harlem, Betsy RPA-C Unavailable Unavailable Harlem, Betsy RPA-C Unavailable Unavailable Harlem, Betsy RPA-C Unavailable Unavailable Harlem, Betsy RPA-C Unavailable Unavailable Harlem, Betsy RPA-C Unavailable Unavailable Harlem, Betsy RPA-C Unavailable Unavailable Harlem, Betsy RPA-C Unavailable Unavailable Harlem, Betsy RPA-C Unavailable Unavailable Harlem, Betsy RPA-C Unavailable Unavailable Harlem, Betsy RPA-C Unavailable Unavailable Rakan RIOS MD Unavailable Unavailable RIOS, Rakan MAST MD Unavailable Unavailable RIOS, Rakan MAST MD Unavailable Unavailable RIOS, Rakan MAST MD Unavailable Unavailable RIOS, Rakan MAST MD Unavailable Unavailable RIOS, Rakan MAST MD Unavailable Unavailable RIOS, Rakan MAST MD Unavailable Unavailable MIKE MORENO Unavailable Unavailable [...] Unavailable Unavailable DiVencenzo, Audie DO Unavailable Unavailable Harman Moreno Juan DO [...] Unavailable Harman Moreno Juan DO Unavailable Unavailable Rydberg, Radha PA [...] is protected by Article 27-F of the [facility] Public Health law. If you continue you may have access to information: Regarding HIV / AIDS; Provided by facilities licensed or operated by the [facility] Office of Mental Health; or Provided by the [facility] Office for People With Developmental Disabilities. If such information is present, then the following [facility] mandated warning applies: This information has been [...] law may result in a fine or fci sentence or both. A general authorization for the release of medical or other information is NOT sufficient authorization for further disc losure. Allergies and Adverse Reactions Type Description Substance Reaction Status Data Source(s ) Drug allergy No Known Drug Allergies No Known Drug Allergies [facility] Drug allergy metoclopramide metoclopramide [facility] Encounters Encounter Providers Location Date Indications Data Source(s ) Outpatient Attender: Marianne SALTER-CReferrer: Miguel Angel SALTER EMERGENCY ROOM-LAB REF 05/12/2020 02:21:00 PM EST - 05/12/2020 02:21:00 PM [facility] Inpatient Attender: JEAN Mcneil marisela: SACHIN CHEUNG MDAdmitter: SACHIN CHEUNG MD ER-2EAST 05/08/2020 10:07:00 PM EST - 05/11/2020 01:55[facility] Outpatient Attender: Juan FRAIRE ttender: JUAN MORENOConsultant: [facility] QR-MOM-SBWAU 05/08/2020 06:26:00 PM [facility] Emergency Attender: JUAN MORENOReferrer: David SALTER EMERGENCY ROOM-ER 05/08/2020 04:58:00 PM EST - 05/08/2020 09:57:[address] [facility] Patient discharged. [place] [address] [facility] [address] 05/08/2020 12:00:00 AM EST eCW1 ([facility]) Inpatient Attender: JEAN Mcneil marisela: MARLIN FLORES DOAttender: MARLIN FLORES DOAttender: ADRIANE LEVY MDAdmitter: MARLIN FLORES DO ER-2WEST 06/2020 01:04:00 PM EST - 05/06/2020 12:11:00 [facility] Patient [facility] Outpatient Attender: JEAN COLLIER MDAttender: Leon richards [place] ER-ASUR 04/28/2020 05:52:00 AM EST - 04/28/2020 05:52:00 [facility] Attender: Rose WILEYPReferrer: Rose SALTER 04/24/2020 08:19:00 AM EST - 04/24/2020 08:19:[address] [facility] [place] [address] [facility] [address] 04/23/2020 12:00:00 AM EST eCW1 ([facility]) Outpatient [address] [facility] [address] 04/22/2020 12:00:00 AM EST eCW1 ([facility]) Inpatient Attender: JYOTHI Bowles tender: JYOTHI RIOSAdmitter: Audie Longoria DOReferrer: Rose WILEYP EMERGENCY ROOM-2N 04/19/2020 11:10:00 PM EST - 04/20/2020 02:50:00 PM EST [facility] Patient discharged. [place] [address] [facility] [address] 04/08/2020 12:00:00 AM EST eCW1 ([facility]) Preadmit Attender: Betsy BEDOLLA 03/03/2020 11:39: 00 AM [facility] Admission cancelled. Disregard status an d admitted date. Outpatient Attender: Betsy MICHELLECReferrer: Rakan SALTER EMERGENCY ROOM-LAB 03/03/2020 11:28:00 AM EST - 03/03/2020 11:28:00 AM [facility] Outpatient Attender: Betsy BEDOLLA 03/03/2020 10:30: 00 AM [facility] Outpatient Attender: Rose WILEYPReferrer: Rose SALTER EMERGENCY ROOM-LABOTHPROV 01/08/2020 07:36:00 AM EDT - 01/08/2020 07:36:00 AM [facility] [place] [address] [facility] [address] 11/21/2019 12:00:00 AM EDT eCW1 ([facility]) [facility] [place] [address] [facility] [address] 10/18/2019 12:00:00 AM EDT eCW1 ([facility]) Outpatient Attender: Rose SALTER 1 05/16/2017 07:30:00 AM [facility] - 03/16/2018 07:30:00 AM [facility] Outpatient Attender: [id number] Mary Ellen Patel MD EMERGENCY R OOM-MAMMO 08/12/2016 10:21:00 AM EDT - 08/12/2016 10:21:00 AM EDT [facility] pital Outpatient Attender: Radha ROGERSeferrer: JUAN BARRAAZ DO 05/19/2016 06:58:00 AM [facility] Outpatient Attender: Radha ROGERSeferrer: JUAN BARRAZA DO 12/29/2015 08:58:00 AM [facility] Outpatient Attender: GEETA BUENOeferrer: JUAN STERLING DO 06/23/2015 10:35:00 AM [facility] Outpatient Attender: Radha Holbrookerrer: JUAN BARRAZA DO 08/30/2014 02:51:00 PM [facility] Outpatient Attender: Radha SULLIVAN 02/07/2013 09:33:00 AM [facility] Medications Medication Brand Name Start Date Product Form Dose Route Admi nistrative Instructions Pharmacy Instructions Status Indications Reaction Description Data Source(s) Metronidazole 500 MG Oral Tablet METRONIDAZOLE 05/13/2020 12:0 0:00 AM EST tablet 30 TAKE ONE TABLET BY MOUTH THREE T IMES A DAY TAKE ONE TABLET BY MOUTH THREE TIMES A DAY SOLD: 05/13/2020 [facility] 750 mg 05/13/2020 12:00:00 AM EST tablet 10 TAKE ONE TABLET BY MOUTH EVERY DAY TAKE ONE TABLET BY MOUTH EVERY DAY SOLD: 05/13/2020 [facility] 1,000-62.5 mg 05/06/2020 12:00:00 AM EST tablet extended rel ease 12 hr 20 TAKE ONE TABLET BY MOUTH TWICE A DAY FOR ANTIBIOTIC TAKE ONE TABLET BY MOUTH TWICE A DAY FOR ANTIBIOTIC SOLD: 05/06/2020 [facility] Clonazepam 0.5 MG Oral Tablet Clonazepam 0.5 MG 04/23/2020 12:00:00 AM EST 1.0 {tablet_as_needed} active Clonazepam 0. 5 MG eCW1 ([facility]) Clonazepam 0.5 MG Oral Tablet Clonazepam 0.5 MG 04/23/2020 12:00:00 AM EST 1.0 {tablet_as_needed} active Clonazepam 0. 5 MG eCW1 ([facility]) Clonazepam 0.5 MG Oral Tablet Clonazepam 0.5 MG 04/23/2020 12:00:00 AM EST 1.0 {tablet_as_needed} active Clonazepam 0. 5 MG eCW1 ([facility]) 0.5 mg 04/23/2020 12:00:00 AM EST tablet 10 TAKE ONE TABLET BY MOUTH TWICE A DAY NEEDED MAXIMUM DAILY DOSE = 2 TAKE ONE TABLET BY MOUTH TWICE A DAY NEEDED MAXIMUM DAILY DOSE = 2 SOLD: 04/23/2020 [facility] 25 mg 04/20/2020 12:00:00 AM EST tablet 60 TAKE 1 TABLET BY MOUTH 2 TIMES A DAY TAKE 1 TABLET BY MOUTH 2 TIMES A DAY SOLD: 04/20/2020 [facility] 500 mg 03/03/2020 12:00:00 AM EST tablet 6 TAKE ONE TABLET BY MOUTH EVERY 12 HOURS TAKE ONE TABLET BY MOUTH EVERY 12 HOURS SOLD: 03/03/2020 [facility] Insurance Providers Payer name Policy type / Coverage type Policy ID Covered constitution party ID Covered constitution party's relationship to tavares Policy Tavares Plan Information [employer] [facility] EMPL[employer]EE PROGRAM [id number] [id number] BLUE CROSS [id number] HUS [id number] [employer] [place] [id number] SPO [id number] [employer] [place] [id number] SPO [id number] [employer] [place] [id number] SPO [id number] [employer] [place] [id number] SPO [id number] [employer] [place] [id number] SPO [id number] [place] [facility] B [id number] P [id number] [place] PPO [id number] SP [id number] ANSI-Commercial [id number] ANSI-Commercial [id number] ANSI-Commercial [id number] ANSI-Commercial [id number] [facility] [id number] S [id number] BLUE CROSS [id number] S [id number] EMPLOYEE HEALTH [place] [id number] S [id number] Problems, Conditions, and Diagnoses Code Display Name Description Problem Type Effective Dates Data Source(s) I10 [id number] HTN (hypertension), benign Problem 0 12:00:00 AM EST eCW1 ([facility]) Z20.828 Contact with and (suspected) exposure to other viral communicable diseases CONTACT W AND EXPOSURE TO OTH VIRAL COMMUNICABLE DISEASES Di agnosis 05/12/2020 02:21:00 PM [facility] Z98.84 Bariatric surgery status BARIATRIC SURGERY STATUS Diag nosis 05/08/2020 10:07:00 [facility] F41.9 Anxiety disorder, unspecified ANXIETY DISORDER, UNSPEC IFIED Diagnosis 05/08/2020 10:07:00 [facility] I10 Essential (primary) hypertension ESSENTIAL (PRIMARY) H YPERTENSION Diagnosis 05/08/2020 10:07:00 PM [facility] Y92.[address] or not applicable UNSPECIFIED PLACE OR NOT APPLICABLE Diagnosis 05/08/2020 10:07:00 [facility] Y83.6 Removal of other organ (part ial) (total) as the cause of abnormal reaction of the patient, or of later complication, without mention of misadventure at the time of the procedure REMOV ORG (TOTAL) CAUSE ABN REACT/COMPL, W/O MISAD Diagnosis 05/08/2020 10:07:00 PM [facility] K65.1 Peritoneal abscess PERITONEAL ABSCESS Diagnosis 10/2020 10:07:00 PM [facility] T81.43XA INFCT FOL A PROCEDURE, ORGAN AND SPACE S URGICAL SITE, INIT INFCT FOL A PROCEDURE, ORGAN AND SPACE SURGICAL SITE, INIT Diagnosis 021 10:07:00 PM [facility] 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 Z79.2 halfway (current) use of antibiotics L PATI TERM (CURRENT) USE OF ANTIBIOTICS Diagnosis 05/08/2020 04:58:[address] [facility] Z98.84 Bariatric surgery status BARIATRIC SURGERY STATUS Diag nosis 05/08/2020 04:58:00 PM [facility] I10 Essential (primary) hypertension ESSENTIAL (PRIMARY) H YPERTENSION Diagnosis 05/08/2020 04:58:00 PM [facility] R10.31 Right lower quadrant pain RIGHT LOWER QUADRANT PAIN Di agnosis 05/08/2020 04:58:00 PM [facility] T81.40XA INFECTION FOLLOWING A PROCEDURE, UNSPECI FIED, INIT INFECTION FOLLOWING A PROCEDURE, UNSPECIFIED, INIT Diagnosis 05/04/2020 01:04:00 PM [facility] Z20.828 Contact with and (suspected) exposure to other viral communicable diseases CONTACT W AND EXPOSURE TO OTH VIRAL COMMUNICABLE D Diagnosis 04/28/2020 05:52:00 AM [facility] K35.80 Unspecified acute appendicitis UNSPECIFIED ACUTE APPEN DICITIS Diagnosis 04/28/2020 05:52:00 AM [facility] R00.0 Tachycardia, unspecified TACHYCARDIA, UNSPECIFIED Diag nosis 04/24/2020 08:19:00 AM [facility] Z68.37 Body mass index (BMI) 37.0-37.9, adult B [place] INDEX [BMI] 37.0-37.9, ADULT Diagnosis 04/19/2020 11:10:00 PM [facility] N95.9 Unspecified menopausal and perimenopausa l disorder UNSPECIFIED MENOPAUSAL AND PERIMENOPAUSAL DISORDER Diagnosis 04/19/2020 11:10:00 PM [facility] R73.9 Hyperglycemia, unspecified HYPERGLYCEMIA, UNSPECIFIED Diagnosis 04/19/2020 11:10:00 [facility] N18.9 Chronic kidney disease, unspecified CHRONIC KIDN EY DISEASE, UNSPECIFIED Diagnosis 04/19/2020 11:10:00 PM [facility] E87.6 Hypokalemia HYPOKALEMIA Diagnosis 04/19/2020 11:10:00 PM [facility] G47.00 Insomnia, unspecified INSOMNIA, UNSPECIFIED Diagnosis 04/19/2020 11:10:00 PM [facility] R94.31 Abnormal electrocardiogram [ECG] [EKG] A BNORMAL ELECTROCARDIOGRAM [ECG] [EKG] Diagnosis 04/19/2020 11:10:00 PM [facility] E66.9 Obesity, unspecified OBESITY, UNSPECIFIED Diagnosis 04/19/2020 11:10:00 PM [facility] I12.9 Hypertensive chronic kidney disease with stage 1 through stage 4 chronic kidney disease, or unspecified chronic kidney disease HYPERTENSIVE CHRONIC KIDNEY DISEASE W STG 1-4/UNSP Diagnosis 04/19/2020 11:10:00 PM [facility] R00.2 Palpitations PALPITATIONS Diagnosis 04/19/2020 11:10:00 [facility] A08.8 Other specified intestinal infections OT HER SPECIFIED INTESTINAL INFECTIONS Diagnosis 03/03/2020 10:30:00 AM [facility] 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 Diagnosis 03/03/2020 10:30:00 AM [facility] R19.7 Diarrhea, unspecified DIARRHEA, UNSPECIFIED Diagnosis 03/03/2020 10:30:00 AM [facility] F41.9 Anxiety disorder, unspecified ANXIETY DISORDER, UNSPEC IFIED Diagnosis 01/08/2020 07:36:00 AM [facility] K21.9 Gastro-esophageal reflux disease without esophagitis GASTRO-ESOPHAGEAL REFLUX DISEASE WITHOUT Diagnosis 01/08/2020 07:36:00 AM [facility] Surgeries/Procedures Procedure Description Date Indications Data Source(s) Drainage of Peritoneal Cavity with Drain age Device, Percutaneous Endoscopic Approach 05/09/2020 12:00:00 AM [facility] Drainage of Peritoneal Cavity, Percutaneous Approach 05/05/2020 12:00:00 [facility] Results ID Date Data Source [id number] 05/12/2020 05:14:00 PM [facility] Patient: SUSAN RENDON Eugenio Banks [facility]port - [facility].VisitID: [id number] [place] [address] [phone], [facility] Date/Time: 05/08/2020 16:28 Weight:102.9 kg (S). Height/Length:66 [...] rce(s) Supporting Document(s) ID Date Data Source [id number] 05/12/2020 02:00:00 PM EST [facility] Name Value Range Interpretation Code Description Data Mahi rce(s) Supporting Document(s) SARS coronavirus 2 RNA Not Detected [facility] [place] This lab was ordered by [facility] a nd reported by [facility]. ID Date Data Source [id number] 05/13/2020 02:09:00 PM EST [facility] Name Value Range Interpretation Code Description Data Mahi rce(s) Supporting Document(s) SARS COV2 [facility] Not Detected Not Detected [facility] This nucleic acid amplification test was developed [...] SARS-CoV-2 virusand/or diagnosis of COVID-19 infection under kwvrmji913(b)(1) of the Act, 21 U.S.C. 360bbb-3(b) (1), [...] negative(not detected) result in this assay.Performed at: [facility], [place], [place] [id number] Director: Yaa Richter PhD, Phone: [phone] ID Date Data Source [id number] 05/13/2020 02:05:00 PM EST [facility] Name Value Range Interpretation Code Description Data Mahi rce(s) Supporting Document(s) SARS-CoV-2, JULIANNA Not Detected Not Detected [facility] This nucleic acid amplification test was developed and its performancecharacteristics determined by [facility]. Nucleic acidamplification tests include PCR and TMA. [...] in this assay. ID Date Data Source [id number] 05/11/2020 12:52:[address] [id number] DISCHARGE SUMMARYPATIENT NAME: SUSAN RENDON MR#: [id number] PHYSICIAN: SACHIN CHEUNG MDAUTHOR: Jean Collier MD DATE: 05/08/20 RM#: [id number] DATE: PATIENT : 75Summary of HospitalizationReason for AdmissionRecurrent intraperitoneal abscessHospital [id number] female readmitted after abscess aspiration in IR [...] SignsVital Signs-LastResult Date TimePulse Ox 95 05/11 05B/P 114/79 05/11 0525Temp 98.5 05/11 05Pulse 63 [...] taking these medications:CITALOPRAM HYDROBROMIDE* (Celexa*) 20 MG [id number] MILLIGRAM Orally DAILYAmoxicillin/Potassium Clav (Augmentin XR 1,000-62.5 Tab) 1 EACH TAB.ER.12H1 TABLET Orally TWICE DAILYQty = 20Discharge Activity: As toleratedDischarge diet: RegularFollow-upFollow up with Dr. Collier on Tuesday.DATE SIGNED: 05/11/20 Electronically SignedTIME SIGNED: 1256 JEAN COLLIER MD Name Value Range Interpretation Code Description Data Mahi rce(s) Supporting Document(s) ID Date Data Source [id number] 05/11/2020 12:50:00 PM EST [facility] [address] [id number] NAME: SUSAN RENDON#: [id number] PHYSICIAN: SACHIN CHEUNG [facility] #: [id number] ADM. DATE: 05/08/20PATIENT : 75 DISCH. DATE: [...] rce(s) Supporting Document(s) ID Date Data Source [id number] 05/11/2020 12:07:00 PM EST [facility] Name Value Range Interpretation Code Description Data Mahi rce(s) Supporting Document(s) FGLU 123 mg/dL 70-110 H [facility] ID Date Data Source [id number] 05/11/2020 08:51:00 AM EST [facility] [address] [id number] PROGRESS NOTEPATIENT NAME: SUSAN RENDON PHYSICIAN: SACHIN CHEUNG, MDAUTHOR: Nando DOMINGUEZ,NoahADM. DATE: 05/08/20 MR#: [id number] NOTE DATE: 05/11/20 RM#: [id number] TIME: 0856 : 75SubjectiveCC/Hx Present [id number] female POD #2 status post laparoscopic drainage of intraperitonealabscessObjectiveVital SignsVital Signs- LastResult Date TimePulse Ox 95 05/11 0525B/P 114/79 05/11 052 5Temp 98.5 05/11 0525Pulse 63 05/11 0525Resp 16 05/11 0525Intake/OutputIntake/Output Summary 24 hours05/10 1900 05/11 0700Intake Total 1800 2550Output Total 2115 2100Balance -315 450Intake, IV 1000 950Intake, Oral 800 1600Output, Blood 15LossOutput, Urine 2100 2100Current MedicationsCitalopram Hydrobromide (Celexa) 20 MG DAILY PODextrose/Sodium Chloride/Electrolyt (D5% NSS 0.45% 20KCL 1000ML) 1,000 ML.[id number] IVSodium Chloride (Saline Flush Syr(5ML)) 5 ML [...] 975 MG Q6HPRN PRN POResultsLaboratory DataRecent Labs-24 [id number] (136 - 147 mmol/L) 144Potassium (3.5 - [...] rce(s) Supporting Document(s) ID Date Data Source [id number] 05/11/2020 07:11:00 AM EST [facility] Name Value Range Interpretation Code Description Data Mahi rce(s) Supporting Document(s) MAGNESIUM 2.3 mg/dL 1.6-2.6 [facility] ID Date Data Source [id number] 05/11/2020 07:11:00 AM EST [facility] Name Value Range Interpretation Code Description Data Mahi rce(s) Supporting Document(s) DEQUAN 3.6 mg/dL 2.5-4.5 [facility] ID Date Data Source [id number] 05/11/2020 07:11:00 AM EST [facility] Name Value Range Interpretation Code Description Data Mahi rce(s) Supporting Document(s) GLU 80 mg/dL 70-110 [facility] Patients taking Sulfasalazine may have f alsely depressedGlucose levels. Patients taking Sulfapyridine may havefalsely elevated Glucose levels. Patients should be drawnfor Glucose before the initial administration of eitherdrug. BUN 5 mg/dL 7-23 [facility] CRE 0.526 mg/dL 0.500-1.300 [facility] GFR > 60 mL/min [facility] CHLORIDE 105 mmol/L 99-110 [facility] NA 144 mmol/L 136-147 [facility] POTASSIUM 4.1 mmol/L 3.5-5.1 [facility] TCO2 30 mmol/L 20-33 [facility] ANION GAP 13.1 10.0-20.0 [facility] CA 8.1 mg/dL 8.3-10.7 [facility] ID Date Data Source [id number] 05/11/2020 06:24:00 AM EST [facility] Name Value Range Interpretation Code Description Data Mahi rce(s) Supporting Document(s) WBC 5.12 x10E3/uL 4.0-10.5 [facility] RBC 3.39 x10E6/uL 4.20-5.40 [facility] Hemoglobin 9.9 g/dL 12.0-16.0 [facility] Hematocrit 30.4 % 37.0-47.0 L [facility] MCV 89.7 fL 81.0-99.0 [facility] MCH 29.2 pg 27.0-31.0 [facility] MCHC 32.6 g/dL 32.7-35.6 [facility] RDW 11.9 % 11.5-14.0 [facility] Platelet count 279 x10E3/uL 150-450 N [facility] ital MPV 10.2 fl 6.9-9.5 [facility] Neutrophils 42.6 % 34-64 [facility] Lymphocytes 41.2 % 25-45 [facility] Monocytes 11.1 % 1.7-10.6 [facility] Eosinophils 3.5 % 0.4-7.0 [facility] Basophils 0.4 % 0.1-2.0 [facility] Imm. Gran. 1.2 % 0.1-2.0 [facility] Abs. Neutro. 2.18 x10E3/uL 1.2-7.6 [facility] Abs. Lymph. 2.11 x10E3/uL 1.0-3.5 [facility] Abs. [place]. 0.57 x10E3/uL 0.1-1.0 [facility] Abs. Eosin. 0.18 x10E3/uL 0.1-0.7 [facility] Abs. Baso. 0.02 x10E3/uL 0.0-0.[address] [facility] l Abs. Imm. Gran. 0.06 x10E3/uL 0.0-0.1 [facility] ANRBC% 0 % 0 [facility] ID Date Data Source [id number] 05/10/2020 10:47:00 AM EST [address] [id number] PROGRESS NOTEPATIENT NAME: SUSAN RENDON PHYSICIAN: SACHIN CHEUNG MDAUTHOR: Nando DOMINGUEZ,NoADM. DATE: 05/08/20 MR#: [id number] NOTE DATE: 05/10/20 RM#: [id number] TIME: 1050 : 75SubjectiveCC/Hx Present [id number]-[id number] female POD #1 status post laparoscopic drainage of intraperitonealabscessEvents Since Last EntryFebrile 202 last night. Still feels very tired and sick. She tolerated somesolid food with no nausea.ObjectiveVital SignsVital Signs-LastResult Date TimePulse Ox 97 05/10 0536B/P 105/70 05/10 0536Temp 97.9 05/10 0536Pulse 71 05/10 0536Resp 16 05/10 0536Intake/OutputIntake/Output Summary 24 hours/08 1900 05/10 0700Intake Total 1200 2250Output Total 2175Balance 1200 75Intake, IV 1200 1450Intake, Oral 800Number 3UnmeasuredVoidsOutput, Blood 75LossOutput, Urine 2100Current MedicationsCitalopram Hydrobromide (Celexa) 20 MG DAILY PODextrose/Sodium Chloride/Electrolyt (D5% NSS 0.45% 20KCL 1000ML) 1,000 ML.[id number] IVSodium Chloride (Saline Flush Syr(5ML)) 5 ML [...] rce(s) Supporting Document(s) ID Date Data Source [id number] 05/09/2020 06:01:[address] [id number] REPORTPATIENT NAME: SUSAN RENDON AM.R.#: [id number]: LUCY PRESSLEY. DATE: 05/08/20PATIENT : 75LOCATION: 2EASTACCOUNT #: [id number] ReportOperative ReportDATE OF PROCEDURE: 1PROCEDURE PERFORMED: Laparoscopic [...] type symptomsand presented to the ER at [facility]. A repeat CT demonstrated recurrenceof a 4 [...] in fair condition.Copies to Family Provider: ROSE BALBUENA, ADJUNCT LECTURER-CDATE SIGNED: 05/09/20 Electronically SignedTIME SIGNED: 1805 JEAN COLLIER MD Name Value Range Interpretation Code Description Data Mahi rce(s) Supporting Document(s) ID Date Data Source [id number] 05/09/2020 08:04:[address] [address]XDNFRENC HISTORY AND PHYSICALPATIENT NAME: SUSAN RENDON MR#: [id number] PHYSICIAN: SACHIN CHEUNG MDAUTHOR: Sachin Cheung MD DATE: 05/08/20 RM#: 2EASTHISTORY & PHYSICAL DATE: 05/09/20 PATIENT : 75EVALUATION TIME: 0816HistoryHistory of Presenting Rdbapkn46 yo female who underwent lap appendectomy with [...] respiratory symptoms. Shepresented last night back to [place] where she was found tohave fever, abdominal pain. CT scan confirmed a large recurrent abscess in theright lower quadrant in the same location. She was given IV Zosyn per priorculture sensitivities [facility] been stable. [...] MeanPulse Ox 97 97 95O2 DeliveryO2 Flow DpgmLeN7Cjgtjhsp ExaminationGeneral Appearance no acute distress, alert, awakeNeck suppleRespiratory no distress, aerating wellAbdomen mildly tenderExtremities no clubbing, no cyanosis, no edemaNeurological alert, oriented x 3Data ReviewLaboratory DataRecent Labs-48 hours05/803434778SqvuecapiCmtpgv (136 - 147 mmol/L) 143Potassium (3.5 - [...] RBC % (auto) (0 %) 0ImagingImaging from [place] ED overnight c/w recurrent appendiceal abscess.Assessment/PlanDiagnosis/Problem1. HISTORY [...] withinthe 5-day window needed for surgical intervention. [place] ED repeated this lastnight which was also negative.DATE SIGNED: 05/09/20 Electronically SignedTIME SIGNED: 815 SACHIN CHEUNG MD Name Value Range Interpretation Code Description Data [facility] rce(s) Supporting Document(s) ID Date Data Source [id number] 05/09/2020 06:18:00 AM KYLER [facility] Name Value Range Interpretation Code Description Data [facility] rce(s) Supporting Document(s) GLU 96 mg/dL 70-110 [facility] Patients taking Sulfasalazine may have f alsely depressedGlucose levels. Patients taking Sulfapyridine may havefalsely elevated Glucose levels. Patients should be drawnfor Glucose before the initial administration of eitherdrug. BUN 3 mg/dL 7-23 [facility] CRE 0.564 mg/dL 0.500-1.300 [facility] GFR > 60 mL/min [facility] CHLORIDE 107 mmol/L 99-110 [facility] NA 143 mmol/L 136-147 [facility] POTASSIUM 3.5 mmol/L 3.5-5.1 [facility] TCO2 26 mmol/L 20-33 [facility] ANION GAP 13.5 10.0-20.0 [facility] CA 8.0 mg/dL 8.3-10.7 [facility] ID Date Data Source [id number] 05/09/2020 05:40:00 AM [facility] Name Value Range Interpretation Code Description Data [facility] rce(s) Supporting Document(s) WBC 9.79 x10E3/uL 4.0-10.5 [facility] RBC 3.73 x10E6/uL 4.20-5.40 [facility] Hemoglobin 10.8 g/dL 12.0-16.0 [facility] Hematocrit 32.8 % 37.0-47.0 [facility] MCV 87.9 fL 81.0-99.0 [facility] MCH 29.0 pg 27.0-31.0 [facility] MCHC 32.9 g/dL 32.7-35.6 [facility] RDW 11.9 % 11.5-14.0 [facility] Platelet count 261 x10E3/uL 150-450 N [facility] ital MPV 9.7 fl 6.9-9.5 [facility] Neutrophils 76.4 % 34-64 [facility] Lymphocytes 14.3 % 25-45 L [facility] Monocytes 8.3 % 1.7-10.6 N [facility] Eosinophils 0.2 % 0.4-7.0 L [facility] Basophils 0.1 % 0.1-2.0 [facility] Imm. Gran. 0.7 % 0.1-2.0 [facility] Abs. Neutro. 7.48 x10E3/uL 1.2-7.6 [facility]. Lymph. 1.40 x10E3/uL 1.0-3.5 N [facility] al Abs. [place]. 0.81 x10E3/uL 0.1-1.[address] [facility] l Abs. Eosin. 0.02 x10E3/uL 0.1-0.7 L [facility] al Abs. Baso. 0.01 x10E3/uL 0.0-0.[address] [facility] l Abs. Imm. Gran. 0.07 x10E3/uL 0.0-0.1 [facility] spital ANRBC% 0 % 0 [facility] ID Date Data Source [id number] 05/08/2020 08:11:00 PM EST [facility] SCAN OF THE ABDOMEN AND [...] rce(s) Supporting Document(s) ID Date Data Source [id number] 05/08/2020 06:37:00 PM EST [facility] Name Value Range Interpretation Code Description Data Mahi rce(s) Supporting Document(s) SARS COV2 TRP Not Detected [facility] by [facility]. ID Date Data Source [id number] 05/08/2020 07:28:00 PM EST [facility] TSYSORDER [id number] Name Value Range Interpretation Code Description Data Mahi rce(s) Supporting Document(s) Adenovirus Not Detected Detected Not [facility]spital Coronavirus 229E Not Detected Detected Not [facility] Coronavirus HKU1 Not Detected Detected Not [facility] Coronavirus NL63 Not Detected Detected Not [facility] Coronavirus OC43 Not Detected Detected [facility] Sars Cov 2 Not Detected Detected Not [facility] Metapneumovirus Not Detected Detected [facility] Human Rhinovirus Not Detected Detected Not [facility] Influenza A Not Detected Detected [facility] Influenza B Not Detected Detected [facility] Parainfluenza Virus 1 Not Detected Detected [facility] Parainfluenza Virus 2 Not Detected Detected Not [facility] Parainfluenza Virus 3 Not Detected Detected Not [facility] Parainfluenza Virus 4 Not Detected Detected Not [facility] Respiratory Syncytial Virus Not Detected Detected Not [facility] Bordetella parapertus ([id number]) Not Detected Detected [facility] Bordetella pertussis (ptxP) Not Detected Detected Not [facility] Chlamydia pneumoniae Not Detected Detected Not [facility] Mycoplasma pneumoniae Not Detected Detected [facility] The Above results have been determined b y using the [facility] system.[employer] is an automated in vitro diagnostic system thatutilizes nested multiplex Polymerase Chain Reaction (PCR)and high-resolution melting analysis to detect and identifymultiple nucleic acid targets from clinical specimens. ID Date Data Source [id number] 05/08/2020 05:48:00 PM EST [facility] TSYSORDER [id number] Name Value Range Interpretation Code Description Data Mahi rce(s) Supporting Document(s) HCG URINE NEGATIVE NEGATIVE [facility] ID Date Data Source [id number] 05/08/2020 05:55:00 PM EST [facility] TSYSORDER [id number] Name Value Range Interpretation Code Description Data Mahi rce(s) Supporting Document(s) URINE COLOR. [facility] URINE APPEARANCE CLEAR [facility] l URINE GLUCOSE (UA) NEGATIVE mg/dL NEGATIVE [facility] URINE BILIRUBIN NEGATIVE NEGATIVE [facility] URINE KETONE NEGATIVE mg/dL NEGATIVE [facility] SPECIFIC GRAVITY,URINE 1.015 1.001-1.035 [facility] URINE BLOOD NEGATIVE NEGATIVE [facility] PH,URINE 7.0 5.0-9.0 [facility] URINE PROTEIN NEGATIVE mg/dL NEGATIVE [facility] jak URINE UROBILINOGEN NORMAL(0.2-1) mg/dL 0-1 [facility] URINE NITRATE NEGATIVE NEGATIVE [facility] URINE LEUKOCYTE ESTERASE NEGATIVE NEGATIVE [facility] ID Date Data Source [id number] 05/15/2020 09:13:00 AM EST [facility] Name Value Range Interpretation Code Description Data Mahi rce(s) Supporting Document(s) [facility] ID Date Data Source [id number] 05/15/2020 09:12:00 AM EST [facility] Name Value Range Interpretation Code Description Data Mahi rce(s) Supporting Document(s) [facility] ID Date Data Source [id number] 05/08/2020 05:31:00 PM EST [facility] TSYSORDER [id number] Name Value Range Interpretation Code Description Data Mahi rce(s) Supporting Document(s) GLUCOSE 92 mg/dL 74-106 [facility] BLOOD UREA NITROGEN 7 mg/dL 7-18 [facility] ital CREATININE 0.82 mg/dL 0.6-1.0 [facility] SODIUM 138 mmol/L 136-145 [facility] POTASSIUM 3.6 mmol/L 3.5-5.1 [facility] CHLORIDE 98 mmol/L 98-107 [facility] CO2 30 mmol/L 21-32 [facility] CALCIUM 9.0 mg/dL 8.5-10.1 [facility] ANION GAP 10.0 mmol/L 5-12 [facility] GLOMERULAR FILTRATION RATE 75 mL/min [facility] GFR IS CALCULATED IN mL/min/1.73m2 KULWANT L FUNCTION: >90MILDLY DECREASED: 60-89MILDY TO MODERATELY DECREASED: 45-59 MODERATELY TO SEVERELY DECREASED: 30-44SEVERELY DECREASED: 15-29RENAL FAILURE: <15 AST 17 U/L 15-37 [facility] ALT 24 U/L 12-78 [facility] ALKALINE PHOSPHATASE 67 U/L 46-116 [facility] pital TOTAL BILIRUBIN 0.4 mg/dL 0.2-1.0 [facility] TOTAL PROTEIN 7.4 g/dl 6.4-8.2 [facility] ALBUMIN 2.8 gm/dL 3.4-5.0 L [facility] ID Date Data Source [id number] 05/08/2020 05:31:00 PM [facility] TSYSORDER [id number] Name Value Range Interpretation Code Description Data Mahi rce(s) Supporting Document(s) LIPASE 78 U/L 73-393 [facility] ID Date Data Source [id number] 05/08/2020 05:42:00 PM [facility] l TSYSORDER [id number] Name Value Range Interpretation Code Description Data Mahi rce(s) Supporting Document(s) LACTIC ACID 1.0 mmol/L 0.4-2.0 [facility] ID Date Data Source [id number] 05/08/2020 05:19:00 PM [facility] l TSYSORDER [id number] Name Value Range Interpretation Code Description Data Mahi rce(s) Supporting Document(s) WHITE BLOOD COUNT 11.7 K/mm3 4.0-10.0 H [facility] RED BLOOD COUNT 4.08 M/mm3 4.00-5.50 [facility] HEMOGLOBIN 11.8 gm/dL 12.0-16.0 [facility] HEMATOCRIT 35.7 % 36.0-48.8 L [facility] MEAN CELL VOLUME 87.5 fl 80-96 [facility] MEAN CORPUSCULAR HEMOGLOBIN 28.9 pg 27.0-31.0 [facility] MEAN CORPUSCULAR HGB CONC 33.1 g/dl 32.0-36.0 [facility] RED CELL DISTRIBUTION WIDTH 11.6 % 10.0-14.5 [facility] PLATELET COUNT 276 K/mm3 172-450 [facility] MEAN PLATELET VOLUME 9.7 fl 9.0-13.0 [facility] pital GRAN % 79.6 % 50-80.0 [facility] IG% 0.5 % 0.0-0.2 H [facility] LYMPH % 12.4 % 25.0-50.0 L [facility] MONO % 6.9 % 2.0-10.0 [facility] EOS % 0.4 % 0-5.0 [facility] BASO % 0.2 % 0.0-2.0 [facility] GRAN # 9.3 K/mm3 2.0-8.00 H [facility] IG# 0.1 K/mm3 0.0-0.2 [facility] LYMPH # 1.5 K/mm3 1.0-5.0 [facility] MONO # 0.8 K/mm3 0.10-1.20 [facility] EOS # 0.1 K/mm3 0.0-0.5 [facility] BASO # 0.0 K/mm3 0.0-0.2 [facility] ID Date Data Source [id number] 05/06/2020 04:33:00 PM EST [facility] Exam Number: [id number] Reporte d By: - LISA KNOTT MD Signed By: LISA KNOTT MD Name Value Range Interpretation Code Description Data Mahi rce(s) Supporting Document(s) ID Date Data Source [id number] 05/06/2020 11:45:00 AM EST [facility] [address] [id number] DISCHARGE SUMMARYPATIENT NAME: SUSAN RENDON MR#: [id number] PHYSICIAN: WILBERTO LOUISHOR: Nando DOMINGUEZ,Jean DATE: 05/04/20 RM#: [id number] DATE: 05/06/20 PATIENT : 75Summary of HospitalizationReason for AdmissionPostop appendiceal abscessHospital Eglerg[facility]-zsuy-yvx female admitted a week postop after laparoscopic [...] taking these medications:CITALOPRAM HYDROBROMIDE* (Celexa*) 20 MG [id number] [facility] Orally DAILYCLONAZEPAM (KLONOPIN) 0.5 MG TABLET0.5 [facility] Orally TWICE DAILY NEEDED as needed for ANXIETYInstructions:Max daily dose= 2 TABSMETOPROLOL* (Lopressor*) 25 MG HPWSLC27.5 [facility] Orally TWICE DAILYInstructions:CURRENTLY BEING HELD DUE [...] rce(s) Supporting Document(s) ID Date Data Source [id number] 05/06/2020 11:40:00 AM EST [facility] [place], [place] [address]PATIENT NAME: SUSAN RENDON#: [id number] PHYSICIAN: MARLIN FLORES DOACCOUNT #: [id number] ADM. DATE: 05/04/20PATIENT : 75 DISCH. DATE: [...] rce(s) Supporting Document(s) ID Date Data Source [id number] 05/06/2020 10:32:00 AM EST [facility] Exam Number: [id number] OF EXAMINATIO N: 05/05/2020 14:54 ESTCT PELVIS [...] rce(s) Supporting Document(s) ID Date Data Source [id number] 05/06/2020 10:00:00 AM EST [facility] Exam Number: [id number] OF EXAMINATIO N: 05/05/2020 7:00 ESTCT GUIDANCE [...] rce(s) Supporting Document(s) ID Date Data Source [id number] 05/06/2020 09:25:00 AM EST [facility] [address] [id number] PROGRESS NOTEPATIENT NAME: SUSAN RENDON PHYSICIAN: MARLIN FLORES DOAUTHOR: Nando DOMINGUEZ,NoahADM. DATE: 05/04/20 MR#: [id number] NOTE DATE: 05/06/20 #: 211EVALUATION TIME: 926 : 75SubjectiveCC/Hx Present [id number] with postop abscess status post laparoscopic appendectomyEvents [...] IMSodium Chloride (SODIUM CHLORIDE 0.9%) 1,000 ML .[id number] IVSodium Chloride (Saline Flush Syr(5ML)) 5 ML QIDPRN PRN IVSodium Chloride (Saline Flush Syr(5ML)) 5 ML Q12H IVExamGeneral Appearance no acute distress, afebrileCardiovascular normal caillary refillRespiratory no distressAbdomen soft, non-tender, incis C/D/I with some bruising. IR drain site clean.ResultsLaboratory DataRecent Labs-24 [id number] (136 - 147 mmol/L) 141Potassium (3.5 - [...] Name Value Range Interpretation Code Description Data [facility] rce(s) Supporting Document(s) ID Date Data Source [id number] 05/06/2020 06:05:00 AM EST [facility] Name Value Range Interpretation Code Description Data [facility](s) Supporting Document(s) GLU 101 mg/dL 70-110 [facility] Patients taking Sulfasalazine may have f alsely depressedGlucose levels. Patients taking Sulfapyridine may havefalsely elevated Glucose levels. Patients should be drawnfor Glucose before the initial administration of eitherdrug. BUN 5 mg/dL 7-23 [facility] CRE 0.526 mg/dL 0.500-1.300 [facility] GFR > 60 mL/min [facility] CHLORIDE 104 mmol/L 99-110 [facility] NA 141 mmol/L 136-147 [facility] POTASSIUM 3.8 mmol/L 3.5-5.1 [facility] TCO2 29 mmol/L 20-33 [facility] ANION GAP 11.8 10.0-20.0 [facility] CA 8.0 mg/dL 8.3-10.7 [facility] ID Date Data Source [id number] 05/06/2020 05:42:00 AM [facility] Name Value Range Interpretation Code Description Data [facility](s) Supporting Document(s) WBC 6.34 x10E3/uL 4.0-10.5 [facility] RBC 3.64 x10E6/uL 4.20-5.40 [facility] Hemoglobin 10.7 g/dL 12.0-16.0 [facility] Hematocrit 32.6 % 37.0-47.0 [facility] MCV 89.6 fL 81.0-99.0 [facility] MCH 29.4 pg 27.0-31.0 [facility] MCHC 32.8 g/dL 32.7-35.6 N [facility] RDW 11.9 % 11.5-14.0 N [facility] Platelet count 211 x10E3/uL 150-450 N [facility] ital MPV 10.1 fl 6.9-9.5 H [facility] Neutrophils 61.7 % 34-64 N [facility] Lymphocytes 20.2 % 25-45 L [facility] Monocytes 14.4 % 1.7-10.6 H [facility] Eosinophils 2.4 % 0.4-7.0 N [facility] Basophils 0.5 % 0.1-2.0 N [facility] Imm. Gran. 0.8 % 0.1-2.0 N [facility] Abs. Neutro. 3.92 x10E3/uL 1.2-7.6 N [facility] Abs. Lymph. 1.28 x10E3/uL 1.0-3.5 [facility] Abs. [place]. 0.91 x10E3/uL 0.1-1.[address] [facility] l Abs. Eosin. 0.15 x10E3/uL 0.1-0.7 [facility] Abs. Baso. 0.03 x10E3/uL 0.0-0.[address] [facility] l Abs. Imm. Gran. 0.05 x10E3/uL 0.0-0.1 N [facility] spital ANRBC% 0 % 0 N [facility] ID Date Data Source [id number] 05/09/2020 06:57:00 PM EST [facility] Cc:Zac () ABDOMIN AL ABSCESS DRAINAGE: - NEGATIVE FOR MALIGNANT CELLS COMMENT: Sure[employer] preps and a cell block contain innumerable PMNs and mesothelial cells. CODE/S:[id number] . Abdominal abcess drainage. URINE CATHERIZED URINE VOIDED SPUTUM 2 syringes- 15ml from each added to Cytorich RedBRONCHIAL BRUSH BRONCHIAL WASH GASTRIC PLEURAL FLUID PERITONEAL FLUID PERICARDIAL FLUID CSF CELL BLOCK OTHER (SPECIFY) SEMEN ANALYSIS FINE NEEDLE ASPIRATION Abdominal abcess drainage/ PREP/CB/SW/05/06/20CERVICAL Selective cellular enrichment preps and cell block reviewed.Diagnosis supported by microscopic examination. REPORT SIGNED: Carolyne Montero 05/09/20 Name Value Range Interpretation Code Description Data Mahi rce(s) Supporting Document(s) ID Date Data Source [id number] 05/08/2020 01:03:00 PM EST [facility] COMMENTS TO LAB: ABCESS DRAINAGE ABDOMEN POST APPENDECTOMYSTREPTOCOCCUS BOVISCLOSTRIDIUM PERFRINGENS Name Value Range Interpretation Code Description Data Mahi rce(s) Supporting Document(s) ID Date Data Source [id number] 05/08/2020 01:02:00 PM EST [facility] COMMENTS TO LAB: ABCESS DRAINAGE ABDOMEN POST APPENDECTOMYWBCS IN LARGE NUMBERSMODERATE NUMBERS GRAM POS COCCISMALL NUMBERS GRAM POS BACILLISMALL NUMBERS GRAM NEGATIVE [facility] Name Value Range Interpretation Code Description Data Mahi rce(s) Supporting Document(s) ID Date Data Source [id number] 05/05/2020 02:20:00 PM EST [facility] Exam Number: [id number] OF EXAMINATIO N: 05/05/2020 14:01 ESTCT ABD&PEL [...] M.D. Signed By: Shavon BAUTISTA M.D. ADDENDUM: [id number] CT/[id number] cc of yellowish pus and 20 cc of gas was drained from the abscesspocketElectronically signed in PS360 by: Aldair Bautista M.D. 116:21 EST Reported By: Jo BAUTISTA M.D. Signed By: Shavon BAUTISTA M.D. Name Value Range Interpretation Code Description Data Mahi rce(s) Supporting Document(s) ID Date Data Source [id number] 05/05/2020 12:14:00 PM EST [address] [id number] PROGRESS NOTEPATIENT NAME: SUSAN RENDON PHYSICIAN: MARLIN FLORES DOAUTHOR: Jonatan DOMINGUEZ,[facility]. DATE: 05/04/20 MR#: [id number] NOTE DATE: 05/05/20 RM#: [id number] TIME: 1216 : 75SubjectiveEvents Since Last EntryStable [...] 0935Globulin (2.3 - 3.5 g/dL) 3.7 H / 0935Albumin/Globulin Ratio (1.0 - 2.5) 0.8 L / 0935CoagulationAPTT (21.2 - 31.2 SECONDS) 27.3 / 0935HematologyWBC (4.0 - 10.5 x10E3/uL) 6.81 / 0544RBC (4.20 - 5.40 x10E6/uL) 3.63 L 05/05 0544Hgb (12.0 - 16.0 g/dL) 10.6 L 05/05 0544Hct (37.0 - 47.0 %) 32.4 L 05/05 0544MCV (81.0 - 99.0 fL) 89.3 / 0544MCH (27.0 - 31.0 pg) 29.2 / 0544MCHC (32.7 - 35.6 g/dL) 32.7 / 0544RDW (11.5 - 14.0 %) 11.8 / 0544Plt Count (150 - 450 x10E3/uL) 206 / 0544MPV (6.9 - 9.5 fl) 10.4 H 05/05 0544Immature Gran % (Auto) (0.1 - 2.0 %) 0.4 / 0544Neut % (Auto) (34 - 64 %) 71.6 H 05/05 0544Lymph % (Auto) (25 - 45 %) 13.8 L 05/05 0544Mono % (Auto) (1.7 - 10.6 %) 12.3 H 05/05 0544Eos % (Auto) (0.4 - 7.0 %) 1.6 / 0544Baso % (Auto) (0.1 - 2.0 %) 0.3 05/05 0544Abs Immat Gran (auto) (0.0 - 0.1 x10E3/uL) 0.03 / 0544Absolute Neuts (auto) (1.2 - 7.6 x10E3/uL) 4.87 05/05 0544Absolute Lymphs (auto) (1.0 - 3.5 x10E3/uL) 0.94 L 05/05 0544Absolute Monos (auto) (0.1 - 1.0 x10E3/uL) 0.84 05/05 0544Absolute Eos (auto) (0.1 - 0.7 x10E3/uL) 0.11 05/05 0544Absolute Basos (auto) (0.0 - 0.1 x10E3/uL) 0.02 05/05 0544Nucleated RBC % (auto) (0 %) 0 05/05 0544SerologyCOVID-19 (JULIANNA) (NEGATIVE) NEGATIVE 05/04 0935UrinesUrine Color Yellow 05/04 1017Urine Appearance Clear 05/04 1017Urine pH (5.0 - 8.0) 6.5 05/04 1017Ur Specific [place] (1.010 - 1.025) 1.010 05/04 1017Urine Protein [...] rce(s) Supporting Document(s) ID Date Data Source [id number] 05/05/2020 11:18:00 AM EST [facility] [address] [id number] NOTEPATIENT NAME: SUSAN RENDON PHYSICIAN: NEREIDA PRESSLEYOR: Young Flores DO. DATE: 05/04/20 MR#: [id number] NOTE DATE: 05/05/20 RM#: [id number] TIME: 1123 : 75SubjectiveEvents Since Last EntryPatient seen and examined in the room today. Patient still has intermittentfever up to admission. Patient still experiences discomfort at the right lowerabdomen. Patient has been n.p.o. after midnight. Denies acute change.ObjectiveVital SignsVital Signs-24 HRS05/04321 1433 1604 1611 1830Temp 98.9 98.4 98.4 98.4 99.8Pulse 85 74Resp 16 16B/P 146/95 103/91B/P MeanPulse Ox 100 94O2 DeliveryO2 Flow HylsXqL76605/04000 2057 2147 2326 0110Temp 100.7 99.5 99.0 100.4Pulse 82 80Resp 20 17B/P 125/89 138/88B/P MeanPulse Ox 98 99O2 DeliveryO2 Flow KkdeVkP24805/05440 0602 0614Temp 99.5 99.0 99.0PulseRespB/PB/P MeanPulse OxO2 DeliveryO2 Flow OxxbMrU6Himyzw/OutputIntake/Output Summary 24 hours05/04 1900 05/05 0700Intake Total [...] IMSodium Chloride (SODIUM CHLORIDE 0.9%) 1,000 ML .I55T29T IVSodium Chloride (Saline Flush Syr(5ML)) 5 ML [...] normal affect, normal judgem entResultsLaboratory DataRecent Labs-24 hours01/876785TfarejmmzSchsos (136 - 147 mmol/L) 138Potassium (3.5 - [...] x10E3/uL) 0.02Nucleated RBC % (auto) (0 %) 7DimimjitphnuOepmlltynioa94/03 1003 BLOOD: Blood Culture - RECD05/04 0935 [...] rce(s) Supporting Document(s) ID Date Data Source [id number] 05/05/2020 08:10:00 AM EST [facility] Exam Number: [id number] OF EXAMINATIO N: 05/04/2020 9:22 ESTCHEST SINGLE [...] rce(s) Supporting Document(s) ID Date Data Source [id number] 05/05/2020 06:54:00 AM EST [facility] Name Value Range Interpretation Code Description Data Mahi rce(s) Supporting Document(s) GLU 84 mg/dL 70-110 [facility] Patients taking Sulfasalazine may have f alsely depressedGlucose levels. Patients taking Sulfapyridine may havefalsely elevated Glucose levels. Patients should be drawnfor Glucose before the initial administration of eitherdrug. BUN 4 mg/dL 7-23 [facility] CRE 0.449 mg/dL 0.500-1.300 [facility] GFR > 60 mL/min [facility] CHLORIDE 104 mmol/L 99-110 [facility] NA 138 mmol/L 136-147 [facility] POTASSIUM 3.8 mmol/L 3.5-5.1 [facility] TCO2 26 mmol/L 20-33 [facility] ANION GAP 11.8 10.0-20.0 [facility] CA 8.2 mg/dL 8.3-10.7 [facility] ID Date Data Source [id number] 05/05/2020 06:38:00 AM EST [facility] Name Value Range Interpretation Code Description Data Mahi rce(s) Supporting Document(s) WBC 6.81 x10E3/uL 4.0-10.5 N [facility] RBC 3.63 x10E6/uL 4.20-5.40 [facility] Hemoglobin 10.6 g/dL 12.0-16.0 [facility] Hematocrit 32.4 % 37.0-47.0 [facility] MCV 89.3 fL 81.0-99.0 [facility] MCH 29.2 pg 27.0-31.0 [facility] MCHC 32.7 g/dL 32.7-35.6 [facility] RDW 11.8 % 11.5-14.0 [facility] Platelet count 206 x10E3/uL 150-450 N [facility] ital MPV 10.4 fl 6.9-9.5 H [facility] Neutrophils 71.6 % 34-64 H [facility] Lymphocytes 13.8 % 25-45 L [facility] Monocytes 12.3 % 1.7-10.6 H [facility] Eosinophils 1.6 % 0.4-7.0 [facility] Basophils 0.3 % 0.1-2.0 [facility] Imm. Gran. 0.4 % 0.1-2.0 [facility] Abs. Neutro. 4.87 x10E3/uL 1.2-7.6 N [facility] Abs. Lymph. 0.94 x10E3/uL 1.0-3.5 [facility] Abs. [place]. 0.84 x10E3/uL 0.1-1.0 [facility] Abs. Eosin. 0.11 x10E3/uL 0.1-0.7 [facility] Abs. Baso. 0.02 x10E3/uL 0.0-0.1 [facility] Abs. Imm. Gran. 0.03 x10E3/uL 0.0-0.1 N [facility] spital ANRBC% 0 % 0 [facility] ID Date Data Source [id number] 05/04/2020 03:27:00 PM EST [facility] [place] [id number] CONSULT REPORTPATIENT NAME: SUSAN RENDON MR#: [id number] PHYSICIAN: MARLIN FLORES, DOCONSULTING PHYSICIAN: aSchin Cheung MD DATE: 05/04/20 RM#: ICUCONSULTING DATE: 05/04/20 PATIENT : 75EVALUATION TIME: 1531HistoryHistory of Presenting Yzibgfb22-xozp-nln female status post laparoscopic appendectomy with Dr. [...] 0935Chl oride (99 - 110 mmol/L) 104 / 0935Serum Bicarbonate (20 - 33 mmol/L) 26 [...] 0935Alkaline Phosphatase (45 - 117 U/L) 70 / 0935Total Protein (6.0 - 7.8 g/dL) 6.8 05/04 0935Albumin (3.5 - 5.0 g/dL) 3.1 L 05/04 0935Globulin (2.3 - 3.5 g/dL) 3.7 H 05/04 0935Albumin/Globulin Ratio (1.0 - 2.5) 0.8 L 05/04 0935CoagulationAPTT (21.2 - 31.2 SECONDS) 27.3 05/04 0935HematologyWBC (4.0 - 10.5 x10E3/uL) 11.89 H 05/04 0935RBC (4.20 - 5.40 x10E6/uL) 4.40 / 0935Hgb (12.0 - 16.0 g/dL) 12.9 05/04 0935Hct (37.0 - 47.0 %) 38.7 / 0935MCV (81.0 - 99.0 fL) 88.0 05/04 0935MCH (27.0 - 31.0 pg) 29.3 / 0935MCHC (32.7 - 35.6 g/dL) 33.3 05/04 [...] % (Auto) (0.4 - 7.0 %) 0.8 / 0935Baso % (Auto) (0.1 - 2.0 %) [...] % (auto) (0 %) 0 05/04 0935SerologyCOVID-19 (JUILANNA) (NEGATIVE) NEGATIVE 05/04 0935UrinesUrine Color Yellow 05/04 1017Urine Appearance Clear 05/04 1017Urine pH (5.0 - 8.0) 6.5 05/04 1017Ur Specific [place] (1.010 - 1.025) 1.010 05/04 1017Urine Protein [...] Rare 05/04 1017Urine Glucose (NEGATIVE) Negative 05/04 1017Physical ExaminationGeneral Appearance no acute distress, alert, awake, conversantHead atraumatic, normocephalicNeck suppleCardiovascular regular rateRespiratory no distress, aerating well, sy mmetric expansionAbdomen mildly tenderExtremities no clubbing, no cyanosis, no edemaNeurological alert, oriented x 3Data ReviewLaboratory DataRecent Labs-48 hours05/04405954 7410 1003Blood GasMixed VBG O2 Saturation (%) 96.7Capillary [...] % (auto) (0 %) 0SerologyCOVID-19 (JULIANNA) (NEGATIVE) UVADIIQT92/757286LwyoyqBgjtp Color YellowUrine Appearance ClearUrine pH (5.0 - 8.0) 6.5Ur Specific [place] (1.010 - 1.025) 1.010Urine Protein (Negat laurie) NegativeUrine Ketones (NEGATIVE) NegativeUrine Blood (NEGATIVE) NegativeUrine Nitrite (Negative) NegativeUr Bilirubin Confirm (NEGATIVE) NegativeUrine Urobilinogen (0.2 - 1.0 mg/dL) 1.0Urine Leukocytes (Negative) TraceUrine RBC (NONE SEEN) None SeenUrine WBC (NONE SEEN) 0-2 WBCs/HPFUrine Bacteria (NONE SEEN) RareUrine Glucose (NEGATIVE) OtbqufqoVhserjtkjwcl63/ 1003 BLOOD: Blood Culture - RECD/ 0935 BLOOD: Blood Culture - RECDImagingDATE OF [...] relatively normal.PAGE 1 Signed Report Printed From [employer] (CONTINUED)[place], [place] [id number] CONSULTATIONDate of : 1975 Name: SUSAN RENDONrec Number: [id number] Phys: ADRIANE LEVY MDExsimone Date: 05/04/2020 Location: ERProcedure: ABDPELWIIV, CT ABD&PEL WITH IV CONT Rad Numb: [id number] \\EXAM# TYPE/EXAM [id number] CT/CT ABD&PEL WITH IV CONT ONLYElectronically signed [...] GASTRIC BYPASSDATE SIGNED: 05/04/20 Electronically SignedTIME SIGNED: [id number] SACHIN CHEUNG MD Name Value Range Interpretation Code Description Data Mahi rce(s) Supporting Document(s) ID Date Data Source [id number] 05/04/2020 12:43:00 PM [facility] [place], [place] [address]VODBPRP AND PHYSICALPATIENT NAME: SUSAN RENDON MR#: [id number] PHYSICIAN: JEAN COLLIER MDAUTHOR: Marlin Flores DO DATE: 05/04/20 RM#: 2WESTHISTORY & PHYSICAL DATE: 05/04/20 : 75EVALUATION TIME: 1258HistoryChief Complaint/Admit ReasonRight abdominal pain with feverHistory of Presenting IllnessPatient is a 45 years old female with a past medical history significant foranxiety, hypertension, history of gastric bypass presented [facility] on 05/04/2019 with complaints of fever and acute onset of rightlower abdominal pain. [facility] and patient had a appendectomy [...] regular rate, no murmur, Positive S1 and S8Eorimoubijq clear to auscultation, no distress, aerating well, [...] normal affect, normal judgementData ReviewLaboratory DataRecent Labs-48 hours05/04935 0935 1003Blood GasMixed VBG O2 Saturation (%) [...] % (auto) (0 %) 0SerologyCOVID-19 (JULIANNA) (NEGATIVE) RQRKUNNZ19/303817WhftksOzzqq Color YellowUrine Appearance ClearUrine pH (5.0 - 8.0) 6.5Ur Specific [place] (1.010 - 1.025) 1.010Urine Protein (Negative) NegativeUrine Ketones (NEGATIVE) NegativeUrine Blood (NEGATIVE) NegativeUrine Nitrite (Negative) NegativeUr Bilirubin Confirm (NEGATIVE) NegativeUrine Urobilinogen (0.2 - 1.0 mg/dL) 1.0Urine Leukocytes (Negative) TraceUrine RBC (NONE SEEN) None SeenUrine WBC (NONE SEEN) 0-2 WBCs/HPFUrine Bacteria (NONE SEEN) RareUrine Glucose (NEGATIVE) BkarjfyhQvdopanrpufw87/ 1003 BLOOD: Blood Culture - RECD05/04 0935 [...] rce(s) Supporting Document(s) ID Date Data Source [id number] 05/04/2020 10:57:00 AM [facility] Exam Number: [id number] OF EXAMINATIO N: 05/04/2020 9:46 ESTCT ABD&PEL [...] rce(s) Supporting Document(s) ID Date Data Source [id number] 05/04/2020 10:31:00 AM [facility] Name Value Range Interpretation Code Description Data Mahi rce(s) Supporting Document(s) URINE COLOR Yellow N [facility] UAPR Clear N [facility] UGLU Negative NEGATIVE [facility] URINE BILIRUBIN Negative NEGATIVE [facility] UKET Negative NEGATIVE [facility] USG 1.010 1.010-1.025 [facility] UBLO Negative NEGATIVE [facility] UpH 6.5 5.0-8.0 [facility] UPRO Negative Negative [facility] UUB 1.0 mg/dL 0.2-1.0 [facility] UNIT Negative Negative [facility] ULEU Trace Negative [facility] ID Date Data Source [id number] 05/04/2020 10:31:00 AM EST [facility] Name Value Range Interpretation Code Description Data Mahi rce(s) Supporting Document(s) URINE RBC None Seen NONE SEEN [facility] URINE WBC 0-2 WBCs/HPF NONE SEEN [facility] URINE BACTERIA Rare NONE SEEN [facility] URINE EPI. Few NONE SEEN [facility] ID Date Data Source [id number] 05/10/2020 06:53:00 AM EST [facility] Name Value Range Interpretation Code Description Data Mahi rce(s) Supporting Document(s) [facility] ID Date Data Source [id number] 05/04/2020 10:33:00 AM EST [facility] Name Value Range Interpretation Code Description Data Mahi rce(s) Supporting Document(s) PO2 CLAUDIO/CAP 93.2 mm/Hg [facility] PH CLAUDIO/CAP 7.429 7.310-7.410 [facility] PCO2 CLAUDIO/CAP 37.2 mm/Hg [facility] HCO3 CLAUDIO/CAP 24.1 mmoL/L [facility] l O2 SAT CLAUDIO/CAP 96.7 % [facility] l ID Date Data Source [id number] 05/10/2020 06:53:00 AM EST [facility] Name Value Range Interpretation Code Description Data Mahi rce(s) Supporting Document(s) [facility] ID Date Data Source [id number] 05/04/2020 10:24:00 AM EST [facility] Name Value Range Interpretation Code Description Data Mahi rce(s) Supporting Document(s) MAGNESIUM 2.1 mg/dL 1.6-2.6 [facility] ID Date Data Source [id number] 05/04/2020 10:24:00 AM EST [facility] Name Value Range Interpretation Code Description Data Mahi rce(s) Supporting Document(s) GLU 84 mg/dL 70-110 [facility] Patients taking Sulfasalazine may have f alsely depressedGlucose levels. Patients taking Sulfapyridine may havefalsely elevated Glucose levels. Patients should be drawnfor Glucose before the initial administration of eitherdrug. BUN 6 mg/dL 7-23 [facility] CRE 0.515 mg/dL 0.500-1.300 [facility] GFR > 60 mL/min [facility] CHLORIDE 104 mmol/L 99-110 [facility] NA 139 mmol/L 136-147 [facility] POTASSIUM 4.5 mmol/L 3.5-5.1 [facility] TCO2 26 mmol/L 20-33 [facility] ANION GAP 13.5 10.0-20.0 [facility] CA 8.7 mg/dL 8.3-10.7 [facility] ALKALINE PHOS 70 U/L 45-117 [facility] TP 6.8 g/dL 6.0-7.8 [facility] ALB 3.1 g/dL 3.5-5.0 [facility] ESRD Dialysis patient Albumin reference range: 2.9-4.4 g/dL GL 3.7 g/dL 2.3-3.5 H [facility] A/G 0.8 1.0-2.5 [facility] T. BILIRUBIN 0.6 mg/dL 0.1-1.1 [facility] [place] Total Bilirubin is n ot recommended forpatients undergoing treatment with eltrombopag (Promacta)due to the potential for falsely elevated results. ALTI 20 U/L 6-54 [facility] Patients taking Sulfasalazine and/or Sul fapyridine may havefalsely depressed ALT levels. Patients should be drawn forALT before the initial administration of either drug. AST 18 U/L 6-38 [facility] Patients taking Sulfasalazine and/or Sul fapyridine may havefalsely depressed AST levels. Patients should be drawn forAST before the initial administration of either drug. ID Date Data Source [id number] 05/04/2020 10:13:00 AM EST [facility] ANTI-COAGULANTS PT.IS TAKING: None Name Value Range Interpretation Code Description Data Mahi rce(s) Supporting Document(s) APTT 27.3 SECONDS 21.2-31.2 [facility] NOTE NEW REFERENCE RANGE EFFECTIVE ID Date Data Source [id number] 05/04/2020 10:12:00 AM EST [facility] Name Value Range Interpretation Code Description Data Mahi rce(s) Supporting Document(s) LACTIC ACID MIKO 0.7 mmol/L 0.4-2.0 [facility] ID Date Data Source [id number] 05/04/2020 10:09:00 AM EST [facility] Name Value Range Interpretation Code Description Data Mahi rce(s) Supporting Document(s) COVID-19, JULIANNA NEGATIVE NEGATIVE [facility] Methodology: Nucleic Acid AmplificationN egative results [...] Emergency Use Authorization. ID Date Data Source [id number] 05/04/2020 09:50:00 AM EST [facility] Name Value Range Interpretation Code Description Data Mahi rce(s) Supporting Document(s) WBC 11.89 x10E3/uL 4.0-10.5 [facility] RBC 4.40 x10E6/uL 4.20-5.40 [facility] Hemoglobin 12.9 g/dL 12.0-16.0 [facility] Hematocrit 38.7 % 37.0-47.0 [facility] MCV 88.0 fL 81.0-99.0 [facility] MCH 29.3 pg 27.0-31.0 [facility] MCHC 33.3 g/dL 32.7-35.6 [facility] RDW 11.9 % 11.5-14.0 [facility] Platelet count 238 x10E3/uL 150-450 N [facility] ital MPV 10.4 fl 6.9-9.5 H [facility] Neutrophils 74.9 % 34-64 [facility] Lymphocytes 14.0 % 25-45 L [facility] Monocytes 9.4 % 1.7-10.6 N [facility] Eosinophils 0.8 % 0.4-7.0 [facility] Basophils 0.3 % 0.1-2.0 [facility] Imm. Gran. 0.6 % 0.1-2.0 [facility] Abs. Neutro. 8.92 x10E3/uL 1.2-7.6 [facility] Abs. Lymph. 1.66 x10E3/uL 1.0-3.5 [facility] Abs. [place]. 1.12 x10E3/uL 0.1-1.0 [facility] Abs. Eosin. 0.09 x10E3/uL 0.1-0.7 [facility] Abs. Baso. 0.03 x10E3/uL 0.0-0.1 [facility] Abs. Imm. Gran. 0.07 x10E3/uL 0.0-0.1 [facility] spital ANRBC% 0 % 0 [facility] ID Date Data Source [id number] 05/04/2020 01:21:00 PM EST [facility]'s [facility]Cl[facility] terName: Susan Bautistage: 45 yrsSex: FemaleDOB: 1975MRN: [id number] Date: 05/04/2020Time: 09:06Account#: [id number] 7BPradithya DOMINGUEZ: Out of town provider, -Diagnosis: Free text-Post appendectomy abdominal abscessPresentation:05/308:07 Presenting complaint: Patient states: had appendix done on Tuesday. klpfever last night with increased pain. Coronavirus Screening: Have youtraveled internationally or had contact with someone that hastraveled and has been ill in the past 3 weeks? no Have you traveledto a location with widespread or ongoing COVID-19 community spread [facility]? no Flu-like symptoms reported in the last 14days: fever or chills (including if you have treated with Tylenol orother medications), nausea, Have you had close contact with confirmedor suspected COVID-19 case? no Have you been diagnosed with COVID-19in the past 30 days? no Are you currently on quarantine by [facility]? no. Communicable Disease Screen: Positive for fever [...] Smoking status: [facility] status Uses ETOH Occasionally.- Advance Directives:: [...] in no apparent distress at this time. gw7Brzsdny resting in bed. .13:02 Reassessment: Patient appears in no apparent distress at this time. sv9Parmfpy resting in bed.Vital Signs:09:16 BP 111 / [...] Patient arrived in ED. klp09:06 Out of [facility] provider, - is Private Physician. klp09:07 Triage [...] Clean catch specimen. tlm10:30 Patient moved to [place]. tlm11:09 Report given to radha palacios rn. tlm11:49 Marlin Flores DO is Hospitalizing Provider. se13:20 No Physician assisted procedures completed. oe8Vecdtwwulgyz Medications:09:40 Drug: NS 0.9% 3084 ml [sodium chloride 0.9 % intravenous solution] tlmRoute: IV; Rate: bolus; Site: right hand;09:41 Drug: Acetaminophen 975 mg [acetaminophen 325 mg tablet (3 tabs)] tlmRoute: PO;10:42 Follow up: Response: No adverse reaction; Temperature is decreased tlm11:49 Drug: metroNIDAZOLE 500 mg [metronidazole 500 mg/100 mL-sodium qi9crcjdjza(iso) intravenous piggyback] Route: IVPB; Site: right hand;12:49 Follow up: Response: No adverse reaction 3:00 Follow up: IV Intake: 100ml 213:00 Drug: Ciprofloxacin 400 mg [ciprofloxacin 400 mg/200 mL in 5 % ou3wkoaydzb intravenous piggyback] Route: IVPB; Site: right hand;Intake:13:00 IV: 100ml; Total: 100ml. qg6Zltlvdm:11:39 Disposition: Admitted to ICU accompanied by nurse, via wheelchair, tw5fcko chart.11:39 Condition: stable.11:39 Instructed on need for admit.11:39 Discharge Assessment: Patient verbalized understanding of dispositioninstructions. Patient has no functional deficits.11:50 Decision to Hospitalize by Provider. se13:21 Patient left the ED. wr8Ppssuyslcn:Kristen Ch RN Kathleen Calzada RN RN tlmElliott, Suzanne, MD MD seWeir, Sarah, RN RN xa5Mpysbqyykfk: (The following items were deleted from the chart)10:31 09:20 BP 111 / 88; Pulse 109bpm; Resp 17bpm; Pulse Ox 97% RA; Temp kjr656.9F Oral; 102.8 kg Measured; Pain 4/10; tlm Name Value Range Interpretation Code Description Data Mahi rce(s) Supporting Document(s) ID Date Data Source [id number] 05/04/2020 01:21:00 PM EST [facility] Physician DocumentationClaxdamian-Duran mobley CenterName: Susan Bautistage: 45 yrsSex: FemaleDOB: 1975MRN: [id number] Date: 05/04/2020Time: 09:06Account#: [id number] 7BPradithya DOMINGUEZ: Out of town provider, -ED Physician Rosario Levy Summary:05/04/20 11:50Hospitalization OrderedHospitalization Status: Inpatient Admission seProvider: Marlin Flores seCondition: Stable seProblem: new seSymptoms: are unchanged seLocation: Critical Care Unit(05/04/20 13:04) vs3Koux Assignment: 1-(05/04/20 13:04) gj2Wjfgbifxo- Free text - Post appendectomy abdominal abscess seAdditional Information- Admission Type: Inpatient Status. seDischarge Instructions:- Discharge Summary Sheet nw8Oodez:- Medication Reconciliation se- SBAR se- Medication Reconciliation [...] noanswer and the answering service did not peanut picker. 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 Order name: Blood Culture. (2 sets) tl: Order name: CBC with diff; Complete Time: 10:40 tlm01/0310:40 Interpretation: Normal except: WBC 11.89; Neutrophils 74.9; seLymphocytes 14.0.05/308: Order name: CMP; Complete Time: 10:40 tlm01/0310:40 Interpretation: Normal except: ALB 3.1. : Order name: Lactic Acid; Complete Time: 10:40 tlm01/0310:40 Interpretation: Within normal limits. Order name: Magnesium Level; Complete Time: 10:40 tlm01/0310:40 Interpretation: Within normal limits. Order name: PTT; Complete Time: 10:40 tlm0:40 Interpretation: Within normal limits. : Order name: UA; Complete Time: 10:41 tlm0:41 Interpretation: Within normal limits. : Order name: Venous Blood Gas; Complete Time: 10:40 tlm0:40 Interpretation: Normal except: PH CLAUDIO/CAP 7.429. : Order name: Chest Single View; Complete Time: 11:27 tl:27 Interpretation: No acute disease. : Order name: COVID-19 PROFILE+LAB; Complete Time: 10:41 tlm0:41 Interpretation: Within normal limits. :46 Order name: CT Abdomen and Pelvis - with IV; Complete Time: 11:30 : Order name: Call Lab; Complete Time: 09:37 tl: Order name: EKG in Patient's Room; Complete Time: 09:37 tl: Order name: EKG.; Complete Time: 09:37 tl:22 Order name: Pulse Ox Continuous; Complete Time: 09:37 tl: Order name: Rectal Temp; Complete Time: 09:37 tl:22 Order name: Saline Lock; Complete Time: 09:37 tl:22 Order name: Vital Signs per policy; Complete Time: 09:37 tl:39 Order name: Clear GsfszzVNAW06/0312:59 Order name: Consult PhysicianEDMSDispensed Medications:09:40 Drug: NS 0.9% 3084 ml [sodium chloride 0.9 % intravenous solution] tlmRoute: IV; Rate: bolus; Site: right hand;09:41 Drug: Acetaminophen 975 mg [acetaminophen 325 mg tablet (3 tabs)] tlmRoute: PO;10:42 Follow up: Response: No adverse reaction; Temperature is decreased tlm11:49 Drug: metroNIDAZOLE 500 mg [metronidazole 500 mg/100 mL-sodium yr4rjmzbanx(iso) intravenous piggyback] Route: IVPB; Site: right hand;12:49 Follow up: Response: No adverse reaction : Follow up: IV Intake: 100ml :00 Drug: Ciprofloxacin 400 mg [ciprofloxacin 400 mg/200 mL in 5 % am9gcawnsby intravenous piggyback] Route: IVPB; Site: right hand;Signatures:Dispatcher [employer] Kathleen Don RN RN tlmElliott, Suzanne, MD MD seKingsley, Sherry sk4Radha Palacios RN RN hv8Sjypypqtbjb: (The following items were deleted from the [...] noanswer and the answering service did not peanut picker. Patient has hadsome nausea but no [...] Mahi rce(s) Supporting Document(s) [facility]2 [facility] This lab was ordered by [facility] and reported by [facility]. ID Date Data Source [id number] 04/28/2020 02:59:00 [facility] [address] [address]FUCMPBAXX REPORTPATIENT NAME: SUSAN RENDON AM.R.#: [id number]: JEAN COLLIERLUCY. DATE: 04/28/20PATIENT : 75LOCATION: ASURACCOUNT #: [id number] ReportOperative ReportDATE OF PROCEDURE: 04/28/2020PROCEDURE PERFORMED: Laparoscopic [...] and transferred to the recovery room in [facility].Copies to Family Provider: ROSE ACOSTA FNP-CDATE SIGNED: 04/28/20 Electronically SignedTIME SIGNED: Aryan COLLIER MD Name Value Range Interpretation Code Description Data Mahi rce(s) Supporting Document(s) ID Date Data Source [id number] 05/05/2020 01:17:00 PM EST [facility] Cc: Loraine () VERMIFORM APPE NDIX, APPENDECTOMY: -ACUTE NECROTIZING APPENDICITIS AND PERIAPPENDICITIS CODE/S:77445 . The specimen is received in formalin with proper patient identification labeled "Appendix"and it consists of a vermiform appendix which measures 8.3 cm in length and 1 cm inaverage diameter centrally with attached mesoappendix measuring 1.8 cm. The surface ofthe appendix is covered with blood clot and adhesions. Serial sectioning revealshemorrhagic mucosa. A fecalith is not present within the lumen. Physician Obstetrician sectionsare submitted in three cassettes. Acute appendicitis. Slides reviewed. Diagnosis supported by microscopic examination. REPORT SIGNED: Carolyne Montero DO 05/05/20 Name Value Range Interpretation Code Description Data [facility] rce(s) Supporting Document(s) ID Date Data Source [id number] 04/28/2020 08:41:[address] [id number] HISTORY AND PHYSICALPATIENT NAME: SUSAN RENDON MR#: [id number] PHYSICIAN: JEAN COLLIER MDAUTHOR: Nando DOMINGUEZ,Jean DATE: 04/28/20 RM#: ASURHISTORY & PHYSICAL DATE: 04/28/20 PATIENT : 75EVALUATION TIME: 08HistoryChief Complaint/Admit ReasonAbdominal painHistory of Presenting IllnessThiarnie is [...] no edemaMuscoskeletal normal inspectionData ReviewLaboratory DataRecent Labs-48 hours04/[id number] 2312 0345ChemistrySodium (136 - 147 mmol/L) 140Potassium (3.5 [...] ClearUrine pH (5.0 - 8.0) 5.5Ur Specific [place] (1.010 - 1.025) 1.032 HUrine Protein (Negative) NegativeUrine Ketones (NEGATIVE) NegativeUrine Blood (NEGATIVE) NegativeUrine Nitrite (Negative) NegativeUr Bilirubin Confirm (NEGATIVE) NegativeUrine Urobilinogen (0.2 - 1.0 mg/dL) 0.2Urine Leukocytes (Negative) TraceUrine RBC (NONE SEEN) 0-2 RBCs/HPFUrine WBC (NONE SEEN) 3-5 WBCs/HPFUrine Bacteria (NONE SEEN) FewUrine Glucose (NEGATIVE) Ryczrwes27/138461UcgqrynlIVJSF-67 (JULIANNA) (NEGATIVE) NEGATIVEImagingDATE OF EXAMINATION: 04/28/2020 4:01 [...] Covid negative.DATE SIGNED: 04/28/20 Electronically SignedTIME SIGNED: 0850 JEAN COLLIER MD Name Value Range Interpretation Code Description Data Mahi rce(s) Supporting Document(s) ID Date Data Source [id number] 04/28/2020 07:09:00 AM EST [facility] Exam Number: [id number] OF EXAMINATIO N: 04/28/2020 4:01 ESTCT ABD&PEL [...] rce(s) Supporting Document(s) ID Date Data Source [id number] 04/28/2020 05:56:00 AM EST [facility] Name Value Range Interpretation Code Description Data Mahi rce(s) Supporting Document(s) COVID-19, JULIANNA NEGATIVE NEGATIVE N [facility] Methodology: Nucleic Acid AmplificationN egative results should [...] Emergency Use Authorization. ID Date Data Source [id number] 04/28/2020 04:22:00 AM EST [facility] Name Value Range Interpretation Code Description Data Mahi rce(s) Supporting Document(s) LIP 50.0 U/L 73-393 L [facility] ID Date Data Source [id number] 04/28/2020 04:22:00 AM EST [facility] Name Value Range Interpretation Code Description Data Mahi rce(s) Supporting Document(s) GLU 104 mg/dL 70-110 [facility] Patients taking Sulfasalazine may have f alsely depressedGlucose levels. Patients taking Sulfapyridine may havefalsely elevated Glucose levels. Patients should be drawnfor Glucose before the initial administration of eitherdrug. BUN 13 mg/dL 7-23 [facility] CRE 0.667 mg/dL 0.500-1.300 [facility] GFR > 60 mL/min [facility] CHLORIDE 105 mmol/L 99-110 [facility] NA 140 mmol/L 136-147 [facility] POTASSIUM 4.2 mmol/L 3.5-5.1 [facility] TCO2 28 mmol/L 20-33 [facility] ANION GAP 11.2 10.0-20.0 [facility] CA 8.5 mg/dL 8.3-10.7 [facility] ALKALINE PHOS 67 U/L 45-117 [facility] TP 7.1 g/dL 6.0-7.8 [facility] ALB 3.6 g/dL 3.5-5.0 [facility] ESRD Dialysis patient Albumin reference range: 2.9-4.4 g/dL GL 3.5 g/dL 2.3-3.5 [facility] A/G 1.0 1.0-2.5 [facility] T. BILIRUBIN 0.6 mg/dL 0.1-1.1 [facility] [place] Total Bilirubin is n ot recommended forpatients undergoing treatment with eltrombopag (Promacta)due to the potential for falsely elevated results. ALTI 18 U/L 6-54 [facility] Patients taking Sulfasalazine and/or Sul fapyridine may havefalsely depressed ALT levels. Patients should be drawn forALT before the initial administration of either drug. AST 19 U/L 6-38 [facility] Patients taking Sulfasalazine and/or Sul fapyridine may havefalsely depressed AST levels. Patients should be drawn forAST before the initial administration of either drug. ID Date Data Source [id number] 04/28/2020 04:11:00 AM EST [facility] Name Value Range Interpretation Code Description Data Mahi rce(s) Supporting Document(s) HCG QUAL SERUM Negative Negative [facility] ID Date Data Source [id number] 04/28/2020 04:02:00 AM EST [facility] Name Value Range Interpretation Code Description Data Mahi rce(s) Supporting Document(s) WBC 11.83 x10E3/uL 4.0-10.5 [facility] RBC 4.59 x10E6/uL 4.20-5.40 [facility] Hemoglobin 13.5 g/dL 12.0-16.0 [facility] Hematocrit 40.4 % 37.0-47.0 [facility] MCV 88.0 fL 81.0-99.0 [facility] MCH 29.4 pg 27.0-31.0 [facility] MCHC 33.4 g/dL 32.7-35.6 [facility] RDW 11.9 % 11.5-14.0 [facility] Platelet count 169 x10E3/uL 150-450 N [facility] ital MPV 11.1 fl 6.9-9.5 H [facility] Neutrophils 79.9 % 34-64 H [facility] Lymphocytes 10.6 % 25-45 L [facility] Monocytes 8.6 % 1.7-10.6 [facility] Eosinophils 0.3 % 0.4-7.0 [facility] Basophils 0.3 % 0.1-2.0 [facility] Imm. Gran. 0.3 % 0.1-2.0 [facility] Abs. Neutro. 9.45 x10E3/uL 1.2-7.6 [facility] Abs. Lymph. 1.25 x10E3/uL 1.0-3.5 [facility] Abs. [place]. 1.02 x10E3/uL 0.1-1.0 [facility] Abs. Eosin. 0.03 x10E3/uL 0.1-0.7 [facility] Abs. Baso. 0.04 x10E3/uL 0.0-0.1 [facility] Abs. Imm. Gran. 0.04 x10E3/uL 0.0-0.1 [facility] spital ANRBC% 0 % 0 [facility] ID Date Data Source [id number] 04/28/2020 04:09:00 AM EST [facility] Name Value Range Interpretation Code Description Data Mahi rce(s) Supporting Document(s) URINE RBC 0-2 RBCs/HPF NONE SEEN [facility] URINE WBC 3-5 WBCs/HPF NONE SEEN [facility] URINE BACTERIA Few NONE SEEN [facility] l URINE EPI. Few NONE SEEN [facility] ID Date Data Source [id number] 04/28/2020 04:09:00 AM EST [facility] Name Value Range Interpretation Code Description Data Mahi rce(s) Supporting Document(s) URINE COLOR Yellow [facility] UAPR Clear [facility] UGLU Negative NEGATIVE [facility] URINE BILIRUBIN [facility]IVE [facility] UKET Negative NEGATIVE [facility] USG 1.032 1.010-1.025 [facility] UBLO Negative NEGATIVE [facility] UpH 5.5 5.0-8.0 [facility] UPRO Negative Negative [facility] UUB 0.2 mg/dL 0.2-1.0 [facility] UNIT Negative Negative [facility] ULEU Trace Negative [facility] ID Date Data Source [id number] 04/28/2020 12:46:00 PM EST [facility] jak Physician DocumentationClTrever Howell edical CenterName: Susan Bautistage: 45 yrsSex: FemaleDOB: 1975MRN: [id number] Date: 04/28/2020Time: 03:00Account#: [id number] 5BPradithya DOMINGUEZ: Out of town provider, -ED Physician Radha Peter Summary:04/28/20 05:09Hospitalization OrderedHospitalization Status: Observation of9Yqismofh: Jean Collier fl7Ewekefvg: OR jc9Naihyrkje: Stable fv6Ycpnqxu: new df1Nyujtvdf: are unchanged wh1Kexx Assignment: xe8Lmgryxfgj- Unspecified acute appendicitis ru6Usgoxsciob Information- Admission Type: Observation Status. ex3Iqmje:- Medication Reconciliation na1- SBAR na1- Medication Reconciliation Form - 2nd Copy na1HPI:04/02 803:27 This 45 yrs old White Female presents to ER via Private Vehicle with rj5lgmevusepr of Abdominal Pain.03:27 The patient presents with abdominal pain right lower quadrant. Onset: na1The symptoms/episode began/occurred last night, at 19:00.03:28 The symptoms radiate to the right flank. Associated signs and fa2uakwipuy: Pertinent positives: nausea. Modifying factors: Thesymptoms are alleviated by remaining still. Severity of pain: At itsworst the pain was moderate. 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 Celexa 20 mg Oral tab once daily2. metoprolol tartrate 12.5BID (held due to low heart rate, new med)Oral3. Klonopin 0.25 mg Oral TbDi as needed- PMHx: Hypertensive disorder; Anxiety; Hypoglycemia;- PSHx: None; gastric bypass;- Immunization history: Flu vaccine is up to date.- Social history: Smoking status: Patient states was [facility]oker [facility]. ETOH status Denies use of ETOH.- Advance Directives:: None.ROS:03:29 Constitutional: Positive for chills, Negative for fever. Respiratory: cm1Tziowdff for cough, shortness of breath, wheezing. Abdomen/GI:Negative for vomiting, diarrhea, constipation, hematemesis,black/tarry stool, rectal bleeding. : Positive for flank pain,Negative for urinary frequency, hematuria, burning with urination.All other systems are negative.Exam:03:30 Head/Face: Normocephalic, atraumatic. Eyes: Pupils equal round and oh4ftlgpsgh to light, extra-ocular motions intact. Lids and [...] Temp 97.3; Pulse Ox 98% ; Weight kf6180.8 kg; Height 5 ft. 6 in. (167.64 [...] lab test result(s), radiologic studies, CT scan, kk5YQCOTHCWWOX REPORT ON CT. ABDOMEN & PELVIS: POSITIVE FOR ACUTEAPPENDICITIS. NO RUPTURE..04/2803: Order name: CBC with diff; Complete Time: 04:59 na5:00 Interpretation: WBC 11.83; Hemoglobin 13.5; Hematocrit 40.4; Platelet vc5mewft 169; Neutrophils 79.9.04/2803: Order name: CMP; Complete Time: 04:59 na2805:00 Interpretation: Normal except. : Order name: Lipase; Complete Time: 04:59 na5:00 Interpretation: LIP 50.0. 3:26 Order name: UA; Complete Time: 04:59 5:00 Interpretation: URINE RBC 0-2 RBCs/HPF; URINE WBC 3-5 WBCs/HPF. :27 Order name: HCG Qualitative - Serum; Complete Time: 04:59 na5:00 Interpretation: HCG QUAL SERUM Negative. :37 Order name: COVID-19 PROFILE+LAB; Complete Time: 08:08 tp4: Order name: CT Abdomen and Pelvis - with IV; Complete Time: 08:08 tp:26 Order name: NPO; Complete Time: :: Order name: Saline Lock; Complete Time: : Order name: Vital Signs per policy; Complete Time: 03: om0Fyxjperkd Medications:03:28 CANCELLED (MD): morphine 3 mg IVP once na103:47 Drug: NS 0.9% 1000 ml [sodium chloride 0.9 % intravenous solution] cq5Vorre: IV; Rate: 250 mL/hr; Site: right antecubital;06:20 Follow up: Response: No adverse reaction; IV Status: Completed dl1ddbwcggs; IV Intake: 7706zy34:47 Drug: Ondansetron 4 mg [ondansetron HCl 2 [...] 12.5 mg [promethazine 25 mg/mL injection solution] vu6Soejl: IVPB; Site: right antecubital;05:10 Follow up: Response: No adverse reaction; IV Status: Completed qk8lqauvofn; IV Intake: 605dl71:18 Drug: Zosyn 3.375 grams [Zosyn 3.375 gram intravenous solution] xi2Bznas: IVPB; Site: right antecubital;05:50 Follow up: Response: No adverse reaction; IV Status: Completed ek8pyepazaq; IV Intake: 017jm91:06 Drug: Promethazine 12.5 mg [promethazine 25 mg/mL injection solution] uk9Qhzsi: IVPB; Site: right antecubital;06:18 Follow up: Response: No adverse reaction; IV Status: Completed lu1vagorzql; IV Intake: 50ml08:00 Drug: NS 0.9% 1000 ml [sodium chloride 0.9 % intravenous solution] ne6Vcylx: IV; Rate: 100 mL/hr; Site: right antecubital;12:42 Follow up: IV Status: Completed infusion; IV Intake: 400ml ef112:15 Drug: Zosyn 3.375 grams [Zosyn 3.375 gram intravenous solution] yj3Pmmzq: IVPB; Site: right antecubital;12:43 Follow up: IV Status: Compl eted infusion; IV Intake: 100ml ef112:15 Drug: Acetaminophen 975 mg [acetaminophen 325 mg tablet (3 tabs)] ye8Kcxhv: PO;12:42 Follow up: Temp 100.1 Oral pq1Bqbvrltxqs:Dispatcher [employer] Leon Hidalgo MD MD na1Clover Lauren RN RN cq1AsvarcAmada diggs RN RN dg1QbxyimdhvKayla Miller RN RN gf8NixxthxCarlos lutz MD MD vkCorrections: (The following items were deleted from the chart)03:04 03:02 PMHx: Hyperthyroidism; tp2 tp203:28 03:27 morphine 3 mg IVP once ordered. na1 na104:02 03:27 CT ABD and PELV WITH IV/ORAL CONTR+CT ordered. EDMSEDMS Name Value Range Interpretation Code Description Data Mahi rce(s) Supporting Document(s) ID Date Data Source [id number] 04/28/2020 12:46:00 PM EST [facility] terName: Susan Flores: 45 yrsSex: FemaleDOB: 1975MRN: [id number] Date: 04/28/2020Time: 03:00Account#: [id number] 5BPreveliate MD: Out of town provider, -Diagnosis: Unspecified acute appendicitisPresentation:04/2803: Presenting complaint: Patient states: RLQ pain started at 7pm, da2nfgjod, nausea. Coronavirus Screening: Have you traveledinternationally or had contact with someone that has traveled and hasbeen ill in the past 3 weeks? no Have you traveled to a location withwidespread or ongoing COVID-19 community spread or outside of [facility]? no Flu-like symptoms reported in the last 14 days: fever orchills (including if you have treated with Tylenol or othermedications), nausea, Have you had close contact with confirmed orsuspected COVID-19 case? no Have you been diagnosed with COVID-19 inthe past 30 days? no Are you [facility]? no. Communicable Disease Screen: Negative for fever>/= 100degrees Fahrenheit. Communicable disease screen is negative.03:01 Acuity: Triage 3 tp203:01 Method Of Arrival: Private Vehicle tp203:02 Acuity Assignment: Triage 3 fq0Yiyvox Assessment:03:04 General: Appears uncomfortable, unkempt, Behavior is anxious. Sepsis rp2Fmoi ening: (1)Signs/symptoms infection No. Pain: Complains of [...] midlineRespiratory effort is even, unlabored. 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 Celexa 20 mg Oral tab once daily2. metoprolol tartrate 12.5BID (held due to low heart rate, new med)Oral3. Klonopin 0.25 mg Oral TbDi as needed- PMHx: Hypertensive disorder; Anxiety; Hypoglycemia;- PSHx: None; gastric bypass;- Immunization history: Flu vaccine is up to date.- Social history: Smoking status: Patient states was never smoker [facility] [place]. ETOH status Denies use of ETOH.- Advance Directives:: None.Screenin:17 Abuse screen: Denies threats or abuse. Denies injuries from another. bp3Jukczznjrnk screening: No deficits noted. Offer of HIV [...] in no apparent distress at this time. ro5kftimb OR to see approx. time , will call back.....09:53 GI: Bowel sounds present X 4 quads. Abd is soft Abd is tender to cs6mxdoolmkb in right lower quadrant.11:10 Reassessment: Patient appears in no apparent distress at this time. ef112:13 Reassessment: Patient appears in no apparent distress at this time. us7Jeluz Signs:03:05 BP 168 / 106; Pulse 98; Resp 16; Temp 97.3; Pulse Ox 98% ; Weight dk2269.8 kg; Height 5 ft. 6 in. (167.64 [...] armband on for positive identification. Placed in wk9vytl. Bed in low position. Call light in reach. Side rails up X2.Noise minimized. Visitors limited. Verbal reassurance given. Warmblanket given. Pillow given. Head of bed elevated.03:46 Labs drawn. (by ED staff). Urine collected. Clean catch specimen. nj3Olctpaik saline lock: 20 gauge in right antecubital area and bloodcollected. Discontinued lock intact, bleeding controlled, pressuredressing applied, No redness/swelling at site.04:12 No apparent distress. Resting quietly. cm405:02 Kayla Miller RN is Primary Nurse. cm405:09 Jean Collier MD is Hospitalizing Provider. na106:20 No apparent distress. Resting quietly. cm408:10 No Physician assisted procedures completed. kz3Qtzgqqgszmho Medications:03:28 CANCELLED (): morphine 3 mg IVP once na103:47 Drug: NS 0.9% 1000 ml [sodium chloride 0.9 % intravenous solution] ye4Bzbmg: IV; Rate: 250 mL/hr; Site: right antecubital;06:20 Follow up: Response: No adverse reaction; IV Status: Completed yr0gxalicbp; IV Intake: 9811vd47:47 Drug: Ondansetron 4 mg [ondansetron HCl 2 [...] 12.5 mg [promethazine 25 mg/mL injection solution] iy9Fybjw: IVPB; Site: right antecubital;05:10 Follow up: Response: No adverse reaction; IV Status: Completed ny0pzwetseo; IV Intake: 448dv23:18 Drug: Zosyn 3.375 grams [Zosyn 3.375 gram intravenous solution] ya4Hwpnz: IVPB; Site: right antecubital;05:50 Follow up: Response: No adverse reaction; IV Status: Completed fk9uwthklww; IV Intake: 595zh97:06 Drug: Promethazine 12.5 mg [ promethazine 25 mg/mL injection solution] fj0Hgsiw: IVPB; Site: right antecubital;06:18 Follow up: Response: No adverse reaction; IV Status: Completed df9konyodkv; IV Intake: 50ml08:00 Drug: NS 0.9% 1000 ml [sodium chloride 0.9 % intravenous solution] xt0Dnqpy: IV; Rate: 100 mL/hr; Site: right antecubital;12:42 Follow up: IV Status: Completed infusion; IV Intake: 400ml ef112:15 Drug: Zosyn 3.375 grams [Zosyn 3.375 gram intravenous solution] xp8Iazjn: IVPB; Site: right antecubital;12:43 Follow up: IV Status: Completed infusion; IV Intake: 100ml ef112:15 Drug: Acetaminophen 975 mg [acetaminophen 325 mg tablet (3 tabs)] za5Ojpsk: PO;12:42 Follow up: Temp 100.1 Oral nq9Cektah:05:10 IV: 100ml; Total: 100ml. cm405:50 IV: 100ml; Total: 200ml. cm406:18 IV: 50ml; Total: 250ml. cm406:20 IV: 1000ml; Total: 1250ml. cm412:42 IV: 400ml; Total: 1650ml. ef112:43 IV: 100ml; Total: 1750ml. tx7Crpnuvl:05:09 Decision to Hospitalize by Provider. na108:11 Disposition: Admitted to OR accompanied by nurse, via stretcher. ef108:11 Condition: stable.08:11 Discharge instructions given to patient, Instructed on need foradmit, Demonstrated understanding of instructions.08:11 Discharge Assessment: Patient verbalized understanding of dispositioninstructions. Patient has no functional deficits.12:46 Patient left the ED. jt7Gnnrnxzryw:Juliann Love RN RN fbgAl-Hussein, Nabeel, MD MD na1Clover Lauren RN RN kc7WxlqcuAmada diggs RN RN ui8BcjjfecuqKayla Miller, RN RN vq7Odjmzwfimij: (The following items were deleted from the chart)03:04 03:02 PMHx: Hyperthyroidism; tp2 tp2 Name Value Range Interpretation Code Description Data Mahi rce(s) Supporting Document(s) ID Date Data Source [id number] 04/28/2020 12:00:00 AM EST [facility] Name Value Range Interpretation Code Description Data Mahi rce(s) Supporting Document(s) SARS-CoV2 Rapid PCR [facility] This lab was ordered by [facility] and reported by [facility]. ID Date Data Source [id number] 04/24/2020 09:27:00 AM EST [facility] [...] Carotid Ultrasound 04/24/2020 12:00:00 AM EST eCW1 ([facility]) Name Value Range Interpretation Code Description Data Mahi rce(s) Supporting Document(s) Carotid Ultrasound eCW1 ([facility]) ID Date Data Source [id number] 04/20/2020 05:06:00 PM EST [facility] Patient: [facility]port - Phys[facility] [place] [address].VisitID: [id number] [place] [address] [phone], FRegistration Date/Time: 04/19/2020 21:15 Weight:106.5 kg (S). [...] She has not used any prescription or ypas-bxu-dnaaumr cold medications. The initial symptoms lasted for [...] patient did not want to go to [place] due to the significant amounts of Covid [...] in improved and stable condition.). 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 ADDITIONAL NOTESThe nursing notes have been reviewed (Nurses notes were reviewed). PHYSICAL EXAMVital Signs: 04/20/2020 11:16 BP: lying 129/84. MAP: 99. HR: 79. RR: 18. O2 saturation: 97% on room air. Temp: 98.1 F. Pain level now: 0.04/20/2020 06:35 BP: lying 139/90. MAP: 106. HR: 89. RR: 18. O2 saturation: 96% on room air. Temp: 98.6 F. Pain level now: 0.04/20/2020 03:53 BP: 105/71. MAP: 82. HR: 85. RR: 17. O2 saturation: 97%. Temp: 99.1 F. Pain level now: 0.04/20/2020 00:03 BP: sitting 143/91. MAP: 108. HR: 96. RR: 19. O2 saturation: 96% on room air. Temp: 98.1 F.04/19/2020 23:32 BP: 132/78. MAP: 96. HR: 84. RR: 18. O2 saturation: 99% on room air. Temp: 98 F. Pain level now: 0.04/19/2020 23:00 BP: 139/96. MAP: 110. HR: 91. RR: 18. O2 saturation: 99% on room air. Pain level now: 0.04/19/2020 22:45 BP: 147/97. MAP: 113. HR: 104. RR: 24. O2 saturation: 98% on room air. Pain level now: 0.04/19/2020 22:30 BP: 150/105. MAP: 120. HR: 110. RR: 17. O2 saturation: 99% on room air. Pain level now: 0.04/19/2020 22:15 BP: 147/103. MAP: 117. HR: 93. RR: 16. O2 saturation: 98% on room air. Pain level now: 0.04/19/2020 22:09 BP: 151/100. MAP: 117. HR: 97. RR: 19. O2 saturation: 100% on room air. Pain level now: 0.04/19/2020 22:00 BP: 151/100. MAP: 117. HR: 95. RR: 22. O2 saturation: 98% on room air. Pain level now: 0. 04/19/2020 21:58 BP: 146/96. MAP: 112. HR: 97. RR: 23. O2 saturation: 99% on room air. Pain level now: 0.04/19/2020 21:45 BP: 169/99. MAP: 122. HR: 130. RR: 21. O2 saturation: 99% on room air. Temp: 98.1 F. Pain level now: 0/.04/19/2020 21:22 BP: 179/108. MAP: 131.04/19/2020 21:20 BP: [...] 11:45)( MsgRcvd 04/20/2020 12:20) New Order TSYSORDER [id number] Test Result Flag Units (Reference)TROPONIN I < 0.017 ng/mL (0.0-0.056) CBC w Diff: (IVAN: 04/20/2020 05:30)( MsgRcvd 04/20/2020 05:48) New Order TSYSORDER [id number] Test Result Flag Units (Reference)WHITE BLOOD COUNT [...] 0.0 K/mm3 (0.0-0.2) BMP: (IVAN: 04/20/2020 05:30)( [facility] 04/20/2020 06:03) New Order FASTING? YESTSYSORDER [id number] Test Result Flag Units (Reference)GLUCOSE 105 mg/dL (74-106) BLOOD UREA NITROGEN 10 mg/dL (7-18) CREATININE 0.64 mg/dL (0.6-1.0) SODIUM 143 mmol/L (136-145) POTASSIUM 4.1 mmol/L (3.5-5.1) CHLORIDE 105 mmol/L (98-107) CO2 28 mmol/L (21-32) CALCIUM 9.0 mg/dL (8.5-10.1) ANION GAP 10.0 mmol/L (5-12) GLOMER ULAR FILTRATION RATE >90 mL/min GFR IS CALCULATED IN mL/min/1.82j2SIUGRV FUNCTION: >90MILDLY DECREASED: 60-89MILDY TO MODERATELY DECREASED: 45-59 MODERATELY TO SEVERELY DECREASED: 30-44SEVERELY DECREASED: 15-29RENAL FAILURE: <15 Troponin-I: (IVAN: 04/20/2020 05:30)( [facility] 04/20/2020 06:11) New Order TSYSORDER [id number] Test Result Flag Units (Reference)TROPONIN I < 0.017 ng/mL (0.0-0.056) Chest 1V: (IVAN: 04/19/2020 21:43)( [facility] 04/19/2020 22:42) F Test Result Flag Units [...] EST -- -- Dictated by: CORTEZ BEAR COVID-19 IN-HOUSE: (IVAN: 04/19/2020 21:40)( [facility] 04/19/2020 22:00) New Order TSYSORDER [id number] Test Result Flag Units (Reference)COVID-19 NEGATIVE (NEGATIVE) [...] are for the indentification of SARS-CoV-2 RNA. SiaKMUJ-BoU-5 RNA is generally detectable in respiratorysamples during the actue phase of infection. UA CULTURE IF INDICATED: (IVAN: 04/19/2020 21:40)( [facility] 04/19/2020 22:51) New Order URINE SOURCE? URINE, CLEAN CATCHTSYSORDER [id number] Test Result Flag Units (Reference)URINE COLOR. YELLOW URINE APPEARANCE CLEAR URINE GLUCOSE (UA) NEGATIVE mg/dL (NEGATIVE) URINE BILIRUBIN NEGATIVE (NEGATIVE) URINE KETONE NEGATIVE mg/dL (NEGATIVE) SPECIFIC GRAVITY,URINE 1.015 (1.001-1.035) URINE BLOOD NEGATIVE (NEGATIVE) PH,URINE 7.0 (5.0-9.0) URINE PROTEIN NEGATIVE mg/dL (NEGATIVE) URINE UROBILINOGEN 0.2 mg/dL (0-1) URINE NITRATE NEGATIVE (NEGATIVE) URINE LEUKOCYTE ESTERASE NEGATIVE (NEGATIVE) CBC w Diff: (IVAN: 04/19/2020 21:26)( [facility] 04/19/2020 21:35) New Order TSYSORDER [id number] Test Result Flag Units (Reference)WHITE BLOOD COUNT [...] 21:26)( MsgRcvd 04/19/2020 21:58) New Order TSYSORDER [id number] Test Result Flag Units (Reference)GLUCOSE 109 H mg/dL (74-106) BLOOD UREA NITROGEN 18 mg/dL (7-18) CREATININE 0.90 mg/dL (0.6-1.0) SODIUM 143 mmol/L (136-145) POTASSIUM 3.3 L mmol/L (3.5-5.1) CHLORIDE 101 mmol/L (98-107) CO2 30 mmol/L (21-32) CALCIUM 9.1 mg/dL (8.5-10.1) ANION GAP 12.0 mmol/L (5-12) GLOMERULAR FILTRATION RATE 68 mL/min GFR IS CALCULATED IN mL/min/1.74b3EJPRAI FUNCTION: > 90MILDLY DECREASED: 60-89MILDY TO MODERATELY DECREASED: 45-59 MODERATELY TO SEVERELY DECREASED: 30-44SEVERELY DECREASED: 15-29RENAL FAILURE: <15 AST 24 U/L (15-37) ALT 27 U/L (12-78) ALKALINE PHOSPHATASE 79 U/L (46-116) TOTAL BILIRUBIN 0.2 mg/dL (0.2-1.0) TOTAL PROTEIN 7.5 g/dl (6.4-8.2) ALBUMIN 4.0 gm/dL (3.4-5.0) TROPONIN I < 0.017 ng/mL (0.0-0.056) MAGNESIUM 1.9 mg/dL (1.8-2.4) D- Dimer: (IVAN: 04/19/2020 21:26)( MsgRcvd 04/19/2020 22:01) New Order TSYSORDER [id number] Test Result Flag Units (Reference)DDIMER < 0.19 L mg/LFEU (0.19-0.60) TSH: (IVAN: 04/19/2020 21:26)( MsgRcvd 04/19/2020 22:05) New Order TSYSORDER [id number] Test Result Flag Units (Reference)TSH 2.236 uIU/mL [...] needs to call Dr. Patel's office tomorrow morning([phone]) for an appointment and further testing. Patient [...] needs to call Dr. Patel's office tomorrow morning([phone]) for an appointment and further testing. Patient [...] 60 tablet. Refills: 0. Substitution permitted.Pharmacy - [id number] - [address] [address] , [place] [address]. FaxNumber: [phone]. Understanding of the discharge instructions verbalized by patient. Follow-up with: Rose Rudd, Family Medicine, , [address] [place] [address], [id number] up even if well. Call for an a ppointment. call for follow-up appointment in the next few weeks. Follow-up with: Adam Patel M.D., Cardiology, , [address], [address], [place], [place], [address]Qfusun up. Call for an appointment. call tomorrow morning for appointment. (Electronically signed by Audie Longoria DO 04/20/2020 17:03) Name Value Range Interpretation Code Description Data Mahi rce(s) Supporting Document(s) ID Date Data Source [id number] 04/20/2020 12:18:00 PM [facility] TSYSORDER [id number] Name Value Range Interpretation Code Description Data [facility] rce(s) Supporting Document(s) TROPONIN I < 0.017 ng/mL 0.0-0.056 [facility] ID Date Data Source [id number] 04/20/2020 06:10:00 AM [facility] TSYSORDER [id number] Name Value Range Interpretation Code Description Data [facility] rce(s) Supporting Document(s) TROPONIN I < 0.017 ng/mL 0.0-0.056 [facility] ID Date Data Source [id number] 04/20/2020 06:02:00 AM [facility] TSYSORDER [id number] Name Value Range Interpretation Code Description Data [facility] rce(s) Supporting Document(s) GLUCOSE 105 mg/dL 74-106 [facility] BLOOD UREA NITROGEN 10 mg/dL 7-18 [facility] ital CREATININE 0.64 mg/dL 0.6-1.0 [facility] SODIUM 143 mmol/L 136-145 [facility] POTASSIUM 4.1 mmol/L 3.5-5.1 [facility] CHLORIDE 105 mmol/L 98-107 [facility] CO2 28 mmol/L 21-32 [facility] CALCIUM 9.0 mg/dL 8.5-10.1 [facility] ANION GAP 10.0 mmol/L 5-12 [facility] GLOMERULAR FILTRATION RATE >90 mL/min [facility] GFR IS CALCULATED IN mL/min/1.73m2 KULWANT L FUNCTION: >90MILDLY DECREASED: 60-89MILDY TO MODERATELY DECREASED: 45-59 MODERATELY TO SEVERELY DECREASED: 30-44SEVERELY DECREASED: 15-29RENAL FAILURE: <15 ID Date Data Source [id number] 04/20/2020 05:47:00 AM [facility] TSYSORDER [id number] Name Value Range Interpretation Code Description Data Mahi rce(s) Supporting Document(s) WHITE BLOOD COUNT 6.1 K/mm3 4.0-10.0 [facility] al RED BLOOD COUNT 4.35 M/mm3 4.00-5.50 [facility] HEMOGLOBIN 12.8 gm/dL 12.0-16.0 [facility] HEMATOCRIT 38.2 % 36.0-48.8 [facility] MEAN CELL VOLUME 87.8 fl 80-96 [facility] MEAN CORPUSCULAR HEMOGLOBIN 29.4 pg 27.0-31.0 [facility] MEAN CORPUSCULAR HGB CONC 33.5 g/dl 32.0-36.0 [facility] RED CELL DISTRIBUTION WIDTH 11.7 % 10.0-14.5 [facility] PLATELET COUNT 215 K/mm3 172-450 [facility] MEAN PLATELET VOLUME 10.5 fl 9.0-13.0 [facility] pital GRAN % 57.6 % 50-80.0 [facility] IG% 0.2 % 0.0-0.2 [facility] LYMPH % 30.1 % 25.0-50.0 [facility] MONO % 10.7 % 2.0-10.0 H [facility] EOS % 1.1 % 0-5.0 [facility] BASO % 0.3 % 0.0-2.0 [facility] GRAN # 3.5 K/mm3 2.0-8.00 [facility] IG# 0.0 K/mm3 0.0-0.2 [facility] LYMPH # 1.9 K/mm3 1.0-5.0 [facility] MONO # 0.7 K/mm3 0.10-1.20 [facility] EOS # 0.1 K/mm3 0.0-0.5 [facility] BASO # 0.0 K/mm3 0.0-0.2 [facility] ID Date Data Source [id number] 04/19/2020 10:42:00 PM [facility] DATE OF EXAMINATION: 04/19/2020 21:44 ES T [...] rce(s) Supporting Document(s) ID Date Data Source [id number] 04/19/2020 09:40:00 PM EST [facility] Name Value Range Interpretation Code Description Data Mahi rce(s) Supporting Document(s) COVID-19 [facility] This lab was ordered by [facility] thien Lab and reported by [facility]. ID Date Data Source [id number] 04/19/2020 10:50:00 PM EST [facility] TSYSORDER [id number] Name Value Range Interpretation Code Description Data Mahi rce(s) Supporting Document(s) URINE COLOR. [facility] URINE APPEARANCE CLEAR [facility] GLUCOSE (UA) NEGATIVE mg/dL NEGATIVE [facility] URINE BILIRUBIN NEGATIVE NEGATIVE [facility] URINE KETONE NEGATIVE mg/dL NEGATIVE [facility] SPECIFIC GRAVITY,URINE 1.015 1.001-1.035 [facility] URINE BLOOD NEGATIVE NEGATIVE [facility] PH,URINE 7.0 5.0-9.0 [facility] URINE PROTEIN NEGATIVE mg/dL NEGATIVE [facility] UROBILINOGEN 0.2 mg/dL 0-1 [facility] URINE NITRATE NEGATIVE NEGATIVE [facility] URINE LEUKOCYTE ESTERASE NEGATIVE NEGATIVE [facility] ID Date Data Source [id number] 04/19/2020 10:00:00 PM EST [facility] TSYSORDER [id number] Name Value Range Interpretation Code Description Data Mahi rce(s) Supporting Document(s) COVID-19 NEGATIVE NEGATIVE [facility] Negative results should be treated as pr [...] are for the indentification of SARS-CoV-2 RNA. [id number] RNA is generally detectable in respiratorysamples during the actue phase of infection. ID Date Data Source [id number] 04/19/2020 10:04:00 PM EST [facility] TSYSORDER [id number] Name Value Range Interpretation Code Description Data Mahi rce(s) Supporting Document(s) TSH 2.236 uIU/mL 0.36-3.74 [facility] ID Date Data Source [id number] 04/19/2020 10:01:00 PM EST [facility] TSYSORDER [id number] Name Value Range Interpretation Code Description Data Mahi rce(s) Supporting Document(s) DDIMER < 0.19 mg/LFEU 0.19-0.60 L [facility] ID Date Data Source [id number] 04/19/2020 09:57:00 PM EST [facility] TSYSORDER [id number] R [id number] Name Value Range Interpretation Code Description Data Mahi rce(s) Supporting Document(s) GLUCOSE 109 mg/dL 74-106 H [facility] BLOOD UREA NITROGEN 18 mg/dL 7-18 [facility] CREATININE 0.90 mg/dL 0.6-1.0 [facility] SODIUM 143 mmol/L 136-145 [facility] POTASSIUM 3.3 mmol/L 3.5-5.1 L [facility] CHLORIDE 101 mmol/L 98-107 [facility] CO2 30 mmol/L 21-32 [facility] CALCIUM 9.1 mg/dL 8.5-10.1 [facility] ANION GAP 12.0 mmol/L 5-12 [facility] GLOMERULAR FILTRATION RATE 68 mL/min [facility] GFR IS CALCULATED IN mL/min/1.73m2 KULWANT L FUNCTION: >90MILDLY DECREASED: 60-89MILDY TO MODERATELY DECREASED: 45-59 MODERATELY TO SEVERELY DECREASED: 30-44SEVERELY DECREASED: 15-29RENAL FAILURE: <15 AST 24 U/L 15-37 [facility] ALT 27 U/L 12-78 [facility] ALKALINE PHOSPHATASE 79 U/L 46-116 [facility] pital TOTAL BILIRUBIN 0.2 mg/dL 0.2-1.0 [facility] TOTAL PROTEIN 7.5 g/dl 6.4-8.2 [facility] ALBUMIN 4.0 gm/dL 3.4-5.0 [facility] ID Date Data Source [id number] 04/19/2020 09:57:00 PM EST [facility] TSYSORDER [id number] R [id number] Name Value Range Interpretation Code Description Data Mahi rce(s) Supporting Document(s) MAGNESIUM 1.9 mg/dL 1.8-2.4 [facility] ID Date Data Source [id number] 04/19/2020 09:57:00 PM EST [facility] TSYSORDER [id number] R [id number] Name Value Range Interpretation Code Description Data Mahi rce(s) Supporting Document(s) TROPONIN I < 0.017 ng/mL 0.0-0.056 [facility] ID Date Data Source [id number] 04/19/2020 09:34:00 PM [facility] TSYSORDER [id number] Name Value Range Interpretation Code Description Data Mahi rce(s) Supporting Document(s) WHITE BLOOD COUNT 9.2 K/mm3 4.0-10.0 [facility] al RED BLOOD COUNT 4.73 M/mm3 4.00-5.50 [facility] HEMOGLOBIN 14.0 gm/dL 12.0-16.0 [facility] HEMATOCRIT 41.4 % 36.0-48.8 [facility] MEAN CELL VOLUME 87.5 fl 80-96 [facility] MEAN CORPUSCULAR HEMOGLOBIN 29.6 pg 27.0-31.0 [facility] MEAN CORPUSCULAR HGB CONC 33.8 g/dl 32.0-36.0 [facility] RED CELL DISTRIBUTION WIDTH 11.7 % 10.0-14.5 [facility] PLATELET COUNT 221 K/mm3 172-450 [facility] MEAN PLATELET VOLUME 10.3 fl 9.0-13.0 [facility] pital GRAN % 41.9 % 50-80.0 L [facility] IG% 0.2 % 0.0-0.2 [facility] LYMPH % 43.9 % 25.0-50.0 [facility] MONO % 10.1 % 2.0-10.0 H [facility] EOS % 3.6 % 0-5.0 [facility] BASO % 0.3 % 0.0-2.0 [facility] GRAN # 3.9 K/mm3 2.0-8.00 [facility] IG# 0.0 K/mm3 0.0-0.2 [facility] LYMPH # 4.1 K/mm3 1.0-5.0 [facility] MONO # 0.9 K/mm3 0.10-1.20 [facility] EOS # 0.3 K/mm3 0.0-0.5 [facility] BASO # 0.0 K/mm3 0.0-0.2 [facility] ID Date Data Source [id number] 03/03/2020 12:16:00 PM EST [facility] l Name Value Range Interpretation Code Description Data Mahi rce(s) Supporting Document(s) WHITE BLOOD COUNT 9.1 K/mm3 4.0-10.0 [facility] RED BLOOD COUNT 4.88 M/mm3 4.00-5.50 [facility] l HEMOGLOBIN 14.5 gm/dL 12.0-16.0 [facility] HEMATOCRIT 43.8 % 36.0-48.8 [facility] MEAN CELL VOLUME 89.8 fl 80-96 [facility] MEAN CORPUSCULAR HEMOGLOBIN 29.7 pg 27.0-31.0 [facility] MEAN CORPUSCULAR HGB CONC 33.1 g/dl 32.0-36.0 [facility] RED CELL DISTRIBUTION WIDTH 11.9 % 10.0-14.5 [facility] PLATELET COUNT 237 K/mm3 172-450 [facility] MEAN PLATELET VOLUME 10.8 fl 9.0-13.0 [facility] pital GRAN % 64.6 % 50-80.0 [facility] IG% 0.1 % 0.0-0.2 [facility] LYMPH % 24.8 % 25.0-50.0 L [facility] MONO % 8.2 % 2.0-10.0 [facility] EOS % 2.0 % 0-5.0 [facility] BASO % 0.3 % 0.0-2.0 [facility] GRAN # 5.9 K/mm3 2.0-8.00 [facility] IG# 0.0 K/mm3 0.0-0.2 [facility] LYMPH # 2.2 K/mm3 1.0-5.0 [facility] MONO # 0.7 K/mm3 0.10-1.20 [facility] EOS # 0.2 K/mm3 0.0-0.5 [facility] BASO # 0.0 K/mm3 0.0-0.2 [facility] ID Date Data Source [id number] 03/03/2020 12:15:00 PM [facility] l Name Value Range Interpretation Code Description Data Mahi rce(s) Supporting Document(s) GLUCOSE 88 mg/dL 74-106 [facility] BLOOD UREA NITROGEN 11 mg/dL 7-18 [facility] ital CREATININE 0.8 mg/dL 0.6-1.0 [facility] SODIUM 138 mmol/L 136-145 [facility] POTASSIUM 4.5 mmol/L 3.5-5.1 [facility] CHLORIDE 102 mmol/L 98-107 [facility] CO2 26 mmol/L 21-32 [facility] CALCIUM 9.1 mg/dL 8.5-10.1 [facility] ANION GAP 10.0 mmol/L 5-12 [facility] GLOMERULAR FILTRATION RATE 78 mL/min [facility] GFR IS CALCULATED IN mL/min/1.73m2 KULWANT L FUNCTION: >90MILDLY DECREASED: 60-89MILDY TO MODERATELY DECREASED: 45-59 MODERATELY TO SEVERELY DECREASED: 30-44SEVERELY DECREASED: 15-29RENAL FAILURE: <15 AST 16 U/L 15-37 [facility] ALT 20 U/L 12-78 [facility] ALKALINE PHOSPHATASE 68 U/L 46-116 [facility] pital TOTAL BILIRUBIN 0.4 mg/dL 0.2-1.0 [facility] TOTAL PROTEIN 7.7 g/dl 6.4-8.2 [facility] ALBUMIN 4.1 gm/dL 3.4-5.0 [facility] ID Date Data Source [id number] 03/03/2020 01:31:00 PM [facility] l Name Value Range Interpretation Code Description Data [facility](s) Supporting Document(s) Campylobacter Not Detected Detected Not [facility] Clostridium difficile toxin AB Not Detected Detected [facility] Due to the high asymptomatic carriage ra marycruz, especiallyin young children, the clinical relevance of the detectionof toxigenic C. difficile from stool should be consideredin the context of other clinical findings, patient age, andrisk factores which include hospitalization and antibioticexposure. Plesiomonas shigelloides DETECTED Detected Not [facility] Salmonella Not Detected Detected Not [facility] Vibrio Not Detected Detected Not [facility] spital Vibrio cholerae Not Detected Detected Not [facility] Yersinia enterocolitica Not Detected Detected Not [facility] Enteroaggregative E. coli Not Detected Detected Not [facility] Enteropathogenic E. coli Not Detected Detected Not [facility] Enterotoxigenic E. coli Not Detected Detected Not [facility] Shiga-like toxin-prod E. coli Not Detected Detected Not [facility] E. coli O157 Not Detected Detected Not [facility] Shigella/Enteroinvasive E coli Not Detected Detected Not [facility] Cryptosporidium Not Detected Detected Not [facility] Cyclospora cayetanensis Not Detected Detected Not [facility] Entamoeba histolytica Not Detected Detected Not [facility] Giardia Lamblia Not Detected Detected Not [facility] Adenovirus F 40/41 Not Detected Detected Not [facility] Astrovirus Not Detected Detected Not [facility] Norovirus GI/GII Not Detected Detected Not [facility] Rotavirus A Not Detected Detected Not [facility] Sapovirus Not Detected Detected Not [facility] The Above results have been determined b y using the [employer] Film[employer] system.FilmArray is an automated in vitro diagnostic system thatutilizes nested multiplex Polymerase Chain Reaction (PCR)and high-resolution melting analysis to detect and identifymultiple nucleic acid targets from clinical specimens. ID Date Data Source [id number] 01/09/2020 08:07:00 AM EDT [facility] Name Value Range Interpretation Code Description Data Mahi rce(s) Supporting Document(s) VITAMIN D, 25-HYDROXY 31.4 ng/mL 30.0-100.0 [facility] Vitamin D deficiency has been defined by the [place] of[employer] and an Endocrine Society practice guideline as alevel of serum 25-OH vitamin D less than 20 ng/mL (1,2).The Endocrine Society went on to further define vitamin Dinsufficiency as a level between 21 and 29 ng/mL (2).1. IOM ([place] [employer]). 2010. Dietary reference intakes for calcium and D. [place]: The National Academies Press.2. Bakari MF, Laila NC, Keysha MAYROGA, et al. Evaluation, treatment, and prevention of vitamin D deficiency: an Endocrine Society clinical practice guideline. JCEM. 2010; 96(7):1911- 30.Performed at: [facility] [address] [id number] Director: Edie Guzmán MD, Phone: [phone] ID Date Data Source [id number] 01/09/2020 08:07:00 AM EDT [facility] Name Value Range Interpretation Code Description Data Mahi rce(s) Supporting Document(s) VITAMIN B12 291 pg/mL 232-1245 [facility] FOLATE (FOLIC ACID), SERUM 16.7 ng/mL >3.0 [facility] A serum folate concentration of less silvino n 3.1 ng/mL isconsidered to represent clinical deficiency. ID Date Data Source [id number] 01/09/2020 08:06:00 AM EDT [facility] Name Value Range Interpretation Code Description Data Mahi rce(s) Supporting Document(s) Vitamin B12 291 pg/mL 232-1245 [facility] Folate (Folic Acid), Serum 16.7 ng/mL >3.0 [facility] A serum folate concentration of less silvino n 3.1 ng/mL isconsidered to represent clinical deficiency. ID Date Data Source [id number] 01/09/2020 08:06:00 AM EDT [facility] Name Value Range Interpretation Code Description Data Mahi rce(s) Supporting Document(s) Vitamin D, 25-Hydroxy 31.4 ng/mL 30.0-100.0 [facility] Vitamin D deficiency has been defined by the [place] [employer] and an Endocrine Society practice guideline as alevel of serum 25-OH vitamin D less than 20 ng/mL (1,2).The Endocrine Society went on to further define vitamin Dinsufficiency as a level between 21 and 29 ng/mL (2).1. IOM ([place] [employer]). 2010. Dietary reference intakes for calcium and D. [place]: The National Academies Press.2. Bakari MF, Laila NC, Keysha MAYORGA, et al. Evaluation, treatment, and prevention of vitamin D deficiency: an Endocrine Society clinical practice guideline. JCEM. 2010; 96(7):1911-30. ID Date Data Source [id number] 01/08/2020 08:27:00 AM EDT [facility] l Name Value Range Interpretation Code Description Data Mahi rce(s) Supporting Document(s) FREE T4 0.84 ng/dL 0.76-1.46 [facility] ID Date Data Source [id number] 01/08/2020 08:27:00 AM EDT [facility] l Name Value Range Interpretation Code Description Data Mahi rce(s) Supporting Document(s) TSH 1.60 uIU/mL 0.36-3.74 [facility] ID Date Data Source [id number] 01/08/2020 08:27:00 AM EDT [facility] Name Value Range Interpretation Code Description Data Mahi rce(s) Supporting Document(s) IRON 219 ug/dL 50-170 H [facility] TIBC 345 ug/dL 250-450 [facility] % SATURATION 63 % 20-50 H [facility] ID Date Data Source [id number] 01/08/2020 08:27:00 AM EDT [facility] Name Value Range Interpretation Code Description Data Mahi rce(s) Supporting Document(s) CHOLESTEROL 192 mg/dL 0-200 [facility] TRIGLYCERIDES 87 mg/dL 0-150 [facility] LDL CHOLESTEROL 94 mg/dL 0-100 [facility] HDL CHOLESTEROL 81 mg/dL 40-60 H [facility] CHOL/HDL RATIO 2.4 0.0-5.0 [facility] ID Date Data Source [id number] 01/08/2020 08:17:00 AM EDT [facility] l Name Value Range Interpretation Code Description Data Mahi rce(s) Supporting Document(s) HGBA1C 5.3 % 3.8-5.6 [facility] Diabetic > or = to 6.5%Prediabetes 5.7-6 .4%Normal <5.7 ID Date Data Source [id number] 01/08/2020 08:17:00 AM EDT [facility] l Name Value Range Interpretation Code Description Data Mahi rce(s) Supporting Document(s) ESTIMATED AVERAGE GLUCOSE 105.4 mg/dL [facility] ID Date Data Source [id number] 01/08/2020 07:51:00 AM EDT [facility] l Name Value Range Interpretation Code Description Data Mahi rce(s) Supporting Document(s) WHITE BLOOD COUNT 5.3 K/mm3 4.0-10.0 [facility] al RED BLOOD COUNT 4.35 M/mm3 4.00-5.50 [facility] HEMOGLOBIN 13.1 gm/dL 12.0-16.0 [facility] HEMATOCRIT 39.2 % 36.0-48.8 [facility] MEAN CELL VOLUME 90.1 fl 80-96 [facility] MEAN CORPUSCULAR HEMOGLOBIN 30.1 pg 27.0-31.0 [facility] MEAN CORPUSCULAR HGB CONC 33.4 g/dl 32.0-36.0 [facility] RED CELL DISTRIBUTION WIDTH 12.8 % 10.0-14.5 [facility] PLATELET COUNT 197 K/mm3 172-450 [facility] MEAN PLATELET VOLUME 10.4 fl 9.0-13.0 [facility] pital GRAN % 42.6 % 50-80.0 L [facility] IG% 0.2 % 0.0-0.2 [facility] LYMPH % 41.9 % 25.0-50.0 [facility] MONO % 10.2 % 2.0-10.0 H [facility] EOS % 4.5 % 0-5.0 [facility] BASO % 0.6 % 0.0-2.0 [facility] GRAN # 2.3 K/mm3 2.0-8.00 [facility] IG# 0.0 K/mm3 0.0-0.2 [facility] LYMPH # 2.2 K/mm3 1.0-5.0 [facility] MONO # 0.5 K/mm3 0.10-1.20 [facility] EOS # 0.2 K/mm3 0.0-0.5 [facility] BASO # 0.0 K/mm3 0.0-0.2 [facility] Procedure Social History Code Duration Value Status Description Data Source(s ) Smoking 04/22/2020 12:00:00 AM EST Never Smoker completed Never S moker eCW1 ([facility]) Smoking 04/22/2020 12:00:00 AM EST Never Smoker completed Never S moker eCW1 ([facility]) Smoking 04/22/2020 12:00:00 AM EST Never Smoker completed Never S moker eCW1 ([facility]) Vital Signs ID Date Data Source [id number] Name Value Range Interpretation Code Description Data Source(s) Diastolic blood pressure 83 mm[Hg] 83 mm[Hg] eCW1 ([facility]) Systolic blood pressure 129 mm[Hg] 129 mm[Hg] e CW1 ([facility]) Body temperature 98.2 [degF] 98.2 [degF] eCW1 ( [facility]) Respiratory rate 16 /min 16 /min eCW1 ([facility] Heart rate 66 /min 66 /min eCW1 ([facility]) Body mass index (BMI) [Ratio] 37.85 kg/m2 37.85 kg/m2 W1 ([facility]) Body height 65.5 [in_i] 65.5 [in_i] eCW1 ([facility]) Body weight 231 [lb_av] 231 [lb_av] eCW1 ([facility]) ID Date Data Source [id number] 05/15/2020 01:22:00 PM EST [facility] Name Value Range Interpretation Code Description Data Source(s) WEIGHT 106.9 kilos 106.9 kilos [facility] HEIGHT 167.64 centimeters 167.64 centimeter [facility] ID Date Data Source [id number] 05/11/2020 08:14:00 PM EST [facility] Name Value Range Interpretation Code Description Data Source(s) WEIGHT 105 kilos 105 kilos [facility] HEIGHT 167.64 centimeters 167.64 centimeter [facility] [facility] WEIGHT 102.9 kilos 102.9 kilos [facility] HEIGHT 167.64 centimeters 167.64 centimeter [facility] Patient Treatment Plan of Care Planned Activity Planned Date Details Description Data Source (s) Clonazepam 0.5 MG Oral Tablet 04/23/2020 12:00:00 AM EST eCW1 ([facility]) Clonazepam 0.5 MG Oral Tablet 04/23/2020 12:00:00 AM EST eCW1 ([facility]) Clonazepam 0.5 MG Oral Tablet 04/23/2020 12:00:00 AM EST eCW1 ([facility])
[2020-05-15] MEDS: ACETAMINOPHEN TAB 650MG DOSE (2X325MG) PO PRN (18:55)
[2020-05-15] MEDS: LR 1,000 ML IV SCH (21:45)
[2020-05-16] MEDS: metroNIDAZOLE 500 MG in IV 1 EA IV SCH ×3 (04:00→20:07)
[2020-05-16] MEDS: LR 1,000 ML IV SCH (06:44)
--- NOTE | 2020-05-16 07:56 | HPEPDOC ---
General Surgery H&P Date of Admission May 15, 2020 Attending Physician: TERENCE RODRÍGUEZ MD History and Physical CHIEF COMPLAINT: ABDOMINAL PAIN HISTORY OF PRESENT ILLNESS: Patient is a 45-year-old female seen in the emergency room who is complaining of worsening right-sided abdominal pain. Her problem started April 28 and she has acute appendicitis for which she underwent laparoscopic appendectomy at [facility], at [place], [place]. This, by her report is non-complicated, nonperforated acute appendicitis. She later went home the same day. She felt better but close to a week after started having fevers and return of for abdominal pain and she returned to the hospital and was found to have an abscess intra-abdominally. This initially was treated with CT-guided percutaneous aspiration. A drain was not left in place as the radiologist was concerned about possibly getting the nearby bowels. Again she felt improved and was discharged home on antibiotics. A few days after she again have recurrent right-sided abdominal pain and fever and return to the hospital. This was last week. She had recurrence of her abscess and this time around she underwent diagnostic laparoscopy and laparoscopic drainage of abscess and a drain was left in place. She was discharged home 4 days after, afebrile. She was on Augmentin. Again she improved but a couple of days after started having right-sided abdominal pain and low-grade fever. She saw her surgeon yesterday who switched her antibiotics from Augmentin to Levaquin and Flagyl. This did not improve her symptoms and thus patient is seen in the emergency room. Patient reports low-grade fever, poor oral intake so she denies any nausea or vomiting. She is able to ask acid and have soft bowel movements. She remains to have a Shaheen-Lowery drain in place and this drains purulent fluid. ALLERGIES: Please see below. HOME MEDICATIONS: Please see below. PAST MEDICAL HISTORY: 1. History of seizures/hypoglycemia post gastric bypass 2. Hypertension. 3 history of tachycardia has resolved 4. History of iron deficiency anemia resolved PAST SURGICAL HISTORY: 1. h/o gastric bypass 2. Recent history of laparoscopic appendectomy (04/28/2020) 3. Hip pinning left side PERSONAL/SOCIAL HISTORY: Denies smoking, I'll call use. REVIEW OF SYSTEMS: GENERAL: Patient's been reporting intermittent low-grade fever for the past couple of days. HEENT: Denies vision or hearing problems. NECK: [Denies any neck pain]. CARDIOVASCULAR: [Denies chest pain and palpitations]. MUSCULOSKELETAL: [Denies arthralgias, back pain and thrombophlebitis]. SKIN: [Denies rash]. NEUROLOGIC: Denies headaches. ENDOCRINE: Denies any thyroid disease, diabetes. HEMATOLOGY/ONCOLOGY: [Denies any bleeding or clotting disorder]. She is not on any blood thinner HEART: Denies angina. PULMONARY: [Denies chronic cough, dyspnea and wheezing]. GASTROINTESTINAL: See HPI. GENITOURINARY: [Denies dysuria, frequency, hematuria and nocturia]. ENDOCRINE: [Denies polydipsia, polyphagia, polyuria, heat or cold intolerance]. INFECTIOUS: Patient currently on Levaquin and Flagyl, previously on Augmentin has had Zosyn as an inpatient for intra-abdominal abscess post-appendicitis. NUTRITION: Reports poor appetite. PHYSICAL EXAMINATION: VITAL SIGNS: Please see below. GENERAL APPEARANCE: Relatively comfortable, in no acute distress. [Awake, alert, oriented]. HEENT: [Normocephalic, atraumatic. Anicteric sclerae. Lips mildly dry]. CHEST: [No chest wall abnormalities. Normal respiratory motion/effort]. NECK: [Supple. No thyromegaly. No lymphadenopathies]. LUNGS: [Lung sounds are clear to auscultation bilaterally. No wheezing appreciated]. HEART: Regular heart rate and rhythm. ABDOMEN: Obese abdomen, mildly loose pannus, nondistended. Port sites with some bruising around it from recent surgery. She has a suprapubic drain which has some whitish pinkish purulent fluid roughly about 15-20 mL's in the bulb. She's tender on palpation with mild guarding over the right lower quadrant area. SKIN: Warm and dry. EXTREMITIES: No significant edema. NEUROLOGICAL: Awake, alert and oriented. ANCILLARIES: . LABORATORY DATA: Please see below. MICROBIOLOGY: Please see below. IMAGING: CT abdomen and pelvis pericecal inflammation with probable pericecal abscess 2.6 x 3.2 x 3.1 centimeter collection containing small bowel gas this is away from the location of the drain. IMPRESSION AND PLAN: Recent acute appendicitis with cecal a of intra-abdominal abscess, currently has a drain. She has another focus of abscess next to the cecum which is away from the drain and she continues to have some low-grade fever, low-grade systemic inflammatory response secondary to this. I will admit her in the hospital and arranged for CT-guided percutaneous drainage of the abscess collection next to her cecum. I will continue Levaquin and Flagyl for now. I do not have the current microbiology from her prior admissions. We will try to get that from the other hospital. Vital Signs Vital Signs Date Time Temp Pulse Resp B/P (MAP) Pulse Ox O2 Delivery O2 Flow Rate FiO2 05/16/20 07:06 71 16 107/70 (82) 94 05/16/20 06:16 96.6 Room Air I&Os I&O- Last 24 Hours up to 6 AM 05/16/20 05:59 Intake Total 1100 ml Balance 1100 ml Laboratory Data Labs 24H Laboratory Tests 2 05/15/20 15:15: Immature Granulocyte % (Auto) 1.5, Neutrophils (%) (Auto) 69.7H, Lymphocytes (%) (Auto) 19.5L, Monocytes (%) (Auto) 7.6H, Eosinophils (%) (Auto) 1.0, Basophils (%) (Auto) 0.7, Neutrophils # (Auto) 7.3, Lymphocytes # (Auto) 2.1, Monocytes # (Auto) 0.8, Eosinophils # (Auto) 0.1, Basophils # (Auto) 0.1, Nucleated Red Blood Cells % (auto) 0.0, Anion Gap 4L, Glomerular Filtration Rate > 60.0, Lactic Acid Level 1.2, Calcium Level 9.1, Total Bilirubin 0.4, Aspartate Amino Transf (AST/SGOT) 31, Alanine Aminotransferase (ALT/SGPT) 23, Alkaline Phosphatase 77, Total Protein 7.5, Albumin 3.1L, Albumin/Globulin Ratio 0.7L CBC/BMP Laboratory Tests 05/15/20 15:15 Microbiology Microbiology 05/15/20 Respiratory Virus Panel (PCR) (KRISTI) - Final, Complete 05/15/20 Blood Culture, Received Pending 05/15/20 Blood Culture, Received Pending Home Medications Scheduled Citalopram Hydrobromide (Celexa) 20 Mg Tablet, 20 MG PO DAILY, (Reported) Levofloxacin (Levofloxacin) 750 Mg Tablet, 750 MG PO DAILY, (Reported) FOR 10 DAYS, STARTED 05/13/20 Metronidazole (Metronidazole) 500 Mg Tablet, 500 MG PO TID, (Reported) FOR 10 DAYS, STARTED 05/13/20 Allergies Coded Allergies: metoclopramide (Verified Allergy, Intermediate, Hives, 05/15/20) A-FIB/CHADSVASC A-FIB History Current/History of A-Fib/PAF?: No Current PO Anticoag Therapy: No TERENCE RODRÍGUEZ MD May 16, 2020 07:55
[2020-05-16] MEDS: ACETAMINOPHEN TAB 650MG DOSE (2X325MG) PO PRN ×2 (08:17→17:48)
--- NOTE | 2020-05-16 08:49 | ECGEPIP ---
[facility] - ED Test Date: 2020-05-15 Pat Name: SUSAN RENDON Department: Room: [place] [address] Gender: Female [employer]: : 1975 Requested By: SHERRELL FIGUEROA PA-C. Order Number: [id number] Reading MD: Mark Neves Measurements Intervals [place] Rate: 86 P: 47 MA: 140 QRS: -1 QRSD: 89 T: -1 QT: 345 QTc: 414 Interpretive Statements SINUS RHYTHM POOR R WAVE PROGRESSION NONSPECIFIC T WAVE ABNORMALITY(S) NO PRIORS FOR COMPARISON Electronically Signed on 05-16-2020 8:48:50 EST by Mark Neves
[2020-05-16] MEDS: PANTOPRAZOLE 40MG VIAL (C9113 PER 1) IV SCH (09:28)
[2020-05-16] MEDS: ENOXAPARIN 40MG/0.4ML SYRINGE (J1650 PER 10MG) SC SCH (09:32)
[2020-05-16] MEDS: CitaloPRAM (CeleXA) 20 MG TAB PO SCH (10:27)
--- NOTE | 2020-05-16 11:09 | IPNPDOC ---
Text Note Date of Service The patient was seen on 05/16/20. NOTE feels mildly improved, afebrile VS reviewed afebrile On exam looks fairly comfortable abdomen: soft, decreased tenderness rlq, drain put out 20 mLs of purulent fluid overnight Impression and plan postop intraabdominal abscess following acute appendicitis I spoke with Dr. Gomez from Radiology. He does no see any obvious abscess on the CT. I will repeat the CT with oral contrast to better define this and if there is undrained collection, try to have them drain the collection continue abx will send ehsan drainage for gm stain and culture. I do not have the gm stain and culture from [facility] VS,Raquel I+O VS, Raquel I+O Laboratory Tests 05/15/20 15:15 Vital Signs Date Time Temp Pulse Resp B/P (MAP) Pulse Ox O2 Delivery O2 Flow Rate FiO2 05/16/20 10:00 140/87 (104) 05/16/20 09:59 80 97 05/16/20 09:29 18 05/16/20 09:06 Room Air 05/16/20 06:16 96.6 I&O- Last 24 Hours up to 6 AM 05/16/20 06:00 Intake Total 1100 ml Balance 1100 ml TERENCE RODRÍGUEZ MD May 16, 2020 11:09
[2020-05-16] MEDS: GASTROGRAFIN SOLUTION 30ML PO SCH ×2 (11:14→12:01)
--- NOTE | 2020-05-16 14:58 | REP ---
INDICATION: w/ po contrast only; clarify for presence of undrained abscess COMPARISON: 05/15/2020. TECHNIQUE: CT Scan of the abdomen and pelvis was performed without intravenous contrast. Sagittal and coronal reconstruction images performed. Oral contrast was administered. FINDINGS: Lung bases: Unremarkable. Liver: Grossly unremarkable. Gallbladder: Unremarkable. Spleen: Grossly unremarkable.. Adrenals: Normal. Pancreas: Grossly unremarkable.. Kidneys: No hydronephrosis or nephrolithiasis. Ureters demonstrate no dilatation or calculus. Small and large bowel: There is thickening of the terminal ileum. There is thickening of an adjacent small bowel loop in the right lower quadrant. Streaky inflammatory changes are seen in the mesenteric fat in that region. There is no abscess seen. There is also a surgical drain in that region. Free fluid: None. Abdominal aorta: No aneurysm. Adenopathy: None. Osseous structures: Unremarkable. Pelvis: No mass. No bladder calculus seen. IMPRESSION: Inflammatory thickening of small bowel loops in the right lower quadrant, with associated inflammatory change in the adjacent mesenteric fat. No abscess collection. <Electronically signed by Dheeraj Gomez > 05/16/20 [id number]
[2020-05-16 15:57] VITALS: BP 132/85
[2020-05-16] MEDS: LevoFLOXacin IV 500 MG in IV 1 EA IV SCH (17:48)
[2020-05-16 22:00] VITALS: BP 109/71
[2020-05-17] MEDS: metroNIDAZOLE 500 MG in IV 1 EA IV SCH ×3 (03:47→20:28)
[2020-05-17] MEDS: ACETAMINOPHEN TAB 650MG DOSE (2X325MG) PO PRN ×2 (05:06→13:24)
[2020-05-17 06:00] VITALS: BP 122/63
[2020-05-17 07:12] LABS: BASO % 0.6 % (0.0-1.0); EOS # 0.1 10^3/uL (0.0-0.5); EOS % 1.9 % (0.0-3.0); HEMATOCRIT 31.8 % (36.0-47.0); LYMPH # 1.8 10^3/uL (1.5-5.0); LYMPH % 28.1 % (24.0-44.0); MEAN CORPUSCULAR HEMOGLOBIN 28.8 pg (27.0-33.0); MEAN CORPUSCULAR HGB CONC 31.8 g/dl (32.0-36.5); MEAN CORPUSCULAR VOLUME 90.6 fl (80.0-96.0); MONO # 0.7 10^3/uL (0.0-0.8); MONO % 11.7 % (0.0-5.0); NEUTROPHILS # 3.6 10^3/uL (1.5-8.5); NEUTROPHILS % 56.4 % (36.0-66.0); PLATELET COUNT, AUTOMATED 364 10^3/uL (150-450); RED BLOOD COUNT 3.51 10^6/uL (4.00-5.40); WHITE BLOOD COUNT 6.3 10^3/uL (4.0-10.0)
[2020-05-17 07:33] LABS: HEMOGLOBIN 10.1 g/dl (12.0-15.5)
[2020-05-17 07:41] LABS: BLOOD UREA NITROGEN 8 MG/DL (7-18); C REACTIVE PROTEIN QUANTITATIV 8.39 MG/DL (0.00-0.30); CALCIUM LEVEL 8.3 MG/DL (8.5-10.1); CARBON DIOXIDE LEVEL 27 MEQ/L (21-32); CHLORIDE LEVEL 105 MEQ/L (98-107); CREATININE FOR GFR 0.49 MG/DL (0.55-1.30); GLOMERULAR FILTRATION RATE > 60.0 (>58); GLUCOSE, FASTING 87 MG/DL (70-100); POTASSIUM SERUM 4.2 MEQ/L (3.5-5.1); SODIUM LEVEL 140 MEQ/L (136-145)
[2020-05-17] MEDS: CitaloPRAM (CeleXA) 20 MG TAB PO SCH (10:19)
[2020-05-17] MEDS: ENOXAPARIN 40MG/0.4ML SYRINGE (J1650 PER 10MG) SC SCH (10:19)
[2020-05-17] MEDS: PANTOPRAZOLE 40MG VIAL (C9113 PER 1) IV SCH (10:19)
[2020-05-17 14:00] VITALS: BP 107/72
[2020-05-17] MEDS: LevoFLOXacin IV 500 MG in IV 1 EA IV SCH (17:40)
--- NOTE | 2020-05-17 21:33 | IPN ---
PROGRESS NOTE DATE: 05/17/2020 SUBJECTIVE: The patient is status post appendicitis with postoperative abscess at an outside hospital, and she was admitted for recurrence of infection. She had a white count that was slightly elevated on admission of 10.5, but today her white count is down to 6.3. She has been afebrile for almost 48 hours now, and her CAT scan shows no evidence of abscess but still with some inflammatory process. She is still complaining of discomfort on the right hand side, but states that this is much better than it was, and she was able to get up and move around a little bit better as well. PHYSICAL EXAMINATION: ABDOMEN: Soft, nontender, nondistended. She has some minimal discomfort on the right lower quadrant and in the midline where she has a small laparoscopic incision, but I am not seeing any cellulitis and no other significant abnormalities. The MERYL drain has serosanguinous with some old purulent type of fluid in it, but no feculent drainage. IMPRESSION AND PLAN: The patient has significant improvement of her overall symptoms and seems to be making some good progress. My recommendation at this time is that we watch her for another 24 hours and if she is doing well at that point, I do feel that discharge home tomorrow on the p.o. medications is very reasonable. My other thought is at this point even though her MERYL drain is really not draining all that much, is that we may want to keep this in a little bit longer as well, given the previous history of recurrences of the abscess and possibly discontinuing that next week in the office. In any case, we will see how she is doing over the next 24 hours, but at this point is making some good progress, and both the patient and staff are happy with this progress.
[2020-05-17 22:00] VITALS: BP 117/69
[2020-05-18] MEDS: ACETAMINOPHEN TAB 650MG DOSE (2X325MG) PO PRN (03:13)
[2020-05-18] MEDS: metroNIDAZOLE 500 MG in IV 1 EA IV SCH (03:14)
[2020-05-18 06:00] VITALS: BP 123/67
[2020-05-18 07:25] LABS: BASO % 0.5 % (0.0-1.0); EOS # 0.2 10^3/uL (0.0-0.5); EOS % 2.9 % (0.0-3.0); HEMATOCRIT 34.2 % (36.0-47.0); HEMOGLOBIN 10.9 g/dl (12.0-15.5); LYMPH # 2.3 10^3/uL (1.5-5.0); LYMPH % 40.8 % (24.0-44.0); MEAN CORPUSCULAR HGB CONC 31.9 g/dl (32.0-36.5); MONO # 0.7 10^3/uL (0.0-0.8); MONO % 11.7 % (0.0-5.0); NEUTROPHILS # 2.4 10^3/uL (1.5-8.5); NEUTROPHILS % 42.8 % (36.0-66.0); PLATELET COUNT, AUTOMATED 359 10^3/uL (150-450); RED BLOOD COUNT 3.76 10^6/uL (4.00-5.40); WHITE BLOOD COUNT 5.6 10^3/uL (4.0-10.0)
[2020-05-18 07:59] LABS: BLOOD UREA NITROGEN 9 MG/DL (7-18); C REACTIVE PROTEIN QUANTITATIV 5.48 MG/DL (0.00-0.30); CARBON DIOXIDE LEVEL 28 MEQ/L (21-32); CHLORIDE LEVEL 104 MEQ/L (98-107); CREATININE FOR GFR 0.54 MG/DL (0.55-1.30); GLOMERULAR FILTRATION RATE > 60.0 (>58); GLUCOSE, FASTING 88 MG/DL (70-100); POTASSIUM SERUM 4.4 MEQ/L (3.5-5.1); SODIUM LEVEL 139 MEQ/L (136-145)
[2020-05-18] MEDS: CitaloPRAM (CeleXA) 20 MG TAB PO SCH (09:43)
[2020-05-18] MEDS: ENOXAPARIN 40MG/0.4ML SYRINGE (J1650 PER 10MG) SC SCH (09:43)
[2020-05-18] MEDS: PANTOPRAZOLE 40MG VIAL (C9113 PER 1) IV SCH (09:43)
--- NOTE | 2020-06-20 09:34 | DS.PDOC ---
Discharge Summary General Date of Admission May 15, 2020 at 18:14 Date of Discharge May 18, 2020 Attending Physician: TERENCE RODRÍGUEZ MD Discharge Summary PROCEDURES PERFORMED DURING STAY: None. ADMITTING DIAGNOSES: 1. s/p appendectomy with postoperative intraabdominal abscess. 2. Bariatric surgery status DISCHARGE DIAGNOSES: 1. same. 2. Bariatric surgery status COMPLICATIONS/CHIEF COMPLAINT: Intra-Abdominal Abscess. HISTORY OF PRESENT ILLNESS: .Patient is a 45-year-old female seen in the emergency room who is complaining of worsening right-sided abdominal pain. Her problem started April 28 and she has acute appendicitis for which she underwent laparoscopic appendectomy at [facility], at [place], [place]. This, by her report is non-complicated, nonperforated acute appendicitis. She later went home the same day. She felt better but close to a week after started having fevers and return of for abdominal pain and she returned to the hospital and was found to have an abscess intra-abdominally. This initially was treated with CT-guided percutaneous aspiration. A drain was not left in place as the radiologist was concerned about possibly getting the nearby bowels. Again she felt improved and was discharged home on antibiotics. A few days after she again have recurrent right-sided abdominal pain and fever and return to the hospital. This was last week. She had recurrence of her abscess and this time around she underwent diagnostic laparoscopy and laparoscopic drainage of abscess and a drain was left in place. She was discharged home 4 days after, afebrile. She was on Augmentin. Again she improved but a couple of days after started having right-sided abdominal pain and low-grade fever. She saw her surgeon yesterday who switched her antibiotics from Augmentin to Levaquin and Flagyl. This did not improve her symptoms and thus patient is seen in the emergency room. Patient reports low- grade fever, poor oral intake so she denies any nausea or vomiting. She is able to ask acid and have soft bowel movements. She remains to have a Shaheen-Lowery drain in place and this drains purulent fluid. HOSPITAL COURSE: Patient was admitted to the hospital and continued on IV Levaquin and metronidazole. Initial CT that was done in the emergency room was read as a po ssible pericecal abscess away from the drain. Arrange for possible percutaneous drainage of this collection. Initial reading was done by our virtual radiology. During the morning I spoke with our in-house radiologist and reviewed the images with him. He does not think that there is any drainable collection in the air- fluid level is actually intraluminal. So we repeat his CT with by mouth and IV contrast and allow the contrast go through the whole small bowel and right colon. There was no abscess seen on the repeat CT. As we continued her on the IV antibiotics report on a diet initially on clear liquids and gradually advanced her to a soft solid diet she is able to tolerate this. Throughout her stay in the hospital she has been afebrile. She had initial mildly dilated doses of 10.5 which immediately normalized. Her C-reactive protein is noted to be trending downward. On day of discharge is tolerating regular soft solid food without any nausea or vomiting. Be The original drain and she was discharged home with this and will follow-up with me in the clinic for possible removal. DISCHARGE MEDICATIONS: Please see below. ALLERGIES: Please see below. PHYSICAL EXAMINATION ON DISCHARGE: VITAL SIGNS: Please see below. GENERAL: Comfortable in appearance HEENT: [place] palpebral conjunctiva, anicteric sclerae. CARDIOVASCULAR EXAMINATION: Regular heart rate and rhythm RESPIRATORY EXAMINATION: Clear breath sounds auscultation bilaterally without wheezing ABDOMINAL EXAMINATION: Minimally distended, soft, prior tenderness over the right lower quadrant and suprapubic area markedly improved. Suprapubic drain with mixed serosanguineous and cold purulent fluid and tissue. No feculent discharge. EXTREMITIES: No significant extremity edema SKIN: Warm and dry, no jaundice NEUROLOGICAL EXAMINATION: Awake, alert and oriented LABORATORY DATA: Please see below. IMAGING: CT abdomen and pelvis with by mouth and IV contrast 2 PROGNOSIS: Good ACTIVITY: As tolerated. DIET: Low residue diet advanced as tolerated DISCHARGE PLAN: Patient will follow-up with me in the clinic next week for possible removal of the drain DISPOSITION: 01 Home, Self-Care. DISCHARGE INSTRUCTIONS: 1. As above. 2. Complete remaining antibiotics ITEMS TO FOLLOWUP ON ON OUTPATIENT: 1. Drain output. DISCHARGE CONDITION: Stable. TIME SPENT ON DISCHARGE: Greater than 30 minutes. Vital Signs/I&Os Vital Signs Date Time Temp Pulse Resp B/P (MAP) Pulse Ox O2 Delivery O2 Flow Rate FiO2 05/18/20 06:00 97.4 76 17 123/67 (85) 97 Room Air I&O- Last 24 Hours up to 6 AM 05/19/20 06:00 Intake Total 360 ml Balance 360 ml Microbiology Microbiology 05/16/20 Gram Stain - Final, Complete 05/16/20 Body Fluid Culture - Final, Complete 05/15/20 Respiratory Virus Panel (PCR) (KRISTI) - Final, Complete 05/15/20 Blood Culture - Preliminary, Resulted No Growth after 72 hours. All specime... 05/15/20 Blood Culture - Preliminary, Resulted No Growth after 72 hours. All specime... Discharge Medications Scheduled Citalopram Hydrobromide (Celexa) 20 Mg Tablet, 20 MG PO DAILY, (Reported) Levofloxacin (Levofloxacin) 750 Mg Tablet, 750 MG PO DAILY, (Reported) FOR 10 DAYS, STARTED 05/13/20 Allergies Coded Allergies: metoclopramide (Verified Allergy, Intermediate, Hives, 05/15/20) TERENCE RODRÍGUEZ MD May 19, 2020 09:55
== END 2020-05-18 11:44 | disposition home or self-care (01) | DRG 721 ==
LOC: M ED 14:08 → M ED INP 18:14 → M MSPAV 05-16 15:57
PROVIDERS: ADMIT Surgery; ATTEND Surgery
DX: T81.43XA Infection following a procedure, organ and space surgical site, initial encounter (principal); K65.1 Peritoneal abscess; G40.909 Epilepsy, unspecified, not intractable, without status epilepticus; I10 Essential (primary) hypertension; Z98.84 Bariatric surgery status; Z88.8 Allergy status to other drugs, medicaments and biological substances; Z79.899 Other long term (current) drug therapy; Y83.6 Removal of other organ (partial) (total) as the cause of abnormal reaction of the patient, or of later complication, without mention of misadventure at the time of the procedure

== ENCOUNTER → 2020-06-05 | Outpatient (REF) | payer BC ==
[~2020-06-05] MED LIST: CELE20TA PO; CLON0.5T2; LEVO750T13 PO; METR-265 PO
[2020-06-06 11:27] LABS: BASO # 0.1 10^3/uL (0.0-0.2); BASO % 1.1 % (0.0-1.0); EOS # 0.2 10^3/uL (0.0-0.5); EOS % 3.6 % (0.0-3.0); HEMATOCRIT 40.8 % (36.0-47.0); HEMOGLOBIN 12.8 g/dl (12.0-15.5); LYMPH # 2.7 10^3/uL (1.5-5.0); LYMPH % 40.5 % (24.0-44.0); MEAN CORPUSCULAR HEMOGLOBIN 28.9 pg (27.0-33.0); MEAN CORPUSCULAR HGB CONC 31.4 g/dl (32.0-36.5); MEAN CORPUSCULAR VOLUME 92.1 fl (80.0-96.0); MONO # 0.7 10^3/uL (0.0-0.8); MONO % 10.6 % (0.0-5.0); NEUTROPHILS # 2.9 10^3/uL (1.5-8.5); NEUTROPHILS % 43.9 % (36.0-66.0); PLATELET COUNT, AUTOMATED 210 10^3/uL (150-450); RED BLOOD COUNT 4.43 10^6/uL (4.00-5.40); WHITE BLOOD COUNT 6.6 10^3/uL (4.0-10.0)
[2020-06-06 12:07] LABS: ALBUMIN 3.9 GM/DL (3.2-5.2); ALT/SGPT 37 U/L (12-78); BILIRUBIN,TOTAL 0.2 MG/DL (0.2-1.0); BLOOD UREA NITROGEN 16 MG/DL (7-18); CALCIUM LEVEL 9.4 MG/DL (8.5-10.1); CARBON DIOXIDE LEVEL 30 MEQ/L (21-32); CHLORIDE LEVEL 103 MEQ/L (98-107); CREATININE FOR GFR 0.68 MG/DL (0.55-1.30); GLOMERULAR FILTRATION RATE > 60.0 (>58); GLUCOSE, FASTING 103 MG/DL (70-100); POTASSIUM SERUM 4.9 MEQ/L (3.5-5.1); SODIUM LEVEL 138 MEQ/L (136-145); TOTAL PROTEIN 7.3 GM/DL (6.4-8.2)
== END ==
LOC: M SFHCCLAY 14:22
PROVIDERS: ATTEND Nurse Practitioner Family
DX: K35.33 Acute appendicitis with perforation, localized peritonitis, and gangrene, with abscess (principal); A49.1 Streptococcal infection, unspecified site; B96.7 Clostridium perfringens [C. perfringens] as the cause of diseases classified elsewhere; Z12.11 Encounter for screening for malignant neoplasm of colon

== ENCOUNTER → 2021-05-05 | Outpatient (CLI) | payer BC ==
--- NOTE | 2021-05-05 16:33 | REPMRS ---
Patient History The patient states she had a clinical breast exam in 05/2021. No known family history of cancer. No Hormone Replacement Therapy Tomosynthesis is performed. Volpara breast density is b. Tyrer-Cuzick lifetime risk of breast cancer 9.4%. Patient states no breast complaints today. Patient has signed MRS History Sheet. Moderna vaccine 06/2020, 06/2020, booster 03/2021. Digital Woman Screen Mammo: May 05, 2021 - Exam #: [id number] Bilateral CC and MLO view(s) were taken. Technologist: Kassandra Rivero, Technologist Prior study comparison: January 08, 2020, bilateral digital woman screen mammo performed at [facility]. 2018, bilateral digital mammo screening bilat, performed at [facility]. FINDINGS: The breast tissue is heterogeneously dense. This may lower the sensitivity of mammography. There has been no change in the appearance of the mammogram from the prior studies. There is a moderate amount of residual fibroglandular tissue which is fairly symmetric. There is no interval development of dominant mass, areas of architectural distortion, or clustered microcalcification typical of malignancy. Assessment: BI-RADS/ACR category 1 mammogram. Negative Mammogram. Recommendation Routine screening mammogram in 1 year (for women over age 40). This mammogram was interpreted with the aid of an FDA-approved computer-aided dectection system. Electronically Signed By: Dheeraj Gomez MD 05/05/21 [id number]
== END ==
LOC: M WHC 14:19
PROVIDERS: ATTEND Nurse Practitioner Women's Health
DX: Z12.31 Encounter for screening mammogram for malignant neoplasm of breast (principal)

== ENCOUNTER → 2021-05-05 | Outpatient (REF) | payer BC | LOC: M SFHCWAGY 17:16 | PROVIDERS: ATTEND Nurse Practitioner Women's Health | DX: Z12.4 Encounter for screening for malignant neoplasm of cervix (principal) | CPT/HCPCS: 87624; G0123 ==

== ENCOUNTER → 2021-07-08 | Outpatient (REF) | payer BC ==
[2021-07-08 15:51] LABS: BASO # 0.1 10^3/uL (0.0-0.2); BASO % 0.9 % (0.0-1.0); EOS # 0.1 10^3/uL (0.0-0.5); EOS % 2.1 % (0.0-3.0); HEMATOCRIT 42.9 % (36.0-47.0); HEMOGLOBIN 13.6 g/dl (12.0-15.5); LYMPH # 2.6 10^3/uL (1.5-5.0); LYMPH % 39.2 % (24.0-44.0); MEAN CORPUSCULAR HEMOGLOBIN 29.1 pg (27.0-33.0); MEAN CORPUSCULAR HGB CONC 31.7 g/dl (32.0-36.5); MEAN CORPUSCULAR VOLUME 91.9 fl (80.0-96.0); MONO # 0.6 10^3/uL (0.0-0.8); MONO % 8.7 % (2.0-8.0); NEUTROPHILS # 3.2 10^3/uL (1.5-8.5); NEUTROPHILS % 48.9 % (36.0-66.0); PLATELET COUNT, AUTOMATED 230 10^3/uL (150-450); RED BLOOD COUNT 4.67 10^6/uL (4.00-5.40); WHITE BLOOD COUNT 6.6 10^3/uL (4.0-10.0)
[2021-07-08 16:24] LABS: ALBUMIN 3.9 GM/DL (3.2-5.2); ALT/SGPT 21 U/L (12-78); BILIRUBIN,TOTAL 0.4 MG/DL (0.2-1.0); BLOOD UREA NITROGEN 13 MG/DL (7-18); CALCIUM LEVEL 9.7 MG/DL (8.5-10.1); CARBON DIOXIDE LEVEL 32 MEQ/L (21-32); CHLORIDE LEVEL 104 MEQ/L (98-107); CHOLESTEROL LEVEL 199 MG/DL (<200); CHOLESTEROL RISK RATIO 2.842 (<5); CREATININE FOR GFR 0.61 MG/DL (0.55-1.30); GLOMERULAR FILTRATION RATE > 60.0 (>58); GLUCOSE, FASTING 89 MG/DL (70-100); HDL CHOLESTEROL 70 MG/DL (>40); IRON (FE) 98 UG/DL (50-170); LDL CHOLESTEROL 109 MG/DL (<100); NON-HDL-C 129 MG/DL; PERCENT SATURATION 23.8 % (13.2-45.0); POTASSIUM SERUM 4.6 MEQ/L (3.5-5.1); SODIUM LEVEL 139 MEQ/L (136-145); TOTAL IRON BINDING CAPACITY 411 UG/DL (250-450); TOTAL PROTEIN 7.3 GM/DL (6.4-8.2); TRIGLYCERIDES LEVEL 102 MG/DL (<150)
[2021-07-08 16:31] LABS: TOTAL 25(OH) VITAMIN D 18.5 NG/ML (30.0-100.0)
[2021-07-08 20:50] LABS: HEMOGLOBIN A1c 5.3 %
== END ==
LOC: M SFHCCLAY 10:46
PROVIDERS: ATTEND Nurse Practitioner Family
DX: R00.2 Palpitations (principal); K91.2 Postsurgical malabsorption, not elsewhere classified; K21.9 Gastro-esophageal reflux disease without esophagitis; Z98.84 Bariatric surgery status

== ENCOUNTER → 2021-07-31 | Outpatient (CLI) | payer BC | LOC: M CARPUL 11:08 | PROVIDERS: ATTEND Nurse Practitioner Family | DX: R00.2 Palpitations (principal) ==

== ENCOUNTER → 2022-12-03 | Outpatient (REF) | payer BC ==
[~2022-12-03] MED LIST changes: +LEVO1TAB40 PO; -LEVO750T13 PO
== END ==
LOC: M SFHCWAGY 17:11
PROVIDERS: ATTEND Nurse Practitioner Family
DX: Z12.4 Encounter for screening for malignant neoplasm of cervix (principal)
CPT/HCPCS: 87624; G0123

== ENCOUNTER → 2022-12-03 | Outpatient (CLI) | payer BC | LOC: M WHC 12:56 | PROVIDERS: ATTEND Nurse Practitioner Family | DX: Z12.31 Encounter for screening mammogram for malignant neoplasm of breast (principal) ==

== ENCOUNTER → 2023-12-14 | Outpatient (CLI) | payer BC | LOC: M WHC 11:14 | PROVIDERS: ATTEND Nurse Practitioner Family | DX: Z12.31 Encounter for screening mammogram for malignant neoplasm of breast (principal) ==

== ENCOUNTER → 2025-03-08 | Outpatient (REF) | payer BC | LOC: M SFHCCLAY 11:53 | PROVIDERS: ATTEND Nurse Practitioner Family | DX: R12 Heartburn (principal) ==